=== PATIENT | female | born 1935 | race Caucasian/White ===

== ENCOUNTER 2017-06-20 13:00 | Outpatient (RCR) | payer MEDICARE, SELFPAY ==
--- NOTE | 2017-05-27 14:16 | HP.PTEVAL ---
Patient's Visit Information CALVIN MANCILAL is a 81 year old F referred to Physical Therapy by David MOLINA with a diagnosis of NECK AND BACK PAIN. Date of Evaluation: 05/27/17 Physical Therapist: Amena Mcdermott - Visit Plan Frequency: 2-3x /Week Duration: 4-6 Weeks Plan: AQUATIC THERAPY. POSTURE CORRECTION/STRENGTHENING, INSTRUCTION IN APPROPRIATE BODY MECHANICS AND ACTIVITY MODIFICATIONS. DLS STARTING WITH A NEUTRAL SPINE PROGRESSING ROM TOLERATED. TIFFANIE LE ROM, STRETCHING AND STRENGTHENING. HEP INSTRUCTION. 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 Disability: NO. Present symptoms: LOW BACK PAIN AND NECK PAIN. RIGHT LEG ACHING. Present since: CHRONIC. Pain Scale: NECK/UPPER BACK: WORST 7/10, LEAST 3/10, LOW BACK: WORST 8/10, LEAST 4/10. Currently: NECK/UPPER BACK: 3/10, LOW BACK: 4/10. Commenced as a result of: NO APPARENT REASON. Symptoms at onset: LOW BACK. Worse: DOING DISHES, LOADING THE AWAKE OVERNIGHT COUNSELOR, *VACUUMING, MAKING BEDS, REACHING UP, IRONING, SITTING AT SEWING MACHINE, SITTING AT COMPUTER, SITTING TO WATCH TV, UP AND DOWN STEPS, SHOPPING. Better: FREQUENT CHANGE OF POSTION, RECLINING WITH HEAT, ICY HOT, HOT WATER, TYLONOL EVERY 4 HOURS, MEDICATIONS PRESCRIBED BY THE DOCTOR. Disturbed sleep: YES. Previous history/Previous treatment: CHIROPRACTOR FOR MONTHS, TRACTION, 2016 BONE CHIP REMOVED FROM RIGHT SPINE. APRIL 2017 PIERCE WITH TEMPORARY RELIEF THAT HAS WORN OFF. NO NECK SURGERY. CERVICAL PIERCE'S A COUPLE WEEKS AGO THAT HELPED AND SHE IS STILL BENEFITING FROM. Coughing/sneezing/straining: POSITIVE. DIFFICTULTY SWOLLOWING: ONCE IN A WHILE. NAUSEA: NO. TINNITIS: YES. DIZZINESS: H/O VERTIGO. Gait: CANE AND WALKER NEEDED. ONLY ABLE TO WALK LESS THAN A QUARTER OF MILE NOW. GAIT IS LIMITED BY TIFFANIE KNEE PAIN (TIFFANIE KNEE REPLACEMENTS). Difficulty initiating urinatin: NO. Accidents: NO. Unexplained weight loss: NO. Imaging: LOW BACK X-RAYS RECENTLY ALONG WITH PELVIS AND HIPS: TIFFANIE HIP DEGENERATIVE CHANGES. LUMBAR SPINE DEGENERATIVE CHANGES WITHOUT FX. MILD DEGENERATIVE CHANGES OF THE SI JTS. PMH: HTN. Recent major surgery: TIFFANIE TKR'S. OTHER: 14 STEPS TO FAMILY ROOM IN THE WALK OUT BASEMENT FROM ENTRY. - Objective Sitting Posture: POOR. Standing Posture: POOR WITH INCREASED TRUNK FLEXION. Lordosis: REDUCED. Active Correction of posture: WORSE. Other Observations: INDEP SIT TO STAND WITHOUT UE ASSIST BUT VERY DIFFICULT. Motor deficit: TIFFANIE LE'S GROSSLY 4-/5. Sensory deficit: DECREASED RIGHT LE LIGHT TOUCH SENSATION COMPARED TO LEFT. ROM deficit: WFL BUT KNEE FLEX NOT MEASURED. Dural Signs: POSITIVE RIGHT LE. Lumbar mvmt loss: flex - MOD. ext - QUAN. R SG - QUAN. L SG - QUAN. Core strength: POOR. Palpation: TENDER WITH LIGHT PALPATION OF ENTIRE SPINE FROM OCCIPUT TO TAILBONE AND INTO TIFFANIE SI AND BUTTOCK REGIONS. - Goals Goal 1:: DECREASE C/O BACK AND LE SX'S Goal Time Frame: 4-6 Weeks Goal 2:: DECREASE C/O NECK PAIN Goal Time Frame: 4-6 Weeks Goal 3:: IMPROVE PERSONAL CARE, LIFTING, WALKING, SITTING, STANDING, SLEEPING, SOCIAL LIFE, TRAVEL AND HOMEMAKING FUNCTION Goal Time Frame: 4-6 Weeks Goal 4:: INSTRUCT IN PROPHYLAXIS Goal Time Frame: 4-6 Weeks - Rehabilitation Potential Rehabilitation Potential: Fair - Anticipated Interventions Patient/Client Instruction: Educate patient on: Condition, Plan of Care, Risk Factors, Benefits of Fitness Program For the Purpose of:: To improve self management Therapeutic Exercise to Include: Strength training, Endurance training, Balance training, Body mechanics, Postural training, Flexibilty training, Gait and locomotor training, In an aquatic setting, Active ROM, Dynamic Lumbar Stabilization, Scapular Strength/Stabilization For the Purpose of:: To improve ability of physical actions for home/community/work/leisure, To improve gait and locomotor functions Thank you for the opportunity to evaluate your patient. For Medicare and Medicare HMO plans, please review the plan of care and approve it. It will need to be FAXED BACK to us at [phone] for Medicare purposes. Please let me know if there are questions or concerns regarding this plan of care. Physician Signature: Date:
--- NOTE | 2017-06-20 15:53 | HP.PTREVAL ---
DR.ABASAL Olivia It has been my pleasure to treat CALVIN MANCILLA over the last 10 visits for NECK AND BACK PAIN. Please see the progress note below for an update on the physical therapy plan of care! Subjective: PATIENT REPORTS SHE MOVED HER TV. STATES HER NECK IS MUCH BETTER - IT ISN'T ACHING LIKE IT WAS. STATES THE EX'S HAVE HELPED HER NECK. PATIENT REPORTS THE PAIN IN HER BACK AND NECK IS NOT SEVERE. PATIENT REPORTS THE MAIN IMPROVEMENT SHE HAS SEEN IS IN THE DISCOMFORT IN HER NECK AND BACK. PATIENT HAS ORIENTATION FOR [employer] NEXT WEEK. SHE WANTS TO TO TRY TO CONTINUE POOL EX'S WITH HER MEMBERSHIP AND CONTINUE PT ONCE A WEEK FOR PROGRESSION AND CORRECTION NEEDED. SHE IS ALSO OPEN TO TRYING THE NUSTEP AGAIN WHICH SEE USED TO DO AND LIKED AFTER HER KNEE REPLACEMENTS. Objective/Function: PATIENT IS MAKING SLOW PROGRESS TOWARD ALL PT GOALS. UPON EXAM, Active Correction of posture: INCREASES PATIENTS LOW BACK PAIN. Other Observations: INDEP SIT TO STAND WITHOUT UE ASSIST MUCH MORE EASILY NOW THAN BEFORE PT. Motor deficit: RIGHT LE: HIP 4-/5, KNEE 4-/5 AND ANKLE 4/5. LLE: HIP 4/5, KNEE 4/5, ANKLE 5/5. Sensory deficit: DECREASED RIGHT LATERAL LEG LIGHT TOUCH SENSATION COMPARED TO LEFT. ROM deficit: RIGHT KNEE ROM IN SUPINE WITH A HEEL SLIDE IS FULL EXT TO 109, LEFT KNEE FULL EXT TO 118 DEG FLEX. Dural Signs: POSITIVE RIGHT LE. Lumbar mvmt loss: flex - MOD. ext - QUAN. R SG - QUAN. L SG - QUAN. NO C/O OF INCREASED PAIN WITH LUMBAR ROM TESTING TODAY. TIFFANIE UE ROM IS WFL. TIFFANIE UE STRENGTH IS GROSSLY 4/5 WITH MMT. CERVICAL MVMT LOSS: FLEX - NIL, EXT - MOD, RET - QUAN, TIFFANIE ROT - MOD, TIFFAINE SB - QUAN. CERVICAL ROM TESTING ALL PLANES INCREASE C/O NECK PAIN. CERVICAL ROTATION ESPECIALLY INCREASES PAIN. Plan Plan: DECREASE AQUATIC PHYSICAL THERAPY TO ONE TIME A WEEK FOR PROGRESSION TOLERATED AND TO HELP WITH SUCCESSFUL TRANSITION TO FULLY IINDEP PROGRAM. PATIENT AGREEABLE. Goals Goal 1:: DECREASE C/O BACK AND LE SX'S Goal Time Frame: 4-6 Weeks Goal Progress: Progressing Goal 2:: DECREASE C/O NECK PAIN Goal Time Frame: 4-6 Weeks Goal Progress: Progressing Goal 3:: IMPROVE PERSONAL CARE, LIFTING, WALKING, SITTING, STANDING, SLEEPING, SOCIAL LIFE, TRAVEL AND HOMEMAKING FUNCTION Goal Time Frame: 4-6 Weeks Goal Progress: Progressing Goal 4:: INSTRUCT IN PROPHYLAXIS Goal Time Frame: 4-6 Weeks Goal Progress: Progressing Anticipated Interventions Patient/Client Instruction: Educate patient on: Condition, Plan of Care, Risk Factors, Benefits of Fitness Program For the Purpose of:: To improve self management Therapeutic Exercise to Include: Strength training, Endurance training, Balance training, Body mechanics, Postural training, Flexibilty training, Gait and locomotor training, In an aquatic setting, Active ROM, Dynamic Lumbar Stabilization, Scapular Strength/Stabilization For the Purpose of:: To improve ability of physical actions for home/community/work/leisure, To improve gait and locomotor functions Please do not hesitate to contact me at [phone] by phone or if you have questions or concerns regarding this new plan of care! Sincerely, Amena Mcedrmott
--- NOTE | 2017-10-14 14:18 | HP.PTDCNRP_ITS ---
HP - Discharge Summary (1) - Patient Information CALVIN MANCILLA was seen in my office for initial evaluation on 05/27/17. The following Plan of Care was established for this patient: Initial Frequency: 2-3x /Week Initial Duration: 4-6 Weeks - Anticipated Interventions Patient/Client Instruction: Educate patient on: Condition, Plan of Care, Risk Factors, Benefits of Fitness Program For the Purpose of:: To improve self management Therapeutic Exercise to Include: Strength training, Endurance training, Balance training, Body mechanics, Postural training, Flexibilty training, Gait and locomotor training, In an aquatic setting, Active ROM, Dynamic Lumbar Stabilization, Scapular Strength/Stabilization For the Purpose of:: To improve ability of physical actions for home/community/ work/leisure, To improve gait and locomotor functions This patient was last seen in our office 06/20/17. Pertinent comments regarding their Physical therapy will appear below: This patient has not returned to Physical Therapy and is appropriate to return to MD for further follow-up as needed. At this point I will be discontinuing this patient from physical therapy. I would be happy to see this patient again in the future if found appropriate by the physician. Thank you! Amena Mcdermott
== END 2017-06-20 19:00 | disposition home or self-care (01) ==
LOC: PT 13:00
PROVIDERS: Family Provider Family Medicine; PCP Family Medicine; Visit Provider Anesthesiology Pain Medicine
DX: M54.9 Dorsalgia, unspecified (principal); M54.2 Cervicalgia
CPT/HCPCS: 97113; 97162; 97164; 97530

== ENCOUNTER → 2017-06-24 08:09 | Outpatient (CLI) | payer MEDICARE, SELFPAY ==
[2017-06-24 10:19] LABS: Color, Urine Yellow (Yellow); Glucose, Dipstick Normal (Normal); Ketone-Dipstick Negative (Negative); Leukocyte Esterase-Dipstick 25 /ul (Negative); Nitrite-Dipstick Negative (Negative); Occult Blood-Urine Negative /ul (Negative); Protein-Dipstick Negative (Negative); Urine Bilirubin Dipstick Negative (Negative); Urine Clarity Clear (Clear); Urine Urobilinogen Normal (Normal)
[2017-06-24 11:14] LABS: AST(SGOT) 19 U/L (15-37); Alanine Aminotransfer ALT/SGPT 20 U/L (13-56); Albumin, Serum 3.5 g/dL (3.2-5.0); Alkaline Phosphatase 77 U/L (45-117); Anion Gap 10 (5-15); BUN 16 mg/dL (7-18); BUN/Creat Ratio 19.2 RATIO (10-20); Calcium,Total 8.6 mg/dL (8.5-10.1); Chloride 110 mmol/L (98-107); Cholesterol 201 mg/dL (200); Creatinine, Serum 0.83 mg/dL (0.55-1.02); EST Glomerular Filtration Rate 70 mL/min (>60); Est Glom Filt Rate - Afr Amer 85 mL/min (>60); Globulin 3.5 g/dL (2.2-4.2); Glucose 94 mg/dL (74-106); High Density Lipoprotein 57 mg/dL; Potassium 3.9 mmol/L (3.5-5.1); Sodium Level 142 mmol/L (136-145); Triglycerides 144 mg/dL; Very Low Density Lipoprotein 29 mg/dL (5-40)
[2017-06-25 09:43] LABS: Vitamin D,25 Hydroxy 38.2 ng/mL (29.95-100.01)
== END ==
PROVIDERS: Family Provider Family Medicine; PCP Family Medicine; Visit Provider Family Medicine
DX: I10 Essential (primary) hypertension (principal); E78.5 Hyperlipidemia, unspecified; E55.9 Vitamin D deficiency, unspecified
CPT/HCPCS: 36415; 80053; 80061; 81002; 82306

== ENCOUNTER → 2017-07-16 11:05 | Outpatient (CLI) | payer MEDICARE, SELFPAY ==
--- NOTE | 2017-07-16 11:10 | RAD_ITS ---
STUDY: X-RAY - THORACIC SPINE REASON FOR EXAM: Female, 81 years old. Upper and mid back pain TECHNIQUE: 2 view(s) of the thoracic spine were obtained. COMPARISON: None. FINDINGS: Normal kyphosis of the thoracic spine. There is no substantial scoliosis. There is multilevel endplate spondylosis of the thoracic vertebrae. There is multilevel disc space narrowing of the thoracic spine. The soft tissue structures are unremarkable. RAD/Thoracic Spine 2 Views IMPRESSION: There is multilevel endplate spondylosis of the thoracic vertebrae. There is multilevel disc space narrowing of the thoracic spine. Electronically Signed: Irvin Cortes MD at 11:42 EDT Tel , Service support ,
== END ==
PROVIDERS: Family Provider Family Medicine; PCP Family Medicine; Visit Provider Anesthesiology Pain Medicine
DX: M54.9 Dorsalgia, unspecified (principal)
CPT/HCPCS: 72070

== ENCOUNTER → 2017-08-26 13:11 | Outpatient (CLI) | payer MEDICARE, SELFPAY ==
--- NOTE | 2017-08-26 13:45 | MRI_ITS ---
STUDY: MRI LUMBAR SPINE WITHOUT CONTRAST REASON FOR EXAM: Female, 81 years old. Back pain radiating to the legs TECHNIQUE: Standardized fat and water weighted pulse sequences were obtained in the sagittal and axial planes. COMPARISON: None FINDINGS: No evidence for acute fracture or subluxation. 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 T12-L1: Normal endplates. Normal disc height, desiccation and minimal annular bulge. Normal bilateral facet joints. Normal central canal and bilateral lateral recesses. Normal bilateral intervertebral neural foramina. Normal lumbar lordosis. There is no substantial scoliosis. Normal conus medullaris that terminates at the L1-2: Normal endplates. Narrowed disc space with desiccation of the disc and mild annular bulge. Normal bilateral facet joints. Normal central canal. Mild bilateral recess stenosis. Normal bilateral intervertebral neural foramina. L2-3: Normal endplates. Normal disc height desiccation and mild bulging of the annulus in association with right posterolateral/foraminal disc protrusion. Normal bilateral facet joints. Normal central canal. Mild left lateral recess and neuroforaminal encroachment with moderate narrowing on the right. L3-4: Grade 1 spondylolisthesis. Narrowed disc space with desiccation of the disc and moderate bulging disc osteophyte complex with left posterolateral disc extrusion and superior migration of disc fragment.. Bilateral facet arthropathy. Mild narrowing of the central canal. Moderate bilateral recess stenosis slightly greater on the left with left superior articular stenosis. Moderate right neuroforaminal stenosis and more severe narrowing on the left exaggerated by shortened pedicles. L4-5: Mild endplate spurring. Narrowed disc space with desiccation of the disc and minimal annular bulge.. Bilateral facet arthropathy and mild thickening of ligamenta flava.. Normal central canal. Mild bilateral recess and neuroforaminal encroachment.. L5-S1: Normal endplates. Normal disc height, desiccation and minimal annular bulge.. Bilateral facet arthropathy.. Normal central canal and bilateral lateral recesses. Normal bilateral intervertebral neural foramina. Normal visualized sacral ala. Normal visualized paraspinous soft tissue structures. MRI/Spine Lumbar (Routine) IMPRESSION: Moderate spondylosis. Multilevel spinal stenosis secondary to disc disease and bony hypertrophy most severe at L3-4 association with short pedicles due to grade 1 spondylolisthesis. Findings as above Electronically Signed: Hamlet Cannon MD at 22:55 EDT , Service support ,
== END ==
PROVIDERS: Family Provider Family Medicine; PCP Family Medicine; Visit Provider Anesthesiology Pain Medicine
DX: M54.9 Dorsalgia, unspecified (principal); M79.606 Pain in leg, unspecified
CPT/HCPCS: 72148

== ENCOUNTER → 2017-08-29 16:55 | Outpatient (CLI) | payer MEDICARE, SELFPAY ==
--- NOTE | 2017-08-29 16:58 | RAD_ITS ---
STUDY: X-RAY - RIGHT KNEE REASON FOR EXAM: Female, 81 years old. Pain TECHNIQUE: 4 view(s) of the knee. COMPARISON: None. FINDINGS: Total right knee replacement. The hardware components are well aligned with no imaging evidence of loosening. No acute bony injury. Mild infrapatellar subcutaneous edema.. There is a moderate suprapatellar effusion. RAD/Knee 4 or More Views IMPRESSION: Total replacement of the knee. Effusion is noted. Electronically Signed: Redd Titus DO at 23:59 EDT Tel [phone], Service support ,
[2017-08-29 17:49] LABS: Absolute Lymphocyte Count 3.08 X10^3/ul (0.83-4.51); Absolute Neutrophil Count 3.6 X10^3/uL (2.0-7.7); Basophil# 0.03 X10^3/uL; Basophil% 0.4 % (0-1); Eosinophil# 0.15 X10^3/uL; Hematocrit 42.7 % (37-47); Hemoglobin 14.4 g/dl (12.0-15.0); Lymphocyte # 3.08 X10^3/ul (4.0); Lymphocyte % 40.6 % (19-41); Mean Corp Hgb Conc 33.7 g/gl (32-36); Mean Corpuscular Hgb 30.6 pg (27.0-32.0); Mean Corpuscular Volume 90.9 fL (81-99); Monocyte# 0.72 X10^3/uL; Monocyte% 9.5 % (0-10); Neutrophil # 3.58 X10^3/uL (2.7-7.7); Neutrophil % 47.2 % (47-70); Platelet Count 187 K/mm3 (150-450); RBC Distribution Width CV 13.1 % (11.6-14.6); RBC Distribution Width SD 43.1 fl (35.1-43.9); White Blood Count 7.6 K/mm3 (4.4-11.0)
[2017-08-29 17:50] LABS: POSITIVE COUNT NO; POSITIVE DIFFERENTIAL NO; POSITIVE MORPHOLOGY NO
== END ==
PROVIDERS: Family Provider Family Medicine; PCP Family Medicine; Visit Provider Family Medicine
DX: M25.561 Pain in right knee (principal)
CPT/HCPCS: 36415; 73564; 85025

== ENCOUNTER → 2017-09-01 14:57 | Outpatient (CLI) | payer MEDICARE, SELFPAY ==
--- NOTE | 2017-09-01 15:03 | VDLE_ITS ---
Reason For Study: RLE Swelling RIGHT LEFT GSV is normal. CFV is compressible, spontaneous, phasic, CFV is compressible, spontaneous, phasic, competent, and demonstrates normal competent and demonstrates normal augmentation. augmentation. FV is compressible, spontaneous, phasic, competent and demonstrates normal augmentation. POP V is compressible, spontaneous, phasic, competent and demonstrates normal augmentation. T/P Trunk is compressible. PTV is compressible. RT PerV is compressible. Procedure Exam performed in department. A preliminary report was called and/or faxed to Dr. Weems. Interpretation Summary Deep veins of the right lower extremity are patent and compressible segmentally. There is no evidence of right lower extremity deep vein thrombosis. Valvular competence appears intact within the proximal deep venous system on the right . The right greater saphenous vein appears patent and compressible segmentally. Ordering Physician: Mitesh Weems Referring Physician: Mitesh Weems Performed By: Kasia Norman RDCS, RVT
== END ==
PROVIDERS: Family Provider Family Medicine; PCP Family Medicine; Visit Provider Family Medicine
DX: M79.89 Other specified soft tissue disorders (principal)
CPT/HCPCS: 93971

== ENCOUNTER → 2017-09-03 13:18 | Outpatient (CLI) | payer MEDICARE, SELFPAY ==
--- NOTE | 2017-09-03 13:21 | US_ITS ---
STUDY: SUPERFICIAL ULTRASOUND - RIGHT KNEE ATTENTION TO THE POPLITEAL FOSSA REASON FOR EXAM: Female, 81 years old. Right knee swelling TECHNIQUE: A superficial ultrasound was performed with real-time and static villafana-scale imaging. COMPARISON: None. FINDINGS: There is an avascular fluid collection of the popliteal fossa measuring 2.0 x 1.9 x 1.0 cm consistent with a Woods's cyst. There is also demonstrated a deep soft tissue fluid collection of the right lateral knee region in area of palpable lump measuring 4.8 x 2.6 x 1.8 cm. US/Ext Non Vasc Limited/Soft Tiss IMPRESSION: Small Woods's cyst measuring 2.0 x 1.9 x 1.0 cm. Deep soft tissue fluid collection of the right lateral knee region in area of palpable lump measuring 4.8 x 2.6 x 1.8 cm. Electronically Signed: Howard Trinidad MD at 17:10 EDT , Service support ,
== END ==
PROVIDERS: Family Provider Family Medicine; PCP Family Medicine; Visit Provider Family Medicine
DX: M79.89 Other specified soft tissue disorders (principal)
CPT/HCPCS: 76882

== ENCOUNTER → 2017-09-23 09:20 | Outpatient (CLI) | payer MEDICARE, SELFPAY ==
[2017-09-23 12:13] LABS: Absolute Lymphocyte Count 1.82 X10^3/ul (0.83-4.51); Absolute Neutrophil Count 5.3 X10^3/uL (2.0-7.7); Basophil# 0.04 X10^3/uL; Basophil% 0.5 % (0-1); Eosinophil# 0.11 X10^3/uL; Eosinophils% 1.4 % (0-5); Hematocrit 43.4 % (37-47); Hemoglobin 14.3 g/dl (12.0-15.0); Lymphocyte # 1.82 X10^3/ul (4.0); Lymphocyte % 22.9 % (19-41); Mean Corp Hgb Conc 32.9 g/gl (32-36); Mean Platelet Vol. 12.3 fl (6.2-12.0); Monocyte# 0.71 X10^3/uL; Monocyte% 8.9 % (0-10); Neutrophil # 5.26 X10^3/uL (2.7-7.7); Platelet Count 211 K/mm3 (150-450); RBC Distribution Width CV 12.5 % (11.6-14.6); RBC Distribution Width SD 41.4 fl (35.1-43.9); Red Blood Count 4.77 M/mm3 (4.2-5.4)
[2017-09-23 12:14] LABS: Erythrocyte Sedimentation Rate 26 mm/hr (0-30)
[2017-09-23 12:17] LABS: POSITIVE COUNT NO; POSITIVE DIFFERENTIAL NO; POSITIVE MORPHOLOGY NO
[2017-09-23 12:35] LABS: CRP 8.05 mg/L (0.0-3.0)
== END ==
PROVIDERS: Family Provider Family Medicine; PCP Family Medicine; Visit Provider Orthopaedic Surgery
DX: M25.561 Pain in right knee (principal); Z96.651 Presence of right artificial knee joint
CPT/HCPCS: 36415; 85025; 85652; 86140

== ENCOUNTER → 2017-09-26 09:55 | Outpatient (CLI) | payer MEDICARE, SELFPAY ==
--- NOTE | 2017-09-26 09:57 | NM_ITS ---
CLINICAL: 81-year-old female with reported history of painful bilateral knee arthroplasties operated > 2 years previous. THREE PHASE KNEE ARTICULATIONS- WHOLE BODY RADIONUCLIDE 99m Tc MDP BONE SCINTIGRAPHY COMPARISON: Plain film radiograph report right knee 08/29/2017 FINDINGS: Following the intravenous administration of 26.0 mCi of 99m Tc MDP, bone images reveal: 1. The flow and immediate static blood pool acquisitions of the knee articulations demonstrate arterial and venous phase hyperemia manifest in the region of the femoral and tibial components of the symptomatic right knee prosthesis. 2. Relatively intense increased tracer concentration is noted in the medial and lateral femoral and tibial components of the symptomatic right knee prosthesis correlating with the flow and blood pool changes. 3. Mild increased uptake is noted in the medial and lateral tibial components of the left knee prosthesis. 4. Facilitated tracer concentration is demonstrated in the patellofemoral compartment of the right-left knees, the sternoclavicular and acromioclavicular compartments of both shoulders, upper cervical spine posteriorly on the left, mid-lower cervical spine posteriorly on the left and right, the ninth-11th thoracic vertebra posteriorly on the right, fourth lumbar vertebra and sacrum posteriorly on the left and right, lateral compartment of the left ankle, the visualized right-left hands. 5. An increase in uptake is visualized in the left femoral neck. 6. The remaining skeletal structures are scintigraphically unremarkable with normal-appearing renal images and urinary bladder activity identified. NM/Bone Scan Three Phase IMPRESSION: 1. The increase in radiopharmaceutical concentration identified in the femoral and tibial components of the painful right and tibial components of the left knee arthroplasties is consistent with a high likelihood of loosening in the setting of operative intervention > 2 years prior. If an infectious etiology is a diagnostic consideration, correlation with labeled leukocyte imaging is recommended. 2. Enhanced tracer uptake noted in the left femoral neck may be further investigated with plain film radiography to exclude trauma-fracture. 3. 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 Electronically Signed: El Nieves DO at 18:02 EDT Tel , Service support ,
== END ==
PROVIDERS: Family Provider Family Medicine; PCP Family Medicine; Visit Provider Orthopaedic Surgery
DX: M25.561 Pain in right knee (principal); Z96.651 Presence of right artificial knee joint
CPT/HCPCS: 78315

== ENCOUNTER 2017-10-13 09:30 | Inpatient (IN) | payer MEDICARE, SELFPAY ==
[2017-10-06 13:02] VITALS: BP 129/83; PULSE 101; RESP 16; TEMP 37.3; O2SAT 97; BMI 34.0
--- NOTE | 2017-10-06 13:33 | SDCEKG_ITS ---
Test Reason : Blood Pressure : / mmHG Vent. Rate : 094 BPM Atrial Rate : 094 BPM P-R Int : 166 ms QRS Dur : 084 ms QT Int : 358 ms P-R-T Axes : 043 -19 045 degrees QTc Int : 447 ms Normal sinus rhythm Possible Left atrial enlargement Left ventricular hypertrophy Abnormal ECG Confirmed by CHANCE HATCH, KAREN ([id number]), film editor CHIQUIS BURLESON ([id number]) on 10/10/2017 9:31:34 AM Referred By: Jerod Mcneil Confirmed By:KAREN FLETCHER MD
[2017-10-06 14:38] LABS: Anion Gap 9 (5-15); BUN 18 mg/dL (7-18); BUN/Creat Ratio 21.2 RATIO (10-20); Calcium,Total 9.3 mg/dL (8.5-10.1); Chloride 105 mmol/L (98-107); Creatinine, Serum 0.85 mg/dL (0.55-1.02); EST Glomerular Filtration Rate 68 mL/min (>60); Est Glom Filt Rate - Afr Amer 83 mL/min (>60); Estimated Creatinine Clearance 42.94 ml/min; Glucose 89 mg/dL (74-106); Sodium Level 140 mmol/L (136-145)
[2017-10-13] VITALS (8 sets, daily range): BP systolic 98–148; BP diastolic 65–86; PULSE 62–69; RESP 14–18; TEMP 35.7–37; O2SAT 92–97; BMI 34.0
[2017-10-13] MEDS: Celecoxib 200 MG Capsule 400 MG PO (10:15)
[2017-10-13] MEDS: Acetaminophen 500 MG Tablet 1000 MG PO ×3 (10:16→23:24)
[2017-10-13] MEDS: oxyCODONE HCl Cr 10 MG Tablet PO (10:56)
--- NOTE | 2017-10-13 11:30 | PCM.OPRPT ---
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 Post-Operative Diagnosis: Same Surgery/Procedure Performed:: Revision of right total knee arthroplasty femoral and tibial components Description of Surgical Findings:: Total knee arthroplasty in place with mild to moderate loosening of both femoral and tibial components machine tool technician instructor: Carlos Alberto Angeles Type of Anesthesia:: Spinal Anesthesiologist: Dontrell Carter Special Medications: txa Specimen's removed: Total knee arthroplasty components, bone and soft tissue Estimated Blood Loss (mL): 150 Fluids Replaced: See anesthesia report Description of Procedure: Implants: [place] triathlon size 3 total stabilized femur with a 10 mm posterior lateral augment 4 mm offset 14 x 100 mm stem, size 4 tibia with 5 mm wedge 4 mm offset 13 x 100 mm stem all cemented with Simplex, 13 mm TS polyethylene Indications: Patient is an 82-year-old female that had a total knee arthroplasty completed 8 years ago. She did very well for several years and for the past 3 years has developed pain in her knee. She is doing very well with her other knee replacement. I did obtain a bone scan which revealed the femoral and tibial components appear to be loose. After some deliberation the patient has elected to proceed with total knee revision Procedure description: The patient was greeted in the preoperative area. The right knee was then marked with a surgical marker. Patient was then taken to or [address]. They were administered a dose of antibiotics as well as tranexamic acid. Once adequate anesthesia was obtained and airway was secured to placed in supine position on the operating room table. A well-padded tourniquet was placed on the affected extremity. Leg was then prepped and draped in the usual sterile fashion from the knee down. Ioban was used on the skin. Surgical timeout was then performed and confirmed with all present. Six-inch Esmarch was used to examine the limb and tourniquet was then inflated to 250 mmHg. A longitudinal incision was then planned and carried out in the anterior aspect of the knee. The dissection was then carried the length of the incision exposing the underlying retained total knee arthroplasty. I did excise redundant capsule and developed both medial lateral gutters. Any remaining anterior fat pad was removed. The patella was reflected laterally and retractors were placed. Remove the polyethylene. At this point combination of Gigli saw as well as flexible osteotomes were utilized in order to interrupt the bone cement interface on the femur. This was not grossly loose however the femur did come off with very little bone loss. The only deficit identified appear to be posterior lateral condyle. This was taken into note for later implant selection. Once this was complete any remaining cement was removed. Attention was then turned to the tibial component. An oscillating saw as well as flexible osteotomes were used to enter up the bone cement interface in the tibia was removed without difficulty. Any remaining cement was removed. I did use osteotomes to remove the cement plug within the tibial canal. Once this was complete both tibia and femoral canals were sequentially reamed to the appropriate size for planned stems. Size 13 mm stem was chosen for the tibia this was maintained in place and the revision tibial cutting jig was then applied to the stem and pinned in position. I then did make a very small cut of the remaining tibia in order to ensure that this is than 0? of slope. The stem was removed and assessment of my office that was then obtained with a 4 mm offset at 3 o'clock position. Attention was then turned to the femur. Stem was obtained size 14 and appropriate offset was placed in the 12 o'clock position in the femoral revision cutting guide was then placed on the femur. I was able to maintain the same joint line as the remaining portion of distal bone was very adequate. Assessed my rotation based off the epicondylar axis to be in approximately 3? of external rotation. At this point it was determined the patient would require a 10 mm posterior lateral wedge. I did make the cut for this wedge through the revision cutting guide. A trial was then constructed on the back table with a 14 x 100 mm wedge 4 mm offset and size 3 total stabilized femur and this was then placed. The tibial trial was obtained as a size 4 a 4 mm offset and a 13 x 100 mm stem. I trialed this with a 18 mm polyethylene. Patient did have excellent varus valgus stability and full extension however there was some instability and incompetence of the medial collateral ligament with flexion. Given the patient's age and activity level I did elect to proceed with a total stabilized polyethylene. Very happy with the range of motion as the patient had full extension and full flexion. Because of the size of the polyethylene I did elect to place a 5 mm wedge in order to decrease the thickness of the polyethylene. Patient's patella appeared stable and did not appear to require any type of revision surgery. At this point cement was mixed on the back table. The trial components were removed and the knee was copiously irrigated. Did use a cocktail of injection for postoperative pain control. The final components were then constructed on the back table as above. The final components were then cemented in the standard fashion and excess cement was removed with cement removal tools and patellar clamp is placed in the patella. As the cement had cured in full extension tourniquet was deflated and hemostasis was perfect with Bovie cautery as well as the aqua Manus. Needle is once again trialed with different size polyethylenes to ensure the full range of motion was achieved as well as excellent balancing ligamentously was achieved however I still felt that a total stabilized polyethylene was achieved the best results for this patient as there was some MCL incompetence in flexion. At this point the knee was copiously irrigated. Final implant was then inserted locking mechanism was engaged and confirmed to be locked. The arthrotomy was then closed with #1 Vicryl aggravate type fashion interrupted. Subcutaneous tissue was closed with 0 Vicryl and surgical oumou were placed in the skin. A occlusive silver impregnated dressing was then applied followed by well-padded sterile dressing secured with an Terry wrap. The patient was taken to the PACU in stable condition. No complications known at this time. Postoperatively we will maintain standard total knee postoperative protocol. The use of the physician nurse practitioner physicians assistant was integral during this procedure. They assisted with positioning placement of the tourniquet retracting closure and placement of the dressing. The procedure would have been much more difficult without their expertise and assistance - Complications None known - Admit VTE Documentation VTE Present on Admission: Yes VTE Mechan Device Prophylaxis: SCD's, Thigh High DEBORAH Hose VTE Pharm Prophylaxis ordered?: Yes
[2017-10-13] MEDS: Cefazolin 2 GM in 0.9% Normal Saline 100 ML IV (11:45)
--- NOTE | 2017-10-13 14:25 | RAD_ITS ---
STUDY: X-RAY - RIGHT KNEE REASON FOR EXAM: Female, 82 years old. Right knee postop TECHNIQUE: 4 view(s) of the knee. COMPARISON: 08/29/2017 FINDINGS: Patient is status post right knee arthroplasty revision without evidence of acute fracture or dislocation. No evidence of hardware failure or loosening. Expected postoperative soft tissue changes. Skin oumou noted. RAD/Knee 1 or 2 Views IMPRESSION: As above Electronically Signed: Sourav Whelan DO at 16:29 EDT Tel , Service support ,
[2017-10-13] MEDS: Lactated Ringers 1,000 ML 125 ML IV (16:13)
[2017-10-13] MEDS: Gabapentin 300 MG Capsule PO ×2 (16:14→23:26)
[2017-10-13] MEDS: oxyCODONE 5 MG Tablet PO (18:39)
[2017-10-13] MEDS: Cefazolin 1 GM/50 ML BAG IV (21:01)
[2017-10-13] MEDS: Ondansetron 4 MG/2 ML Vial IV (21:04)
[2017-10-13] MEDS: 0.9% NaCl Peripheral Flush Adult/Peds IV ×2 (21:05→23:32)
[2017-10-13] MEDS: proMETHazine 25 MG/ML Syringe 12.5 MG IM (23:21)
[2017-10-13] MEDS: Senna/Docusate Sodium 1 Tablet 2 TABLET PO (23:26)
[2017-10-13] MEDS: Aspirin 325 MG Tablet PO (23:26)
[2017-10-13] MEDS: Ketorolac 15 MG/ML Vial IV (23:32)
[2017-10-14] VITALS (8 sets, daily range): BP systolic 97–138; BP diastolic 58–75; PULSE 61–79; RESP 16–18; TEMP 36.4–36.8; O2SAT 94–96
[2017-10-14] MEDS: Lactated Ringers 1,000 ML 125 ML IV (02:20)
[2017-10-14] MEDS: Cefazolin 1 GM/50 ML BAG IV (04:20)
[2017-10-14 06:08] LABS: Hematocrit 36.4 % (37-47); Hemoglobin 12.3 g/dl (12.0-15.0); Mean Corp Hgb Conc 33.8 g/gl (32-36); Mean Corpuscular Hgb 30.3 pg (27.0-32.0); Mean Corpuscular Volume 89.7 fL (81-99); Mean Platelet Vol. 11.9 fl (6.2-12.0); Platelet Count 177 K/mm3 (150-450); RBC Distribution Width CV 12.3 % (11.6-14.6); Red Blood Count 4.06 M/mm3 (4.2-5.4); White Blood Count 14.9 K/mm3 (4.4-11.0)
[2017-10-14 06:17] LABS: Scan Indicated on CBC? Y/N NO
[2017-10-14] MEDS: Acetaminophen 500 MG Tablet 1000 MG PO ×3 (06:23→22:35)
[2017-10-14] MEDS: Gabapentin 300 MG Capsule PO ×3 (06:23→22:35)
[2017-10-14] MEDS: 0.9% NaCl Peripheral Flush Adult/Peds IV (06:27)
[2017-10-14 06:31] LABS: Anion Gap 10 (5-15); BUN 22 mg/dL (7-18); BUN/Creat Ratio 20.4 RATIO (10-20); Calcium,Total 8.6 mg/dL (8.5-10.1); Chloride 104 mmol/L (98-107); Creatinine, Serum 1.08 mg/dL (0.55-1.02); EST Glomerular Filtration Rate 52 mL/min (>60); Est Glom Filt Rate - Afr Amer 63 mL/min (>60); Estimated Creatinine Clearance 33.79 ml/min; Glucose 139 mg/dL (74-106); Potassium 4.2 mmol/L (3.5-5.1); Sodium Level 139 mmol/L (136-145)
--- NOTE | 2017-10-14 07:21 | PCM.PN.ORT ---
Subjective: Patient sitting at bedside. States pain is well-managed. Denies chest pain, shortness breath, calf pain, nausea vomiting. No other complaints Objective: Dressing is clean dry intact. Negative signs and symptoms of DVT. Afebrile neurovascular is intact. Patient states she feels fine today no complaints. Denies chest pain, shortness breath, calf pain, or nausea vomiting. - Physical Exam General: Alert, Oriented x3, Cooperative HEENT: PERRLA Oral: Moist Mucosa Cardiovascular: Regular rate Neurological: Cranial nerves II-XII grossly intact Psych/Mental Status: Normal Affect, Alert and oriented to time, place, person, mood and affect Vital Signs Temp Pulse Resp BP Pulse Ox 98.0 F 76 18 118/67 94 10/14/17 06:00 10/14/17 06:00 10/14/17 06:00 10/14/17 06:00 10/14/17 06:00 Oxygen Flow Rate (L/min) 1 Oxygen Delivery Method Room Air Weight: 87 kg Body Mass Index (BMI) 34.0 Intake and Output for Last 24 Hours 10/12/17 10/13/17 10/14/17 23:59 23:59 23:59 Intake Total 3726 / 3726 645 / 645 Output Total 325 / 325 200 / 200 Balance 3401 / 3401 445 / 445 Laboratory Tests Past 24 Hrs 10/14/17 10/14/17 05:35 05:35 WBC 14.9 H RBC 4.06 L Hgb 12.3 Hct 36.4 L MCV 89.7 MCH 30.3 MCHC 33.8 RDW 12.3 RDW Differential 40.0 Plt Count 177 MPV 11.9 Sodium 139 Potassium 4.2 Chloride 104 Carbon Dioxide 25.0 Anion Gap 10 BUN 22 H Creatinine 1.08 H Estim Creat Clear Calc 33.79 Est GFR (MDRD) Af Amer 63 Est GFR (MDRD) Non-Af 52 L BUN/Creatinine Ratio 20.4 H Glucose 139 H Calcium 8.6 Medical Necessity - Tobacco Use Smoking Status: Never smoker Assessment/Plan Status post revision right total knee arthroplasty Plan 1. Continue all pain medications as prescribed 2. Begin physical therapy today, weight-bear as tolerated with walker. 3. Aspirin 325 mg 1 p.o. every 12 hours ?30 days for postop DVT prophylaxis 4. Encourage incentive spirometry 5. Possible discharge home tomorrow
[2017-10-14] MEDS: HYDROCHLOROTHIAZIDE 12.5 MG CAPSULE PO (07:51)
[2017-10-14] MEDS: Aspirin 325 MG Tablet PO ×2 (07:51→22:34)
[2017-10-14] MEDS: Senna/Docusate Sodium 1 Tablet 2 TABLET PO ×2 (07:51→22:35)
[2017-10-14] MEDS: morphine SR 15 MG Tablet PO ×2 (07:52→22:34)
[2017-10-14] MEDS: Atenolol 50 MG Tablet PO (11:37)
[2017-10-14] MEDS: oxyCODONE 5 MG Tablet PO (12:45)
--- NOTE | 2017-10-14 13:19 | PCA ---
pt in therapy
--- NOTE | 2017-10-14 15:35 | CASEMGMT ---
RN ADRIÁN Face to Face with patient for initial transition planning/care coordination assessment. RN ADRIÁN introduced self and role at [facility]. Patient lying in bed, alert and oriented, at bedside. Patient willing to participate in assessment and is able to answer all questions appropriately. Care providers, pharmacy, and demographics verified. Patient lives in a one story home with , 3 steps to enter home. Patient states she has walker, rollator, and tub bench at home. Patient wishes to discharge home and is setup with [facility] for outpatient therapy with providing transportation. Patient states she has no further needs or concerns at this time. CM to follow for discharge planning needs that may arise. Disposition Plan: Patient to discharge home with outpatient therapy, family support, and follow-up plans in place.
[2017-10-15 02:30] VITALS: BP 129/67; PULSE 64; RESP 16; TEMP 36.9; O2SAT 93
[2017-10-15] MEDS: Gabapentin 300 MG Capsule PO (05:43)
[2017-10-15] MEDS: Acetaminophen 500 MG Tablet 1000 MG PO (05:44)
[2017-10-15 05:56] LABS: Hematocrit 33.3 % (37-47); Hemoglobin 10.9 g/dl (12.0-15.0); Mean Corp Hgb Conc 32.7 g/gl (32-36); Mean Corpuscular Hgb 30.1 pg (27.0-32.0); Mean Platelet Vol. 12.6 fl (6.2-12.0); Platelet Count 142 K/mm3 (150-450); RBC Distribution Width CV 12.7 % (11.6-14.6); RBC Distribution Width SD 41.2 fl (35.1-43.9); Red Blood Count 3.62 M/mm3 (4.2-5.4); White Blood Count 7.7 K/mm3 (4.4-11.0)
[2017-10-15 06:15] LABS: Scan Indicated on CBC? Y/N NO
[2017-10-15 07:22] VITALS: BP 130/71; PULSE 69; RESP 16; TEMP 36.5; O2SAT 94
--- NOTE | 2017-10-15 09:02 | PCM.PN.ORT ---
Subjective: Patient sitting at bedside, pain well-managed. No other complaints. Ready for discharge home. Objective: Dressings clean dry intact, negative signs and symptoms of DVT. Vital signs labs all within normal limits. Patient is afebrile neurovascular is intact. - Physical Exam General: Alert, Oriented x3, Cooperative HEENT: PERRLA Neurological: Cranial nerves II-XII grossly intact Psych/Mental Status: Normal Affect, Alert and oriented to time, place, person, mood and affect Vital Signs Temp Pulse Resp BP Pulse Ox 97.7 F L 69 16 130/71 H 94 10/15/17 07:22 10/15/17 07:22 10/15/17 07:22 10/15/17 07:22 10/15/17 07:22 Oxygen Flow Rate (L/min) 1 Oxygen Delivery Method Room Air Weight: 87 kg Body Mass Index (BMI) 34.0 Intake and Output for Last 24 Hours 10/13/17 10/14/17 10/15/17 23:59 23:59 23:59 Intake Total 3726 / 3726 2495 / 2495 500 / 500 Output Total 325 / 325 1800 / 1800 550 / 550 Balance 3401 / 3401 695 / 695 -50 / -50 Laboratory Tests Past 24 Hrs 10/15/17 05:04 WBC 7.7 RBC 3.62 L Hgb 10.9 L Hct 33.3 L MCV 92.0 MCH 30.1 MCHC 32.7 RDW 12.7 RDW Differential 41.2 Plt Count 142 L MPV 12.6 H Medical Necessity - Tobacco Use Smoking Status: Never smoker Assessment/Plan Status post revision right total knee arthroplasty Plan 1. Continue all pain medications as prescribed 2. Continue physical therapy at [facility] [place], weight-bear as tolerated with walker. 3. Aspirin 325 mg 1 p.o. every 12 hours ?30 days for postop DVT prophylaxis 4. Follow-up as scheduled 5. Discharge home today
--- NOTE | 2017-10-15 09:08 | PCM.DC.TKR ---
Discharge Diet: No Restrictions Discharge Activity: May Not Drive, May Shower, Use Walker May shower in (days): 2 Ice area for (Minutes): 20 - each hour while awake. Weight Bearing Status: Weight bearing as tolerated Elevate: Operative Extremity Additional Activity Instructions:: Wear elastic stockings for 2 weeks after your surgery. Call your doctor if your incision/area has: Continuous Slow Oozing, Sudden Increased Bleeding, Increased Pain/ Swelling, Increased Redness, Foul Smelling Discharge Call your doctor if you observe: Fever of 101 or Higher, Coldness, Increased Pain - in extremity, Numbness or Tingling, Change in Color, Calf discomfort, Uncontrolled pain Change Dressing in (Days):: 0 - and daily as needed. Remove Dressing in (days):: 8 Cleanse incision/area with: Soap & Water Allergies/Adverse Reactions: Allergies naproxen [From Aleve] Allergy (Verified 10/06/17 12:52) Hives codeine Adverse Reaction (Verified 10/06/17 12:52) Other NIGHTMARES,HALLUCINATIONS Ltjjlmb-Zyx-Zsc Reductase Inhibitor Adverse Reaction (Verified 10/06/17 12:52) Pain in joints Medications to take at Discharge Atenolol [Tenormin (beta maranda)] 50 mg PO DAILY 10/06/17 Gabapentin [Neurontin] 300 mg PO TID 10/06/17 Hydrochlorothiazide 12.5 mg PO DAILY 10/06/17 Multivit-Min/FA/Lycopen/Lutein [Centrum Silver Tablet] 1 each PO DAILY 10/06/17 [place]-3 Fatty Acids [Fish Oil] 500 mg PO DAILY 10/06/17 Ubidecarenone/Vit E Acetate [Co Q-10 100 mg Softgel] 1 each PO DAILY 10/06/17 Dimenhydrinate [Dramamine] 50 mg PO DAILY PRN 10/13/17 Acetaminophen [Tylenol] 1,000 mg PO Q8 #90 tab 10/15/17 Aspirin 325 mg PO BID #60 tab 10/15/17 Oxycodone [Oxyir] 5 - 10 mg PO Q4H PRN PRN 7 Days #80 tab 10/15/17 morphine SR tablet [Ms Contin] 15 mg PO BID 7 Days #14 tab 10/15/17 The following prescriptions were given: Oxycodone [Oxyir] 5 - 10 mg PO Q4H PRN PRN 7 Days #80 tab PRN Reason: Mod-Severe Pain (4-01/21) Acetaminophen [Tylenol] 1,000 mg PO Q8 #90 tab Aspirin 325 mg PO BID #60 tab morphine SR tablet [Ms Contin] 15 mg PO BID 7 Days #14 tab Primary Care Physician: Mitesh Weems MD [Primary Care Provider] - Test Results: Please Follow Up With: Carlos Alberto Angeles PA-C
[2017-10-15] MEDS: Aspirin 325 MG Tablet PO (09:34)
[2017-10-15] MEDS: HYDROCHLOROTHIAZIDE 12.5 MG CAPSULE PO (09:34)
[2017-10-15] MEDS: Atenolol 50 MG Tablet PO (09:35)
[2017-10-15] MEDS: Senna/Docusate Sodium 1 Tablet 2 TABLET PO (09:35)
[2017-10-15] MEDS: morphine SR 15 MG Tablet PO (09:38)
[2017-10-15 13:47] VITALS: BP 109/71; PULSE 69; RESP 16; TEMP 36.4; O2SAT 96
== END 2017-10-15 14:06 | disposition home or self-care (01) | DRG 468 ==
PROVIDERS: Admitting Provider Orthopaedic Surgery; Family Provider Family Medicine; PCP Family Medicine; Visit Provider Orthopaedic Surgery
PROC: 0SPC0JZ Removal of Synthetic Substitute from Right Knee Joint, Open Approach (ICD-10-PCS; principal; 2017-10-13 11:20)
DX: T84.032A Mechanical loosening of internal right knee prosthetic joint, initial encounter (principal); I10 Essential (primary) hypertension
CPT/HCPCS: 36415; 73560; 80048; 85027; 87081; 93005; 97110; 97116; 97162; 97166; 97530; 97535; C1776; J7120; A4216; J2405

== ENCOUNTER 2018-01-02 13:00 | Day surgery (SDC) | payer MEDICARE, SELFPAY ==
[2018-01-02] VITALS (7 sets, daily range): BP systolic 118–157; BP diastolic 65–88; PULSE 60–81; RESP 16–18; TEMP 36.2–36.7; O2SAT 92–98; BMI 32.5
--- NOTE | 2018-01-02 14:15 | RAD_ITS ---
STUDY: X-RAY - LUMBAR SPINE REASON FOR EXAM: Female, 82 years old. Spinal cord stimulator implant. TECHNIQUE: 3 view(s) of the lumbar spine were obtained. COMPARISON: None FINDINGS: images were submitted, as radiology support for c-arm imaging in the operating room. This is not a diagnostic examination. Images for for documentation purposes only. Fluoroscopy time if reported: None provided. RAD/Lumbar Spine 2 or 3 Views IMPRESSION: Intraoperative fluoroscopic image guidance. Electronically Signed: Camila Cotton MD at 0:57 EDT , Service support ,
[2018-01-02] MEDS: Cefazolin 2 GM in 0.9% Normal Saline 100 ML IV (15:32)
[2018-01-02] MEDS: Bupiv/Epi 0.5% Mpf 30 ML Vial (16:40)
== END 2018-01-02 18:54 | disposition home or self-care (01) ==
PROVIDERS: Family Provider Family Medicine; PCP Family Medicine; Visit Provider Anesthesiology Pain Medicine
PROC: (CPT 63685; principal; 2018-01-02 14:00)
DX: M96.1 Postlaminectomy syndrome, not elsewhere classified (principal); I10 Essential (primary) hypertension; G50.0 Trigeminal neuralgia; G25.81 Restless legs syndrome; E78.00 Pure hypercholesterolemia, unspecified; K21.9 Gastro-esophageal reflux disease without esophagitis; M19.90 Unspecified osteoarthritis, unspecified site; Z87.19 Personal history of other diseases of the digestive system; Z78.0 Asymptomatic menopausal state; Z90.49 Acquired absence of other specified parts of digestive tract; Z79.82 Long term (current) use of aspirin; Z79.899 Other long term (current) drug therapy
CPT/HCPCS: 63650 ×2; 63685; 95972; 72100; 76000; J7120; J2405

== ENCOUNTER → 2018-02-25 08:31 | Outpatient (CLI) | payer MEDICARE, SELFPAY ==
[2018-02-25 10:23] LABS: AST(SGOT) 19 U/L (15-37); Alanine Aminotransfer ALT/SGPT 21 U/L (13-56); Albumin, Serum 3.6 g/dL (3.2-5.0); Alkaline Phosphatase 81 U/L (45-117); Anion Gap 8 (5-15); BUN 18 mg/dL (7-18); BUN/Creat Ratio 20.9 RATIO (10-20); Calcium,Total 8.5 mg/dL (8.5-10.1); Chloride 111 mmol/L (98-107); Cholesterol 174 mg/dL (200); Creatinine, Serum 0.86 mg/dL (0.55-1.02); EST Glomerular Filtration Rate 67 mL/min (>60); Est Glom Filt Rate - Afr Amer 81 mL/min (>60); Globulin 3.5 g/dL (2.2-4.2); Glucose 97 mg/dL (74-106); High Density Lipoprotein 51 mg/dL; Potassium 4.1 mmol/L (3.5-5.1); Protein, Total 7.1 g/dL (6.4-8.2); Sodium Level 142 mmol/L (136-145); Triglycerides 175 mg/dL; Very Low Density Lipoprotein 35 mg/dL (5-40)
[2018-02-25 10:25] LABS: Vitamin D,25 Hydroxy 24.8 ng/mL (29.95-100.01)
== END ==
PROVIDERS: Family Provider Family Medicine; PCP Family Medicine; Visit Provider Family Medicine
DX: I10 Essential (primary) hypertension (principal); E78.5 Hyperlipidemia, unspecified; E55.9 Vitamin D deficiency, unspecified
CPT/HCPCS: 36415; 80053; 80061; 82306

== ENCOUNTER → 2018-03-10 08:25 | Outpatient (CLI) | payer MEDICARE, SELFPAY ==
--- NOTE | 2018-03-10 08:27 | RAD_ITS ---
STUDY: X-RAY - CERVICAL SPINE REASON FOR EXAM: Female, 82 years old. Pain TECHNIQUE: 4 view(s) of the cervical spine were obtained. COMPARISON: None FINDINGS: No evidence of instability between flexion and extension. Normal neutral alignment. Degenerative disc disease at the C5-6 level. Diffuse facet disease. Prevertebral soft tissues are normal. Thoracic spine stimulator. RAD/Cerv Spine Obl/Flex/Ext Comp IMPRESSION: No evidence of instability between flexion and extension. Normal neutral alignment. Degenerative disc disease at the C5-6 level. Diffuse facet disease. Electronically Signed: Evangelista Krishnamurthy MD at 4:51 EST Tel , Service support ,
--- NOTE | 2018-03-10 08:27 | RAD_ITS ---
STUDY: X-RAY - LUMBAR SPINE REASON FOR EXAM: Female, 82 years old. Back pain TECHNIQUE: 4 view(s) of the lumbar spine were obtained. COMPARISON: 03/21/2017 FINDINGS: Thoracic spine stimulator. Mild dextroconvex scoliosis. Stable grade 1 L3-4 anterolisthesis. L3-4 and L4-5 degenerative disc disease. Diffuse facet disease. No compression deformities are seen. No instability between flexion and extension. Cholecystectomy clips. Vascular calcifications. RAD/L/S Spine Min 4 Views IMPRESSION: No instability between flexion and extension. Stable grade 1 L3-4 anterolisthesis. Degenerative changes as described. Electronically Signed: Evangelista Krishnamurthy MD at 4:56 EST Tel , Service support ,
--- OUTSIDE RECORDS SUMMARY | 2018-04-21 20:56 | XMS RPT_ITS ---
:1935 Author Organization [place] Support Name Relationship Address Phone DEANDRE XIE Unavailable [address] + [place] [address] LEE ROBIN Unavailable [address] + [place] [address] R Unavailable Unavailable Unavailable DEANDRE XIE Unavailable [address] + [place] [address] ELE ROBIN Unavailable [address] + [place] [address] R Unavailable Unavailable Unavailable DEANDRE XIE Unavailable [address] + [place] [address] LEE ROBIN Unavailable [address] + [place] [address] R Unavailable Unavailable Unavailable DEANDRE XIE Unavailable [address] + [place] [address] LEE ROBIN Unavailable [address] + [place] [address] R Unavailable Unavailable Unavailable DEANDRE XIE Unavailable [address] + [place] [address] LEE ROBIN Unavailable [address] + [place] [address] R Unavailable Unavailable Unavailable DEANDRE XIE Unavailable [address] + [place] [address] LEE ROBIN Unavailable [address] + [place] [address] R Unavailable Unavailable Unavailable DEANDRE XIE Unavailable [address] + [place] [address] LEE ROBIN Unavailable [address] + [place] [address] R Unavailable Unavailable Unavailable GRIMWOOD, DEANDRE Unavailable [address] + [place] [address] LEE ROBIN Unavailable [address] + [place] [address] R Unavailable Unavailable Unavailable GRIMWOOD, DEANDRE Unavailable [address] + [place] [address] LEE ROBIN Unavailable [address] + [place] [address] R Unavailable Unavailable Unavailable GRIMWOOD, DEANDRE Unavailable [address] + [place] [address] LEE ROBIN Unavailable [address] + [place] [address] R Unavailable Unavailable Unavailable GRIMWOOD, DEANDRE Unavailable [address] + [place] [address] LEE ROBIN Unavailable [address] + [place] [address] R Unavailable Unavailable Unavailable GRIMWOOD, DEANDRE Unavailable [address] + [place] [address] LEE ROBIN Unavailable [address] + [place] [address] R Unavailable Unavailable Unavailable GRIMWOOD, DEANDRE Unavailable [address] + [place] [address] LEE ROBIN Unavailable [address] + [place] [address] R Unavailable Unavailable Unavailable GRIMWOOD, DEANDRE Unavailable [address] + [place] [address] LEE ROBIN Unavailable [address] + [place] [address] R Unavailable Unavailable Unavailable GRIMWOOD, DEANDRE Unavailable [address] + [place] [address] LEE ROBIN Unavailable [address] + [place] [address] R Unavailable Unavailable Unavailable GRIMWOOD, DEANDRE Unavailable [address] + [place] [address] LEE ROBIN Unavailable [address] [facility] + [place] [address] R Unavailable Unavailable Unavailable Care Team Providers Name Role Tania MARIA LUZ HO Attending Unavailable DAVID ONEAL Referring Unavailable David Oneal Attending Unavailable David Oneal Referring Unavailable Schinner, Mitesh E Primary Care Unavailable SchMitesh bazan Attending Unavailable Schinarlene, Mitesh Meza Referring Unavailable Schinarlene, Mitesh E Primary Care Unavailable David Oneal Attending Unavailable Schinner, Mitesh E Primary Care Unavailable David Oneal Attending Unavailable Tomy, David Referring Unavailable Schinner, Mitesh E Primary Care Unavailable Schinarlene, Mitesh Meza Attending Unavailable Schinner, Mitesh E Referring Unavailable Schinner, Mitesh E Primary Care Unavailable SchMitesh bazan Attending Unavailable Schinarlene, Mitesh E Referring Unavailable Schinner, Mitesh E Primary Care Unavailable SchMitesh bazan Attending Unavailable Schhortensia, Mitesh E Primary Care Unavailable Jerod [place] Attending Unavailable Jerod [place] Referring Unavailable Schinarlene, Mitesh Meza Primary Care Unavailable Jerod [place] Attending Unavailable Jerod [place] Referring Unavailable Schinarlene, Mitesh E Primary Care Unavailable Jerod [place] Admitting Unavailable Jerod [place] Attending Unavailable Jerod [place] Referring Unavailable Schinarlene, Mitesh E Primary Care Unavailable Isac Mariscal Attending Unavailable Jerod [place] Referring Unavailable David Oneal Attending Unavailable David Oneal Referring Unavailable Schinarlene, Mitesh E Primary Care Unavailable SchMitesh bazan Attending Unavailable Schhortensia, Mitesh E Primary Care Unavailable Karena Benz Attending Unavailable Schhortensia, Mitesh Meza Referring Unavailable Karena Benz Attending Unavailable Faustina, Mitesh Meza Primary Care Unavailable Karena Benz Attending Unavailable Karena Benz Referring Unavailable SchMitesh bazan Primary Care Unavailable PROBLEMS PROBLEMS DATE TYPE CONDITION / CODE ATTENDING STATUS SOURCE 03/10/2018 Unknown M54.9 - Dorsalgia, Karena Benz Active [place] unspecified / Community M54.9(ICD-10) Hospital Repository 03/10/2018 Unknown M54.2 - Cervicalgia / Karena Benz Active [place] M54.2(ICD-10) Community Hospital Repository 10/17/2017 Unknown G89.18 - Other acute Jerod [place] Active [place] postprocedural pain / Community G89.18(ICD-10) Hospital Repository 10/24/2017 Unknown R94.31 - Abnormal [place], [place] Active [place] electrocardiogram Community [ECG] [EKG] / Hospital R94.31(ICD-10) Repository 10/24/2017 Unknown I10 - Essential [place], [place] Active [place] (primary) hypertension Community / I10(ICD-10) Hospital Repository 09/23/2017 Unknown Z96.651 - Presence of Jerod [place] Active [place] right artificial knee Community joint / Hospital Z96.651(ICD-10) Repository 09/04/2017 Active Chronic pain syndrome MARIA LUZ HO Active [place] / G89.4(ICD-10) Clinic Main [place] Repository 09/03/2017 Unknown M79.89 - Other Mitesh Weems Active [place] specified soft tissue E Community disorders / Hospital M79.89(ICD-10) Repository 08/29/2017 Unknown M25.561 - Pain in Mitesh Weems Active [place] right knee / E Community M25.561(ICD-10) Hospital Repository 09/03/2017 Unknown M79.606 - Pain in leg, Basali, [place] Active [place] unspecified / Community M79.606(ICD-10) Hospital Repository PROCEDURES PROCEDURES No Procedure Records FoundRESULTS RESULTS ORTHOPEDIC VISIT Observed: 03/20/2018 Status: F Source: [place] REPORT 11:07 PM [facility] REPOSITORY [facility] Sports Medicine [address] [place], [place] [id number] OFFICE VISIT Date of Service: 03/10/18 MR#: [id number] Acct: [id number] Name: CALVIN ROBIN Rep #: [id number] : 1935 Provider: Karena Benz MD Age/Sex: 82/F [place] [facility] [place] Signed Intake Intake Visit Reasons: LOW BACK PAIN Allergies naproxen [From Aleve] Allergy (Verified 12/29/17 08:52) Hives codeine Adverse Reaction (Verified 12/29/17 08:52) Other Fosquzr-Eop-Sbg Reductase Inhibitor Adverse Reaction (Verified 12/29/17 08:52) Pain in joints Medications Atenolol [Tenormin (beta maranda)] 50 mg PO DAILY 10/06/17 [History Confirmed 01/02/18] Gabapentin [Neurontin] 300 mg PO TID 10/06/17 [History Confirmed 01/02/18] Multivit-Min/FA/Lycopen/Lutein [Centrum Silver Tablet] 1 ea PO DAILY 10/06/17 [History Confirmed 01/02/18] [place]-3 Fatty Acids [Fish Oil] 500 mg PO DAILY 10/06/17 [History Confirmed 01/02/18] Ubidecarenone/Vit E Acetate [Co Q-10 100 mg Softgel] 1 ea PO DAILY 10/06/17 [History Confirmed 01/02/18] hydroCHLOROthiazide [Hydrochlorothiazide] 12.5 mg PO DAILY 10/06/17 [History Confirmed 01/02/18] Dimenhydrinate [Dramamine] 50 mg PO DAILY PRN 10/13/17 [History Confirmed 01/02/18] Acetaminophen [Tylenol] 1,000 mg PO Q8 #90 tab 10/15/17 [Rx Confirmed 01/02/18] Cholecalciferol (Vitamin D3) [Vitamin D3] 5,000 unit PO MOWEFR 12/29/17 [History Confirmed 01/02/18] PFSH Social History Smoking Status: Never smoker HPI LOW BACK PAIN: Details: CALVIN ROBIN is a 82 year old RHD F here today for neck pain 99% and 1% left upper arm tinging that occurs at night. She was originally referred for back and left buttock and posterior thigh pain, but underwent a spinal cord stimulator placement on 01/02/2018, with improvement of her pain. She states she is now able to sleep. She also has vertigo and does PT for this. Her symptoms in her arm are worse with forward flexion and sitting. She has had no spine physical therapy. She denies difficulty with hand dexterity. She has urinary urgency. She uses a cane intermittently when the weather is bad. She did have PIERCE in C6/7 in may but states it was not helpful. She complains of neck pain all day. She has had pain in her neck for years. She states that at the end of the day she has weakness and finds she has poor posture with neck flexion even at rest. She uses a neck cushion when able at home and in the car. Denies constant numbness. She denies constitutional symptoms. She takes tylenol. She has had acupuncture, which helps. She has hypertension and bilateral total knee replacements. She is retired. She does not smoke. Ortho Exam Spine Neuro: Yes Clonus (none bilaterally), Spurling's (negative bilaterally), Velasquez's (negative bilaterally) and Babinski (downgoing bilaterally) General: alert, oriented x3 Skin: Yes healed (from spinal cord stimulator - 2 posterior incisions. battery in buttock region) Capillary Refill <2sec: Yes Palpable Pulses: 2+ dp/pt pulses Gait: antalgic, other (able to heel and toe walk) Motor: strength 5/5 throughout Sensory Exam: no sensory deficits noted DTR's: Rt Triceps: 1+, Lt Triceps: 1+, Rt Biceps: 1+, Lt Biceps: 1+, Rt Brachioradialis: 1+, Lt Brachioradialis: 1+, Rt Patellar: 1+, Lt Patellar: 1+, Rt Ankle: 1+, Lt Ankle: 1+ Plantar Reflexes: Downgoing: bilateral Coordination: Romberg test normal Details: negative tinel's at the left cubital tunnel region SPINE TESTING CERVICAL THORACIC LUMBAR Musculoskeletal General: Yes normal posture Cervical Spine: cervical muscular tenderness, pain with cervical ROM, cervical spinal tenderness Thoracic/Lumbar Spine: straight leg raise negative bilaterally, thoraco-lumbar ROM limited Strength 0=absent - 5=normal Deltoid R (C5): 5, Deltoid L (C5): 5, R Bicep (C5-6): 5, L Bicep (C5-6): 5, R Wrist Extensor (C6): 5, L Wrist Extensor (C6): 5, R Tricep (C7): 5, L Tricep (C7): 5, R Finger Flexors (C8): 5, L Finger Flexors (C8): 5, R First Dorsal Interossei (C8): 5, L First Dorsal Interossei (C8): 5, R Hip Flexor (L1-3): 5, L Hip Flexor (L1-3): 5, R Quadriceps (L2-4): 5, L Quadriceps (L2-4): 5, R Anterior Tibialis (L4-5): 5, L Anterior Tibialis (L4- 5): 5, R Hamstrings (L5-S1): 5, L Hamstrings (L5-S1): 5, GS (S1): 5, L GS (S1): 5, R Peroneals (S1): 5, L Peroneals (S1): 5 Assessment AND Plan Problems 1. Neck pain M54.2 Plan Imaging: XR cervical spine 03/04/2018 reveals diffuse spondylosis XR lumbar spine 03/10/2018 reveals diffuse spondylosis with L3-4, L4-5 spondylolisthesis MRI lumbar spine reveals diffuse spondylosis with L3-4 moderate stenosis and L3-4, L4-5 anterolisthesis I/R/P: 1. neck pain 2. left upper arm paresthesias, nondermatomal 3. back pain and left leg pain, resolved 4. SCS 12/2017 Ms. Robin presents with a majority neck pain. The natural history and course of the symptomatology of cervical spondylosis was discussed in detail with the patient. I answered all questions regarding the mode of onset, pathophysiology, symptoms, imaging findings, treatment options regarding her diagnosis. Recommend initiation of physical therapy as well as acupuncture/dry needling as this has helped in the past.. Follow up in 2 months for reevaluation and consideration of MRI if no improvement. Plan of care discussed. All questions answered. The patient verbalized understanding of the disease process and agreed to the treatment plan formulated for this visit. Orders Orders: Coding Level of Care Code Off vis,new,level 4 Diagnoses Neck pain M54.2 03/20/18 1293 <Electronically signed by Karena Benz MD> Date Karena Benz MD Cosigner Signature: Date (if applicable) CC: David Oneal MD INITAL EVALUATION (1) Observed: 03/13/2018 Status: F Source: [place] - PT 5:04 PM [facility] REPOSITORY [facility] Physical Therapy [facility] [place] [address] Fax REHABILITATION SERVICES INITIAL EVALUATION MR#: [id number] Acct: [id number] Name: CALVIN ROBIN Rep #: [id number] : 1935 82 From: Amena Mcdermott PT, Cert. MDT Referring Dr.: Karena Benz MD Status: REG R Insurance: [employer] SELF PAY INSURANCE Patient's Visit Information CALVIN ROBIN is a 82 year old F referred to Physical Therapy by Karena Benz with a diagnosis of CERVICAL SPINE PAIN. Date of Evaluation: 03/11/18 Physical Therapist: Amena Mcdermott - Visit Plan Frequency: 2x /Week Duration: 4-6 Weeks Plan: *THORACIC STIMULATOR*. US, DRY NEEDLING, STM, POSTURE CORRECTION/STRENGTHENING, INSTRUCTION IN APPROPRIATE BODY MECHANICS AND ACTIVITY MODIFICATIONS. TIFFANIE UE ROM, STRETCHING AND STRENGTHENING. HEP INSTRUCTION. - Subjective Findings: Diagnosis: CERVICAL SPINE PAIN. Work/Leisure: RETIRED. Disability: NO. Present symptoms: TIFFANIE NECK AND SHOULDER PAIN LEFT > RIGHT. RIGHT SIDE PAIN. LEFT > RIGHT HAND AND FOREARM TINGLING. Present since: YEARS. REFERRED TO DR. BENZ FOR HER NECK FROM DR. ONEAL. Pain Scale: Worst - 8/10 Least - 3/10. Currently: 5/10. Commenced as a result of: NO APPARENT REASON. Symptoms at onset: NECK. Worse: SEWING, HOUSE CLEANING, READING, COOKING. Better: HEATING PAD, COLD PACK, LYING. Disturbed sleep: YES. Previous history/Previous treatment: PHYSICAL THERAPY IN [place] FOR NECK AND DIZZINESS. ONE CERVCIAL PIERCE LAST SPRING THAT DIDN'T HELP. ONE ACCUPUNCTURE SESSION WITH TEMPORARY BENEFIT ONLY. PATIENT HAS SEEN DR. ONEAL AND DR. BENZ FOR HER NECK. NO SURGERY RECOMMENDED AT THIS TIME. Dizziness: NO. Tinnitis: YES. Nausea: NO. Shortness of Breath: A LITTLE SOB - SAW DR. MUNROE FOR THIS ABOUT A WEEK AGO. Difficulty Swollowing: YES - STARTED A COUPLE YEARS AGO AND IT IS MILD AND HAPPENS OCCASSIONALLY. Gait: CANE NEEDED. NO RECENT FALLS. Accidents: NO. Unexplained weight loss: NO. Imaging: TOTAL MRI BEFORE RIGHT TKR IN OCTOBER 2017. RECENT NECK X-RAYS YESTERDAY: No evidence of instability between flexion and extension. Normal neutral. alignment. Degenerative disc disease at the C5-6 level. Diffuse facet. disease. Prevertebral soft tissues are normal. Thoracic spine stimulator. THORACIC X-RAY JULY 2017. PMH: HTN. Recent major surgery: TIFFANIE TKR'S. OTHER: 14 STEPS TO FAMILY ROOM IN THE WALK OUT BASEMENT FROM ENTRY - HAS STAIRMASTER AVAILABLE. OCTOBER 13 2017 RIGHT TKR REVISION. SARITA JUNE AND AUGUST 2017 - MILD. CHRONIC BACK PAIN. PLOF (Prior Level of Function): PATIENT REPORTS SHE WAS ABLE TO DO HER HOUSEWORK, SEWING, READING AND COOKING BETTER UNTIL ABOUT SEPTEMBER OF THIS YEAR. OTHER: PATIENT REPORTS SHE IS NOT HAPPY WITH HOW SHE CAN WALK SINCE HER RIGHT TKR REVISION. SHE STATES THE RIGHT KNEE PAIN IS GETTING BETTER. SHE ALSO REPORTS SHE IS HAVING A LOT OB BACK PAIN. - Objective Sitting Posture/Standing Posture: POOR. FORWARD HEAD, ROUNDED SHOULDERS. Active Correction of posture: NE. PATIENT IS ONLY ABLE TO PARTIALL CORRECT. Other Observations: INDEP GAIT INTO PT LIMPING ON RIGHT LE WITH DECREASED CADANCE AND USE OF STRAIGHT CANE. NO LOB. 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 RIGHT UE IS STRONGER THAN LEFT THROUGHOUT WITH RIGHT UE 5/5 AND LEFT: SHOULDER FLEX 4-, ABD 4-, IR 4/5, ER 3+/5, ELBOW 4/5. Sensory deficit: NO. ROM deficit: TIFFANIE UE'S WFL. Reflexes: 1/2 TIFFANIE UE'S. Dural Signs: NEGATIVE. Cervical Mvmt Loss: Flex: NIL. Pro: NIL. Ext: QUAN. Ret: QUAN. RSB: QUAN. LSB: QUAN. R Rot: MOD. L Rot: MOD. PATIENT WITH C/O INCREASED PAIN WITH CERVICAL ROM TESTING ALL PLANES BUT ESPECIALLY WITH EXTENSION. Postural strength: POOR. Palpation: TENDERNESS WITH PALPATION OF TIFFANIE CERVICAL MUSCULATURE MUCH GREATER ON THE LEFT THAN THE RIGHT. SHE IS TENDER IN THE TRAPS AND UP TO OCCIPUT. OTHER: BRIEF REVIEW OF PROPER POSTURE CONTROL AND APPRORIATE ACTIVITY MODIFICATIONS - PATIENT HAD TRAINING FROM THIS PT EARLIER THIS YEAR WHEN HERE FOR HER LOW BACK. - Goals Goal 1:: DECREASE C/O NECK AND TIFFANIE UE SX'S. Goal Time Frame: 4-6 Weeks Goal 2:: IMPROVE PERSONAL CARE, READING, SLEEP, HOUSEWORK, SEWING, DRVING AND RECREATIONAL FUNCTION. Goal Time Frame: 4-6 Weeks Goal 3:: INSTRUCT IN PROPHYLAXIS Goal Time Frame: 4-6 Weeks - Rehabilitation Potential Rehabilitation Potential: Fair - Anticipated Interventions Patient/Client Instruction: Educate patient on: Condition, Plan of Care, Risk Factors, Benefits of Fitness Program For the Purpose of:: To improve self management Therapeutic Exercise to Include: Strength training, Body mechanics, Postural training, Flexibilty training, Active ROM, Scapular Strength/Stabilization For the Purpose of:: To decrease pain, To increase ROM, To improve muscle performance and motor function, To increase tolerance to activity/condition/position, To improve performance and independence with ADL's, To improve ability of physical actions for home/community/work/leisure Manual Therapy Techniques to Include: Functional dry needling, Soft tissue mobilization For the Purpose of:: To decrease pain, To decrease swelling/inflammation, To increase ROM, To improve nutrient delivery to tissue Ultrasound (thermal/non thermal): Yes Thank you for the opportunity to evaluate your patient. For Medicare and Medicare HMO plans, please review the plan of care and approve it. It will need to be FAXED BACK to us at [phone] for Medicare purposes. For Medicare only, by signing this I certify the plan of care. Please let me know if there are questions or concerns regarding this plan of care. Physician Signature: Date: <Electronically signed by Amena Mcdermott PT, Cert. MDT> 03/13/18 1704 CC: Karena Benz MD; Mitesh Weems MD LUIS Signed CERV SPINE OBL/FLEX/EXT Observed: 03/10/2018 Status: F Source: [place] COMP 8:28 AM [facility] REPOSITORY [facility] Imaging Services [address] [address] Cerv Spine Obl/Flex/Ext Comp MR#: [id number] Acct: [id number] Name: CALVIN ROBIN Rep #: [id number] : 1935 F 82 From: Evangelista Krishnamurthy MD PCP: Mitesh Weems MD Status: REG CLI Study: Cerv Spine Obl/Flex/Ext Comp Date of Exam: 03/10/18 Exam# [id number] Ordering Dr: Karena Benz MD STUDY: X-RAY - CERVICAL SPINE REASON FOR EXAM: Female, 82 years old. Pain TECHNIQUE: 4 view(s) of the cervical spine were obtained. COMPARISON: None FINDINGS: No evidence of instability between flexion and extension. Normal neutral alignment. Degenerative disc disease at the C5-6 level. Diffuse facet disease. Prevertebral soft tissues are normal. Thoracic spine stimulator. RAD/Cerv Spine Obl/Flex/Ext Comp IMPRESSION: No evidence of instability between flexion and extension. Normal neutral alignment. Degenerative disc disease at the C5-6 level. Diffuse facet disease. Electronically Signed: Evangelista Krishnamurthy MD at 4:51 EST Tel , Service support , CC: Karena Benz MD; Mitesh Weems MD Entry Level Administrative Assistant: Signed L/S SPINE MIN 4 Observed: 03/10/2018 Status: F Source: [place] VIEWS 8:28 AM [facility] REPOSITORY [facility] Imaging Services [address] [place] [address] L/S Spine Min 4 Views MR#: [id number] Acct: [id number] Name: CALVIN ROBIN Rep #: [id number] : 1935 F 82 From: Evangelista Krishnamurthy MD PCP: Mitesh Weems MD Status: REG CLI Study: L/S Spine Min 4 Views Date of Exam: 03/10/18 Exam# [id number] Ordering Dr: Karena Benz MD STUDY: X-RAY - LUMBAR SPINE REASON FOR EXAM: Female, 82 years old. Back pain TECHNIQUE: 4 view(s) of the lumbar spine were obtained. COMPARISON: 03/21/2017 FINDINGS: Thoracic spine stimulator. Mild dextroconvex scoliosis. Stable grade 1 L3-4 anterolisthesis. L3-4 and L4-5 degenerative disc disease. Diffuse facet disease. No compression deformities are seen. No instability between flexion and extension. Cholecystectomy clips. Vascular calcifications. RAD/L/S Spine Min 4 Views IMPRESSION: No instability between flexion and extension. Stable grade 1 L3-4 anterolisthesis. Degenerative changes as described. Electronically Signed: Evangelista Krishnamurthy MD at 4:56 EST Tel , Service support , CC: Karena Benz MD; Mitesh Weems MD Entry Level Administrative Assistant: Signed COMPREHENSIVE METABOLIC Collected: 02/25/2018 Status: F Source: [place] 8:32 AM [facility] REPOSITORY Order Comment: Order Date: 10/07/17 Order Info: [id number] - CMP Order Info: [id number] - LIPID TYPE CODE TESTS RESULT OUT OF RANGE REFERENCE UNITS LAB L501.0100 74-106 mg/dL Normal GLU 97 Result Comment: Please note revised GLUCOSE reference range effective 2017. LAB L501.1000 7-18 mg/dL Normal BUN 18 LAB L501.1100 0.55-1.02 mg/dL Normal CREAT,SERUM 0.86 Result Comment: The validity of the calculated GFR AND GFRAA in patients over 70 years has not been determined. Clinical correlation is essential. LAB L501.1110 >60 mL/min Normal EST GFR 67 Result Comment: Non- GFR Calc LAB L501.1115 >60 mL/min Normal EST GFR - AA 81 Result Comment: GFR Calc LAB L501.1300 10-20 RATIO High BUN/CRE 20.9 LAB L501.1500 6.4-8.2 g/dL T Normal PROT 7.1 LAB L501.1800 3.2-5.0 g/dL Normal ALB 3.6 LAB L501.1950 2.2-4.2 g/dL Normal GLOB 3.5 LAB L501.2000 0.9-2.4 RATIO Normal A/G 1.0 LAB L501.2200 8.5-10.1 mg/dL CA Normal 8.5 LAB L501.4100 15-37 U/L Normal AST 19 LAB L501.4305 45-117 U/L Normal ALK P 81 LAB L501.4405 13-56 U/L Normal ALT 21 LAB L501.4600 0.20-1.00 mg/dL T Normal BILI 0.40 LAB L501.5300 136-145 mmol/L NA Normal 142 LAB L501.5600 3.5-5.1 mmol/L K Normal 4.1 LAB L501.5900 98-107 mmol/L High CL 111 LAB L501.6100 21.0-32.0 mmol/L Normal CO2 23.0 LAB L501.6200 5-15 Normal GAP 8 Performed By: #### L500.4050, L500.4100, L506.1000 #### [facility] [address] [place], [address] LIPID PROFILE Collected: 02/25/2018 Status: F Source: [place] 8:32 AM [facility] REPOSITORY Order Comment: Order Date: 10/07/17 Order Info: [id number] - CMP Order Info: [id number] - LIPID TYPE CODE TESTS RESULT OUT OF RANGE REFERENCE UNITS LAB L501.4900 200 mg/dL Normal CHOL 174 Result Comment: <200 mg/dL Desirable 200-240 mg/dL Borderline >240 mg/dL High Risk LAB L501.5000 mg/dL Normal TRIG 175 Result Comment: The drugs N-Acetylcysteine and Metamizole may falsely depress this assay. Serum Triglycerides Reference Interval Normal <150 mg/dL Borderline high 150 - 199 mg/dL High 200 - 499 mg/dL Very High > or = 500 mg/dL LAB L501.6400 mg/dL Normal HDL 51 Result Comment: The drugs N-Acetylcysteine and Metamizole may falsely depress this assay. Reference Range HDL <40 mg/dL Low HDL Cholesterol HDL >or= 60 mg/dL High HDL Cholesterol LAB L501.6500 0-130 mg/dL Normal LDL 88 LAB L501.6600 5-40 mg/dL Normal VLDL 35 Performed By: #### L500.4050, L500.4100, L506.1000 #### [facility] [address] [place], [address] VITAMIN D,25 HYDROXY Collected: 02/25/2018 Status: F Source: [place] 8:32 AM [facility] REPOSITORY Order Comment: Order Date: 10/07/17 Order Info: [id number] - VITD25 TYPE CODE TESTS RESULT OUT OF REFERENCE UNITS RANGE LAB L506.1000 29.95-100.01 ng/mL Low Vitamin D 24.8 25-OH Result Comment: Vitamin D 25(OH) Status Range Deficiency <20 ng/mL (50nmol/L) Insuffciency 20 - 30 ng/mL (50 - 75 nmol/L) Sufficiency 30 - 100 ng/mL (75 - 250 nmol/L) Toxicity >100 ng/mL (>250 nmol/L) Performed By: #### L500.4050, L500.4100, L506.1000 #### [facility] [address] [place], [address] LUMBAR SPINE 2 OR 3 Observed: 01/02/2018 Status: F Source: [facility] 12:52 AM [facility] REPOSITORY [facility] Imaging Services [address] [place] [address] Lumbar Spine 2 or 3 Views MR#: [id number] Acct: [id number] Name: CALVIN ROBIN Rep #: [id number] : 1935 F 82 From: Camila Cotton MD PCP: Mitesh Weems MD Status: [facility] Study: Lumbar Spine 2 or 3 Views Date of Exam: 01/02/18 Exam# [id number] Ordering Dr: David Oneal MD STUDY: X-RAY - LUMBAR SPINE REASON FOR EXAM: Female, 82 years old. Spinal cord stimulator implant. TECHNIQUE: 3 view(s) of the lumbar spine were obtained. COMPARISON: None FINDINGS: images were submitted, as radiology support for c-arm imaging in the operating room. This is not a diagnostic examination. Images for for documentation purposes only. Fluoroscopy time if reported: None provided. RAD/Lumbar Spine 2 or 3 Views IMPRESSION: Intraoperative fluoroscopic image guidance. Electronically Signed: Camila Cotton MD at 0:57 EDT , Service support , CC: David Oneal MD; Mitesh Weems MD Entry Level Administrative Assistant: Signed OPERATIVE REPORT Observed: 10/22/2017 Status: F Source: [place] 10:10 AM [facility] REPOSITORY [facility] Medical Records Department [address] [place] [address] Operative Report 10/13/17 1130 MR#: [id number] Acct: [id number] Name: CALVIN ROBIN Rep #: [id number] : 1935 82 From: Jerod Mcneil DO PCP: Mitesh Weems MD Status: DIS IN Y 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 Post-Operative Diagnosis: Same Surgery/Procedure Performed:: Revision of right total knee arthroplasty femoral and tibial components Description of Surgical Findings:: Total knee arthroplasty in place with mild to moderate loosening of both femoral and tibial components intensive care specialist: Carlos Alberto Angeles Type of Anesthesia:: Spinal Anesthesiologist: Dontrell Carter Special Medications: txa Specimen's removed: Total knee arthroplasty components, bone and soft tissue Estimated Blood Loss (mL): 150 Fluids Replaced: See anesthesia report Description of Procedure: Implants: Torrance triathlon size 3 total stabilized femur with a 10 mm posterior lateral augment 4 mm offset 14 x 100 mm stem, size 4 tibia with 5 mm wedge 4 mm offset 13 x 100 mm stem all cemented with Simplex, 13 mm TS polyethylene Indications: Patient is an 82-year-old female that had a total knee arthroplasty completed 8 years ago. She did very well for several years and for the past 3 years has developed pain in her knee. She is doing very well with her other knee replacement. I did obtain a bone scan which revealed the femoral and tibial components appear to be loose. After some deliberation the patient has elected to proceed with total knee revision Procedure description: The patient was greeted in the preoperative area. The right knee was then marked with a surgical marker. Patient was then taken to or [address]. They were administered a dose of antibiotics as well as tranexamic acid. Once adequate anesthesia was obtained and airway was secured to placed in supine position on the operating room table. A well-padded tourniquet was placed on the affected extremity. Leg was then prepped and draped in the usual sterile fashion from the knee down. Ioban was used on the skin. Surgical timeout was then performed and confirmed with all present. Six-inch Esmarch was used to examine the limb and tourniquet was then inflated to 250 mmHg. A longitudinal incision was then planned and carried out in the anterior aspect of the knee. The dissection was then carried the length of the incision exposing the underlying retained total knee arthroplasty. I did excise redundant capsule and developed both medial lateral gutters. Any remaining anterior fat pad was removed. The patella was reflected laterally and retractors were placed. Remove the polyethylene. At this point combination of Gigli saw as well as flexible osteotomes were utilized in order to interrupt the bone cement interface on the femur. This was not grossly loose however the femur did come off with very little bone loss. The only deficit identified appear to be posterior lateral condyle. This was taken into note for later implant selection. Once this was complete any remaining cement was removed. Attention was then turned to the tibial component. An oscillating saw as well as flexible osteotomes were used to enter up the bone cement interface in the tibia was removed without difficulty. Any remaining cement was removed. I did use osteotomes to remove the cement plug within the tibial canal. Once this was complete both tibia and femoral canals were sequentially reamed to the appropriate size for planned stems. Size 13 mm stem was chosen for the tibia this was maintained in place and the revision tibial cutting jig was then applied to the stem and pinned in position. I then did make a very small cut of the remaining tibia in order to ensure that this is than 0 of slope. The stem was removed and assessment of my office that was then obtained with a 4 mm offset at 3 o'clock position. Attention was then turned to the femur. Stem was obtained size 14 and appropriate offset was placed in the 12 o'clock position in the femoral revision cutting guide was then placed on the femur. I was able to maintain the same joint line as the remaining portion of distal bone was very adequate. Assessed my rotation based off the epicondylar axis to be in approximately 3 of external rotation. At this point it was determined the patient would require a 10 mm posterior lateral wedge. I did make the cut for this wedge through the revision cutting guide. A trial was then constructed on the back table with a 14 x 100 mm wedge 4 mm offset and size 3 total stabilized femur and this was then placed. The tibial trial was obtained as a size 4 a 4 mm offset and a 13 x 100 mm stem. I trialed this with a 18 mm polyethylene. Patient did have excellent varus valgus stability and full extension however there was some instability and incompetence of the medial collateral ligament with flexion. Given the patient's age and activity level I did elect to proceed with a total stabilized polyethylene. Very happy with the range of motion as the patient had full extension and full flexion. Because of the size of the polyethylene I did elect to place a 5 mm wedge in order to decrease the thickness of the polyethylene. Patient's patella appeared stable and did not appear to require any type of revision surgery. At this point cement was mixed on the back table. The trial components were removed and the knee was copiously irrigated. Did use a cocktail of injection for postoperative pain control. The final components were then constructed on the back table as above. The final components were then cemented in the standard fashion and excess cement was removed with cement removal tools and patellar clamp is placed in the patella. As the cement had cured in full extension tourniquet was deflated and hemostasis was perfect with Bovie cautery as well as the aqua Manus. Needle is once again trialed with different size polyethylenes to ensure the full range of motion was achieved as well as excellent balancing ligamentously was achieved however I still felt that a total stabilized polyethylene was achieved the best results for this patient as there was some MCL incompetence in flexion. At this point the knee was copiously irrigated. Final implant was then inserted locking mechanism was engaged and confirmed to be locked. The arthrotomy was then closed with #1 Vicryl aggravate type fashion interrupted. Subcutaneous tissue was closed with 0 Vicryl and surgical oumou were placed in the skin. A occlusive silver impregnated dressing was then applied followed by well- padded sterile dressing secured with an Terry wrap. The patient was taken to the PACU in stable condition. No complications known at this time. Postoperatively we will maintain standard total knee postoperative protocol. The use of the physician assistant commissioner was integral during this procedure. They assisted with positioning placement of the tourniquet retracting closure and placement of the dressing. The procedure would have been much more difficult without their expertise and assistance - Complications None known - Admit VTE Documentation VTE Present on Admission: Yes VTE Mechan Device Prophylaxis: SCD's, Thigh High DEBORAH Hose VTE Pharm Prophylaxis ordered?: Yes 10/22/17 1010 <Electronically signed by Jerod Mcneil DO> Date Jerod Mcneil DO CC: Jerod Mcneil DO; Mitesh Weems MD Signed DISCHARGE INSTRUCTION Observed: 10/15/2017 Status: F Source: [place] 9:10 AM [facility] REPOSITORY [facility] Medical Records Department [address] [place] [address] Instructions for Home/Discharge Instructions 10/15/17 0908 MR#: [id number] Acct: [id number] Name: CALVIN ROBIN Rep #: [id number] : 1935 82 From: Carlos Alberto Angeles PA-C PCP: Mitesh Weems MD Status: ADM IN Discharge Diet: No Restrictions Discharge Activity: May Not Drive, May Shower, Use Walker May shower in (days): 2 Ice area for (Minutes): 20 - each hour while awake. Weight Bearing Status: Weight bearing as tolerated Elevate: Operative Extremity Additional Activity Instructions:: Wear elastic stockings for 2 weeks after your surgery. Call your doctor if your incision/area has: Continuous Slow Oozing, Sudden Increased Bleeding, Increased Pain/ Swelling, Increased Redness, Foul Smelling Discharge Call your doctor if you observe: Fever of 101 or Higher, Coldness, Increased Pain - in extremity, Numbness or Tingling, Change in Color, Calf discomfort, Uncontrolled pain Change Dressing in (Days):: 0 - and daily as needed. Remove Dressing in (days):: 8 Cleanse incision/area with: Soap AND Water Allergies/Adverse Reactions: Allergies naproxen [From Aleve] Allergy (Verified 10/06/17 12:52) Hives codeine Adverse Reaction (Verified 10/06/17 12:52) Other NIGHTMARES,HALLUCINATIONS Eqycunn-Occ-Daa Reductase Inhibitor Adverse Reaction (Verified 10/06/17 12:52) Pain in joints Medications to take at Discharge Atenolol [Tenormin (beta maranda)] 50 mg PO DAILY 10/06/17 Gabapentin [Neurontin] 300 mg PO TID 10/06/17 Hydrochlorothiazide 12.5 mg PO DAILY 10/06/17 Multivit-Min/FA/Lycopen/Lutein [Centrum Silver Tablet] 1 each PO DAILY 10/06/17 Cambridge-3 Fatty Acids [Fish Oil] 500 mg PO DAILY 10/06/17 Ubidecarenone/Vit E Acetate [Co Q-10 100 mg Softgel] 1 each PO DAILY 10/06/17 Dimenhydrinate [Dramamine] 50 mg PO DAILY PRN 10/13/17 Acetaminophen [Tylenol] 1,000 mg PO Q8 #90 tab 10/15/17 Aspirin 325 mg PO BID #60 tab 10/15/17 Oxycodone [Oxyir] 5 - 10 mg PO Q4H PRN PRN 7 Days #80 tab 10/15/17 morphine SR tablet [Ms Contin] 15 mg PO BID 7 Days #14 tab 10/15/17 The following prescriptions were given: Oxycodone [Oxyir] 5 - 10 mg PO Q4H PRN PRN 7 Days #80 tab PRN Reason: Mod-Severe Pain (4-01/21) Acetaminophen [Tylenol] 1,000 mg PO Q8 #90 tab Aspirin 325 mg PO BID #60 tab morphine SR tablet [Ms Contin] 15 mg PO BID 7 Days #14 tab Primary Care Physician: Mitesh Weems MD [Primary Care Provider] - Test Results: Please Follow Up With: Carlos Alberto Angeles PA-C 10/15/17 0910 <Electronically signed by Carlos Alberto Angeles PA-C> Date Carlos Alberto Angeles PA-C CC: Mitesh Weems MD CBC-COMPLETE BLOOD CNT Collected: 10/15/2017 Status: F Source: [place] NO DIFF 5:04 AM [facility] REPOSITORY TYPE CODE TESTS RESULT OUT OF RANGE REFERENCE UNITS LAB L100.1000 4.4-11.0 K/mm3 Normal WBC 7.7 LAB L100.1200 4.2-5.4 M/mm3 Low RBC 3.62 LAB L100.1300 12.0-15.0 g/dl Low HGB 10.9 LAB L100.1400 37-47 % Low HCT 33.3 LAB L100.1500 81-99 fL Normal MCV 92.0 LAB L100.1600 27.0-32.0 pg Normal MCH 30.1 LAB L100.1700 32-36 g/gl Normal MCHC 32.7 LAB L100.1810 11.6-14.6 % Normal RDW CV 12.7 LAB L100.1820 35.1-43.9 fl Normal RDW SD 41.2 LAB L100.1900 150-450 K/mm3 Low PLT 142 LAB L100.2000 6.2-12.0 fl High MPV 12.6 Performed By: #### L100.0500 #### [facility] [place], [address] CBC-COMPLETE BLOOD CNT Collected: 10/14/2017 Status: F Source: [place] 5:35 AM [facility] REPOSITORY TYPE CODE TESTS RESULT OUT OF RANGE REFERENCE UNITS LAB L100.1000 4.4-11.0 K/mm3 High WBC 14.9 LAB L100.1200 4.2-5.4 M/mm3 Low RBC 4.06 LAB L100.1300 12.0-15.0 g/dl Normal HGB 12.3 LAB L100.1400 37-47 % Low HCT 36.4 LAB L100.1500 81-99 fL Normal MCV 89.7 LAB L100.1600 27.0-32.0 pg Normal MCH 30.3 LAB L100.1700 32-36 g/gl Normal MCHC 33.8 LAB L100.1810 11.6-14.6 % Normal RDW CV 12.3 LAB L100.1820 35.1-43.9 fl Normal RDW SD 40.0 LAB L100.1900 150-450 K/mm3 Normal PLT 177 LAB L100.2000 6.2-12.0 fl Normal MPV 11.9 Performed By: #### L100.0500 #### [facility] [address] [facility] [address] [place], [place], [address] BASIC METABOLIC Collected: 10/14/2017 Status: F Source: [place] PROFILE (BMP) 5:35 AM [facility] REPOSITORY TYPE CODE TESTS RESULT OUT OF RANGE REFERENCE UNITS LAB L501.0100 74-106 mg/dL High GLU 139 Result Comment: Fasting Glucose result greater than or equal to 126 mg/dL suggests DIABETES MELLITUS per A.D.A. criteria. Please note revised GLUCOSE reference range effective 2017. LAB L501.1000 7-18 mg/dL High BUN 22 LAB L501.1100 0.55-1.02 mg/dL High CREAT,SERUM 1.08 Result Comment: The validity of the calculated GFR AND GFRAA in patients over 70 years has not been determined. Clinical correlation is essential. LAB L501.1110 >60 mL/min Low EST GFR 52 Result Comment: Non- GFR Calc LAB L501.1115 >60 mL/min Normal EST GFR - AA 63 Result Comment: GFR Calc LAB L501.1255 ml/min Normal Estimated CRCL 33.79 LAB L501.1300 10-20 RATIO High BUN/CRE 20.4 LAB L501.2200 8.5-10 mg/dL Normal .1 CA 8.6 LAB L501.5300 136-14 mmol/L Normal 5 NA 139 LAB L501.5600 3.5-5. mmol/L Normal 1 K 4.2 LAB L501.5900 98-107 mmol/L Normal CL 104 LAB L501.6100 21.0-3 mmol/L Normal 2.0 CO2 25.0 LAB L501.6200 5-15 Normal GAP 10 Performed By: #### L500.2500 #### [facility] [address] [facility] [place], [place], [address] KNEE 1 OR 2 VIEWS Observed: 10/13/2017 Status: F Source: [place] 11:29 AM [facility] REPOSITORY [facility] Imaging Services [address] [place] [address] Knee 1 or 2 Views MR#: [id number] Acct: [id number] Name: CALVIN ROBIN Rep #: [id number] : 1935 F 82 From: Sourav Whelan DO PCP: Mitesh Weems MD Status: ADM IN Study: Knee 1 or 2 Views Date of Exam: 10/13/17 Exam# [id number] Ordering Dr: Jerod Mcneil DO STUDY: X-RAY - RIGHT KNEE REASON FOR EXAM: Female, 82 years old. Right knee postop TECHNIQUE: 4 view(s) of the knee. COMPARISON: 08/29/2017 FINDINGS: Patient is status post right knee arthroplasty revision without evidence of acute fracture or dislocation. No evidence of hardware failure or loosening. Expected postoperative soft tissue changes. Skin oumou noted. RAD/Knee 1 or 2 Views IMPRESSION: As above Electronically Signed: Sourav Whelan DO at 16:29 EDT Tel , Service support , CC: Jerod Mcneil DO; Mitesh Weems MD Entry Level Administrative Assistant: Signed 12 LEAD ELECTROCARDIOGRAM Observed: 10/10/2017 Status: F Source: [place] 9:32 AM [facility] REPOSITORY [facility] Cardiovascular Services [address] [place] [address] EKG - [facility] [facility] 10/06/17 1248 MR#: [id number] Acct: [id number] Name: CALVIN ROBIN Rep #: [id number] : 1935 82 From: Isac Mariscal MD Attending Dr: Jerod Mcneil DO Status: PRE IN Ordering Dr: Jerod Mcneil DO Date: 10/06/17 Location: [facility] Sex: F C Admitted: Test Reason : Blood Pressure : / mmHG Vent. Rate : 094 BPM Atrial Rate : 094 BPM P-R Int : 166 ms QRS Dur : 084 ms QT Int : 358 ms P-R-T Axes : 043 -19 045 degrees QTc Int : 447 ms Normal sinus rhythm Possible Left atrial enlargement Left ventricular hypertrophy Abnormal ECG Confirmed by LOIDA HATCH, ISAC ([id number]), story editor CHIQUIS BURLESON ([id number]) on 10/10/2017 9:31:34 AM Referred By: Jerod Mcneil Confirmed By:ISAC MARISCAL MD 10/10/17 0931 Date Isac Mariscal MD CC: Jerod Mcneil DO; Mitesh Weems MD Date Dictated: 10/06/17 124 Date Transcribed: 10/06/171247 Entry Level Administrative Assistant: Signed BASIC METABOLIC Collected: 10/06/2017 Status: F Source: [place] PROFILE (BMP) 1:51 PM [facility] REPOSITORY TYPE CODE TESTS RESULT OUT OF RANGE REFERENCE UNITS LAB L501.0100 74-106 mg/dL Normal GLU 89 Result Comment: Please note revised GLUCOSE reference range effective 2017. LAB L501.1000 7-18 mg/dL Normal BUN 18 LAB L501.1100 0.55-1.02 mg/dL Normal CREAT,SERUM 0.85 Result Comment: The validity of the calculated GFR AND GFRAA in patients over 70 years has not been determined. Clinical correlation is essential. LAB L501.1110 >60 mL/min Normal EST GFR 68 Result Comment: Non- GFR Calc LAB L501.1115 >60 mL/min Normal EST GFR - AA 83 Result Comment: GFR Calc LAB L501.1255 ml/min Normal Estimated CRCL 42.94 LAB L501.1300 10-20 RATIO High BUN/CRE 21.2 LAB L501.2200 8.5-10 mg/dL Normal .1 CA 9.3 LAB L501.5300 136-14 mmol/L Normal 5 NA 140 LAB L501.5600 3.5-5. mmol/L Normal 1 K 4.0 LAB L501.5900 98-107 mmol/L Normal CL 105 LAB L501.6100 21.0-3 mmol/L Normal 2.0 CO2 26.0 LAB L501.6200 5-15 Normal GAP 9 Performed By: #### L500.2500 #### [facility] [address] [facility] [place], [address] Observed: 10/06/2017 Status: F Source: [place] MRSA/SAID SCREEN 1:45 PM [facility] REPOSITORY MRSA/SAID SCRN S. AUREUS S. aureus Negative MRSA MRSA Negative Performed By: #### M100.651 #### [facility] [address] [place], [address] BONE SCAN THREE Observed: 09/26/2017 Status: F Source: [place] PHASE 9:58 AM [facility] REPOSITORY [facility] Imaging Services [address] [place] [address] Bone Scan Three Phase MR#: [id number] Acct: [id number] Name: CAVLIN ROBIN Rep #: [id number] : 1935 F 81 From: El Nieves DO PCP: Mitesh Weems MD Status: REG CLI Study: Bone Scan Three Phase Date of Exam: 09/26/17 Exam# [id number] Ordering Dr: Jerod Mcneil DO CLINICAL: 81-year-old female with reported history of painful bilateral knee arthroplasties operated > 2 years previous. THREE PHASE KNEE ARTICULATIONS- WHOLE BODY RADIONUCLIDE 99m Tc MDP BONE SCINTIGRAPHY COMPARISON: Plain film radiograph report right knee 08/29/2017 FINDINGS: Following the intravenous administration of 26.0 mCi of 99m Tc MDP, bone images reveal: 1. The flow and immediate static blood pool acquisitions of the knee articulations demonstrate arterial and venous phase hyperemia manifest in the region of the femoral and tibial components of the symptomatic right knee prosthesis. 2. Relatively intense increased tracer concentration is noted in the medial and lateral femoral and tibial components of the symptomatic right knee prosthesis correlating with the flow and blood pool changes. 3. Mild increased uptake is noted in the medial and lateral tibial components of the left knee prosthesis. 4. Facilitated tracer concentration is demonstrated in the patellofemoral compartment of the right-left knees, the sternoclavicular and acromioclavicular compartments of both shoulders, upper cervical spine posteriorly on the left, mid-lower cervical spine posteriorly on the left and right, the ninth-11th thoracic vertebra posteriorly on the right, fourth lumbar vertebra and sacrum posteriorly on the left and right, lateral compartment of the left ankle, the visualized right- left hands. 5. An increase in uptake is visualized in the left femoral neck. 6. The remaining skeletal structures are scintigraphically unremarkable with normal-appearing renal images and urinary bladder activity identified. NM/Bone Scan Three Phase IMPRESSION: 1. The increase in radiopharmaceutical concentration identified in the femoral and tibial components of the painful right and tibial components of the left knee arthroplasties is consistent with a high likelihood of loosening in the setting of operative intervention > 2 years prior. If an infectious etiology is a diagnostic consideration, correlation with labeled leukocyte imaging is recommended. 2. Enhanced tracer uptake noted in the left femoral neck may be further investigated with plain film radiography to exclude trauma-fracture. 3. 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 Electronically Signed: El Nieves DO at 18:02 EDT Tel , Service support , CC: Jerod Mcneil DO; Mitesh Weems MD Entry Level Administrative Assistant: Signed ERYTHROCYTE SED RATE Collected: 09/23/2017 Status: F Source: [place] 9:28 AM [facility] REPOSITORY TYPE CODE TESTS RESULT OUT OF RANGE REFERENCE UNITS LAB L102.0000 0-30 mm/hr Normal SED RATE 26 Performed By: #### L101.9900, L100.0100 #### [facility] [place], [address] CBC W/DIFF, AUTOMATED Collected: 09/23/2017 Status: F Source: [place] 9:28 AM [facility] REPOSITORY TYPE CODE TESTS RESULT OUT OF RANGE REFERENCE UNITS LAB L100.1000 4.4-11.0 K/mm3 Normal WBC 8.0 LAB L100.1200 4.2-5.4 M/mm3 Normal RBC 4.77 LAB L100.1300 12.0-15.0 g/dl Normal HGB 14.3 LAB L100.1400 37-47 % Normal HCT 43.4 LAB L100.1500 81-99 fL Normal MCV 91.0 LAB L100.1600 27.0-32.0 pg Normal MCH 30.0 LAB L100.1700 32-36 g/gl Normal MCHC 32.9 LAB L100.1810 11.6-14.6 % Normal RDW CV 12.5 LAB L100.1820 35.1-43.9 fl Normal RDW SD 41.4 LAB L100.1900 150-450 K/mm3 Normal PLT 211 LAB L100.2000 6.2-12.0 fl High MPV 12.3 LAB L100.2100 47-70 % Normal NEUT% 66.0 LAB L100.2200 19-41 % Normal LY% 22.9 LAB L100.2300 0-10 % Normal MONO% 8.9 LAB L100.2400 0-5 % Normal EO% 1.4 LAB L100.2500 0-1 % Normal BASO% 0.5 LAB L100.2550 0.0-0.9 % Normal IM GRAN % 0.300 Result Comment: IG% - Immature Granulocytes (promyelocytes, myelocytes and metamyelocytes) > 1% indicates that a LEFT SHIFT is Present. LAB L100.2620 2.0-7.7 X10 3/uL Normal Absolute Neut 5.3 LAB L100.2720 0.83-4.51 X10 3/ul Normal Absolute Lymph 1.82 Performed By: #### L101.9900, L100.0100 #### [facility] [address] [place], [place], [address] CRP Collected: 09/23/2017 Status: F Source: [place] 9:28 AM [facility] REPOSITORY TYPE CODE TESTS RESULT OUT OF RANGE REFERENCE UNITS LAB L501.6710 0.0-3.0 mg/L High 8.05 C-REACTIVE PROT Result Comment: C-Reactive Protein (CRP) provides useful information for the diagnosis, therapy and monitoring of inflammatory processes and associated diseases. For the evaluation of Relative Risk for Cardiovascular Disease, a High Sensitivity CRP (HSCRP) should be ordered. Performed By: #### L501.6710 #### [facility] [address] [place], [address] PROGRESS Observed: 09/04/2017 Status: COMPLETED Source: [place] 4:00 PM [facility] [place] REPOSITORY HNO ID: [id number] Author: Maria Luz Ho Service: (none) Author Type: Psychologist Type: Progress Notes Filed: 09/04/2017 5:11 PM Note Text: [facility] Progress Note Calvin Robin 09/04/2017 [id number] Provider: Maria Luz Ho, PHD CPT Code: 35993 Psychiatric diagnostic evaluation Time: Approximately 50 minutes was spent in therapy. Parties Present: Patient Patient Presentation/Concerns: INITIAL VISIT RE Spinal Cord Stimualtor I have seen Ms. Robin today regarding a Spinal Cord Stimulator. She has had back pain for many years. Calvin has had Surgery, Physical Therapy, shots, Chiropractic, and currently she has progressed incrementally to a point where she now has periodic overwhelming pain. She has a good support system and is well aware of the likely consequences of this procedure. In my professional opinion, she is a good candidate for this procedure. It would be worth it to her if she can take the edge off of her pain and move about more productively. Pt grew up in [place] ... mom didnt treat her well... 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 w 5 children both knees replaced and currently a cyst behind rt knee pt and husb try to stay active... they lived in [place] many yrs then returned to the area to help take care of family member and they have since passed Mental Status: Mood: variable, irritable, pain Affect: mood-congruent Thoughts/Associations:goal directed Suicidal/Homicidal Ideation: None expressed or evidenced Other Observations: None Therapy Focus Self-care and Coping with chronic illness MEDICATIONS: Per medical record: No current outpatient prescriptions on file. No current facility-administered medications for this visit. Psychiatric Medication Issues: see med record DIAGNOSIS: Manlius I: Chronic pain Manlius II: deferred Manlius III: see med record Manlius IV: chronic pain Manlius V: 53 Treatment Modality/Interventions: Cognitive Behavioral Reassurance/Supportive TREATMENT ASSESSMENT/PROGRESS: . Fluctuating progress. TREATMENT PLAN/GOALS: Continue in therapy focusing on self- care and coping with chronic pain. Next appointment: None scheduled. Pt wiill call if issues arise. Maria Luz Ho, PHD EXT NON VASC Observed: 09/03/2017 Status: F Source: [place] LIMITED/SOFT TISS 1:21 PM [facility] REPOSITORY [facility] Imaging Services [address] [place] [address] Ext Non Vasc Limited/Soft Tiss MR#: [id number] Acct: [id number] Name: CALVIN ROBIN Rep #: [id number] : 1935 F 81 From: Howard Trinidad MD PCP: Mitesh Weems MD Status: REG CLI Study: Ext Non Vasc Limited/Soft Tiss Date of Exam: 09/03/17 Exam# [id number] Ordering Dr: Mitesh Weems MD STUDY: SUPERFICIAL ULTRASOUND - RIGHT KNEE ATTENTION TO THE POPLITEAL FOSSA REASON FOR EXAM: Female, 81 years old. Right knee swelling TECHNIQUE: A superficial ultrasound was performed with real- time and static villafana-scale imaging. COMPARISON: None. FINDINGS: There is an avascular fluid collection of the popliteal fossa measuring 2.0 x 1.9 x 1.0 cm consistent with a Woods's cyst. There is also demonstrated a deep soft tissue fluid collection of the right lateral knee region in area of palpable lump measuring 4.8 x 2.6 x 1.8 cm. US/Ext Non Vasc Limited/Soft Tiss IMPRESSION: Small Woods's cyst measuring 2.0 x 1.9 x 1.0 cm. Deep soft tissue fluid collection of the right lateral knee region in area of palpable lump measuring 4.8 x 2.6 x 1.8 cm. Electronically Signed: Howard Trinidad MD at 17:10 EDT , Service support , CC: Mitesh Weems MD Entry Level Administrative Assistant: Signed VENOUS DUPLEX LOWER Observed: 09/01/2017 Status: F Source: MIG[place]EL EXTREMITY 7:11 PM [facility] REPOSITORY [facility] Cardiovascular Services [address] [place] [address] Venous Duplex US, Unilateral 09/01/17 1505 MR#: [id number] Acct: [id number] Name: CALVIN ROBIN Rep #: [id number] : 1935 81 From: Santi Carreon MD Attending Dr: Mitesh Weems MD Status: REG CLI Ordering Dr: Mitesh Weems MD Date: 09/01/17 Location: CVS Sex: F C Admitted: Reason For Study: RLE Swelling RIGHT LEFT GSV is normal. CFV is compressible, spontaneous, phasic, CFV is compressible, spontaneous, phasic, competent, and demonstrates normal competent and demonstrates normal augmentation. augmentation. FV is compressible, spontaneous, phasic, competent and demonstrates normal augmentation. POP V is compressible, spontaneous, phasic, competent and demonstrates normal augmentation. T/P Trunk is compressible. PTV is compressible. RT PerV is compressible. Procedure Exam performed in department. A preliminary report was called and/or faxed to Dr. Weems. Interpretation Summary Deep veins of the right lower extremity are patent and compressible segmentally. There is no evidence of right lower extremity deep vein thrombosis. Valvular competence appears intact within the proximal deep venous system on the right . The right greater saphenous vein appears patent and compressible segmentally. Ordering Physician: Mitesh Weems Referring Physician: Mitesh Weems Performed By: Kasia Norman, RDCS, RVT 09/01/171910 Date Santi Carreon MD CC: Mietsh Weems MD Date Dictated: 09/01/17 1505 Date Transcribed: 09/01/171910 Entry Level Administrative Assistant: Signed KNEE 4 OR MORE Observed: 08/29/2017 Status: F Source: [place] VIEWS 4:58 PM [facility] REPOSITORY [facility] Imaging Services [address] [place] [address] Knee 4 or More Views MR#: [id number] Acct: [id number] Name: CALVIN ROBIN Rep #: [id number] : 1935 F 81 From: Redd Titus DO PCP: Mitesh Weems MD Status: REG CLI Study: Knee 4 or More Views Date of Exam: 08/29/17 Exam# [id number] Ordering Dr: Mitesh Weems MD STUDY: X-RAY - RIGHT KNEE REASON FOR EXAM: Female, 81 years old. Pain TECHNIQUE: 4 view(s) of the knee. COMPARISON: None. FINDINGS: Total right knee replacement. The hardware components are well aligned with no imaging evidence of loosening. No acute bony injury. Mild infrapatellar subcutaneous edema.. There is a moderate suprapatellar effusion. RAD/Knee 4 or More Views IMPRESSION: Total replacement of the knee. Effusion is noted. Electronically Signed: Redd Titus DO at 23:59 EDT Tel [phone], Service support , CC: Mitesh Weems MD Entry Level Administrative Assistant: Signed CBC W/DIFF, AUTOMATED Collected: 08/29/2017 Status: F Source: MIGUEL 4:57 PM [facility] REPOSITORY Order Comment: Order Date: 08/29/17 Order Info: 0184-1 - CBCD TYPE CODE TESTS RESULT OUT OF RANGE REFERENCE UNITS LAB L100.1000 4.4-11.0 K/mm3 Normal WBC 7.6 LAB L100.1200 4.2-5.4 M/mm3 Normal RBC 4.70 LAB L100.1300 12.0-15.0 g/dl Normal HGB 14.4 LAB L100.1400 37-47 % Normal HCT 42.7 LAB L100.1500 81-99 fL Normal MCV 90.9 LAB L100.1600 27.0-32.0 pg Normal MCH 30.6 LAB L100.1700 32-36 g/gl Normal MCHC 33.7 LAB L100.1810 11.6-14.6 % Normal RDW CV 13.1 LAB L100.1820 35.1-43.9 fl Normal RDW SD 43.1 LAB L100.1900 150-450 K/mm3 Normal PLT 187 LAB L100.2000 6.2-12.0 fl Normal MPV 12.0 LAB L100.2100 47-70 % Normal NEUT% 47.2 LAB L100.2200 19-41 % Normal LY% 40.6 LAB L100.2300 0-10 % Normal MONO% 9.5 LAB L100.2400 0-5 % Normal EO% 2.0 LAB L100.2500 0-1 % Normal BASO% 0.4 LAB L100.2550 0.0-0.9 % Normal IM GRAN % 0.300 Result Comment: IG% - Immature Granulocytes (promyelocytes, myelocytes and metamyelocytes) > 1% indicates that a LEFT SHIFT is Present. LAB L100.2620 2.0-7.7 X10 3/uL Normal Absolute Neut 3.6 LAB L100.2720 0.83-4.51 X10 3/ul Normal Absolute Lymph 3.08 Performed By: #### L100.0100 #### [facility] [address] [place], [address] SPINE LUMBAR Observed: 08/26/2017 Status: F Source: [place] (ROUTINE) 1:19 PM [facility] Imaging Services [address] [place] [address] Spine Lumbar (Routine) MR#: [id number] Acct: [id number] Name: CALVIN ROBIN Rep #: [id number] : 1935 F 81 From: Hamlet Cannon MD PCP: Mitesh Weems MD Status: REG CLI Study: Spine Lumbar (Routine) Date of Exam: 08/26/17 Exam# [id number] Ordering Dr: David Oneal MD STUDY: MRI LUMBAR SPINE WITHOUT CONTRAST REASON FOR EXAM: Female, 81 years old. Back pain radiating to the legs TECHNIQUE: Standardized fat and water weighted pulse sequences were obtained in the sagittal and axial planes. COMPARISON: None FINDINGS: No evidence for acute fracture or subluxation. 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 T12-L1: Normal endplates. Normal disc height, desiccation and minimal annular bulge. Normal bilateral facet joints. Normal central canal and bilateral lateral recesses. Normal bilateral intervertebral neural foramina. Normal lumbar lordosis. There is no substantial scoliosis. Normal conus medullaris that terminates at the L1-2: Normal endplates. Narrowed disc space with desiccation of the disc and mild annular bulge. Normal bilateral facet joints. Normal central canal. Mild bilateral recess stenosis. Normal bilateral intervertebral neural foramina. L2-3: Normal endplates. Normal disc height desiccation and mild bulging of the annulus in association with right posterolateral/foraminal disc protrusion. Normal bilateral facet joints. Normal central canal. Mild left lateral recess and neuroforaminal encroachment with moderate narrowing on the right. L3-4: Grade 1 spondylolisthesis. Narrowed disc space with desiccation of the disc and moderate bulging disc osteophyte complex with left posterolateral disc extrusion and superior migration of disc fragment.. Bilateral facet arthropathy. Mild narrowing of the central canal. Moderate bilateral recess stenosis slightly greater on the left with left superior articular stenosis. Moderate right neuroforaminal stenosis and more severe narrowing on the left exaggerated by shortened pedicles. L4-5: Mild endplate spurring. Narrowed disc space with desiccation of the disc and minimal annular bulge.. Bilateral facet arthropathy and mild thickening of ligamenta flava.. Normal central canal. Mild bilateral recess and neuroforaminal encroachment.. L5-S1: Normal endplates. Normal disc height, desiccation and minimal annular bulge.. Bilateral facet arthropathy.. Normal central canal and bilateral lateral recesses. Normal bilateral intervertebral neural foramina. Normal visualized sacral ala. Normal visualized paraspinous soft tissue structures. MRI/Spine Lumbar (Routine) IMPRESSION: Moderate spondylosis. Multilevel spinal stenosis secondary to disc disease and bony hypertrophy most severe at L3-4 association with short pedicles due to grade 1 spondylolisthesis. Findings as above Electronically Signed: Hamlet Cannon MD at 22:55 EDT , Service support , CC: David Oneal MD; Mitesh Weems MD Entry Level Administrative Assistant: Signed THORACIC SPINE 2 Observed: 07/16/2017 Status: F Source: [place] [employer] 11:08 AM [facility] REPOSITORY [facility] Imaging Services [address] [place] [address] Thoracic Spine 2 Views MR#: [id number] Acct: [id number] Name: CALVIN ROBIN Rep #: [id number] : 1935 F 81 From: Irvin Cortes MD PCP: Mitesh Weems MD Status: REG CLI Study: Thoracic Spine 2 Views Date of Exam: 07/16/17 Exam# [id number] Ordering Dr: David Oneal MD STUDY: X-RAY - THORACIC SPINE REASON FOR EXAM: Female, 81 years old. Upper and mid back pain TECHNIQUE: 2 view(s) of the thoracic spine were obtained. COMPARISON: None. FINDINGS: Normal kyphosis of the thoracic spine. There is no substantial scoliosis. There is multilevel endplate spondylosis of the thoracic vertebrae. There is multilevel disc space narrowing of the thoracic spine. The soft tissue structures are unremarkable. RAD/Thoracic Spine 2 Views IMPRESSION: There is multilevel endplate spondylosis of the thoracic vertebrae. There is multilevel disc space narrowing of the thoracic spine. Electronically Signed: Irvin Cortes MD at 11:42 EDT Tel , Service support , CC: David Oneal MD; Mitesh Weems MD Entry Level Administrative Assistant: Signed URINALYSIS, ROUTINE Collected: 06/24/2017 Status: F Source: MIGUEL (DIPSTICK) 8:12 AM [facility] REPOSITORY Order Comment: Order Date: 06/23/17 Order Info: 0610-1 - UA How was Urine Obtained? BUSINESS PROCESS EXPERT TO SPECIFY TYPE CODE TESTS RESULT OUT OF RANGE REFERENCE UNITS LAB L400.3000 Yellow COLOR Normal Yellow LAB L400.3050 Clear Normal CLARITY Clear LAB L400.3200 Normal mg/dl Normal GLUCOSE, UR Normal LAB L400.3300 Negative mg/dL Normal BILIRUBIN URINE Negative LAB L400.3400 Negative mg/dl Normal KETONE UR Negative LAB L400.3465 1.002-1.030 Normal SP.GR. DIPSTX 1.010 LAB L400.3550 5.0 - 8.0 pH UR Normal 5.0 LAB L400.3600 Negative mg/dl PROT Normal DIPSTX Negative LAB L400.3700 Normal mg/dl Normal UROBILI Normal LAB L400.3750 Negative Normal NITRITE UR Negative LAB L400.3780 Negative /ul Normal OCCULT BLOOD-UR Negative LAB L400.3800 Negative /ul High LEUK 25 ESTERASE Performed By: #### L400.2011, L500.4050, L500.4100, L506.1000 #### [facility] [address] [place], [address] COMPREHENSIVE METABOLIC Collected: 06/24/2017 Status: F Source: [place] PROFIL 8:12 [facility] REPOSITORY Order Comment: Order Date: 06/23/17 Order Info: 0786-1 - CMP Order Info: 19701-0 - LIPID TYPE CODE TESTS RESULT OUT OF RANGE REFERENCE UNITS LAB L501.0100 74-106 mg/dL Normal GLU 94 Result Comment: Please note revised GLUCOSE reference range effective 2017. LAB L501.1000 7-18 mg/dL Normal BUN 16 LAB L501.1100 0.55-1.02 mg/dL Normal CREAT,SERUM 0.83 Result Comment: The validity of the calculated GFR AND GFRAA in patients over 70 years has not been determined. Clinical correlation is essential. LAB L501.1110 >60 mL/min Normal EST GFR 70 Result Comment: Non- GFR Calc LAB L501.1115 >60 mL/min Normal EST GFR - AA 85 Result Comment: GFR Calc LAB L501.1300 10-20 RATIO Normal BUN/CRE 19.2 LAB L501.1500 6.4-8.2 g/dL T Normal PROT 7.0 LAB L501.1800 3.2-5.0 g/dL Normal ALB 3.5 LAB L501.1950 2.2-4.2 g/dL Normal GLOB 3.5 LAB L501.2000 0.9-2.4 RATIO Normal A/G 1.0 LAB L501.2200 8.5-10.1 mg/dL CA Normal 8.6 LAB L501.4100 15-37 U/L Normal AST 19 LAB L501.4305 45-117 U/L Normal ALK P 77 LAB L501.4405 13-56 U/L Normal ALT 20 Result Comment: Please note revised ALT reference range effective 2017. LAB L501.4600 0.20-1.00 mg/dL Normal T BILI 0.50 LAB L501.5300 136-145 mmol/L Normal NA 142 LAB L501.5600 3.5-5.1 mmol/L Normal K 3.9 LAB L501.5900 98-107 mmol/L High CL 110 LAB L501.6100 21.0-32.0 mmol/L Normal CO2 22.0 LAB L501.6200 5-15 Normal GAP 10 Performed By: #### L400.2011, L500.4050, L500.4100, L506.1000 #### [facility] [address] [place], [address] LIPID PROFILE Collected: 06/24/2017 Status: F Source: [place]EL 8:12 AM [facility] REPOSITORY Order Comment: Order Date: 06/23/17 Order Info: 0786-1 - CMP Order Info: 68548-9 - LIPID TYPE CODE TESTS RESULT OUT OF RANGE REFERENCE UNITS LAB L501.4900 200 mg/dL High CHOL 201 Result Comment: <200 mg/dL Desirable 200-240 mg/dL Borderline >240 mg/dL High Risk LAB L501.5000 mg/dL Normal TRIG 144 Result Comment: The drugs N-Acetylcysteine and Metamizole may falsely depress this assay. Serum Triglycerides Reference Interval Normal <150 mg/dL Borderline high 150 - 199 mg/dL High 200 - 499 mg/dL Very High > or = 500 mg/dL LAB L501.6400 mg/dL Normal HDL 57 Result Comment: The drugs N-Acetylcysteine and Metamizole may falsely depress this assay. Reference Range HDL <40 mg/dL Low HDL Cholesterol HDL >or= 60 mg/dL High HDL Cholesterol LAB L501.6500 0-130 mg/dL Normal LDL 115 LAB L501.6600 5-40 mg/dL Normal VLDL 29 Performed By: #### L400.2010, L500.4050, L500.4100, L506.1000 #### [facility] [address] [place], [address] VITAMIN D,25 HYDROXY Collected: 06/24/2017 Status: F Source: MIGUEL 8:12 AM [facility] REPOSITORY Order Comment: Order Date: 06/23/17 Order Info: 78735-3 - VITD25 TYPE CODE TESTS RESULT OUT OF RANGE REFERENCE UNITS LAB L506.1000 29.95-100.01 ng/mL Normal Vitamin D 38.2 25-OH Result Comment: Vitamin D 25(OH) Status Range Deficiency <20 ng/mL (50nmol/L) Insuffciency 20 - 30 ng/mL (50 - 75 nmol/L) Sufficiency 30 - 100 ng/mL (75 - 250 nmol/L) Toxicity >100 ng/mL (>250 nmol/L) Performed By: #### L400.2011, L500.4050, L500.4100, L506.1000 #### [facility] [place], [address] RE-EVALUATION - PT (1) Observed: 06/20/2017 Status: F Source: MIGUEL 3:54 PM [facility] REPOSITORY [facility] [address] [place], [place] [address] Fax REEVALUATION / MEDICARE RECERTIFICATION PHYSICAL THERAPY MR#: [id number] Acct: [id number] Name: CALVIN ROBIN Rep #: [id number] : 1935 81 From: Amena Mcdermott PT, Cert. MDT Referring Dr.: David Oneal MD Status: REG RCR Insurance: [facility] MEDICARE SELF PAY INSURANCE DR.ABASAL Olivia It has been my pleasure to treat CALVIN ROBIN over the last 10 visits for NECK AND BACK PAIN. Please see the progress note below for an update on the physical therapy plan of care! Subjective: PATIENT REPORTS SHE MOVED HER TV. STATES HER NECK IS MUCH BETTER - IT ISN'T ACHING LIKE IT WAS. STATES THE EX'S HAVE HELPED HER NECK. PATIENT REPORTS THE PAIN IN HER BACK AND NECK IS NOT SEVERE. PATIENT REPORTS THE MAIN IMPROVEMENT SHE HAS SEEN IS IN THE DISCOMFORT IN HER NECK AND BACK. PATIENT HAS ORIENTATION FOR EDAN NEXT WEEK. SHE WANTS TO TO TRY TO CONTINUE POOL EX'S WITH HER MEMBERSHIP AND CONTINUE PT ONCE A WEEK FOR PROGRESSION AND CORRECTION NEEDED. SHE IS ALSO OPEN TO TRYING THE NUSTEP AGAIN WHICH SEE USED TO DO AND LIKED AFTER HER KNEE REPLACEMENTS. Objective/Function: PATIENT IS MAKING SLOW PROGRESS TOWARD ALL PT GOALS. UPON EXAM, Active Correction of posture: INCREASES PATIENTS LOW BACK PAIN. Other Observations: INDEP SIT TO STAND WITHOUT UE ASSIST MUCH MORE EASILY NOW THAN BEFORE PT. Motor deficit: RIGHT LE: HIP 4-/5, KNEE 4-/5 AND ANKLE 4/5. LLE: HIP 4/5, KNEE 4/5, ANKLE 5/5. Sensory deficit: DECREASED RIGHT LATERAL LEG LIGHT TOUCH SENSATION COMPARED TO LEFT. ROM deficit: RIGHT KNEE ROM IN SUPINE WITH A HEEL SLIDE IS FULL EXT TO 109, LEFT KNEE FULL EXT TO 118 DEG FLEX. Dural Signs: POSITIVE RIGHT LE. Lumbar mvmt loss: flex - MOD. ext - QUAN. R SG - QUAN. L SG - QUAN. NO C/O OF INCREASED PAIN WITH LUMBAR ROM TESTING TODAY. TIFFANIE UE ROM IS WFL. TIFFANIE UE STRENGTH IS GROSSLY 4/5 WITH MMT. CERVICAL MVMT LOSS: FLEX - NIL, EXT - MOD, RET - QUAN, TIFFANIE ROT - MOD, TIFFANIE SB - QUAN. CERVICAL ROM TESTING ALL PLANES INCREASE C/O NECK PAIN. CERVICAL ROTATION ESPECIALLY INCREASES PAIN. Plan Plan: DECREASE AQUATIC PHYSICAL THERAPY TO ONE TIME A WEEK FOR PROGRESSION TOLERATED AND TO HELP WITH SUCCESSFUL TRANSITION TO FULLY IIND PROGRAM. PATIENT AGREEABLE. Goals Goal 1:: DECREASE C/O BACK AND LE SX'S Goal Time Frame: 4-6 Weeks Goal Progress: Progressing Goal 2:: DECREASE C/O NECK PAIN Goal Time Frame: 4-6 Weeks Goal Progress: Progressing Goal 3:: IMPROVE PERSONAL CARE, LIFTING, WALKING, SITTING, STANDING, SLEEPING, SOCIAL LIFE, TRAVEL AND HOMEMAKING FUNCTION Goal Time Frame: 4-6 Weeks Goal Progress: Progressing Goal 4:: INSTRUCT IN PROPHYLAXIS Goal Time Frame: 4-6 Weeks Goal Progress: Progressing Anticipated Interventions Patient/Client Instruction: Educate patient on: Condition, Plan of Care, Risk Factors, Benefits of Fitness Program For the Purpose of:: To improve self management Therapeutic Exercise to Include: Strength training, Endurance training, Balance training, Body mechanics, Postural training, Flexibilty training, Gait and locomotor training, In an aquatic setting, Active ROM, Dynamic Lumbar Stabilization, Scapular Strength/Stabilization For the Purpose of:: To improve ability of physical actions for home/community/work/leisure, To improve gait and locomotor functions Please do not hesitate to contact me at [phone] by phone or if you have questions or concerns regarding this new plan of care! Sincerely, Amena Mcdermott <Electronically signed by Amena Mcdermott PT, Cert. MDT> 06/20/17 1554 CC: David Oneal MD; Mitesh Weems MD LUIS Signed For Medicare only, by signing this I certify the plan of care. Physicians Signature Date INITAL EVALUATION (1) Observed: 05/27/2017 Status: F Source: MIGUEL - PT 2:16 PM [facility] REPOSITORY [facility] [address] [place], [place] [id number] Fax REHABILITATION SERVICES INITIAL EVALUATION MR#: [id number] Acct: [id number] Name: CALVIN ROBIN Rep #: [id number] : 1935 81 From: Amena Mcdermott PT, Cert. MDT Referring Dr.: David Oneal MD Status: REG RCR Insurance: [facility] MEDICARE SELF PAY INSURANCE Patient's Visit Information CALVIN ROBIN is a 81 year old F referred to Physical Therapy by David MOLINA with a diagnosis of NECK AND BACK PAIN. Date of Evaluation: 05/27/17 Physical Therapist: Amena Mcdermott - Visit Plan Frequency: 2-3x /Week Duration: 4-6 Weeks Plan: AQUATIC THERAPY. POSTURE CORRECTION/STRENGTHENING, INSTRUCTION IN APPROPRIATE BODY MECHANICS AND ACTIVITY MODIFICATIONS. DLS STARTING WITH A NEUTRAL SPINE PROGRESSING ROM TOLERATED. TIFFANIE LE ROM, STRETCHING AND STRENGTHENING. HEP INSTRUCTION. 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 Disability: NO. Present symptoms: LOW BACK PAIN AND NECK PAIN. RIGHT LEG ACHING. Present since: CHRONIC. Pain Scale: NECK/UPPER BACK: WORST 7/10, LEAST 3/10, LOW BACK: WORST 8/10, LEAST 4/10. Currently: NECK/UPPER BACK: 3/10, LOW BACK: 4/10. Commenced as a result of: NO APPARENT REASON. Symptoms at onset: LOW BACK. 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 Better: FREQUENT CHANGE OF POSTION, RECLINING WITH HEAT, ICY HOT, HOT WATER, TYLONOL EVERY 4 HOURS, MEDICATIONS PRESCRIBED BY THE DOCTOR. Disturbed sleep: YES. Previous history/Previous treatment: CHIROPRACTOR FOR MONTHS, TRACTION, 2016 BONE CHIP REMOVED FROM RIGHT SPINE. APRIL 2017 PIERCE WITH TEMPORARY RELIEF THAT HAS WORN OFF. NO NECK SURGERY. CERVICAL PIERCE'S A COUPLE WEEKS AGO THAT HELPED AND SHE IS STILL BENEFITING FROM. Coughing/sneezing/straining: POSITIVE. DIFFICTULTY SWOLLOWING: ONCE IN A WHILE. NAUSEA: NO. TINNITIS: YES. DIZZINESS: H/O VERTIGO. Gait: CANE AND WALKER NEEDED. ONLY ABLE TO WALK LESS THAN A QUARTER OF MILE NOW. GAIT IS LIMITED BY TIFFANIE KNEE PAIN (TIFFANIE KNEE REPLACEMENTS). Difficulty initiating urinatin: NO. Accidents: NO. Unexplained weight loss: NO. Imaging: LOW BACK X-RAYS RECENTLY ALONG WITH PELVIS AND HIPS: TIFFANIE HIP DEGENERATIVE CHANGES. LUMBAR SPINE DEGENERATIVE CHANGES WITHOUT FX. MILD DEGENERATIVE CHANGES OF THE SI JTS. PMH: HTN. Recent major surgery: TIFFANIE TKR'S. OTHER: 14 STEPS TO FAMILY ROOM IN THE WALK OUT BASEMENT FROM ENTRY. - Objective Sitting Posture: POOR. Standing Posture: POOR WITH INCREASED TRUNK FLEXION. Lordosis: REDUCED. Active Correction of posture: WORSE. Other Observations: INDEP SIT TO STAND WITHOUT UE ASSIST BUT VERY DIFFICULT. Motor deficit: TIFFANIE LE'S GROSSLY 4-/5. Sensory deficit: DECREASED RIGHT LE LIGHT TOUCH SENSATION COMPARED TO LEFT. ROM deficit: WFL BUT KNEE FLEX NOT MEASURED. Dural Signs: POSITIVE RIGHT LE. Lumbar mvmt loss: flex - MOD. ext - QUAN. R SG - QUAN. L SG - QUAN. Core strength: POOR. Palpation: TENDER WITH LIGHT PALPATION OF ENTIRE SPINE FROM OCCIPUT TO TAILBONE AND INTO TIFFANIE SI AND BUTTOCK REGIONS. - Goals Goal 1:: DECREASE C/O BACK AND LE SX'S Goal Time Frame: 4-6 Weeks Goal 2:: DECREASE C/O NECK PAIN Goal Time Frame: 4-6 Weeks Goal 3:: IMPROVE PERSONAL CARE, LIFTING, WALKING, SITTING, STANDING, SLEEPING, SOCIAL LIFE, TRAVEL AND HOMEMAKING FUNCTION Goal Time Frame: 4-6 Weeks Goal 4:: INSTRUCT IN PROPHYLAXIS Goal Time Frame: 4-6 Weeks - Rehabilitation Potential Rehabilitation Potential: Fair - Anticipated Interventions Patient/Client Instruction: Educate patient on: Condition, Plan of Care, Risk Factors, Benefits of Fitness Program For the Purpose of:: To improve self management Therapeutic Exercise to Include: Strength training, Endurance training, Balance training, Body mechanics, Postural training, Flexibilty training, Gait and locomotor training, In an aquatic setting, Active ROM, Dynamic Lumbar Stabilization, Scapular Strength/Stabilization For the Purpose of:: To improve ability of physical actions for home/community/work/leisure, To improve gait and locomotor functions Thank you for the opportunity to evaluate your patient. For Medicare and Medicare HMO plans, please review the plan of care and approve it. It will need to be FAXED BACK to us at [phone] for Medicare purposes. Please let me know if there are questions or concerns regarding this plan of care. Physician Signature: Date: <Electronically signed by Amena Mcderomtt PT, Cert. MDT> 05/27/17 5185 CC: David Oneal MD; Mitesh Weems MD LUIS Signed For Medicare only, by signing this I certify the plan of care. Physicians Signature Date ALLERGIES ALLERGIES DATE TYPE / CODE NAME / CODE REACTION SEVERITY SOURCE 12/29/2017 Drug Irlfgri-Rwf-Nhx Pain in joints Unknown [facility] 297224(SNOM Inhibitor/J21241 Repository ED CT) 0095(RXNORM) 12/29/2017 Drug codeine/[id number] Other Unknown [facility] Allergy/416 50(RXNORM) [facility] 942051(SNOM Repository ED CT) 12/29/2017 Drug naproxen/[id number] Hives Unknown [facility] All[facility]/416 380(RXNORM) [facility] [id number](SNOM Repository ED CT) ENCOUNTERS ENCOUNTERS ADMIT/DISCHARGE ACCOUNT ADMITTING ENCOUNTER LOCATION SOURCE NUMBER CLASS 03/30/[id number] [facility] ing:PT Repository 03/10/2018 [id number] Ambulatory [facility] Hospital ing:HPRAD Repository 03/10/2018/03/10/20 [id number] Ambulatory BMSBuilding:B [place] 18 [facility] Repository 02/25/2018 [id number] Ambulatory [facility] Hospital[facility] Hospital ing:MFPLAB Repository 01/02/2018/01/03/20 [id number] Ambulatory [place] [address] HospitalBuild Hospital ing:SDC Repository 10/13/2017/10/16/19 [id number] Tarun, Inpatient Miguel [place] [facility] ing:GJ3Pspc: Repository HL818Uwd: 1 10/06/2017/10/16/19 [id number] Ambulatory BMSBuilding:W Miguel 18 [facility] Repository 09/26/2017 [id number] Ambulatory [facility] Hospital[facility] Hospital ing:NM Repository 09/23/2017 [id number] Ambulatory [facility] Hospital ing:MTLAB Repository 09/04/2017/09/06/19 [id number] Ambulatory [address] Repository 09/03/2017 [id number] Ambulatory [facility] Hospital[facility] Hospital ing:OPUS Repository 09/01/2017 [id number] Ambulatory [facility] Hospital[facility] Hospital ing:CVS Repository 08/29/2017 [id number] Ambulatory [facility] Hospital ing:MTLAB Repository 08/26/2017 [id number] Ambulatory [facility] Hospital ing:MRI Repository 07/16/2017 [id number] Ambulatory [facility] Hospital ing:RAD Repository 06/24/2017 [id number] Ambulatory [facility] Hospital ing:MTLAB Repository 06/20/2017/06/21/19 [id number] Ambulatory [address] HospitalBuild Hospital ing:PT Repository PAYERS PAYERS ENCOUNTER GUARANTOR PAYER SUBSCRIBER SOURCE 03/30/2018 CALVIN Girard Primary CALVIN [id number] Insurance:HOMETOWBlu VICTORIAERB: [facility] [id number] [place] Repository 6[address]Tos: (330) Number: [phone] () [id number] Date: [facility] [address]DV: 03/30/2018 Secondary NOT GIVENUNK [place] Insurance:SELF PAY [facility] Number: Effective Repository Date:2018-03-10 03/10/2018 CALVIN J Primary CALVIN J [place] [id number] Insurance:[place] MOWRERDOB: Community [facility] [id number] [facility] [place] MED[place] Repository [address]Cqc: (330) Number: [phone] () [id number] Date: [facility] [place] [address]AU: 03/10/2018 Secondary NOT GIVENUNK [place] Insurance:SELF PAY [facility] Number: Effective Repository Date:2018-03-10 03/10/2018 CALVIN J Primary CALVIN J Miguel [id number] Insurance:[place] MOWRERDOB: [facility] CARE [id number] [facility] [place] Repository [address]Wjr: (330) Number: [phone] () [id number] Date: [facility] [place] [address]WY: 03/10/2018 Secondary NOT GIVENUNK [place] Insurance:SELF PAY [facility] Number: Effective Repository Date:2018-03-10 02/25/2018 CALVIN J Primary CALVIN J Miguel [id number] Insurance:[place] MOWRERDOB: Community [facility] [id number] [facility] [place] Repository [address]Ygb: (330) Number: [phone] () [id number] Date: [place], [place] [address]LT: 02/25/2018 Secondary NOT GIVENUNK Miguel Insurance:SELF PAY [facility] Number: Effective Repository Date:2018-02-25 01/02/2018 CALVIN Girard Primary CALVIN Girard Miguel [id number] Insurance:[place] MOWRERDOB: [facility] CARE [id number] [facility] [place] Repository [address]Sht: 330) Number: [phone] () [id number] Date: [place], [place] [address]KJ: 01/02/2018 Secondary NOT GIVENUNK [place] Insurance:SELF PAY [facility] Number: Effective Repository Date:2017-12-05 10/13/2017 CALVIN Girard Primary CALVIN J Lor[place] [id number] Insurance:[place] MOWRERDOB: [facility] [id number] [facility] [place] Repository [address]Bid: 330) Number: [phone] () [id number] Date: [place], [place] [address]EC: 10/13/2017 Secondary NOT GIVENUNK Miguel Insurance:SELF PAY [facility] Number: Effective Repository Date:2017-10-02 10/06/2017 CALVIN J Primary CALVIN J [place] [id number] Insurance:[place] MOWRERDOB: [facility] CARE [id number] [facility] [place] Repository [address]Bkc: 330) Number: [phone] () [id number] Date: [place], [place] [address]EW: 10/06/2017 Secondary NOT GIVENUNK Miguel Insurance:SELF PAY [facility] Number: Effective Repository Date:2017-10-06 09/26/2017 CALVIN J Primary CALVIN J Miguel [id number] Insurance:[place] MOWRERDOB: [facility] CARE [id number] Rep[place] [address]Mfd: (330) Number: [phone] () [id number] Date: [place] [place], [place] [address]AN: 09/26/2017 Secondary NOT GIVENUNK Miguel Insurance:SELF PAY [facility] Number: Effective Repository Date:2017-09-23 09/23/2017 CALVIN J Primary CALVIN J Miguel [id number] Insurance:[place] MOWRERDOB: [facility] CARE [id number] Rep[place] [address]Rgt: (330) Number: [phone] () [id number] Date: [facility] W [address]FD: 09/23/2017 Secondary NOT GIVENUNK Lor[place] Insurance:SELF PAY [facility] Number: Effective Repository Date:2017-09-23 09/03/2017 CALVIN J Primary CALVIN J [place] [id number] Insurance:[place] MOWRERDOB: [facility] CARE [id number] [place] Repository [address]Qmx: (330) Number: [phone] () [id number] Date: [facility] [place] [address]CX: 09/03/2017 Secondary NOT GIVENUNK [place] Insurance:SELF PAY [facility] Number: Effective Repository Date:2017-09-01 09/01/2017 CALVIN J Primary CALVIN J Miguel [id number] Insurance:[place] MOWRERDOB: [facility] CARE [id number] [facility] [place] Repository [address]Gnj: (330) Number: [phone] () [id number] Date: [place], [place] [address]DS: 09/01/2017 Secondary NOT GIVENUNK [place] Insurance:SELF PAY [facility] Number: Effective Repository Date:2017-09-01 08/29/2017 CALVIN J Primary CALVIN J [place] [id number] Insurance:[place] MOWRERDOB: [facility] CARE [id number] [place] MED[place] Repository [address]Cxn: (330) Number: [phone] () [id number] Date: [place], [place] [address]FO: 08/29/2017 Secondary NOT GIVENUNK Miguel Insurance:SELF PAY [facility] Number: Effective Repository Date:2017-08-29 08/26/2017 CALVIN J Primary CALVIN J Miguel [id number] Insurance:[place] MOWRERDOB: [facility] [id number] [facility] [place] Repository [address]Afx: (330) Number: [phone] () [id number] Date: [place], [place] [address]JC: 08/26/2017 Secondary CALVIN J Miguel Insurance:[facility] PACKAGE MOWRERDOB: [facility] Number: [id number] Hospital [id number] Repository Date:2017-08-18 08/26/2017 Tertiary NOT GIVENUNK Loraine Insurance:SELF PAY [facility] Number: Effective Repository Date:2017-08-18 07/16/2017 CALVIN J Primary CALVIN J [place] [id number] Insurance:[place] MOWRERDOB: [facility] [id number] [facility] [place] MED[place] Repository [address]Ryy: (330) Number: [phone] () [id number] Date: [place], [place] [address]NC: 07/16/2017 Secondary NOT GIVENUNK [place] Insurance:SELF PAY [facility] Number: Effective Repository Date:2017-07-16 06/24/2017 Calvin [id number] Primary Calvin MoallegraerDOB: Miguel [place] Insurance[id number] [address]Tel: (107) MEDICAREPolicy Repository [phone] () Number: [id number] Date: [facility], [place] [address]HW: 06/24/2017 Secondary NOT GIVENUNK Miguel Insurance:SELF PAY [facility] Number: Effective Repository Date:2017-06-24 06/20/2017 Calvin [id number] Primary Calvin MoallegraerDOB: Miguel [place] Insurance:[place] [id number] [address]Tel: (622) MEDICAREPolicy Repository [phone] () Number: [id number] Date: [facility], [place] [address]AM: 06/20/2017 Secondary NOT GIVENUNK Miguel Insurance:SELF PAY [facility] Number: Effective Repository Date:2017-05-21
== END ==
PROVIDERS: Family Provider Family Medicine; PCP Family Medicine; Visit Provider Orthopaedic Surgery
DX: M54.2 Cervicalgia (principal); M54.9 Dorsalgia, unspecified
CPT/HCPCS: 72052; 72110

== ENCOUNTER 2018-04-09 15:30 | Outpatient (RCR) | payer MEDICARE, SELFPAY ==
--- NOTE | 2018-03-11 11:51 | HP.PTEVAL_ITS ---
Patient's Visit Information CALVIN MANCILLA is a 82 year old F referred to Physical Therapy by Karena Benz with a diagnosis of CERVICAL SPINE PAIN. Date of Evaluation: 03/11/18 Physical Therapist: Amena Mcdermott - Visit Plan Frequency: 2x /Week Duration: 4-6 Weeks Plan: *THORACIC STIMULATOR*. US, DRY NEEDLING, STM, POSTURE CORRECTION/STRENGTHENING, INSTRUCTION IN APPROPRIATE BODY MECHANICS AND ACTIVITY MODIFICATIONS. TIFFANIE UE ROM, STRETCHING AND STRENGTHENING. HEP INSTRUCTION. - Subjective Findings: Diagnosis: CERVICAL SPINE PAIN. Work/Leisure: RETIRED. Disability: NO. Present symptoms: TIFFANIE NECK AND SHOULDER PAIN LEFT > RIGHT. RIGHT SIDE PAIN. LEFT > RIGHT HAND AND FOREARM TINGLING. Present since: YEARS. REFERRED TO DR. BENZ FOR HER NECK FROM DR. ONEAL. Pain Scale: Worst - 8/10 Least - 3/10. Currently: /10. Commenced as a result of: NO APPARENT REASON. Symptoms at onset: NECK. Worse: SEWING, HOUSE CLEANING, READING, COOKING. Better: HEATING PAD, COLD PACK, LYING. Disturbed sleep: YES. Previous history/Previous treatment: PHYSICAL THERAPY IN [place] FOR NECK AND DIZZINESS. ONE CERVCIAL PIERCE LAST SPRING THAT DIDN'T HELP. ONE ACCUPUNCTURE SESSION WITH TEMPORARY BENEFIT ONLY. PATIENT HAS SEEN DR. ONEAL AND DR. BENZ FOR HER NECK. NO SURGERY RECOMMENDED AT THIS TIME. Dizziness: NO. Tinnitis: YES. Nausea: NO. Shortness of Breath: A LITTLE SOB - SAW DR. MUNROE FOR TH IS ABOUT A WEEK AGO. Difficulty Swollowing: YES - STARTED A COUPLE YEARS AGO AND IT IS MILD AND HAPPENS OCCASSIONALLY. Gait: CANE NEEDED. NO RECENT FALLS. Accidents: NO. Unexplained weight loss: NO. Imaging: TOTAL MRI BEFORE RIGHT TKR IN OCTOBER 2017. RECENT NECK X-RAYS YESTERDAY: No evidence of instability between flexion and extension. Normal neutral. alignment. Degenerative disc disease at the C5-6 level. Diffuse facet. disease. Prevertebral soft tissues are normal. Thoracic spine stimulator. THORACIC X- RAY JULY 2017. PMH: HTN. Recent major surgery: TIFFANIE TKR'S. OTHER: 14 STEPS TO FAMILY ROOM IN THE WALK OUT BASEMENT FROM ENTRY - HAS STAIRMASTER AVAILABLE. OCTOBER 13 2017 RIGHT TKR REVISION. SARITA JUNE AND AUGUST 2017 - MILD. CHRONIC BACK PAIN. PLOF (Prior Level of Function): PATIENT REPORTS SHE WAS ABLE TO DO HER HOUSEWORK, SEWING, READING AND COOKING BETTER UNTIL ABOUT SEPTEMBER OF THIS YEAR. OTHER: PATIENT REPORTS SHE IS NOT HAPPY WITH HOW SHE CAN WALK SINCE HER RIGHT TKR REVISION. SHE STATES THE RIGHT KNEE PAIN IS GETTING BETTER. SHE ALSO REPORTS SHE IS HAVING A LOT OB BACK PAIN. - Objective Sitting Posture/Standing Posture: POOR. FORWARD HEAD, ROUNDED SHOULDERS. Active Correction of posture: NE. PATIENT IS ONLY ABLE TO PARTIALL CORRECT. Other Observations: INDEP GAIT INTO PT LIMPING ON RIGHT LE WITH DECREASED CA DANCE AND USE OF STRAIGHT CANE. NO LOB. Motor deficit: 12 LBS LEFT [employer] AND 32 LBS RIGHT [employer]. RIGHT UE IS STRONGER THAN LEFT THROUGHOUT WITH RIGHT UE 5/5 AND LEFT: SHOULDER FLEX 4-, ABD 4-, IR 4/5, ER 3+/5, ELBOW 4/5. Sensory deficit: NO. ROM deficit: TIFFANIE UE'S WFL. Reflexes: 1/2 TIFFANIE UE'S. Dural Signs: NEGATIVE. Cervical Mvmt Loss: Flex: NIL. Pro: NIL. Ext: QUAN. Ret: QUAN. RSB: QUAN. LSB: QUAN. R Rot: MOD. L Rot: MOD. PATIENT WITH C/O INCREASED PAIN WITH CERVICAL ROM TESTING ALL PLANES BUT ESPECIALLY WITH EXTENSION. Postural strength: POOR. Palpation: TENDERNESS WITH PALPATION OF TIFFANIE CERVICAL MUSCULATURE MUCH GREATER ON THE LEFT THAN THE RIGHT. SHE IS TENDER IN THE TRAPS AND UP TO OCCIPUT. OTHER: BRIEF REVIEW OF PROPER POSTURE CONTROL AND APPRORIATE ACTIVITY MODIFICATIONS - PATIENT HAD TRAINING FROM THIS PT EARLIER THIS YEAR WHEN HERE FOR HER LOW BACK. - Goals Goal 1:: DECREASE C/O NECK AND TIFFANIE UE SX'S. Goal Time Frame: 4-6 Weeks Goal 2:: IMPROVE PERSONAL CARE, READING, SLEEP, HOUSEWORK, SEWING, DRVING AND RECREATIONAL FUNCTION. Goal Time Frame: 4-6 Weeks Goal 3:: INSTRUCT IN PROPHYLAXIS Goal Time Frame: 4-6 Weeks - Rehabilitation Potential Rehabilitation Potential: Fair - Anticipated Interventions Patient/Client Instruction: Educate patient on: Condition, Plan of Care, Risk Factors, Benefits of Fitness Program For the Purpose of:: To improve self management Therapeutic Exercise to Include: Strength training, Body mechanics, Postural training, Flexibilty training, Active ROM, Scapular Strength/Stabilization For the Purpose of:: To decrease pain, To increase ROM, To improve muscle performance and motor function, To increase tolerance to activity/condition/position, To improve performance and independence with ADL's, To improve ability of physical actions for home/community/work/leisure Manual Therapy Techniques to Include: Functional dry needling, Soft tissue mobilization For the Purpose of:: To decrease pain, To decrease swelling/inflammation, To increase ROM, To improve nutrient delivery to tissue Ultrasound (thermal/non thermal): Yes Thank you for the opportunity to evaluate your patient. For Medicare and Medicare HMO plans, please review the plan of care and approve it. It will need to be FAXED BACK to us at [phone] for Medicare purposes. For Medicare only, by signing this I certify the plan of care. Please let me know if there are questions or concerns regarding this plan of care. Physician Signature: Date:
--- NOTE | 2018-06-24 09:09 | HP.PTDCSUM ---
HP - PT D/C Summary It has been my pleasure to treat CALVIN MANCILLA under orders from Karena Benz MD, for the diagnosis of CERVICAL SPINE PAIN for a total of 9 visit(s). Discharge Date: 04/09/18 Please see the following information for a summary of their discharge status. - Subjective Subjective: Pt. reports I am doing great today. Pt. reports being 95% better overall. Pt. reporst being HEP compliant. - Pain L side of cervical spine. Pain Intensity (Out of 10): 0 - Overall Improvement % Improvement: 95 - Objective Objective/Function: Pt. is still limited with cervical extension. Pt. has minimal pain and is competent with her HEP. Pt. has no arm issues and is pleased with progres. Pt. will be DC to HEP at this point in time. - Goals Goal 1:: DECREASE C/O NECK AND TIFFANIE UE SX'S. Goal Progress: Goal Met Goal 2:: IMPROVE PERSONAL CARE, READING, SLEEP, HOUSEWORK, SEWING, DRVING AND RECREATIONAL FUNCTION. Goal Progress: Goal Met Goal 3:: INSTRUCT IN PROPHYLAXIS Goal Progress: Goal Met - Plan Plan: Pt. to be DC from PT at this point in time. - D/C Information Discharge Comments: PT. was treated with traction, US and DN for her neck pain. Pt. reports having minimal pain at this point in time. Pt. will be DC to HEP at this point in time. If there are questions or concerns regarding this patient's physical therapy, please feel free to call me at [phone]. Thank you for the referral of this patient. Sincerely, Jerod Hassan DPT
== END 2018-04-09 19:00 | disposition home or self-care (01) ==
LOC: PT 15:30
PROVIDERS: Family Provider Family Medicine; PCP Family Medicine; Referring Provider Orthopaedic Surgery; Visit Provider Orthopaedic Surgery
DX: M54.2 Cervicalgia (principal)
CPT/HCPCS: 97012; 97035; 97140; 97162

== ENCOUNTER → 2018-04-10 08:08 | Outpatient (CLI) | payer MEDICARE, SELFPAY ==
[2018-04-10 10:07] LABS: Absolute Neutrophil Count 2.9 X10^3/uL (2.0-7.7); Basophil# 0.03 X10^3/uL; Basophil% 0.5 % (0-1); Eosinophil# 0.23 X10^3/uL; Eosinophils% 3.6 % (0-5); Hematocrit 43.4 % (37-47); Hemoglobin 14.4 g/dl (12.0-15.0); Lymphocyte % 40.9 % (19-41); Mean Corp Hgb Conc 33.2 g/gl (32-36); Mean Corpuscular Hgb 29.3 pg (27.0-32.0); Mean Corpuscular Volume 88.4 fL (81-99); Mean Platelet Vol. 13.2 fl (6.2-12.0); Monocyte# 0.57 X10^3/uL; Neutrophil # 2.93 X10^3/uL (2.7-7.7); Platelet Count 174 K/mm3 (150-450); RBC Distribution Width CV 13.1 % (11.6-14.6); RBC Distribution Width SD 42.1 fl (35.1-43.9); Red Blood Count 4.91 M/mm3 (4.2-5.4); White Blood Count 6.4 K/mm3 (4.4-11.0)
[2018-04-10 10:08] LABS: POSITIVE COUNT NO; POSITIVE DIFFERENTIAL NO; POSITIVE MORPHOLOGY NO
[2018-04-10 10:11] LABS: Color, Urine Yellow (Yellow); Glucose, Dipstick Normal (Normal); Ketone-Dipstick Negative (Negative); Leukocyte Esterase-Dipstick 500 /ul (Negative); Nitrite-Dipstick Negative (Negative); Occult Blood-Urine Negative /ul (Negative); Protein-Dipstick 15 mg/dl (Negative); Urine Bilirubin Dipstick Negative (Negative); Urine Clarity Sl. Cloudy (Clear); Urine Urobilinogen Normal (Normal)
[2018-04-10 10:42] LABS: Vitamin D,25 Hydroxy 28.1 ng/mL (29.95-100.01)
[2018-04-10 10:48] LABS: ALB/GLOB Ratio 1.1 RATIO (0.9-2.4); AST(SGOT) 21 U/L (15-37); Alanine Aminotransfer ALT/SGPT 22 U/L (13-56); Albumin, Serum 3.7 g/dL (3.2-5.0); Alkaline Phosphatase 83 U/L (45-117); Anion Gap 10 (5-15); BUN 20 mg/dL (7-18); BUN/Creat Ratio 21.6 RATIO (10-20); Calcium,Total 9.2 mg/dL (8.5-10.1); Chloride 107 mmol/L (98-107); Cholesterol 201 mg/dL (200); Creatinine, Serum 0.93 mg/dL (0.55-1.02); EST Glomerular Filtration Rate 62 mL/min (>60); Est Glom Filt Rate - Afr Amer 75 mL/min (>60); Globulin 3.4 g/dL (2.2-4.2); Glucose 99 mg/dL (74-106); High Density Lipoprotein 53 mg/dL; Potassium 3.8 mmol/L (3.5-5.1); Protein, Total 7.1 g/dL (6.4-8.2); Sodium Level 142 mmol/L (136-145); Triglycerides 245 mg/dL; Very Low Density Lipoprotein 49 mg/dL (5-40)
== END ==
PROVIDERS: Family Provider Family Medicine; PCP Family Medicine; Visit Provider Family Medicine
DX: E55.9 Vitamin D deficiency, unspecified (principal); I10 Essential (primary) hypertension; E78.5 Hyperlipidemia, unspecified
CPT/HCPCS: 36415; 80053; 80061; 81002; 82306; 85025

== ENCOUNTER → 2018-04-29 10:38 | Outpatient (CLI) | payer MEDICARE, SELFPAY ==
--- NOTE | 2018-04-29 10:45 | BD_ITS ---
STUDY: DUAL ENERGY X-RAY ABSORPTIOMETRY / DXA REASON FOR EXAM: Female, 82 years old. The patient is postmenopausal. Loss of height. TECHNIQUE: Bone Mineral Density (BMD) measurements of lumbar spine and bilateral hips were obtained. COMPARISON: None. FINDINGS: Lumbar Spine (L1-L4): g/cm2 (1.292) / T-score (0.8) / Z-score (2.6) Findings are suggestive of normal bone density with a low fracture risk. Left Femur Total: g/cm2 (0.856) / T-score (-1.2) / Z-score (0.9) Left Femoral Neck: g/cm2 (0.834) / T-score (-1.5) / Z-score (0.8) Right Femur Total: g/cm2 (0.876) / T-score (-1.0) / Z-score (1.0) Right Femoral Neck: g/cm2 (0.845) / T-score (-1.4) / Z-score (0.8) BD/Dexa Bone Density Study IMPRESSION: The patient is considered osteopenic as outlined below according to World Gm Organization (WHO) criteria with a moderate fracture risk. Reference Information: The T-score is the number of standard deviations above or below the standard which is normal for young adults at their peak bone mineral density. The World Health Organization (WHO) interprets the T-scores as follows: Above -1 Normal bone density Between -1 and -2.5 Osteopenia Equal to / or below -2.5 Osteoporosis As a practical clinical guideline, osteopenia may be graded as follows: Mild -1 through -1.5 Moderate -1.6 through -2.0 Severe -2.1 through -2.4 The Z-score is the number of standard deviations above or below age-matched controls. A Z-score of less than -1.5 would be considered abnormal. References: 1. NIH Osteoporosis and Related Bone Diseases http://www.osteo.org 2. International Society for Clinical Densitometry http://www.iscd.org 3. National Osteoporosis Foundation http://www.nof.org Electronically Signed: Jose Monroy MD at 15:56 EST Tel [phone], Service support ,
--- OUTSIDE RECORDS SUMMARY | 2018-07-04 05:50 | XMS RPT_ITS ---
:1935 Author Organization [place] Support Name Relationship Address Phone DEANDRE XIE Unavailable [address] + [place] [address] LEE ROBIN Unavailable [address] + [place] [address] R Unavailable Unavailable Unavailable MARTHA XIEAN Unavailable [address] + [place] [address] LEE ROBIN Unavailable [address] + [place] [address] R Unavailable Unavailable Unavailable GREGORYWOOD DEANDRE Unavailable [address] + [place] [address] LEE ROBIN Unavailable [address] + [place] [address] R Unavailable Unavailable Unavailable GREGORYWOOD DEANDRE Unavailable [address] + [place] [address] LEE ROBIN Unavailable [address] + [place] [address] R Unavailable Unavailable Unavailable GREGORYWOOD DEANDRE Unavailable [address] + [place] [address] LEE ROBIN Unavailable [address] + [place] [address] R Unavailable Unavailable Unavailable GREGORYWOOD DEANDRE Unavailable [address] + [place] [address] LEE ROBIN Unavailable [address] + [place] [address] R Unavailable Unavailable Unavailable GREGORYWOOD DEANDRE Unavailable [address] + [place] [address] LEE ROBIN Unavailable [address] + [place] [address] R Unavailable Unavailable Unavailable GRIMWOOD, DEANDRE Unavailable [address] + [place] [address] LEE ROBIN Unavailable [address] + [place] [address] R Unavailable Unavailable Unavailable GRIMWOOD, DEANDRE Unavailable [address] + [place] [address] LEE ROBIN Unavailable [address] + [place] [address] R Unavailable Unavailable Unavailable GRIMWOOD, DEANDRE Unavailable [address] + [place] [address] LEE ROBIN Unavailable [address] + [place] [address] R Unavailable Unavailable Unavailable GRIMWOOD, DEANDRE Unavailable [address] + [place] [address] LEE ROBIN Unavailable [address] + [place] [address] R Unavailable Unavailable Unavailable GRIMWOOD, DEANDER Unavailable [address] + [place] [address] LEE ROBIN Unavailable [address] + [place] [address] R Unavailable Unavailable Unavailable GRIMWOOD, DEANDRE Unavailable [address] + [place] [address] LEE ROBIN Unavailable [address] + [place] [address] R Unavailable Unavailable Unavailable GRIMWOOD, DEANDRE Unavailable [address] + [place] [address] MOLEE RAY Unavailable [address] + [place] [address] R Unavailable Unavailable Unavailable GRIMWOOD, DEANDRE Unavailable [address] + [place] [address] LEE ROBIN Unavailable [address] + [place] [address] R Unavailable Unavailable Unavailable GRIMWOOD, DEANDRE Unavailable [address] + [place] [address] LEE ROBIN Unavailable [address] + [place] [address] R Unavailable Unavailable Unavailable DEANDRE XIE Unavailable [address] + [place] [address] LEE ROBIN Unavailable [address] + [place] [address] R Unavailable Unavailable Unavailable DEANDRE XIE Unavailable [address] + [place] [address] LEE ROBIN Unavailable [address] + [place] [address] R Unavailable Unavailable Unavailable Care Team Providers Name Role MARIA LUZ Tucker Attending Unavailable DAVID ONEAL Referring Unavailable Mitesh Weems Attending Unavailable Mitesh Weems Primary Care Unavailable Mitesh Weems Attending Unavailable Mitesh Weems Primary Care Unavailable David Oneal Attending Unavailable David Oneal Referring Unavailable Mitesh Weems Primary Care Unavailable Mitesh Weems Attending Unavailable Mitesh Weems Referring Unavailable Mitesh Weems Primary Care Unavailable David Oneal Attending Unavailable Mitesh Weems Primary Care Unavailable David Oneal Attending Unavailable David Oneal Referring Unavailable Mitesh Weems Primary Care Unavailable Mitesh Weems Attending Unavailable Mitesh Weems Referring Unavailable Mitesh Weems Primary Care Unavailable Mitesh Weems Attending Unavailable Mitesh Weems Referring Unavailable SchMitesh bazan Primary Care Unavailable Mitesh Weems Attending Unavailable Mitesh Weems Primary Care Unavailable Jerod [place] Attending Unavailable Jerod [place] Referring Unavailable Mitesh Weems Primary Care Unavailable Jerod [place] Attending Unavailable Jerod [place] Referring Unavailable Mitesh Weems Primary Care Unavailable Jerod [place] Admitting Unavailable Jerod [place] Attending Unavailable Jerod [place] Referring Unavailable Mitesh Weems Primary Care Unavailable Isac Mariscal Attending Unavailable Jerod [place] Referring Unavailable David Oneal Attending Unavailable David Oneal Referring Unavailable Mitesh Weems Primary Care Unavailable Mitesh Weems Attending Unavailable Mitesh Weems Primary Care Unavailable Karena Benz Attending Unavailable Mitesh Weems Referring Unavailable Karena Benz Attending Unavailable Mitesh Weems Primary Care Unavailable Karena Benz Attending Unavailable Karena Benz Referring Unavailable Mitesh Weems Primary Care Unavailable PROBLEMS PROBLEMS DATE TYPE CONDITION / CODE ATTENDING STATUS SOURCE 04/29/2018 Unknown M81.0 - Age-related Mitesh Weems Active [place] osteoporosis without E Community current pathological Hospital fracture / Repository M81.0(ICD-10) 04/09/2018 Unknown M54.2 - Cervicalgia / Karena Benz Active [place] M54.2(ICD-10) [facility] Hospital Repository 03/10/2018 Unknown M54.9 - Dorsalgia, Karena Benz Active [place] unspecified / Community M54.9(ICD-10) Hospital Repository 10/17/2017 Unknown G89.18 - Other acute Tarun Jerod Active [place] postprocedural pain / Community G89.18(ICD-10) Hospital Repository 10/24/2017 Unknown R94.31 - Abnormal Loida, Isac Active [place] electrocardiogram Community [ECG] [EKG] / Hospital R94.31(ICD-10) Repository 10/24/2017 Unknown I10 - Essential Loida, [place] Active [place] (primary) hypertension Community / I10(ICD-10) Hospital Repository 09/23/2017 Unknown 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 [facility] joint / Hospital Z96.651(ICD-10) Repository 09/04/2017 Active Chronic pain syndrome MARIA LUZ [place] Active [place] / G89.4(ICD-10) Clinic [facility] [place] Repository 09/03/2017 Unknown M79.89 - Other Faustina Mitesh Active [place] specified soft tissue E Community disorders / Hospital M79.89(ICD-10) Repository 08/29/2017 Unknown M25.561 - Pain in Faustina Mitesh Active [place] right knee / E Community M25.561(ICD-10) Hospital Repository 09/03/2017 Unknown M79.606 - Pain in leg, Basali, Ayman Active [place] unspecified / Community M79.606(ICD-10) Hospital Repository PROCEDURES PROCEDURES No Procedure Records FoundRESULTS RESULTS DEXA BONE DENSITY Observed: 04/29/2018 Status: F Source: [place] STUDY 10:43 AM [facility] REPOSITORY [facility] Imaging Services [address] [place] [address] Dexa Bone Density Study MR#: [id number] Acct: [id number] Name: CALVIN ROBIN Rep #: [id number] : 1935 F 82 From: Jose Monroy MD PCP: Mitesh Weems MD Status: [facility] Study: Dexa Bone Density Study Date of Exam: 04/29/18 Exam# [id number] Ordering Dr: Mitesh Weems MD STUDY: DUAL ENERGY X-RAY ABSORPTIOMETRY / DXA REASON FOR EXAM: Female, 82 years old. The patient is postmenopausal. Loss of height. TECHNIQUE: Bone Mineral Density (BMD) measurements of lumbar spine and bilateral hips were obtained. COMPARISON: None. FINDINGS: Lumbar Spine (L1-L4): g/cm2 (1.292) / T-score (0.8) / Z-score (2.6) Findings are suggestive of normal bone density with a low fracture risk. Left Femur Total: g/cm2 (0.856) / T-score (-1.2) / Z- score (0.9) Left Femoral Neck: g/cm2 (0.834) / T-score (-1.5) / Z- score (0.8) Right Femur Total: g/cm2 (0.876) / T-score (-1.0) / Z- score (1.0) Right Femoral Neck: g/cm2 (0.845) / T-score (-1.4) / Z-score (0.8) BD/Dexa Bone Density Study IMPRESSION: The patient is considered osteopenic as outlined below according to World Gm Organization (WHO) criteria with a moderate fracture risk. Reference Information: The T-score is the number of standard deviations above or below the standard which is normal for young adults at their peak bone mineral density. The World Health Organization (WHO) interprets the T-scores as follows: Above -1 Normal bone density Between -1 and -2.5 Osteopenia Equal to / or below -2.5 Osteoporosis As a practical clinical guideline, osteopenia may be graded as follows: Mild -1 through -1.5 Moderate -1.6 through -2.0 Severe -2.1 through -2.4 The Z-score is the number of standard deviations above or below age-matched controls. A Z-score of less than -1.5 would be considered abnormal. References: 1. NIH Osteoporosis and Related Bone Diseases http://www.osteo.org 2. International Society for Clinical Densitometry http://www.iscd.org 3. National Osteoporosis Foundation http://www.nof.org Electronically Signed: Jose Monroy MD at 15:56 EST Tel [phone], Service support , CC: Mitesh Weems MD Truck Spotter: Signed CBC W/DIFF, AUTOMATED Collected: 04/10/2018 Status: F Source: [place] 8:11 AM [facility] REPOSITORY TYPE CODE TESTS RESULT OUT OF RANGE REFERENCE UNITS LAB L100.1000 4.4-11.0 K/mm3 Normal WBC 6.4 LAB L100.1200 4.2-5.4 M/mm3 Normal RBC 4.91 LAB L100.1300 12.0-15.0 g/dl Normal HGB 14.4 LAB L100.1400 37-47 % Normal HCT 43.4 LAB L100.1500 81-99 fL Normal MCV 88.4 LAB L100.1600 27.0-32.0 pg Normal MCH 29.3 LAB L100.1700 32-36 g/gl Normal MCHC 33.2 LAB L100.1810 11.6-14.6 % Normal RDW CV 13.1 LAB L100.1820 35.1-43.9 fl Normal RDW SD 42.1 LAB L100.1900 150-450 K/mm3 Normal PLT 174 LAB L100.2000 6.2-12.0 fl High MPV 13.2 LAB L100.2100 47-70 % Low NEUT% 46.0 LAB L100.2200 19-41 % Normal LY% 40.9 LAB L100.2300 0-10 % Normal MONO% 9.0 LAB L100.2400 0-5 % Normal EO% 3.6 LAB L100.2500 0-1 % Normal BASO% 0.5 LAB L100.2550 0.0-0.9 % Normal IM GRAN % 0.000 Result Comment: IG% - Immature Granulocytes (promyelocytes, myelocytes and metamyelocytes) > 1% indicates that a LEFT SHIFT is Present. LAB L100.2620 2.0-7.7 X10 3/uL Normal Absolute Neut 2.9 LAB L100.2720 0.83-4.51 X10 3/ul Normal Absolute Lymph 2.60 Performed By: #### L100.0100 #### [facility] [address] [place], [address] URINALYSIS, COMPLETE Collected: 04/10/2018 Status: P Source: [place] 8:11 AM [facility] REPOSITORY Order Comment: CHANGED TO [facility]. How was Urine Obtained? CLEAN CATCH TYPE CODE TESTS RESULT OUT OF RANGE REFERENCE UNITS LAB L400.3000 Yellow COLOR Normal Yellow LAB L400.3050 Clear Normal CLARITY Sl. Cloudy LAB L400.3200 Normal mg/dl Normal GLUCOSE, UR Normal LAB L400.3300 Negative mg/dL Normal BILIRUBIN URINE Negative LAB L400.3400 Negative mg/dl Normal KETONE UR Negative LAB L400.3465 1.002-1.030 Normal SP.GR. DIPSTX 1.020 LAB L400.3550 5.0 - 8.0 pH UR Normal 6.0 LAB L400.3600 Negative mg/dl High PROT 15 DIPSTX LAB L400.3700 Normal mg/dl Normal UROBILI Normal LAB L400.3750 Negative Normal NITRITE UR Negative LAB L400.3780 Negative /ul Normal OCCULT BLOOD-UR Negative LAB L400.3800 Negative /ul High LEUK ESTERASE 500 Performed By: #### L400.0001, L400.2010 #### [facility] [address] [place], [address] URINALYSIS, ROUTINE Collected: 04/10/2018 Status: F Source: [place] (DIPSTICK) 8:11 AM [facility] REPOSITORY Order Comment: UA CHANGED TO [facility]. How was Urine Obtained? CLEAN CATCH TYPE CODE TESTS RESULT OUT OF RANGE REFERENCE UNITS LAB L400.3000 Yellow COLOR Normal Yellow LAB L400.3050 Clear Normal CLARITY Sl. Cloudy LAB L400.3200 Normal mg/dl Normal GLUCOSE, UR Normal LAB L400.3300 Negative mg/dL Normal BILIRUBIN URINE Negative LAB L400.3400 Negative mg/dl Normal KETONE UR Negative LAB L400.3465 1.002-1.030 Normal SP.GR. DIPSTX 1.020 LAB L400.3550 5.0 - 8.0 pH UR Normal 6.0 LAB L400.3600 Negative mg/dl High PROT 15 DIPSTX LAB L400.3700 Normal mg/dl Normal UROBILI Normal LAB L400.3750 Negative Normal NITRITE UR Negative LAB L400.3780 Negative /ul Normal OCCULT BLOOD-UR Negative LAB L400.3800 Negative /ul High LEUK ESTERASE 500 Performed By: #### L400.0001, L400.2010 #### [facility] [address] [place], [place], [id number] VITAMIN D,25 HYDROXY Collected: 04/10/2018 Status: F Source: [place] 8:11 AM [facility] REPOSITORY TYPE CODE TESTS RESULT OUT OF REFERENCE UNITS RANGE LAB L506.1000 29.95-100.01 ng/mL Low Vitamin D 28.1 25-OH Result Comment: Vitamin D 25(OH) Status Range Deficiency <20 ng/mL (50nmol/L) Insuffciency 20 - 30 ng/mL (50 - 75 nmol/L) Sufficiency 30 - 100 ng/mL (75 - 250 nmol/L) Toxicity >100 ng/mL (>250 nmol/L) Performed By: #### L506.1000 #### [facility] [address] [place], [place], [address] COMPREHENSIVE METABOLIC Collected: 04/10/2018 Status: F Source: [place] PROFIL 8:11 AM [facility] REPOSITORY TYPE CODE TESTS RESULT OUT OF RANGE REFERENCE UNITS LAB L501.0100 74-106 mg/dL Normal GLU 99 Result Comment: Please note revised GLUCOSE reference range effective 2017. LAB L501.1000 7-18 mg/dL High BUN 20 LAB L501.1100 0.55-1.02 mg/dL Normal CREAT,SERUM 0.93 Result Comment: The validity of the calculated GFR AND GFRAA in patients over 70 years has not been determined. Clinical correlation is essential. LAB L501.1110 >60 mL/min Normal EST GFR 62 Result Comment: Non- GFR Calc LAB L501.1115 >60 mL/min Normal EST GFR - AA 75 Result Comment: GFR Calc LAB L501.1300 10-20 RATIO High BUN/CRE 21.6 LAB L501.1500 6.4-8.2 g/dL T Normal PROT 7.1 LAB L501.1800 3.2-5.0 g/dL Normal ALB 3.7 LAB L501.1950 2.2-4.2 g/dL Normal GLOB 3.4 LAB L501.2000 0.9-2.4 RATIO Normal A/G 1.1 LAB L501.2200 8.5-10.1 mg/dL CA Normal 9.2 LAB L501.4100 15-37 U/L Normal AST 21 LAB L501.4305 45-117 U/L Normal ALK P 83 LAB L501.4405 13-56 U/L Normal ALT 22 LAB L501.4600 0.20-1.00 mg/dL T Normal BILI 0.50 LAB L501.5300 136-145 mmol/L NA Normal 142 LAB L501.5600 3.5-5.1 mmol/L K Normal 3.8 LAB L501.5900 98-107 mmol/L CL Normal 107 LAB L501.6100 21.0-32.0 mmol/L Normal CO2 25.0 LAB L501.6200 5-15 Normal GAP 10 Performed By: #### L500.4050, L500.4100 #### [facility] [address] [place], [place], [address] LIPID PROFILE Collected: 04/10/2018 Status: F Source: [place] 8:11 AM [facility] REPOSITORY TYPE CODE TESTS RESULT OUT OF RANGE REFERENCE UNITS LAB L501.4900 200 mg/dL High CHOL 201 Result Comment: <200 mg/dL Desirable 200-240 mg/dL Borderline >240 mg/dL High Risk LAB L501.5000 mg/dL High TRIG 245 Result Comment: The drugs N-Acetylcysteine and Metamizole may falsely depress this assay. Serum Triglycerides Reference Interval Normal <150 mg/dL Borderline high 150 - 199 mg/dL High 200 - 499 mg/dL Very High > or = 500 mg/dL LAB L501.6400 mg/dL Normal HDL 53 Result Comment: The drugs N-Acetylcysteine and Metamizole may falsely depress this assay. Reference Range HDL <40 mg/dL Low HDL Cholesterol HDL >or= 60 mg/dL High HDL Cholesterol LAB L501.6500 0-130 mg/dL Normal LDL 99 LAB L501.6600 5-40 mg/dL High VLDL 49 Performed By: #### L500.4050, L500.4100 #### [facility] [address] [place], [address] ORTHOPEDIC VISIT Observed: 03/20/2018 Status: F Source: [place] REPORT 11:07 PM [facility] REPOSITORY [facility] [address] [place] [address] OFFICE VISIT Date of Service: 03/10/18 MR#: [id number] Acct: [id number] Name: CALVIN ROBIN Rep #: [id number] : 1935 Provider: Karena Benz MD Age/Sex: 82/F [place] [facility] [place] Signed Intake Intake Visit Reasons: LOW BACK PAIN Allergies naproxen [From Aleve] Allergy (Verified 12/29/17 08:52) Hives codeine Adverse Reaction (Verified 12/29/17 08:52) Other Wnikjtf-Tnv-Btb Reductase Inhibitor Adverse Reaction (Verified 12/29/17 08:52) Pain in joints Medications Atenolol [Tenormin (beta maranda)] 50 mg PO DAILY 10/06/17 [History Confirmed 01/02/18] Gabapentin [Neurontin] 300 mg PO TID 10/06/17 [History Confirmed 01/02/18] Multivit-Min/FA/Lycopen/Lutein [Centrum Silver Tablet] 1 ea PO DAILY 10/06/17 [History Confirmed 01/02/18] Semmes-3 Fatty Acids [Fish Oil] 500 mg PO [...] vis,new,level 4 Diagnoses Neck pain M54.2 03/20/18 9772 <Electronically signed by Karena Benz MD> Date Karena Benz MD Cosigner Signature: Date (if applicable) CC: David Oneal MD INITAL EVALUATION (1) Observed: 03/13/2018 Status: F Source: [place] - PT 5:04 PM [facility] REPOSITORY [facility] Physical [facility] [address] [place] [address] Fax REHABILITATION SERVICES INITIAL EVALUATION MR#: [id number] Acct: [id number] Name: CALVIN ROBIN Rep #: [id number] : 1935 82 From: Amena Mcdermott PT, Cert. MDT Referring Dr.: Karena Benz MD Status: REG RCR Insurance: [place] [employer] [...] PAIN. Work/Leisure: RETIRED. Disability: NO. Present symptoms: TIFFANEI NECK AND SHOULDER PAIN LEFT > RIGHT. RIGHT SIDE PAIN. LEFT > RIGHT HAND AND FOREARM TINGLING. Present since: YEARS. REFERRED TO DR. BENZ FOR HER NECK FROM DR. ONEAL. Pain Scale: Worst - 8/10 Least - 3/10. Currently: 08/21. Commenced as a result of: NO APPARENT REASON. Symptoms at onset: NECK. Worse: SEWING, HOUSE CLEANING, READING, COOKING. Better: HEATING PAD, COLD PACK, LYING. Disturbed sleep: YES. Previous history/Previous treatment: PHYSICAL THERAPY IN [place] FOR NECK AND DIZZINESS. ONE CERVCIAL PIERCE [...] ROOM IN THE WALK OUT BASEMENT FROM [facility] AVAILABLE. OCTOBER 13 2017 RIGHT TKR REVISION. [...] NO LOB. 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 RIGHT UE IS STRONGER THAN LEFT THROUGHOUT [...] to be FAXED BACK to us at [phone] for Medicare purposes. For Medicare only, by signing this I certify the plan of care. Please let me know if there are questions or concerns regarding this plan of care. Physician Signature: Date: <Electronically signed by [place] Mcdermott PT, Cert. MDT> 03/13/18 1704 CC: Karena Benz MD; Mitesh Weems MD LUIS Signed CERV SPINE OBL/FLEX/EXT Observed: 03/10/2018 Status: F Source: [place] COMP 8:28 AM [facility] REPOSITORY [facility] Imaging Services [address] [place] [address] Cerv Spine Obl/Flex/Ext Comp MR#: [id number] Acct: [id number] Name: CALVIN ROBIN Rep #: [id number] : 1935 F 82 From: Evangelista Krishnamurthy MD PCP: Mitesh Weems MD Status: REG CLI Study: Cerv Spine Obl/Flex/Ext Comp Date of Exam: 03/10/18 Exam# [id number] Ordering Dr: Karena Benz MD STUDY: X-RAY [...] CC: Karena Benz MD; Mitesh Weems MD Truck Spotter: Signed L/S SPINE MIN 4 Observed: 03/10/2018 Status: F Source: [facility] 8:28 AM [facility] REPOSITORY [facility] Imaging Services [address] [place] [address] L/S Spine Min 4 Views MR#: [id number] Acct: [id number] Name: CALVIN ROBIN Rep #: [id number] : 1935 F 82 From: Evangelista Krishnamurthy MD PCP: Mitesh Weems MD Status: REG CLI Study: L/S Spine Min 4 Views Date of Exam: 03/10/18 Exam# [id number] Ordering Dr: Karena Benz MD STUDY: X-RAY [...] CC: Karena Benz MD; Mitesh Weems MD Truck Spotter: Signed COMPREHENSIVE METABOLIC Collected: 02/25/2018 Status: F Source: [place] 8:32 AM [facility] REPOSITORY Order Comment: Order Date: 10/07/17 Order Info: 0786-1 - CMP Order Info: 21589-8 - LIPID TYPE CODE TESTS RESULT OUT [...] Performed By: #### L500.4050, L500.4100, L506.1000 #### [facility] [address] [place], [place], [address] LIPID PROFILE Collected: 02/25/2018 Status: F Source: [place] 8:32 AM [facility] REPOSITORY Order Comment: Order Date: 10/07/17 Order Info: 0786-1 - CMP Order Info: 99711-6 - LIPID TYPE CODE TESTS RESULT OUT [...] Performed By: #### L500.4050, L500.4100, L506.1000 #### [facility] [address] [place], [address] VITAMIN D,25 HYDROXY Collected: 02/25/2018 Status: F Source: [place] 8:32 AM [facility] REPOSITORY Order Comment: Order Date: 10/07/17 Order Info: 15124-5 - VITD25 TYPE CODE TESTS RESULT OUT OF REFERENCE UNITS RANGE LAB L506.1000 29.95-100.01 ng/mL Low Vitamin D 24.8 25-OH Result Comment: Vitamin D 25(OH) Status Range Deficiency <20 ng/mL (50nmol/L) Insuffciency 20 - 30 ng/mL (50 - 75 nmol/L) Sufficiency 30 - 100 ng/mL (75 - 250 nmol/L) Toxicity >100 ng/mL (>250 nmol/L) Performed By: #### L500.4050, L500.4100, L506.1000 #### [facility] [address] [place], [address] LUMBAR SPINE 2 OR 3 Observed: 01/02/2018 Status: F Source: [place] VIEWS 12:52 AM [facility] REPOSITORY [facility] Imaging Services [address] [address] Lumbar Spine 2 or 3 Views MR#: [id number] Acct: [id number] Name: CALVIN ROBIN Rep #: [id number] : 1935 F 82 From: Camila Cotton MD PCP: Mitesh Weems MD Status: [facility] Study: Lumbar Spine 2 or 3 Views Date of Exam: 01/02/18 Exam# [id number] Ordering Dr: David Oneal MD STUDY: X-RAY [...] CC: David Oneal MD; Mitesh Weems MD Truck Spotter: Signed OPERATIVE REPORT Observed: 10/22/2017 Status: F Source: [place] 10:10 AM [facility] REPOSITORY [facility] Medical Records Department [address] [place] [address] Operative Report 10/13/17 1130 MR#: [id number] Acct: [id number] Name: CALVIN ROBIN Rep #: [id number] : 1935 82 From: Jerod [place] DO PCP: Mitesh Weems MD Status: DIS IN Y Location: [address] 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 Post-Operative Diagnosis: Same Surgery/Procedure Performed:: Revision of right total knee arthroplasty femoral and tibial components Description of Surgical Findings:: Total knee arthroplasty in place with mild to moderate loosening of both femoral and tibial components supervisor packing: Carlos Alberto [place] Type of Anesthesia:: Spinal Anesthesiologist: Dontrell Carter Special Medications: txa Specimen's removed: Total knee arthroplasty components, bone and soft tissue Estimated Blood Loss (mL): 150 Fluids Replaced: See anesthesia report Description of Procedure: Implants: Nito triathlon size 3 total stabilized femur with [...] postoperative protocol. The use of the physician senior office support assistant sosa was integral during this procedure. They assisted [...] DISCHARGE INSTRUCTION Observed: 10/15/2017 Status: F Source: [place] 9:10 AM [facility] REPOSITORY [facility] Medical Records Department [address] [place] [address] Instructions for Home/Discharge Instructions 10/15/17 0908 MR#: [id number] Acct: [id number] Name: CALVIN ROBIN Rep #: [id number] : 1935 82 From: Carlos Alberto [place] [...] Adverse Reaction (Verified 10/06/17 12:52) Other NIGHTMARES,HALLUCINATIONS Tkidkgb-Afd-Rrk Reductase Inhibitor Adverse Reaction (Verified 10/06/17 12:52) Pain in joints Medications to take at Discharge Atenolol [Tenormin (beta maranda)] 50 mg PO DAILY 10/06/17 Gabapentin [Neurontin] 300 mg PO TID 10/06/17 Hydrochlorothiazide 12.5 mg PO DAILY 10/06/17 Multivit-Min/FA/Lycopen/Lutein [Centrum Silver Tablet] 1 each PO DAILY 10/06/17 Semmes-3 Fatty Acids [Fish Oil] 500 mg PO [...] Days #80 tab PRN Reason: Mod-Severe Pain (4-10) Acetaminophen [Tylenol] 1,000 mg PO Q8 #90 [...] F Source: [place] NO DIFF 5:04 AM [facility] REPOSITORY TYPE CODE TESTS RESULT OUT OF [...] MPV 12.6 Performed By: #### L100.0500 #### [facility] [address] [place], [address] CBC-COMPLETE BLOOD CNT Collected: 10/14/2017 Status: F Source: [place] NO DIFF 5:35 AM [facility] REPOSITORY TYPE CODE TESTS RESULT OUT OF [...] MPV 11.9 Performed By: #### L100.0500 #### [facility] [address] [place], [address] BASIC METABOLIC Collected: 10/14/2017 Status: F Source: [place] PROFILE (BMP) 5:35 AM [facility] REPOSITORY TYPE CODE TESTS RESULT OUT OF [...] GAP 10 Performed By: #### L500.2500 #### [facility] [address] [place], [address] KNEE 1 OR 2 VIEWS Observed: 10/13/2017 Status: F Source: MIGUEL 11:29 AM [facility] REPOSITORY [facility] Imaging Services [address] [place] [address] Knee 1 or 2 Views MR#: [id number] Acct: [id number] Name: CALVIN ROBIN Rep #: [id number] : 1935 F 82 From: Sourav Whelan DO PCP: Mitesh Weems MD Status: ADM IN Study: Knee 1 or 2 Views Date of Exam: 10/13/17 Exam# [id number] Ordering Dr: Jerod Mcneil DO STUDY: X-RAY [...] CC: Jerod Mcneil DO; Mitesh Weems MD Truck Spotter: Signed 12 LEAD ELECTROCARDIOGRAM Observed: 10/10/2017 Status: F Source: [place] 9:32 AM [facility] Cardiovascular Services [address] [place] [address] EKG - [facility] 10/06/17 1248 MR#: [id number] Acct: [id number] Name: CALVIN ROBIN Rep #: [id number] : 1935 82 From: Isac Mariscal MD Attending Dr: Jerod Mcneil DO Status: PRE IN Ordering Dr: Jerod Mcneil DO Date: 10/06/17 Location: [facility] Sex: F C Admitted: Test Reason : [...] ECG Confirmed by LOIDA HATCH, ISAC ([id number]), sound editor CHIQUIS BURLESON ([id number]) on 10/10/2017 9:31:34 AM Referred By: Jerod Mcneil Confirmed By:ISAC MARISCAL MD 10/10/17 0931 Date Isac Mariscal MD CC: Jerod Mcneil DO; Mitesh Weems MD Date Dictated: 10/06/17 124 Date Transcribed: 10/06/171247 Truck Spotter: Signed BASIC METABOLIC Collected: 10/06/2017 Status: F Source: MIGUEL PROFILE (BMP) 1:51 PM [facility] REPOSITORY TYPE CODE TESTS RESULT OUT OF [...] GAP 9 Performed By: #### L500.2500 #### [facility] [address] [place], [address] Observed: 10/06/2017 Status: F Source: [place] MRSA/SAID SCREEN 1:45 PM [facility] REPOSITORY MRSA/SAID SCRN S. AUREUS S. aureus Negative MRSA MRSA Negative Performed By: #### M100.651 #### [facility] [address] [place], [address] BONE SCAN THREE Observed: 09/26/2017 Status: F Source: [place] PHASE 9:58 AM [facility] REPOSITORY [facility] Imaging Services [address] [place] [address] Bone Scan Three Phase MR#: [id number] Acct: [id number] Name: CALVIN ROBIN Rep #: [id number] : 1935 F 81 From: El Nieves DO PCP: Mitesh Weems MD Status: REG CLI Study: Bone Scan Three Phase Date of Exam: 09/26/17 Exam# [id number] Ordering Dr: Jerod Mcneil DO CLINICAL: 81-year-old [...] CC: Jerod Mcneil DO; Mitesh Weems MD Truck Spotter: Signed ERYTHROCYTE SED RATE Collected: 09/23/2017 Status: F Source: [place] 9:28 AM [facility] REPOSITORY TYPE CODE TESTS RESULT OUT OF RANGE REFERENCE UNITS LAB L102.0000 0-30 mm/hr Normal SED RATE 26 Performed By: #### L101.9900, L100.0100 #### [facility] [place], [address] CBC W/DIFF, AUTOMATED Collected: 09/23/2017 Status: F Source: [place] 9:28 AM [facility] REPOSITORY TYPE CODE TESTS RESULT OUT OF [...] 1.82 Performed By: #### L101.9900, L100.0100 #### [facility] [address] [facility] [place], [place], [address] CRP Collected: 09/23/2017 Status: F Source: [place] 9:28 AM [facility] REPOSITORY TYPE CODE TESTS RESULT OUT OF RANGE REFERENCE UNITS LAB L501.6710 0.0-3.0 mg/L High 8.05 C-REACTIVE PROT Result Comment: C-Reactive Protein (CRP) provides useful information for the diagnosis, therapy and monitoring of inflammatory processes and associated diseases. For the evaluation of Relative Risk for Cardiovascular Disease, a High Sensitivity CRP (HSCRP) should be ordered. Performed By: #### L501.6710 #### [facility] [address] [place], [place], [address] PROGRESS Observed: 09/04/2017 Status: COMPLETED Source: [place] 4:00 PM [facility] REPOSITORY HNO ID: [id number] Author: Maria Luz Ho Service: (none) Author Type: Psychologist Type: Progress Notes Filed: 09/04/2017 5:11 PM Note Text: [facility] Progress Note Calvin Robin 09/04/2017 [id number] Provider: Maria Luz Ho, PHD CPT Code: 52878 Psychiatric diagnostic evaluation Time: Approximately 50 minutes [...] about more productively. Pt grew up in [place] ... mom didnt treat her well... 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 w 5 children both knees replaced and currently a cyst behind rt knee pt and husb try to stay active... they lived in [place] many yrs then returned to the area [...] Psychiatric Medication Issues: see med record DIAGNOSIS: [place] I: Chronic pain [place] II: deferred [place] III: see med record [place] IV: chronic pain [place] V: 53 Treatment Modality/Interventions: Cognitive Behavioral Reassurance/Supportive TREATMENT ASSESSMENT/PROGRESS: . Fluctuating progress. TREATMENT PLAN/GOALS: Continue in therapy focusing on self- care and coping with chronic pain. Next appointment: None scheduled. Pt wiill call if issues arise. Maria Luz Ho, PHD EXT NON VASC Observed: 09/03/2017 Status: F Source: MIGUEL LIMITED/SOFT TISS 1:21 PM [facility] REPOSITORY [facility] Imaging Services [address] [place] [address] Ext Non Vasc Limited/Soft Tiss MR#: [id number] Acct: [id number] Name: CALVIN ROBIN Rep #: [id number] : 1935 F 81 From: Howard Trinidad MD PCP: Mitesh Weems MD Status: REG CLI Study: Ext Non Vasc Limited/Soft Tiss Date of Exam: 09/03/17 Exam# [id number] Ordering Dr: Mitesh Weems MD STUDY: SUPERFICIAL [...] Service support , CC: Mitesh Weems MD Truck Spotter: Signed VENOUS DUPLEX LOWER Observed: 09/01/2017 Status: F Source: MIGUEL EXTREMITY 7:11 PM [facility] Cardiovascular Services [address] [place] [address] Venous Duplex US, Unilateral 09/01/17 1505 MR#: [id number] Acct: [id number] Name: CALVIN ROBIN Rep #: [id number] : 1935 81 From: Santi Carreon MD [...] Physician: Mitesh Weems Performed By: Kasia Norman, JONATHAN, RVT 09/01/17 191 Date Santi Carreon MD CC: Mitesh Weems MD Date Dictated: 09/01/17 1505 Date Transcribed: 09/01/17 191 Truck Spotter: Signed KNEE 4 OR MORE Observed: 08/29/2017 Status: F Source: MIGUEL VIEWS 4:58 PM [facility] REPOSITORY [facility] Imaging Services [address] [place] [address] Knee 4 or More Views MR#: [id number] Acct: [id number] Name: CALVIN ROBIN Rep #: [id number] : 1935 F 81 From: Redd Titus DO PCP: Mitesh Weems MD Status: REG CLI Study: Knee 4 or More Views Date of Exam: 08/29/17 Exam# [id number] Ordering Dr: Mitesh Weems MD STUDY: X-RAY [...] Redd Titus DO at 23:59 EDT Tel [phone], Service support , CC: Mitesh Weems MD Truck Spotter: Signed CBC W/DIFF, AUTOMATED Collected: 08/29/2017 Status: F Source: MIGUEL 4:57 PM [facility] REPOSITORY Order Comment: Order Date: 08/29/17 Order [...] Lymph 3.08 Performed By: #### L100.0100 #### [facility] [address] [facility] [place], [address] SPINE LUMBAR Observed: 08/26/2017 Status: F Source: [place] (ROUTINE) 1:19 PM [facility] REPOSITORY [facility] Imaging Services [address] [place] [address] Spine Lumbar (Routine) MR#: [id number] Acct: [id number] Name: CALVIN ROBIN Rep #: [id number] : 1935 F 81 From: Hamlet Cannon MD PCP: Mitesh Weems MD Status: REG CLI Study: Spine Lumbar (Routine) Date of Exam: 08/26/17 Exam# [id number] Ordering Dr: David Oneal MD STUDY: MRI [...] CC: David Oneal MD; Mitesh Weems MD Truck Spotter: Signed THORACIC SPINE 2 Observed: 07/16/2017 Status: F Source: [place] VIEWS 11:08 AM [facility] REPOSITORY [facility] Imaging Services [address] [place] [address] Thoracic Spine 2 Views MR#: [id number] Acct: [id number] Name: CALVIN ROBIN Rep #: [id number] : 1935 F 81 From: Irvin Cortes MD PCP: Mitesh Weems MD Status: REG CLI Study: Thoracic Spine 2 Views Date of Exam: 07/16/17 Exam# [id number] Ordering Dr: David Oneal MD STUDY: X-RAY [...] CC: David Oneal MD; Mitesh Weems MD Truck Spotter: Signed URINALYSIS, ROUTINE Collected: 06/24/2017 Status: F Source: MIGUEL (DIPSTICK) 8:12 AM [facility] REPOSITORY Order Comment: Order Date: 06/23/17 Order Info: 0610-1 - UA How was Urine Obtained? TACK PULLER MACHINE TO SPECIFY TYPE CODE TESTS RESULT OUT [...] By: #### L400.2011, L500.4050, L500.4100, L506.1000 #### [facility] [address] [place], [address] COMPREHENSIVE METABOLIC Collected: 06/24/2017 Status: F Source: MIGUEL PROFIL 8:12 AM [facility] REPOSITORY Order Comment: Order Date: 06/23/17 Order Info: 0786-1 - CMP Order Info: 21873-4 - LIPID TYPE CODE TESTS RESULT OUT [...] By: #### L400.2011, L500.4050, L500.4100, L506.1000 #### [facility] [address] [place], [address] LIPID PROFILE Collected: 06/24/2017 Status: F Source: MIGUEL 8:12 AM [facility] REPOSITORY Order Comment: Order Date: 06/23/17 Order Info: 0786-1 - [facility] Order Info: 32819-8 - LIPID TYPE CODE TESTS RESULT OUT [...] By: #### L400.2010, L500.4050, L500.4100, L506.1000 #### [facility] [address] [place], [place], [address] VITAMIN D,25 HYDROXY Collected: 06/24/2017 Status: F Source: MIGUEL 8:12 AM [facility] REPOSITORY Order Comment: Order Date: 06/23/17 Order Info: 04582-3 - VITD25 TYPE CODE TESTS RESULT OUT OF RANGE REFERENCE UNITS LAB L506.1000 29.95-100.01 ng/mL Normal Vitamin D 38.2 25-OH Result Comment: Vitamin D 25(OH) Status Range Deficiency <20 ng/mL (50nmol/L) Insuffciency 20 - 30 ng/mL (50 - 75 nmol/L) Sufficiency 30 - 100 ng/mL (75 - 250 nmol/L) Toxicity >100 ng/mL (>250 nmol/L) Performed By: #### L400.2010, L500.4050, L500.4100, L506.1000 #### [facility] [address] [place], [place], [address] RE-EVALUATION - PT (1) Observed: 06/20/2017 Status: F Source: [place] 3:54 PM [facility] REPOSITORY [facility] Physical Therapy [facility] [address] [place], [place] [address] Fax REEVALUATION / MEDICARE RECERTIFICATION PHYSICAL THERAPY MR#: [id number] Acct: [id number] Name: CALVIN ROBIN Rep #: [id number] : 1935 81 From: Amena Mcdermott PT, Cert. MDT Referring Dr.: David Oneal MD Status: REG RCR Insurance: [facility] CARE MEDICARE SELF PAY INSURANCE DR.ABASAL Olivia It [...] NECK AND BACK. PATIENT HAS ORIENTATION FOR [facility] NEXT WEEK. SHE WANTS TO TO TRY [...] TO HELP WITH SUCCESSFUL TRANSITION TO FULLY IINDEP PROGRAM. PATIENT AGREEABLE. Goals Goal 1:: DECREASE [...] do not hesitate to contact me at [phone] by phone or if you have questions or concerns regarding this new plan of care! Sincerely, Amena Mcdermott <Electronically signed by Amena Mcdermott PT, Cert. MDT> 06/20/17 1554 CC: David Oneal MD; Mitesh Weems MD LUIS Signed For Medicare only, by signing this I certify the plan of care. Physicians Signature Date INITAL EVALUATION (1) Observed: 05/27/2017 Status: F Source: MIGUEL Castellano PT 2:16 PM [facility] REPOSITORY [facility] Physical Therapy [facility] [address] [place], [place] [address] Fax REHABILITATION SERVICES INITIAL EVALUATION MR#: [id number] Acct: [id number] Name: CALVIN ROBIN Rep #: [id number] : 1935 81 From: Amena Mcdermott PT, [...] LOW BACK. Worse: DOING DISHES, LOADING THE RESPITE COORDINATOR, *VACUUMING, MAKING BEDS, REACHING UP, IRONING, SITTING [...] to be FAXED BACK to us at [phone] for Medicare purposes. Please let me know if there are questions or concerns regarding this plan of care. Physician Signature: Date: <Electronically signed by Amena Mcdermott PT, Cert. MDT> 05/27/17 1416 CC: David Oneal MD; Mitesh Weems MD LUIS Signed For Medicare only, by signing this I certify the plan of care. Physicians Signature Date ALLERGIES ALLERGIES DATE TYPE / CODE NAME / CODE REACTION SEVERITY SOURCE 12/29/2017 Drug Qrzbaxl-Gkf-Cke Pain in joints Unknown [facility] 969974(SNOM Inhibitor/M41926 Repository ED CT) 0095(RXNORM) 12/29/2017 Drug codeine/T5955344 Other Unknown [facility] Allergy/416 50(RXNORM) [facility] 739289(SNOM Repository ED CT) 12/29/2017 Drug naproxen/Z456667 Hives Unknown [place] [facility] Allergy/416 380(RXNORM) [facility] 041890(SNOM Repository ED CT) ENCOUNTERS ENCOUNTERS ADMIT/DISCHARGE ACCOUNT ADMITTING ENCOUNTER LOCATION SOURCE NUMBER CLASS 04/29/2018 [id number] [facility] ing:OPBD Repository 04/10/2018 [id number] [facility] ing:MFPLAB Repository 04/09/2018 [id number] [facility] ing:PT Repository 03/10/2018 [id number] [facility] ing:HPRAD Repository 03/10/2018/03/10/20 [id number] Ambulatory BMSBuilding:B [place] [facility] Repository 02/25/2018 [id number] Ambulatory [facility] Hospital ing:MFPLAB Repository 01/02/2018/01/03/20 [id number] Ambulatory [place] Hospital ing:SDC Repository 10/13/2017/10/16/19 [id number] Tar[place], Inpatient Miguel [place] [facility] Hospital ing:BM4Vxdx: Repository JA836Hgz: 1 10/06/2017/10/16/19 [id number] Ambulatory BMSBuilding:W Miguel [facility] Repository 09/26/2017 [id number] Ambulatory [facility] Hospital ing:NM Repository 09/23/2017 [id number] Ambulatory [facility] Hospital ing:MTLAB Repository 09/04/2017/09/06/19 [id number] Ambulatory [facility] [address] [place] [address] Repository 09/03/2017 [id number] Ambulatory [facility] Hospital ing:OPUS Repository 09/01/2017 [id number] Ambulatory [facility] Hospital ing:CVS Repository 08/29/2017 [id number] Ambulatory [facility] Hospital ing:MTLAB Repository 08/26/2017 [id number] Ambulatory [facility] Hospital ing:MRI Repository 07/16/2017 [id number] Ambulatory [facility] Hospital ing:RAD Repository 06/24/2017 [id number] Ambulatory [facility] Hospital ing:MTLAB Repository 06/20/2017/06/21/19 [id number] Ambulatory [address] Hospitalild Hospital ing:PT Repository PAYERS PAYERS ENCOUNTER GUARANTOR PAYER SUBSCRIBER SOURCE 04/29/2018 CALVIN Girard Primary CALVIN Rivera [id number] Insurance[place] MOWRERDOB: [facility] [id number] [place] Repository [address]Dlo: (330) Number: [phone] () [id number] Date[facility] [place] [address]KR: 04/29/2018 Secondary NOT GIVENUNK [place] Insurance:SELF PAY [facility] Number: Effective Repository Date:2018-04-20 04/10/2018 CALVIN J Primary CALVIN J Miguel [id number] Insurance[place] MOWRERDOB: Community [facility] [id number] [facility] [place] MEDICAREPolicy Repository [address]Bcn: (330) Number: [phone] () [id number] Date: [place], [place] [address]IN: 04/10/2018 Secondary NOT GIVENUNK Miguel Insurance:SELF PAY [facility] Number: Effective Repository Date:2018-04-10 04/09/2018 CALVIN J Primary CALVIN J Miguel [id number] Insurance:[place] MOWRERDOB: [facility] [id number] [facility] [place] MED[place]ARE[place] Repository [address]Tuz: (330) Number: [phone] () [id number] Date: [place], [place] [address]QX: 04/09/2018 Secondary NOT GIVENUNK Miguel Insurance:SELF PAY [facility] Number: Effective Repository Date:2018-03-10 03/10/2018 CALVIN J Primary CALVIN J [place] [id number] Insurance:[place] MOWRERDOB: [facility] CARE [id number] [facility] [place] MED[place]ARE[place] Repository [address]Sko: (330) Number: [phone] () [id number] Date: [place], [place] [address]LS: 03/10/2018 Secondary NOT GIVENUNK Miguel Insurance:SELF PAY [facility] Number: Effective Repository Date:2018-03-10 03/10/2018 CALVIN Girard Primary CALVIN Girard Miguel [id number] Insurance:[place] MOWRERDOB: [facility] CARE [id number] [facility] [place] MED[place]ARE[place] Repository [address]Sqw: (330) Number: [phone] () [id number] Date: [place], [place] [address]CS: 03/10/2018 Secondary NOT GIVENUNK Miguel Insurance:SELF PAY [facility] Number: Effective Repository Date:2018-03-10 02/25/2018 CALVIN Girard Primary CALVIN J Miguel [id number] Insurance:[place] MOWRERDOB: [facility] [id number] [facility] [place] MEDICARE[place] Repository [address]Anu: (330) Number: [phone] () [id number] Date: [place], [place] [address]AK: 02/25/2018 Secondary NOT GIVENUNK [place] Insurance:SELF PAY [facility] Number: Effective Repository Date:2018-02-25 01/02/2018 CALVIN Girard Primary CALVIN J Miguel [id number] Insurance:[place] MOWRERDOB: [facility] [id number] [facility] [place] MED[place]ARE[place] Repository [address]Ijf: (330) Number: [phone] () [id number] Date: [place], [place] [address]UX: 01/02/2018 Secondary NOT GIVENUNK Miguel Insurance:SELF PAY [facility] Number: Effective Repository Date:2017-12-05 10/13/2017 CALVIN Girard Primary CALVIN J Miguel [id number] Insurance:[place] MOWRERDOB: [facility] CARE [id number] [facility] [place] MED[place] Repository [address]Gyq: (330) Number: [phone] () [id number] Date: [facility]HEL[facility] [address]TA: 10/13/2017 Secondary NOT GIVENUNK Miguel Insurance:SELF PAY [facility] Number: Effective Repository Date:2017-10-02 10/06/2017 CALVIN J Primary CALVIN J Miguel [id number] Insurance:[place] MOWRERDOB: Community [facility] [id number] [facility] [place] MEDICARE[place] Repository [address]Ixj: (330) Number: [phone] () [id number] Date: [facility] [place] [address]HA: 10/06/2017 Secondary NOT GIVENUNK Miguel Insurance:SELF PAY [facility] Number: Effective Repository Date:2017-10-06 09/26/2017 CALVIN J Primary CALVIN J [place] [id number] Insurance:[place] MOWRERDOB: [facility] CARE [id number] [place] Repository [address]Cmw: (330) Number: [phone] () [id number] Date: [place], [place] [address]FA: 09/26/2017 Secondary NOT GIVENUNK [place] Insurance:SELF PAY [facility] Number: Effective Repository Date:2017-09-23 09/23/2017 CALVIN J Primary CALVIN J Miguel [id number] Insurance:[place] MOWRERDOB: Community [facility] [id number] [facility] [place] MED[place] Repository [address]Cah: (330) Number: [phone] () [id number] Date: [place], [place] [address]RV: 09/23/2017 Secondary NOT GIVENUNK Miguel Insurance:SELF PAY [facility]: Effective Repository Date:2017-09-23 09/03/2017 CALVIN Girard Primary CALVIN Girard Miguel [id number] Insurance:[place] MOWRERDOB: Community [facility] [id number] [facility] [place] Repository [address]Bzz: (330) Number: [phone] () [id number] Date: [place], [place] [address]MW: 09/03/2017 Secondary NOT GIVENUNK Miguel Insurance:SELF PAY [facility] Number: Effective Repository Date:2017-09-01 09/01/2017 CALVIN Girard Primary CALVIN J Miguel [id number] Insurance:[place] MOWRERDOB: [facility] [id number] [facility] [place] Repository [address]Igy: (330) Number: [phone] () [id number] Date: [place], [place] [address]LD: 09/01/2017 Secondary NOT GIVENUNK [place] Insurance:SELF PAY [facility] Number: Effective Repository Date:2017-09-01 08/29/2017 CALVIN Girard Primary CALVIN J [place] [id number] Insurance:[place] MOWRERDOB: [facility] CARE [id number] [place] Repository [address]Lqa: (330) Number: [phone] () [id number] Date: [place], [place] [address]EU: 08/29/2017 Secondary NOT GIVENUNK Miguel Insurance:SELF PAY [facility] Number: Effective Repository Date:2017-08-29 08/26/2017 CALVIN J Primary CALVIN J [place] [id number] Insurance:[place] MOWRERDOB: [facility] [id number] Repository [address]Qgo: (330) Number: [phone] () [id number] Date: [facility], [place] [address]IC: 08/26/2017 Secondary CALVIN J Miguel Insurance:[facility] MOWRERDOB: [facility] Number: [id number] Hospital [id number] Repository Date:2017-08-18 08/26/2017 Tertiary NOT GIVENUNK [place] Insurance:SELF PAY [facility] Number: Effective Repository Date:2017-08-18 07/16/2017 CALVIN J Primary CALVIN J Miguel [id number] Insurance:[place] MOWRERDOB: [facility] [id number] [facility] [place] Repository [address]Kdm: (330) Number: [phone] () [id number] Date: [facility], [place] [address]DC: 07/16/2017 Secondary NOT GIVENUNK [place] Insurance:SELF PAY [facility] Number: Effective Repository Date:2017-07-16 06/24/2017 Calvin [id number] Primary Calvin MowrerDOB: [place] [id number] [address]Tgb: (330) MEDICAREPolicy Repository [phone] () Number: [id number] Date: [facility], [place] [address]WK: 06/24/2017 Secondary NOT GIVENUNK [place] Insurance:SELF PAY [facility] Number: Effective Repository Date:2017-06-24 06/20/2017 Calvin [id number] Primary Calvin MowrerDOB: [place] Insurance[place] [id number] [address]Lli: (274) MEDICAREPolicy Repository [phone] () Number: [id number] Date: EVIE NIC[place]UZ[place]NEBEAU [place] [address]ZQ: 06/20/2017 Secondary NOT GIVENUNK Miguel Insurance:SELF PAY [facility] Number: Effective Repository Date:2017-05-21
== END ==
PROVIDERS: Family Provider Family Medicine; PCP Family Medicine; Visit Provider Family Medicine
DX: Z13.820 Encounter for screening for osteoporosis (principal); Z78.0 Asymptomatic menopausal state; M85.80 Other specified disorders of bone density and structure, unspecified site
CPT/HCPCS: 77080

== ENCOUNTER → 2018-06-10 09:09 | Outpatient (CLI) | payer MEDICARE, SELFPAY ==
--- NOTE | 2018-06-10 09:15 | RAD_ITS ---
STUDY: X-RAY - LUMBAR SPINE REASON FOR EXAM: Female, 82 years old. Back pain TECHNIQUE: 3 view(s) of the lumbar spine were obtained. COMPARISON: None FINDINGS: Normal lumbar lordosis. There is no substantial scoliosis. There is a normal alignment of the vertebrae. There is multilevel endplate spondylosis of the lumbar vertebrae. There is multi-level degenerative disc disease with multi-level disc space narrowing. There is no demonstrated fracture. Epidural stimulator seen in the lower thoracic spine. The soft tissue structures are unremarkable. RAD/Lumbar Spine 2 or 3 Views IMPRESSION: Degenerative changes of the spine, as detailed above. Electronically Signed: Denton Sutherland MD at 18:56 EST , Service support ,
== END ==
PROVIDERS: Family Provider Family Medicine; PCP Family Medicine; Referring Provider Anesthesiology Pain Medicine; Visit Provider Anesthesiology Pain Medicine
DX: M54.9 Dorsalgia, unspecified (principal)
CPT/HCPCS: 72100

== ENCOUNTER → 2018-09-08 11:43 | Outpatient (CLI) | payer MEDICARE, SELFPAY ==
[2018-09-08 14:09] LABS: Absolute Lymphocyte Count 2.61 X10^3/ul (0.83-4.51); Absolute Neutrophil Count 3.5 X10^3/uL (2.0-7.7); Basophil# 0.05 X10^3/uL; Basophil% 0.7 % (0-1); Eosinophil# 0.21 X10^3/uL; Hemoglobin 14.1 g/dl (12.0-15.0); Lymphocyte # 2.61 X10^3/ul (4.0); Lymphocyte % 37.8 % (19-41); Mean Corp Hgb Conc 33.6 g/gl (32-36); Mean Corpuscular Hgb 30.5 pg (27.0-32.0); Mean Corpuscular Volume 90.7 fL (81-99); Mean Platelet Vol. 12.6 fl (6.2-12.0); Monocyte# 0.52 X10^3/uL; Monocyte% 7.5 % (0-10); Neutrophil % 50.9 % (47-70); Platelet Count 185 K/mm3 (150-450); RBC Distribution Width CV 13.4 % (11.6-14.6); Red Blood Count 4.63 M/mm3 (4.2-5.4); White Blood Count 6.9 K/mm3 (4.4-11.0)
[2018-09-08 14:14] LABS: POSITIVE COUNT NO; POSITIVE DIFFERENTIAL NO; POSITIVE MORPHOLOGY NO
[2018-09-08 14:30] LABS: ALB/GLOB Ratio 1.2 RATIO (0.9-2.4); AST(SGOT) 27 U/L (15-37); Alanine Aminotransfer ALT/SGPT 28 U/L (13-56); Albumin, Serum 3.8 g/dL (3.2-5.0); Alkaline Phosphatase 75 U/L (45-117); Anion Gap 9 (5-15); BUN 20 mg/dL (7-18); BUN/Creat Ratio 22.3 RATIO (10-20); Calcium,Total 9.4 mg/dL (8.5-10.1); Chloride 107 mmol/L (98-107); Cholesterol 212 mg/dL (200); EST Glomerular Filtration Rate 64 mL/min (>60); Est Glom Filt Rate - Afr Amer 77 mL/min (>60); Globulin 3.2 g/dL (2.2-4.2); Glucose 84 mg/dL (74-106); High Density Lipoprotein 56 mg/dL; Phosphorus 3.2 mg/dL (2.5-4.9); Potassium 4.1 mmol/L (3.5-5.1); Sodium Level 142 mmol/L (136-145); Triglycerides 185 mg/dL; Very Low Density Lipoprotein 37 mg/dL (5-40)
[2018-09-08 14:33] LABS: Vitamin D,25 Hydroxy 37.8 ng/mL (29.95-100.01)
== END ==
PROVIDERS: Family Provider Family Medicine; PCP Family Medicine; Referring Provider Family Medicine; Visit Provider Family Medicine
DX: I10 Essential (primary) hypertension (principal); E78.5 Hyperlipidemia, unspecified; E55.9 Vitamin D deficiency, unspecified; M85.80 Other specified disorders of bone density and structure, unspecified site
CPT/HCPCS: 36415; 80053; 80061; 82306; 84100; 85025

== ENCOUNTER → 2018-09-10 09:40 | Outpatient (CLI) | payer MEDICARE, SELFPAY ==
--- NOTE | 2018-09-10 09:47 | US_ITS ---
STUDY: SUPERFICIAL ULTRASOUND - PALPABLE LUMP. REASON FOR EXAM: Female, 82 years old. Left elbow TECHNIQUE: A superficial ultrasound was performed with real-time and static villafaan-scale imaging. COMPARISON: None. FINDINGS: Within the region of concern superior to the elbow there is a 3.6 x 2.1 x 3.8 cm complex hypervascular partially cystic focus 4 mm deep to the skin surface. There is increased through transmission. There is no posterior shadowing. US/Ext Non Vasc Limited/Soft Tiss IMPRESSION: Indeterminate 3.6 x 2.1 x 3.8 cm complex cystic focus within the region of concern may reflect underlying neoplastic process however cannot exclude a posttraumatic or infectious process. Electronically Signed: Fern Sanches MD at 16:13 EDT Tel , Service support ,
== END ==
PROVIDERS: Family Provider Family Medicine; PCP Family Medicine; Referring Provider Family Medicine; Visit Provider Family Medicine
DX: R22.9 Localized swelling, mass and lump, unspecified (principal)
CPT/HCPCS: 76882

== ENCOUNTER → 2018-09-21 10:19 | Outpatient (CLI) | payer MEDICARE, SELFPAY ==
--- NOTE | 2018-09-21 10:20 | RAD_ITS ---
STUDY: X-RAY - LEFT ELBOW REASON FOR EXAM: Female, 82 years old. Pain denies injury TECHNIQUE: 3 view(s) of the elbow. COMPARISON: Ultrasound September 10, 2018 FINDINGS: Normal visualized humerus, radius and ulna. Normal radiocapitellar and ulnotrochlear articulations. On the AP views there is visualization of a focal soft tissue density which may represent skin thickening and/or potentially a soft tissue mass or hematoma that measures 3.2 x 2.4 cm. RAD/Elbow min 3 Views IMPRESSION: No visualized fracture. The soft tissue mass in the medial side of the distal humerus soft tissues that measures 3.2 x 2.4 cm. This is persistent and seen on prior study as a irregular hypervascular mass. Recommend consideration for follow-up study such as MRI of the left upper extremity. Electronically Signed: Bri Campos MD at 17:48 EDT Tel , Service support ,
== END ==
PROVIDERS: Family Provider Family Medicine; PCP Family Medicine; Referring Provider Orthopaedic Surgery; Visit Provider Orthopaedic Surgery
DX: M25.552 Pain in left hip (principal)
CPT/HCPCS: 73080

== ENCOUNTER → 2018-09-28 15:58 | Outpatient (CLI) | payer MEDICARE, SELFPAY ==
--- NOTE | 2018-09-28 16:00 | MRI_ITS ---
HISTORY: Palpable mass left elbow. The patient has a stimulator. Images of the stimulator shows that it has been switched off prior to MR imaging. Technique: Axial sagittal and coronal T1 T2 T2 fat sat series are obtained through the left elbow. 18 mL of gadolinium Becki was administered intravenously. comparison x-rays are from September 21, 2018. . 8 series. 197 images. Findings: Within the soft tissue, medial to the distal humeral diaphyseal metaphyseal junction, there is a soft tissue mass. This mass measures 3.1 x 2.4 x 3.4 cm. It is slightly heterogeneous. It enhances. It enhances more within its periphery than centrally. This mass is completely surrounded by fat. The mass abuts adjacent to a superficial vein within the subcutaneous fat on the medial aspect of the distal humerus. The mass surrounds perhaps 120 of the margin of the vein. The mass is directly deep to the markers. Tiny amount of edema is present within the origin of the common flexor and common extensor tendons.. Small elbow effusion. Marrow signal is normal. Although the mass does extend through the fat medial to the distal humerus, it does not abut the bone or even the muscles. Mild tendinosis to the insertion of the biceps tendon. Tendinosis at the insertion of the triceps tendon with some edema at the musculotendinous junction. MRI/Upper Ext Joint Only W/WO Cont IMPRESSION: 3.1 x 2.4 x 3.4 cm soft tissue mass within the subcutaneous fat on the medial aspect of the distal left arm, the level of the distal humeral diaphysis and metaphysis. Differential diagnosis includes an angioma, a peripheral nerve sheath tumor, malignant fibrocystic cytoma, liposarcoma, leiomyosarcoma, epithelioid sarcoma. at [id number] Reported and signed by: Kavon Guthrie MD Electronically Signed: Kavon Guthrie MD at 5:32 EDT Tel , Service support ,
== END ==
PROVIDERS: Family Provider Family Medicine; PCP Family Medicine; Referring Provider Orthopaedic Surgery; Visit Provider Orthopaedic Surgery
DX: R22.32 Localized swelling, mass and lump, left upper limb (principal)
CPT/HCPCS: 73223; A9575; A4216

== ENCOUNTER → 2018-12-01 09:14 | Outpatient (CLI) | payer MEDICARE, SELFPAY ==
[2018-12-01 09:17] LABS: Bacteria 0 SEEN /hpf (None Seen); Mucous, Urine 0 SEEN /hpf (<or=2+); Red Blood Cells-Urine 0 SEEN /hpf (0-5)
[2018-12-01 10:23] LABS: Absolute Lymphocyte Count 2.17 X10^3/uL (0.83-4.51); Basophil# 0.05 X10^3/uL; Basophil% 0.8 % (0-1); Eosinophil# 0.23 X10^3/uL; Eosinophils% 3.8 % (0-5); Hematocrit 42.9 % (37-47); Hemoglobin 14.3 g/dL (12.0-15.0); Lymphocyte # 2.17 X10^3/ul (4.0); Lymphocyte % 36.2 % (19-41); Mean Corp Hgb Conc 33.3 g/dL (32-36); Mean Corpuscular Volume 90.1 fL (81-99); Mean Platelet Vol. 12.7 fl (6.2-12.0); Monocyte# 0.48 X10^3/uL; NRBC Flagged by Analyzer 0 % (0-5); Neutrophil # 3.03 X10^3/uL (2.7-7.7); Neutrophil % 50.7 % (47-70); Platelet Count 162 K/mm3 (150-450); RBC Distribution Width CV 11.9 % (11.6-14.6); Red Blood Count 4.76 M/mm3 (4.2-5.4)
[2018-12-01 10:46] LABS: AST(SGOT) 24 U/L (15-37); Alanine Aminotransfer ALT/SGPT 21 U/L (13-56); Albumin, Serum 3.5 g/dL (3.2-5.0); Alkaline Phosphatase 77 U/L (45-117); Anion Gap 4 (5-15); BUN 20 mg/dL (7-18); BUN/Creat Ratio 20.3 RATIO (10-20); Chloride 109 mmol/L (98-107); Cholesterol 196 mg/dL (200); Creatinine, Serum 0.99 mg/dL (0.55-1.02); EST Glomerular Filtration Rate 57 mL/min (>60); Est Glom Filt Rate - Afr Amer 69 mL/min (>60); Globulin 3.4 g/dL (2.2-4.2); Glucose 96 mg/dL (74-106); High Density Lipoprotein 53 mg/dL; Phosphorus 3.2 mg/dL (2.5-4.9); Potassium 3.9 mmol/L (3.5-5.1); Protein, Total 6.9 g/dL (6.4-8.2); Sodium Level 141 mmol/L (136-145); Triglycerides 194 mg/dL; Very Low Density Lipoprotein 39 mg/dL (5-40)
[2018-12-01 10:55] LABS: Vitamin D,25 Hydroxy 27.4 ng/mL (29.95-100.01)
[2018-12-01 12:05] LABS: Color, Urine Yellow (Yellow); Glucose, Dipstick Normal (Normal); Ketone-Dipstick Negative (Negative); Leukocyte Esterase-Dipstick 100 /ul (Negative); Nitrite-Dipstick Negative (Negative); Occult Blood-Urine Negative /ul (Negative); Protein-Dipstick Negative (Negative); Urine Bilirubin Dipstick Negative (Negative); Urine Clarity Sl. Cloudy (Clear); Urine Urobilinogen Normal (Normal); Urine pH 6.5 (5.0 - 8.0)
[2018-12-01 12:14] LABS: Squamous Epithelial Cells - UA 5-10 SEEN /hpf (5-10); White Blood Cells 10-25 SEEN /hpf (0-5)
== END ==
PROVIDERS: Family Provider Family Medicine; PCP Family Medicine; Referring Provider Family Medicine; Visit Provider Family Medicine
DX: I10 Essential (primary) hypertension (principal); E78.5 Hyperlipidemia, unspecified; E55.9 Vitamin D deficiency, unspecified; M85.80 Other specified disorders of bone density and structure, unspecified site
CPT/HCPCS: 36415; 80053; 80061; 81001; 82306; 84100; 85025

== ENCOUNTER → 2019-03-25 08:06 | Outpatient (CLI) | payer MEDICARE, SELFPAY ==
[2019-03-25 10:47] LABS: ALB/GLOB Ratio 1.2 RATIO (0.9-2.4); AST(SGOT) 23 U/L (15-37); Alanine Aminotransfer ALT/SGPT 21 U/L (13-56); Albumin, Serum 3.9 g/dL (3.2-5.0); Alkaline Phosphatase 79 U/L (45-117); Anion Gap 9 (5-15); BUN 19 mg/dL (7-18); BUN/Creat Ratio 20.7 RATIO (10-20); Calcium,Total 9.3 mg/dL (8.5-10.1); Chloride 108 mmol/L (98-107); Creatinine, Serum 0.92 mg/dL (0.55-1.02); EST Glomerular Filtration Rate 62 mL/min (>60); Est Glom Filt Rate - Afr Amer 75 mL/min (>60); Globulin 3.2 g/dL (2.2-4.2); Glucose 103 mg/dL (74-106); Protein, Total 7.1 g/dL (6.4-8.2); Sodium Level 141 mmol/L (136-145)
[2019-03-25 10:55] LABS: Vitamin D,25 Hydroxy 59.2 ng/mL (29.95-100.01)
== END ==
PROVIDERS: Family Provider Family Medicine; PCP Family Medicine; Referring Provider Family Medicine; Visit Provider Family Medicine
DX: I10 Essential (primary) hypertension (principal); E55.9 Vitamin D deficiency, unspecified; R73.09 Other abnormal glucose
CPT/HCPCS: 36415; 80053; 82306; 83036

== ENCOUNTER → 2019-07-26 08:19 | Outpatient (CLI) | payer MEDICARE, SELFPAY ==
[2019-07-26 09:58] LABS: Absolute Lymphocyte Count 3.24 X10^3/uL (0.83-4.51); Absolute Neutrophil Count 3.5 X10^3/uL (2.0-7.7); Basophil# 0.07 X10^3/uL; Basophil% 0.9 % (0-1); Eosinophil# 0.29 X10^3/uL; Eosinophils% 3.7 % (0-5); Hematocrit 41.8 % (37-47); Hemoglobin 14.1 g/dL (12.0-15.0); Lymphocyte # 3.24 X10^3/ul (4.0); Lymphocyte % 41.9 % (19-41); Mean Corp Hgb Conc 33.7 g/dL (32-36); Mean Corpuscular Hgb 29.6 pg (27.0-32.0); Mean Corpuscular Volume 87.8 fL (81-99); Mean Platelet Vol. 11.9 fl (6.2-12.0); Monocyte# 0.62 X10^3/uL; NRBC Flagged by Analyzer 0 % (0-5); Neutrophil # 3.49 X10^3/uL (2.7-7.7); Neutrophil % 45.1 % (47-70); Platelet Count 173 K/mm3 (150-450); RBC Distribution Width CV 12.7 % (11.6-14.6); RBC Distribution Width SD 40.4 fl (35.1-43.9); Red Blood Count 4.76 M/mm3 (4.2-5.4); White Blood Count 7.7 K/mm3 (4.4-11.0)
[2019-07-26 10:04] LABS: AST(SGOT) 25 U/L (15-37); Alanine Aminotransfer ALT/SGPT 24 U/L (13-56); Albumin, Serum 3.6 g/dL (3.2-5.0); Alkaline Phosphatase 71 U/L (45-117); Anion Gap 6 (5-15); BUN 26 mg/dL (7-18); BUN/Creat Ratio 25.2 RATIO (10-20); Calcium,Total 9.2 mg/dL (8.5-10.1); Chloride 107 mmol/L (98-107); Creatinine, Serum 1.03 mg/dL (0.55-1.02); EST Glomerular Filtration Rate 54 mL/min (>60); Est Glom Filt Rate - Afr Amer 66 mL/min (>60); Globulin 3.6 g/dL (2.2-4.2); Glucose 105 mg/dL (74-106); Potassium 3.9 mmol/L (3.5-5.1); Protein, Total 7.2 g/dL (6.4-8.2); Sodium Level 140 mmol/L (136-145); Vitamin D,25 Hydroxy 54.8 ng/mL
== END ==
PROVIDERS: PCP Family Medicine; Referring Provider Family Medicine; Visit Provider Family Medicine
DX: I10 Essential (primary) hypertension (principal); E55.9 Vitamin D deficiency, unspecified; M85.80 Other specified disorders of bone density and structure, unspecified site; R73.02 Impaired glucose tolerance (oral)
CPT/HCPCS: 36415; 80053; 82306; 83036; 84100; 85025

== ENCOUNTER → 2020-01-11 09:24 | Outpatient (CLI) | payer MEDICARE, SELFPAY ==
[2020-01-11 10:25] LABS: Absolute Lymphocyte Count 2.61 X10^3/uL (0.83-4.51); Absolute Neutrophil Count 3.3 X10^3/uL (2.0-7.7); Basophil# 0.07 X10^3/uL; Eosinophil# 0.31 X10^3/uL; Eosinophils% 4.5 % (0-5); Hematocrit 42.5 % (37-47); Hemoglobin 13.9 g/dL (12.0-15.0); Lymphocyte # 2.61 X10^3/ul (4.0); Lymphocyte % 37.7 % (19-41); Mean Corp Hgb Conc 32.7 g/dL (32-36); Mean Corpuscular Hgb 29.4 pg (27.0-32.0); Mean Corpuscular Volume 89.9 fL (81-99); Mean Platelet Vol. 12.4 fl (6.2-12.0); Monocyte% 8.7 % (0-10); NRBC Flagged by Analyzer 0 % (0-5); Neutrophil % 47.5 % (47-70); Platelet Count 200 K/mm3 (150-450); RBC Distribution Width CV 12.7 % (11.6-14.6); RBC Distribution Width SD 41.5 fl (35.1-43.9); Red Blood Count 4.73 M/mm3 (4.2-5.4); White Blood Count 6.9 K/mm3 (4.4-11.0)
[2020-01-11 10:44] LABS: Vitamin D,25 Hydroxy 65.3 ng/mL
[2020-01-11 10:47] LABS: ALB/GLOB Ratio 0.9 RATIO (0.9-2.4); AST(SGOT) 24 U/L (15-37); Alanine Aminotransfer ALT/SGPT 26 U/L (13-56); Albumin, Serum 3.7 g/dL (3.2-5.0); Alkaline Phosphatase 78 U/L (45-117); Anion Gap 6 (5-15); BUN 21 mg/dL (7-18); BUN/Creat Ratio 21.2 RATIO (10-20); Calcium,Total 9.6 mg/dL (8.5-10.1); Chloride 106 mmol/L (98-107); Creatinine, Serum 0.99 mg/dL (0.55-1.02); EST Glomerular Filtration Rate 57 mL/min (>60); Est Glom Filt Rate - Afr Amer 69 mL/min (>60); Globulin 3.9 g/dL (2.2-4.2); Glucose 103 mg/dL (74-106); Hemoglobin A1c 5.8 % (3.8-5.6); Phosphorus 3.2 mg/dL (2.5-4.9); Protein, Total 7.6 g/dL (6.4-8.2); Sodium Level 138 mmol/L (136-145)
== END ==
PROVIDERS: PCP Family Medicine; Referring Provider Family Medicine; Visit Provider Family Medicine
DX: I10 Essential (primary) hypertension (principal); E55.9 Vitamin D deficiency, unspecified; M85.80 Other specified disorders of bone density and structure, unspecified site; R73.02 Impaired glucose tolerance (oral)
CPT/HCPCS: 36415; 80053; 82306; 83036; 84100; 85025

== ENCOUNTER → 2020-02-22 16:05 | Outpatient (CLI) | payer MEDICARE, SELFPAY ==
[2020-02-22 18:03] LABS: Absolute Lymphocyte Count 2.94 X10^3/uL (0.83-4.51); Absolute Neutrophil Count 4.2 X10^3/uL (2.0-7.7); Basophil# 0.07 X10^3/uL; Basophil% 0.9 % (0-1); Eosinophil# 0.28 X10^3/uL; Eosinophils% 3.4 % (0-5); Hematocrit 42.6 % (37-47); Hemoglobin 13.8 g/dL (12.0-15.0); Lymphocyte # 2.94 X10^3/ul (4.0); Lymphocyte % 36.2 % (19-41); Mean Corp Hgb Conc 32.4 g/dL (32-36); Mean Corpuscular Hgb 29.3 pg (27.0-32.0); Mean Corpuscular Volume 90.4 fL (81-99); Monocyte% 7.4 % (0-10); NRBC Flagged by Analyzer 0 % (0-5); Neutrophil # 4.21 X10^3/uL (2.7-7.7); Neutrophil % 51.7 % (47-70); Platelet Count 210 K/mm3 (150-450); RBC Distribution Width CV 12.4 % (11.6-14.6); RBC Distribution Width SD 41.4 fl (35.1-43.9); Red Blood Count 4.71 M/mm3 (4.2-5.4); White Blood Count 8.1 K/mm3 (4.4-11.0)
[2020-02-22 18:56] LABS: AST(SGOT) 30 U/L (15-37); Alanine Aminotransfer ALT/SGPT 31 U/L (13-56); Albumin, Serum 3.8 g/dL (3.2-5.0); Alkaline Phosphatase 85 U/L (45-117); Anion Gap 9 (5-15); BUN 18 mg/dL (7-18); BUN/Creat Ratio 19.8 RATIO (10-20); Calcium,Total 9.5 mg/dL (8.5-10.1); Chloride 108 mmol/L (98-107); Creatinine, Serum 0.91 mg/dL (0.55-1.02); EST Glomerular Filtration Rate 63 mL/min (>60); Est Glom Filt Rate - Afr Amer 76 mL/min (>60); Globulin 3.7 g/dL (2.2-4.2); Glucose 99 mg/dL (74-106); Potassium 3.6 mmol/L (3.5-5.1); Protein, Total 7.5 g/dL (6.4-8.2); Sodium Level 141 mmol/L (136-145); T4 Free Direct 1.35 ng/dL (0.76-1.46); Thyroid Stim Hormone (TSH) 1.23 uIU/mL (0.358-3.74)
== END ==
PROVIDERS: PCP Family Medicine; Referring Provider Family Medicine; Visit Provider Family Medicine
DX: R68.89 Other general symptoms and signs (principal)
CPT/HCPCS: 36415; 80053; 84439; 84443; 85025

== ENCOUNTER → 2020-03-20 16:41 | Outpatient (CLI) | payer MEDICARE, SELFPAY ==
[2020-03-08 15:15] VITALS: BMI 34.0
[2020-03-17 10:03] VITALS: BMI 34.4
--- NOTE | 2020-03-20 16:42 | MRI_ITS ---
STUDY: MRI LEFT ELBOW WITH AND WITHOUT CONTRAST REASON FOR EXAM: Recurrent soft tissue mass, non-Hodgkin''s lymphoma with removal of mass in December. TECHNIQUE: Standardized fat and water weighted pulse sequences were obtained in all 3 orthogonal planes before and after intravenous administration of 18 mL of Dotarem. COMPARISON: MRI images 09/28/2018. FINDINGS: Normal radio-capitellum articulation. Normal radial collateral ligamentous complex. There is an undersurface partial tear of the common extensor tendon (inversion recovery coronal image 11). Normal ulnotrochlear articulation. Normal ulnar collateral ligamentous complex. Normal common flexor tendon. The cubital tunnel is normal, with a normal ulnar nerve. There is mild tendinosis of the distal biceps tendon (T2 axial image 20). Normal brachialis musculotendinous insertion. Normal triceps tendon and teno-osseous insertion. Normal olecranon process. The visualized distal humerus, proximal radius, and ulna are normal. The visualized muscles of the distal arm and proximal forearm are normal. There is a lobulated soft tissue mass at the ulnar aspect of the distal upper arm in the subcutis adipose space (inversion recovery coronal images 8-13) with contrast enhancement (postcontrast T1 coronal images 8-11) measuring 2.2 x 1.5 x 2.7 cm (AP x transverse x length). The mass is similar in signal characteristics although smaller than on the prior study and therefore is suggestive of recurrence. There is mild edema in the subcutis adipose space as well as scarring. MRI/Upper Ext No Joint W/WO Cont IMPRESSION: Recurrent soft tissue mass in the subcutis adipose space at the ulnar aspect of the upper arm. Undersurface partial tear of the common extensor tendon. Mild tendinosis of the distal biceps tendon. Electronically Signed: Blayne Wiggins MD at 10:34 EST Tel , Service support ,
== END ==
PROVIDERS: PCP Family Medicine; Referring Provider Student in an Organized Health Care Education/Training Program; Visit Provider Student in an Organized Health Care Education/Training Program
DX: C85.90 Non-Hodgkin lymphoma, unspecified, unspecified site (principal)
CPT/HCPCS: 73220; A9575; A4216

== ENCOUNTER 2020-05-04 14:06 | Outpatient (RCR) | payer MEDICARE, SELFPAY ==
[2020-03-08 15:15] VITALS: BMI 34.0
[2020-03-17 10:03] VITALS: BMI 34.4
== END 2020-05-04 23:59 ==
LOC: IMMUN 14:06
PROVIDERS: PCP Family Medicine; Visit Provider Family Medicine
DX: Z23 Encounter for immunization (principal)
CPT/HCPCS: 0011A; 0012A; 91301

== ENCOUNTER → 2020-06-13 09:55 | Outpatient (CLI) | payer MEDICARE, SELFPAY ==
[2020-03-08 15:15] VITALS: BMI 34.0
[2020-03-17 10:03] VITALS: BMI 34.4
[2020-05-23 14:55] VITALS: BMI 34.4
--- NOTE | 2020-06-13 11:00 | MRI_ITS ---
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 TECHNIQUE: Standardized fat and water weighted pulse sequences were obtained in all 3 orthogonal planes before and after intravenous administration of 18 mL of Dotarem. COMPARISON: MRI images 03/20/2020. FINDINGS: Normal radio-capitellum articulation. Normal radial collateral ligamentous complex. There is an undersurface partial tear of the common extensor tendon (inversion recovery coronal image 10) as on the prior study. Normal ulnotrochlear articulation. Normal ulnar collateral ligamentous complex. Normal common flexor tendon. The cubital tunnel is normal, with a normal ulnar nerve. There is mild tendinosis of the distal biceps tendon (T2 axial image 28) as on the prior study. Normal lacertus fibrosis. Normal brachialis musculotendinous insertion. Normal triceps tendon and teno-osseous insertion. Normal olecranon process. The visualized distal humerus, proximal radius, and ulna are normal. The visualized muscles of the distal arm and proximal forearm are normal. There is interval resolution of the soft tissue mass at the ulnar aspect of the distal upper arm with scarring at the site of the previous mass (T2 axial images 12-16) with mild contrast enhancement of the scarring (postcontrast T1 axial images 12, 13). MRI/Upper Ext No Joint W/WO Cont IMPRESSION: Interval resolution of the soft tissue mass at the ulnar aspect of the elbow with scarring at the site of the previous mass. Undersurface partial tear of the common extensor tendon. Mild tendinosis of the distal biceps tendon. Electronically Signed: Blayne Wiggins MD at 13:11 EST Tel , Service support ,
== END ==
PROVIDERS: PCP Family Medicine; Referring Provider Student in an Organized Health Care Education/Training Program; Visit Provider Student in an Organized Health Care Education/Training Program
DX: C85.94 Non-Hodgkin lymphoma, unspecified, lymph nodes of axilla and upper limb (principal); M75.22 Bicipital tendinitis, left shoulder
CPT/HCPCS: 73220; A9575

== ENCOUNTER → 2020-07-18 08:45 | Outpatient (CLI) | payer MEDICARE, SELFPAY ==
[2020-03-17 10:03] VITALS: BMI 34.4
[2020-05-23 14:55] VITALS: BMI 34.4
[2020-07-18 10:11] LABS: Absolute Lymphocyte Count 2.08 X10^3/uL (0.83-4.51); Absolute Neutrophil Count 3.1 X10^3/uL (2.0-7.7); Basophil# 0.05 X10^3/uL; Basophil% 0.8 % (0-1); Eosinophil# 0.33 X10^3/uL; Eosinophils% 5.4 % (0-5); Hematocrit 42.5 % (37-47); Lymphocyte # 2.08 X10^3/ul (4.0); Lymphocyte % 34.2 % (19-41); Mean Corp Hgb Conc 32.9 g/dL (32-36); Mean Corpuscular Hgb 29.7 pg (27.0-32.0); Mean Platelet Vol. 12.6 fl (6.2-12.0); Monocyte# 0.56 X10^3/uL; Monocyte% 9.2 % (0-10); NRBC Flagged by Analyzer 0 % (0-5); Neutrophil # 3.06 X10^3/uL (2.7-7.7); Neutrophil % 50.2 % (47-70); Platelet Count 182 K/mm3 (150-450); RBC Distribution Width CV 12.5 % (11.6-14.6); RBC Distribution Width SD 41.4 fl (35.1-43.9); Red Blood Count 4.72 M/mm3 (4.2-5.4); White Blood Count 6.1 K/mm3 (4.4-11.0)
[2020-07-18 10:44] LABS: Vitamin D,25 Hydroxy 68.6 ng/mL
[2020-07-18 10:46] LABS: Hemoglobin A1c 5.9 % (3.8-5.6)
[2020-07-18 10:49] LABS: Microalbumin,Random Urine 9.2 mg/L (NO RANGE EST.)
[2020-07-18 10:53] LABS: AST(SGOT) 19 U/L (15-37); Alanine Aminotransfer ALT/SGPT 21 U/L (13-56); Albumin, Serum 3.7 g/dL (3.2-5.0); Alkaline Phosphatase 76 U/L (45-117); Anion Gap 5 (5-15); BUN 20 mg/dL (7-18); BUN/Creat Ratio 22.2 RATIO (10-20); Calcium,Total 9.2 mg/dL (8.5-10.1); Chloride 107 mmol/L (98-107); EST Glomerular Filtration Rate 64 mL/min (>60); Est Glom Filt Rate - Afr Amer 77 mL/min (>60); Globulin 3.7 g/dL (2.2-4.2); Glucose 112 mg/dL (74-106); Phosphorus 3.2 mg/dL (2.5-4.9); Potassium 3.7 mmol/L (3.5-5.1); Protein, Total 7.4 g/dL (6.4-8.2); Sodium Level 138 mmol/L (136-145)
== END ==
PROVIDERS: PCP Family Medicine; Visit Provider Family Medicine
DX: I10 Essential (primary) hypertension (principal); M85.80 Other specified disorders of bone density and structure, unspecified site; E55.9 Vitamin D deficiency, unspecified; R73.02 Impaired glucose tolerance (oral)
CPT/HCPCS: 36415; 80053; 82043; 82306; 82570; 83036; 84100; 85025

== ENCOUNTER → 2020-09-21 08:50 | Outpatient (CLI) | payer MEDICARE, SELFPAY ==
[2020-03-17 10:03] VITALS: BMI 34.4
[2020-08-30 13:28] VITALS: BMI 33.7
--- NOTE | 2020-09-21 08:53 | BI_ITS ---
MAMMOGRAPHY - BILATERAL DIAGNOSTIC REASON FOR EXAM: Female, 84 years old. Bilateral breast lumps. PERTINENT HISTORY: Aunt with breast cancer. TECHNIQUE: Digital bilateral breast jm (3D mammographic acquisition) in the CC and MLO projections. 2-D mediolateral oblique (MLO) and craniocaudad (CC) views of both breasts were obtained. CAD: Full Field Digital Mammography with Computer Added Detection was performed. COMPARISON: No comparison mammograms available at this time. If any prior films become available, an addendum to this report can be generated. FINDINGS: Breast Composition: There are scattered areas of fibroglandular density. There are no dominant masses or suspicious calcifications. Benign appearing axillary lymph nodes. No other significant abnormalities are identified. BI/DIAG MAMM W/CAD, BILAT IMPRESSION: Negative diagnostic mammogram. With the patient''s history of palpable lumps in both breasts, correlation with ultrasound is recommended. ASSESSMENT CATEGORY: BIRADS Category 0: Incomplete. Need additional imaging evaluation. A letter regarding these results will be sent to the patient by the facility within 30 days. Approximately 10% of breast cancers are not detected by mammography. A normal mammogram should not delay biopsy of a clinically suspicious abnormality. Electronically Signed: Jose Monroy MD at 10:30 EDT , Service support ,
--- NOTE | 2020-09-21 09:47 | US_ITS ---
STUDY: ULTRASOUND BREAST - RIGHT REASON FOR EXAM: Female, 84 years old. Palpable lump in the right breast. TECHNIQUE: Axial and longitudinal images of the RIGHT breast were performed with a high resolution ultrasound transducer. # OF IMAGES: 128 COMPARISON: Comparison is made with prior mammogram done earlier in the day. FINDINGS: RIGHT Breast: The inferior medial aspect of the right breast was examined by ultrasound. No sonographic abnormality is seen. IMPRESSION: No sonographic abnormality is seen. ASSESSMENT CATEGORY: BIRADS Category 1: Negative. A letter regarding these results will be sent to the patient by the facility within 30 days. Electronically Signed: Jose Monroy MD at 10:43 EDT , Service support , STUDY: ULTRASOUND BREAST - LEFT REASON FOR EXAM: Female, 84 years old. Palpable lump left breast. TECHNIQUE: Axial and longitudinal images of the LEFT breast were performed with a high resolution ultrasound transducer. # OF IMAGES: 128 COMPARISON: Comparison is made with prior mammogram done earlier in the day. FINDINGS: LEFT Breast: The inferior half of the left breast was examined by ultrasound. No sonographic abnormality is seen. US/Breast Limited Unilateral IMPRESSION: No sonographic abnormality is seen. ASSESSMENT CATEGORY: BIRADS Category 1: Negative. A letter regarding these results will be sent to the patient by the facility within 30 days. Electronically Signed: Jose Monroy MD at 10:44 EDT , Service support ,
== END ==
PROVIDERS: PCP Family Medicine; Referring Provider Family Medicine; Visit Provider Family Medicine
DX: R92.8 Other abnormal and inconclusive findings on diagnostic imaging of breast (principal); N63.0 Unspecified lump in unspecified breast
CPT/HCPCS: 76642; 77062; 77066; G0279

== ENCOUNTER → 2020-12-19 10:02 | Outpatient (CLI) | payer MEDICARE, SELFPAY ==
[2020-03-17 10:03] VITALS: BMI 34.4
[2020-12-19 10:06] LABS: Bacteria 0 SEEN /hpf (None Seen); Mucous, Urine 0 SEEN /hpf (<or=2+); Red Blood Cells-Urine 0 SEEN /hpf (0-5)
[2020-12-19 12:14] LABS: Absolute Lymphocyte Count 2.11 X10^3/uL (0.83-4.51); Absolute Neutrophil Count 2.9 X10^3/uL (2.0-7.7); Basophil# 0.05 X10^3/uL; Basophil% 0.9 % (0-1); Eosinophil# 0.25 X10^3/uL; Eosinophils% 4.3 % (0-5); Hematocrit 41.8 % (37-47); Hemoglobin 14.2 g/dL (12.0-15.0); Lymphocyte # 2.11 X10^3/ul (0.83-4.51); Lymphocyte % 36.6 % (19-41); Mean Corpuscular Volume 88.2 fL (81-99); Mean Platelet Vol. 12.7 fl (6.2-12.0); Monocyte# 0.47 X10^3/uL; Monocyte% 8.1 % (0-10); NRBC Flagged by Analyzer 0 % (0-5); Neutrophil # 2.87 X10^3/uL (2.7-7.7); Neutrophil % 49.8 % (47-70); Platelet Count 166 K/mm3 (150-450); RBC Distribution Width CV 12.7 % (11.6-14.6); RBC Distribution Width SD 41.1 fl (35.1-43.9); Red Blood Count 4.74 M/mm3 (4.2-5.4); White Blood Count 5.8 K/mm3 (4.4-11.0)
[2020-12-19 12:16] LABS: Color, Urine Yellow (Yellow); Glucose, Dipstick Normal (Normal); Ketone-Dipstick Negative (Negative); Leukocyte Esterase-Dipstick 25 /ul (Negative); Nitrite-Dipstick Negative (Negative); Occult Blood-Urine Negative /ul (Negative); Protein-Dipstick Negative (Negative); Urine Bilirubin Dipstick Negative (Negative); Urine Clarity Clear (Clear); Urine Urobilinogen Normal (Normal)
[2020-12-19 12:25] LABS: Squamous Epithelial Cells - UA 0-5 SEEN /hpf (5-10); White Blood Cells 0-5 SEEN /hpf (0-5)
[2020-12-19 12:28] LABS: Vitamin D,25 Hydroxy 69.6 ng/mL
[2020-12-19 12:41] LABS: ALB/GLOB Ratio 0.9 RATIO (0.9-2.4); AST(SGOT) 19 U/L (15-37); Alanine Aminotransfer ALT/SGPT 21 U/L (13-56); Albumin, Serum 3.5 g/dL (3.2-5.0); Alkaline Phosphatase 72 U/L (45-117); Anion Gap 3 (5-15); BUN 23 mg/dL (7-18); BUN/Creat Ratio 26.5 RATIO (10-20); Calcium,Total 9.3 mg/dL (8.5-10.1); Chloride 108 mmol/L (98-107); Cholesterol 190 mg/dL (200); Creatinine, Serum 0.87 mg/dL (0.55-1.02); EST Glomerular Filtration Rate 66 mL/min (>60); Est Glom Filt Rate - Afr Amer 80 mL/min (>60); Globulin 3.8 g/dL (2.2-4.2); Glucose 106 mg/dL (74-106); High Density Lipoprotein 49 mg/dL; Protein, Total 7.3 g/dL (6.4-8.2); Sodium Level 139 mmol/L (136-145); Thyroid Stim Hormone (TSH) 1.68 uIU/mL (0.358-3.74); Triglycerides 154 mg/dL; Very Low Density Lipoprotein 31 mg/dL (5-40)
== END ==
PROVIDERS: PCP Family Medicine; Visit Provider Family Medicine
DX: I10 Essential (primary) hypertension (principal); E55.9 Vitamin D deficiency, unspecified; R73.02 Impaired glucose tolerance (oral)
CPT/HCPCS: 80053; 80061; 81001; 82306; 83036; 84443; 85025

== ENCOUNTER → 2021-01-03 12:54 | Outpatient (CLI) | payer MEDICARE, SELFPAY ==
[2020-03-17 10:03] VITALS: BMI 34.4
--- NOTE | 2021-01-03 12:58 | ECHOD_ITS ---
Reason For Study: SOB Procedure This was a 2D Doppler, Color Flow transthoracic echocardiogram. Exam performed in department. Left Ventricle Normal LV size. Left ventricular systolic function is normal. The estimated ejection fraction is 55 %. Stage 1 diastolic dysfunction. No regional wall motion abnormalities noted. Right Ventricle Normal RV size. Normal systolic function. Atria Normal left atrium. Normal right atrium. Mitral Valve Normal mitral valve. Tricuspid Valve Normal tricuspid valve. Mild tricuspid valve insufficiency. Aortic Valve Normal aortic valve. Trisinus/trileaflet aortic valve. Pulmonic Valve Normal pulmonic valve. Great Vessels Mildly dilated aortic root. The pulmonary artery is normal size. Normal inferior vena cava. Pericardium/Pleural No pericardial effusion. MMode/2D Measurements & Calculations LVIDd: 4.2 cm IVSd: 1.1 cm Ao root diam: 4.0 cm LVIDs: 3.2 cm LVPWd: 1.0 cm RVDd: 2.8 cm FS: 24.8 % LAV(MOD-bp): 57.6 ml LVAd ap4: 20.6 cm2 SV(MOD-sp4): 28.8 ml LAV(MOD-bp) Indexed: 29.6 ml/m2 LVLd ap4: 7.0 cm LAV(MOD-sp2): 62.3 ml EDV(MOD-sp4): 49.6 ml LAV(MOD-sp4): 53.3 ml EDV(sp4-el): 51.0 ml LVAs ap4: 12.3 cm2 LVLs ap4: 6.2 cm ESV(MOD-sp4): 20.8 ml ESV(sp4-el): 20.7 ml EF(MOD-sp4): 58.1 % EF(sp4-el): 59.4 % SV(sp4-el): 30.3 ml LA A4 area: 18.7 cm2 LA dimension(2D): 3.3 cm RA A4 area: 14.0 cm2 Doppler Measurements & Calculations MV E max tanner: 54.7 cm/sec Lat Peak E' Tanner: 7.6 cm/sec Med Peak E' Tanner: 3.0 cm/sec MV A max tanner: 109.8 cm/sec E/E' lat: 7.2 E/E' med: 18.0 MV E/A: 0.50 Ao V2 max: 130.0 cm/sec AI max tanner: 349.0 cm/sec LV V1 max: 104.2 cm/sec Ao max P.8 mmHg AI max P.7 mmHg LV V1 max P.3 mmHg Ao V2 mean: 95.4 cm/sec Ao mean P.0 mmHg AI dec slope: 187.7 cm/sec2 Ao V2 VTI: 29.2 cm AI P1/2t: 544.5 msec PA V2 max: 74.2 cm/sec TR max tanner: 202.2 cm/sec TR max P.4 mmHg ECHO/Echo Complete Interpretation Summary Normal LV size. Left ventricular systolic function is normal. The estimated ejection fraction is 55 %. Stage 1 diastolic dysfunction. Mildly dilated aortic root. Ordering Physician: Mitesh Weems Referring Physician: Mitesh Weems Performed By: Kasia Norman, JONATHAN, RVT
== END ==
PROVIDERS: PCP Family Medicine; Referring Provider Family Medicine; Visit Provider Family Medicine
DX: R06.02 Shortness of breath (principal)
CPT/HCPCS: 93306

== ENCOUNTER 2021-04-18 09:53 | Outpatient (CLI) | payer MEDICARE, SELFPAY ==
[2020-03-17 10:03] VITALS: BMI 34.4
[2021-04-18 09:56] LABS: Mucous, Urine 0 SEEN /hpf (<or=2+); Red Blood Cells-Urine 0 SEEN /hpf (0-5)
[2021-04-18 12:16] LABS: Color, Urine Yellow (Yellow); Glucose, Dipstick Normal (Normal); Ketone-Dipstick Negative (Negative); Leukocyte Esterase-Dipstick 100 /ul (Negative); Nitrite-Dipstick Negative (Negative); Occult Blood-Urine Negative /ul (Negative); Protein-Dipstick 15 mg/dl (Negative); Urine Bilirubin Dipstick Negative (Negative); Urine Clarity Clear (Clear); Urine Urobilinogen Normal (Normal)
[2021-04-18 12:25] LABS: Absolute Lymphocyte Count 2.18 X10^3/uL (0.83-4.51); Absolute Neutrophil Count 2.8 X10^3/uL (2.0-7.7); Basophil# 0.05 X10^3/uL; Basophil% 0.9 % (0-1); Eosinophil# 0.22 X10^3/uL; Eosinophils% 3.9 % (0-5); Hematocrit 41.6 % (37-47); Hemoglobin 13.7 g/dL (12.0-15.0); Lymphocyte # 2.18 X10^3/ul (0.83-4.51); Lymphocyte % 38.2 % (19-41); Mean Corp Hgb Conc 32.9 g/dL (32-36); Mean Corpuscular Hgb 29.4 pg (27.0-32.0); Mean Corpuscular Volume 89.3 fL (81-99); Monocyte# 0.48 X10^3/uL; Monocyte% 8.4 % (0-10); NRBC Flagged by Analyzer 0 % (0-5); Neutrophil # 2.76 X10^3/uL (2.7-7.7); Neutrophil % 48.2 % (47-70); Platelet Count 164 K/mm3 (150-450); RBC Distribution Width CV 12.6 % (11.6-14.6); RBC Distribution Width SD 41.3 fl (35.1-43.9); Red Blood Count 4.66 M/mm3 (4.2-5.4); White Blood Count 5.7 K/mm3 (4.4-11.0)
[2021-04-18 12:32] LABS: ALB/GLOB Ratio 0.9 RATIO (0.9-2.4); AST(SGOT) 19 U/L (15-37); Alanine Aminotransfer ALT/SGPT 20 U/L (13-56); Albumin, Serum 3.4 g/dL (3.2-5.0); Alkaline Phosphatase 68 U/L (45-117); Anion Gap 7 (5-15); BUN 18 mg/dL (7-18); BUN/Creat Ratio 19.3 RATIO (10-20); Calcium,Total 9.1 mg/dL (8.5-10.1); Chloride 110 mmol/L (98-107); Creatinine, Serum 0.93 mg/dL (0.55-1.02); EST Glomerular Filtration Rate 61 mL/min (>60); Est Glom Filt Rate - Afr Amer 74 mL/min (>60); Globulin 3.6 g/dL (2.2-4.2); Glucose 104 mg/dL (74-106); Sodium Level 141 mmol/L (136-145)
[2021-04-18 12:36] LABS: Vitamin D,25 Hydroxy 68.4 ng/mL
[2021-04-18 12:40] LABS: Bacteria 1+ /hpf (None Seen); Squamous Epithelial Cells - UA 5-10 SEEN /hpf (5-10); White Blood Cells 5-10 SEEN /hpf (0-5)
[2021-04-18 13:02] LABS: Hemoglobin A1c 5.8 % (3.8-5.6)
== END 2021-04-18 23:59 | disposition short-term general hospital (02) ==
LOC: MFPLAB 09:54
PROVIDERS: PCP Family Medicine; Referring Provider Family Medicine; Visit Provider Family Medicine
DX: I10 Essential (primary) hypertension (principal); E55.9 Vitamin D deficiency, unspecified; R73.02 Impaired glucose tolerance (oral)
CPT/HCPCS: 36415; 80053; 81001; 82306; 83036; 85025

== ENCOUNTER → 2021-09-18 | Outpatient (CLI) | payer MEDICARE, SELFPAY ==
[2020-03-17 10:03] VITALS: BMI 34.4
[2021-09-18 10:10] LABS: Basophil# 0.08 X10^3/uL; Basophil% 1.2 % (0-1); Eosinophil# 0.26 X10^3/uL; Eosinophils% 3.9 % (0-5); Hematocrit 43.2 % (37-47); Hemoglobin 14.4 g/dL (12.0-15.0); Lymphocyte % 40.7 % (19-41); Mean Corp Hgb Conc 33.3 g/dL (32-36); Mean Corpuscular Hgb 30.3 pg (27.0-32.0); Mean Corpuscular Volume 90.9 fL (81-99); NRBC Flagged by Analyzer 0 % (0-5); Neutrophil # 2.96 X10^3/uL (2.7-7.7); Neutrophil % 44.7 % (47-70); Platelet Count 173 K/mm3 (150-450); RBC Distribution Width CV 12.6 % (11.6-14.6); RBC Distribution Width SD 41.5 fl (35.1-43.9); Red Blood Count 4.75 M/mm3 (4.2-5.4); White Blood Count 6.6 K/mm3 (4.4-11.0)
[2021-09-18 10:21] LABS: Vitamin D,25 Hydroxy 86.4 ng/mL
[2021-09-18 10:57] LABS: Hemoglobin A1c 5.9 % (3.8-5.6)
[2021-09-18 11:11] LABS: AST(SGOT) 24 U/L (15-37); Alanine Aminotransfer ALT/SGPT 24 U/L (13-56); Albumin, Serum 3.7 g/dL (3.2-5.0); Alkaline Phosphatase 65 U/L (45-117); Anion Gap 9 (5-15); BUN 28 mg/dL (7-18); BUN/Creat Ratio 29.2 RATIO (10-20); Calcium,Total 9.3 mg/dL (8.5-10.1); Chloride 108 mmol/L (98-107); Creatinine, Serum 0.96 mg/dL (0.55-1.02); EST Glomerular Filtration Rate 59 mL/min (>60); Est Glom Filt Rate - Afr Amer 71 mL/min (>60); Globulin 3.6 g/dL (2.2-4.2); Glucose 119 mg/dL (74-106); Potassium 3.7 mmol/L (3.5-5.1); Protein, Total 7.3 g/dL (6.4-8.2); Sodium Level 138 mmol/L (136-145)
== END | disposition home or self-care (01) ==
LOC: MFPLAB 08:28
PROVIDERS: PCP Family Medicine; Referring Provider Family Medicine; Visit Provider Family Medicine
DX: I10 Essential (primary) hypertension (principal); E55.9 Vitamin D deficiency, unspecified; R73.02 Impaired glucose tolerance (oral)
CPT/HCPCS: 36415; 80053; 82306; 83036; 85025

== ENCOUNTER → 2021-10-09 | Outpatient (CLI) | payer MEDICARE, SELFPAY ==
[2020-03-17 10:03] VITALS: BMI 34.4
--- NOTE | 2021-10-09 11:02 | BD_ITS ---
STUDY: DUAL ENERGY X-RAY ABSORPTIOMETRY / DXA REASON FOR EXAM: Female, 86 years old. 733.90OsteopeniaBONE DENSITY REASON FOR EXAM TECHNIQUE: Bone Mineral Density (BMD) measurements of both forearms were obtained. COMPARISON: None. FINDINGS: Right Forearm: g/cm2 (0.472) / T-score (-2.0) / Z-score ( ) Left Forearm: g/cm2 (0.46 ) / T-score (-2.0) / Z-score ( ) BD/Dexa Bone Density/Append Skel IMPRESSION: The patient is considered osteopenic as outlined below according to World Gm Organization (WHO) criteria with a moderate fracture risk. Reference Information: The T-score is the number of standard deviations above or below the standard which is normal for young adults at their peak bone mineral density. The World Health Organization (WHO) interprets the T-scores as follows: Above -1 Normal bone density Between -1 and -2.5 Osteopenia Equal to / or below -2.5 Osteoporosis As a practical clinical guideline, osteopenia may be graded as follows: Mild -1 through -1.5 Moderate -1.6 through -2.0 Severe -2.1 through -2.4 The Z-score is the number of standard deviations above or below age-matched controls. A Z-score of less than -1.5 would be considered abnormal. References: 1. NIH Osteoporosis and Related Bone Diseases www osteo.org 2. International Society for Clinical Densitometry www iscd.org 3. National Osteoporosis Foundation www nof.org Electronically Signed: Jose Monroy MD at 12:57 EDT ,
== END | disposition home or self-care (01) ==
LOC: OPBD 10:51
PROVIDERS: PCP Family Medicine; Visit Provider Family Medicine
DX: M81.0 Age-related osteoporosis without current pathological fracture (principal)
CPT/HCPCS: 77081

== ENCOUNTER → 2022-01-21 | Outpatient (CLI) | payer MEDICARE, SELFPAY ==
[2020-03-17 10:03] VITALS: BMI 34.4
[2022-01-21 10:22] LABS: Absolute Lymphocyte Count 2.47 X10^3/uL (0.83-4.51); Absolute Neutrophil Count 3.3 X10^3/uL (2.0-7.7); Basophil# 0.07 X10^3/uL; Eosinophil# 0.25 X10^3/uL; Eosinophils% 3.7 % (0-5); Hematocrit 42.9 % (37-47); Hemoglobin 14.4 g/dL (12.0-15.0); Lymphocyte # 2.47 X10^3/ul (0.83-4.51); Lymphocyte % 36.9 % (19-41); Mean Corp Hgb Conc 33.6 g/dL (32-36); Mean Corpuscular Volume 92.3 fL (81-99); Mean Platelet Vol. 12.7 fl (6.2-12.0); Monocyte# 0.57 X10^3/uL; Monocyte% 8.5 % (0-10); NRBC Flagged by Analyzer 0 % (0-5); Neutrophil # 3.31 X10^3/uL (2.7-7.7); Neutrophil % 49.5 % (47-70); Platelet Count 171 K/mm3 (150-450); RBC Distribution Width CV 12.8 % (11.6-14.6); RBC Distribution Width SD 42.9 fl (35.1-43.9); Red Blood Count 4.65 M/mm3 (4.2-5.4); White Blood Count 6.7 K/mm3 (4.4-11.0)
[2022-01-21 10:43] LABS: Mucous, Urine 0 SEEN /hpf (<or=2+); Red Blood Cells-Urine 0 SEEN /hpf (0-5)
[2022-01-21 10:43] LABS: ALB/GLOB Ratio 0.9 RATIO (0.9-2.4); AST(SGOT) 24 U/L (15-37); Alanine Aminotransfer ALT/SGPT 24 U/L (13-56); Albumin, Serum 3.4 g/dL (3.2-5.0); Alkaline Phosphatase 69 U/L (45-117); Anion Gap 9 (5-15); BUN 20 mg/dL (7-18); BUN/Creat Ratio 21.1 RATIO (10-20); Calcium,Total 9.1 mg/dL (8.5-10.1); Chloride 106 mmol/L (98-107); Creatinine, Serum 0.95 mg/dL (0.55-1.02); EST Glomerular Filtration Rate 60 mL/min (>60); Est Glom Filt Rate - Afr Amer 72 mL/min (>60); Globulin 3.8 g/dL (2.2-4.2); Glucose 102 mg/dL (74-106); Potassium 3.9 mmol/L (3.5-5.1); Protein, Total 7.2 g/dL (6.4-8.2); Sodium Level 140 mmol/L (136-145)
[2022-01-21 10:47] LABS: Vitamin D,25 Hydroxy 53.8 ng/mL
[2022-01-21 10:50] LABS: Hemoglobin A1c 5.9 % (3.8-5.6)
[2022-01-21 12:11] LABS: Color, Urine Yellow (Yellow); Glucose, Dipstick Normal (Normal); Ketone-Dipstick Negative (Negative); Leukocyte Esterase-Dipstick 25 /ul (Negative); Nitrite-Dipstick Negative (Negative); Occult Blood-Urine Negative /ul (Negative); Protein-Dipstick Negative (Negative); Specific Gravity, Urine 1.015 (1.002-1.030); Urine Bilirubin Dipstick Negative (Negative); Urine Clarity Clear (Clear); Urine Urobilinogen Normal (Normal); Urine pH 6.5 (5.0 - 8.0)
[2022-01-21 12:22] LABS: Bacteria 1+ /hpf (None Seen); Squamous Epithelial Cells - UA 0-5 SEEN /hpf (5-10); White Blood Cells 0-5 SEEN /hpf (0-5)
== END | disposition home or self-care (01) ==
LOC: MFPLAB 08:11
PROVIDERS: PCP Family Medicine; Visit Provider Family Medicine
DX: I10 Essential (primary) hypertension (principal); E55.9 Vitamin D deficiency, unspecified; R73.02 Impaired glucose tolerance (oral)
CPT/HCPCS: 36415; 80053; 81001; 82306; 83036; 85025

== ENCOUNTER → 2022-05-20 | Outpatient (CLI) | payer MEDICARE, SELFPAY ==
[2020-03-17 10:03] VITALS: BMI 34.4
[2022-05-20 08:32] LABS: Mucous, Urine 0 SEEN /hpf (<or=2+); Red Blood Cells-Urine 0 SEEN /hpf (0-5)
[2022-05-20 10:19] LABS: Absolute Lymphocyte Count 2.74 X10^3/uL (0.83-4.51); Absolute Neutrophil Count 4.1 X10^3/uL (2.0-7.7); Basophil# 0.07 X10^3/uL; Basophil% 0.9 % (0-1); Eosinophil# 0.23 X10^3/uL; Hematocrit 42.5 % (37-47); Hemoglobin 14.5 g/dL (12.0-15.0); Lymphocyte # 2.74 X10^3/ul (0.83-4.51); Lymphocyte % 35.6 % (19-41); Mean Corp Hgb Conc 34.1 g/dL (32-36); Mean Corpuscular Hgb 30.3 pg (27.0-32.0); Mean Corpuscular Volume 88.7 fL (81-99); Mean Platelet Vol. 12.5 fl (6.2-12.0); Monocyte# 0.52 X10^3/uL; Monocyte% 6.8 % (0-10); NRBC Flagged by Analyzer 0 % (0-5); Neutrophil # 4.11 X10^3/uL (2.7-7.7); Neutrophil % 53.4 % (47-70); Platelet Count 177 K/mm3 (150-450); RBC Distribution Width CV 12.3 % (11.6-14.6); RBC Distribution Width SD 40.7 fl (35.1-43.9); Red Blood Count 4.79 M/mm3 (4.2-5.4); White Blood Count 7.7 K/mm3 (4.4-11.0)
[2022-05-20 10:32] LABS: Color, Urine Yellow (Yellow); Glucose, Dipstick Normal (Normal); Ketone-Dipstick Negative (Negative); Leukocyte Esterase-Dipstick 25 /ul (Negative); Nitrite-Dipstick Negative (Negative); Occult Blood-Urine Negative /ul (Negative); Protein-Dipstick Negative (Negative); Specific Gravity, Urine 1.015 (1.002-1.030); Urine Bilirubin Dipstick Negative (Negative); Urine Clarity Sl. Cloudy (Clear); Urine Urobilinogen Normal (Normal)
[2022-05-20 10:42] LABS: Bacteria 1+ /hpf (None Seen); Squamous Epithelial Cells - UA 0-5 SEEN /hpf (5-10); White Blood Cells 0-5 SEEN /hpf (0-5)
[2022-05-20 10:49] LABS: ALB/GLOB Ratio 1.1 RATIO (0.9-2.4); AST(SGOT) 21 U/L (15-37); Alanine Aminotransfer ALT/SGPT 19 U/L (13-56); Albumin, Serum 3.7 g/dL (3.2-5.0); Alkaline Phosphatase 67 U/L (45-117); Anion Gap 8 (5-15); BUN 23 mg/dL (7-18); BUN/Creat Ratio 25.2 RATIO (10-20); Calcium,Total 9.1 mg/dL (8.5-10.1); Chloride 108 mmol/L (98-107); Creatinine, Serum 0.91 mg/dL (0.55-1.02); EST Glomerular Filtration Rate 62 mL/min (>60); Est Glom Filt Rate - Afr Amer 75 mL/min (>60); Globulin 3.5 g/dL (2.2-4.2); Glucose 99 mg/dL (74-106); Potassium 3.6 mmol/L (3.5-5.1); Protein, Total 7.2 g/dL (6.4-8.2); Sodium Level 141 mmol/L (136-145); Vitamin D,25 Hydroxy 54.4 ng/mL
[2022-05-20 10:52] LABS: Hemoglobin A1c 6.1 % (3.8-5.6)
== END | disposition home or self-care (01) ==
PROVIDERS: PCP Family Medicine; Referring Provider Family Medicine; Visit Provider Family Medicine
DX: I10 Essential (primary) hypertension (principal); E55.9 Vitamin D deficiency, unspecified; R73.02 Impaired glucose tolerance (oral)
CPT/HCPCS: 36415; 80053; 81001; 82306; 83036; 85025

== ENCOUNTER → 2022-12-13 | Outpatient (CLI) | payer MEDICARE, SELFPAY ==
[2022-11-23 10:07] VITALS: BMI 34.4
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
== END | disposition home or self-care (01) ==
LOC: MTRAD 12:54
PROVIDERS: PCP Family Medicine; Referring Provider Family Medicine; Visit Provider Family Medicine
DX: J18.9 Pneumonia, unspecified organism (principal)
CPT/HCPCS: 71046

== ENCOUNTER → 2023-02-03 | Outpatient (CLI) | payer MEDICARE, SELFPAY ==
[2022-11-23 10:07] VITALS: BMI 34.4
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
[2023-02-03 13:23] LABS: CREATININE FINGERSTICK 1.1 mg/dL (0.55-1.02)
== END | disposition home or self-care (01) ==
PROVIDERS: PCP Family Medicine; Referring Provider Family Medicine; Visit Provider Family Medicine
DX: G50.0 Trigeminal neuralgia (principal)
CPT/HCPCS: 70553; A9575

== ENCOUNTER → 2023-02-24 | Outpatient (CLI) | payer MEDICARE, SELFPAY ==
[2022-11-23 10:07] VITALS: BMI 34.4
[2023-02-24 09:05] LABS: Mucous, Urine 0 SEEN /hpf (<or=2+); Red Blood Cells-Urine 0 SEEN /hpf (0-5)
[2023-02-24 10:25] LABS: Color, Urine Yellow (Yellow); Glucose, Dipstick Normal (Normal); Ketone-Dipstick Negative (Negative); Leukocyte Esterase-Dipstick 25 /ul (Negative); Nitrite-Dipstick Negative (Negative); Occult Blood-Urine Negative /ul (Negative); Protein-Dipstick Negative (Negative); Specific Gravity, Urine 1.015 (1.002-1.030); Urine Bilirubin Dipstick Negative (Negative); Urine Clarity Clear (Clear); Urine Urobilinogen Normal (Normal); Urine pH 6.5 (5.0 - 8.0)
[2023-02-24 10:31] LABS: Absolute Neutrophil Count 4.1 X10^3/uL (2.0-7.7); Basophil# 0.06 X10^3/uL; Basophil% 0.8 % (0-1); Eosinophil# 0.22 X10^3/uL; Eosinophils% 2.9 % (0-5); Hematocrit 42.2 % (37-47); Hemoglobin 13.7 g/dL (12.0-15.0); Lymphocyte % 33.8 % (19-41); Mean Corp Hgb Conc 32.5 g/dL (32-36); Mean Corpuscular Hgb 29.5 pg (27.0-32.0); Mean Corpuscular Volume 90.9 fL (81-99); Mean Platelet Vol. 12.7 fl (6.2-12.0); Monocyte# 0.64 X10^3/uL; Monocyte% 8.3 % (0-10); NRBC Flagged by Analyzer 0 % (0-5); Neutrophil # 4.14 X10^3/uL (2.7-7.7); Neutrophil % 53.7 % (47-70); Platelet Count 174 K/mm3 (150-450); RBC Distribution Width CV 13.2 % (11.6-14.6); RBC Distribution Width SD 43.9 fl (35.1-43.9); Red Blood Count 4.64 M/mm3 (4.2-5.4); White Blood Count 7.7 K/mm3 (4.4-11.0)
[2023-02-24 10:40] LABS: Bacteria 1+ /hpf (None Seen); Squamous Epithelial Cells - UA 5-10 SEEN /hpf (5-10); White Blood Cells 0-5 SEEN /hpf (0-5)
[2023-02-24 10:48] LABS: Vitamin D,25 Hydroxy 61.9 ng/mL
[2023-02-24 10:58] LABS: ALB/GLOB Ratio 1.1 RATIO (0.9-2.4); AST(SGOT) 18 U/L (15-37); Alanine Aminotransfer ALT/SGPT 15 U/L (13-56); Albumin, Serum 3.5 g/dL (3.2-5.0); Alkaline Phosphatase 64 U/L (45-117); Anion Gap 8 (5-15); BUN 20 mg/dL (7-18); BUN/Creat Ratio 22.1 RATIO (10-20); Chloride 107 mmol/L (98-107); Cholesterol 189 mg/dL (200); EST Glomerular Filtration Rate 63 mL/min (>60); Est Glom Filt Rate - Afr Amer 76 mL/min (>60); Globulin 3.2 g/dL (2.2-4.2); Glucose 103 mg/dL (74-106); High Density Lipoprotein 51 mg/dL; Potassium 3.9 mmol/L (3.5-5.1); Protein, Total 6.7 g/dL (6.4-8.2); Sodium Level 140 mmol/L (136-145); Thyroid Stim Hormone (TSH) 2.65 uIU/mL (0.358-3.74); Triglycerides 144 mg/dL; Very Low Density Lipoprotein 29 mg/dL (5-40)
[2023-02-24 10:59] LABS: Hemoglobin A1c 5.7 % (3.8-5.6)
== END | disposition home or self-care (01) ==
LOC: MFPLAB 08:06
PROVIDERS: PCP Family Medicine; Visit Provider Family Medicine
DX: I10 Essential (primary) hypertension (principal); R73.02 Impaired glucose tolerance (oral); E55.9 Vitamin D deficiency, unspecified
CPT/HCPCS: 36415; 80053; 80061; 81001; 82306; 83036; 84443; 85025

== ENCOUNTER → 2023-04-30 | Outpatient (CLI) | payer MEDICARE, SELFPAY ==
[2022-11-23 10:07] VITALS: BMI 34.4
[2023-04-30 10:55] LABS: Bacteria 0 SEEN /hpf (None Seen); Mucous, Urine 0 SEEN /hpf (<or=2+); Red Blood Cells-Urine 0 SEEN /hpf (0-5)
[2023-04-30 12:19] LABS: Color, Urine Yellow (Yellow); Glucose, Dipstick Normal (Normal); Ketone-Dipstick Negative (Negative); Leukocyte Esterase-Dipstick 100 /ul (Negative); Nitrite-Dipstick Negative (Negative); Occult Blood-Urine Negative /ul (Negative); Protein-Dipstick Negative (Negative); Urine Bilirubin Dipstick Negative (Negative); Urine Clarity Clear (Clear); Urine Urobilinogen Normal (Normal)
[2023-04-30 12:20] LABS: Absolute Lymphocyte Count 2.75 X10^3/uL (0.83-4.51); Absolute Neutrophil Count 4.1 X10^3/uL (2.0-7.7); Basophil# 0.07 X10^3/uL; Basophil% 0.9 % (0-1); Eosinophil# 0.17 X10^3/uL; Eosinophils% 2.2 % (0-5); Hematocrit 42.7 % (37-47); Hemoglobin 14.4 g/dL (12.0-15.0); Lymphocyte # 2.75 X10^3/ul (0.83-4.51); Lymphocyte % 35.9 % (19-41); Mean Corp Hgb Conc 33.7 g/dL (32-36); Mean Corpuscular Hgb 29.9 pg (27.0-32.0); Mean Corpuscular Volume 88.8 fL (81-99); Mean Platelet Vol. 12.6 fl (6.2-12.0); Monocyte# 0.52 X10^3/uL; Monocyte% 6.8 % (0-10); NRBC Flagged by Analyzer 0 % (0-5); Neutrophil # 4.13 X10^3/uL (2.7-7.7); Neutrophil % 53.9 % (47-70); Platelet Count 190 K/mm3 (150-450); RBC Distribution Width CV 12.2 % (11.6-14.6); RBC Distribution Width SD 39.4 fl (35.1-43.9); Red Blood Count 4.81 M/mm3 (4.2-5.4); White Blood Count 7.7 K/mm3 (4.4-11.0)
[2023-04-30 12:49] LABS: Squamous Epithelial Cells - UA 5-10 SEEN /hpf (5-10); White Blood Cells 0-5 SEEN /hpf (0-5)
[2023-04-30 12:52] LABS: Hemoglobin A1c 5.6 % (3.8-5.6)
[2023-04-30 12:55] LABS: Vitamin D,25 Hydroxy 48.6 ng/mL
[2023-04-30 13:21] LABS: AST(SGOT) 20 U/L (15-37); Alanine Aminotransfer ALT/SGPT 15 U/L (13-56); Albumin, Serum 3.6 g/dL (3.2-5.0); Alkaline Phosphatase 72 U/L (45-117); Anion Gap 7 (5-15); BUN 24 mg/dL (7-18); BUN/Creat Ratio 24.9 RATIO (10-20); Calcium,Total 9.6 mg/dL (8.5-10.1); Chloride 109 mmol/L (98-107); Cholesterol 223 mg/dL (200); Creatinine, Serum 0.96 mg/dL (0.55-1.02); EST Glomerular Filtration Rate 58 mL/min (>60); Est Glom Filt Rate - Afr Amer 70 mL/min (>60); Globulin 3.5 g/dL (2.2-4.2); Glucose 112 mg/dL (74-106); High Density Lipoprotein 56 mg/dL; Magnesium 2.2 mg/dL (1.6-2.6); Potassium 3.7 mmol/L (3.5-5.1); Protein, Total 7.1 g/dL (6.4-8.2); Sodium Level 139 mmol/L (136-145); Thyroid Stim Hormone (TSH) 2.14 uIU/mL (0.358-3.74); Triglycerides 171 mg/dL; Very Low Density Lipoprotein 34 mg/dL (5-40)
== END | disposition home or self-care (01) ==
LOC: MFPLAB 10:54
PROVIDERS: PCP Family Medicine; Visit Provider Family Medicine
DX: I10 Essential (primary) hypertension (principal); E55.9 Vitamin D deficiency, unspecified; R73.02 Impaired glucose tolerance (oral)
CPT/HCPCS: 36415; 80053; 80061; 81001; 82306; 83036; 83735; 84443; 85025

== ENCOUNTER → 2023-09-03 | Outpatient (CLI) | payer MEDICARE, SELFPAY ==
[2022-11-23 10:07] VITALS: BMI 34.4
[2023-09-03 08:15] LABS: Bacteria 0 SEEN /hpf (None Seen); Mucous, Urine 0 SEEN /hpf (<or=2+); Red Blood Cells-Urine 0 SEEN /hpf (0-5)
[2023-09-03 10:22] LABS: Absolute Lymphocyte Count 3.02 X10^3/uL (0.83-4.51); Absolute Neutrophil Count 3.3 X10^3/uL (2.0-7.7); Basophil# 0.07 X10^3/uL; Eosinophil# 0.18 X10^3/uL; Eosinophils% 2.5 % (0-5); Hematocrit 41.8 % (37-47); Lymphocyte # 3.02 X10^3/ul (0.83-4.51); Lymphocyte % 42.3 % (19-41); Mean Corp Hgb Conc 33.5 g/dL (32-36); Mean Corpuscular Volume 89.7 fL (81-99); Mean Platelet Vol. 12.8 fl (6.2-12.0); Monocyte# 0.56 X10^3/uL; Monocyte% 7.8 % (0-10); NRBC Flagged by Analyzer 0 % (0-5); Neutrophil # 3.28 X10^3/uL (2.7-7.7); Platelet Count 183 K/mm3 (150-450); RBC Distribution Width CV 12.7 % (11.6-14.6); RBC Distribution Width SD 41.6 fl (35.1-43.9); Red Blood Count 4.66 M/mm3 (4.2-5.4); White Blood Count 7.1 K/mm3 (4.4-11.0)
[2023-09-03 10:48] LABS: Color, Urine Yellow (Yellow); Glucose, Dipstick Normal (Normal); Ketone-Dipstick Negative (Negative); Leukocyte Esterase-Dipstick 500 /ul (Negative); Nitrite-Dipstick Negative (Negative); Occult Blood-Urine Negative /ul (Negative); Protein-Dipstick 15 mg/dl (Negative); Urine Bilirubin Dipstick Negative (Negative); Urine Clarity Clear (Clear); Urine Urobilinogen Normal (Normal)
[2023-09-03 10:58] LABS: Squamous Epithelial Cells - UA 5-10 SEEN /hpf (5-10); White Blood Cells 5-10 SEEN /hpf (0-5)
[2023-09-03 11:06] LABS: Hemoglobin A1c 5.6 % (3.8-5.6)
[2023-09-03 11:42] LABS: Vitamin D,25 Hydroxy 56.9 ng/mL
[2023-09-03 13:05] LABS: ALB/GLOB Ratio 1.2 RATIO (0.9-2.4); AST(SGOT) 20 U/L (15-37); Alanine Aminotransfer ALT/SGPT 19 U/L (13-56); Albumin, Serum 3.7 g/dL (3.2-5.0); Alkaline Phosphatase 64 U/L (45-117); Anion Gap 10 (5-15); BUN 26 mg/dL (7-18); BUN/Creat Ratio 27.1 RATIO (10-20); Calcium,Total 9.3 mg/dL (8.5-10.1); Chloride 111 mmol/L (98-107); Cholesterol 202 mg/dL (200); Creatinine, Serum 0.96 mg/dL (0.55-1.02); EST Glomerular Filtration Rate 59 mL/min (>60); Est Glom Filt Rate - Afr Amer 71 mL/min (>60); Globulin 3.2 g/dL (2.2-4.2); Glucose 111 mg/dL (74-106); High Density Lipoprotein 57 mg/dL; Magnesium 2.2 mg/dL (1.6-2.6); Protein, Total 6.9 g/dL (6.4-8.2); Sodium Level 143 mmol/L (136-145); Thyroid Stim Hormone (TSH) 2.31 uIU/mL (0.358-3.74); Triglycerides 117 mg/dL; Very Low Density Lipoprotein 23 mg/dL (5-40)
== END | disposition home or self-care (01) ==
LOC: MFPLAB 08:14
PROVIDERS: PCP Family Medicine; Visit Provider Family Medicine
DX: I10 Essential (primary) hypertension (principal); E55.9 Vitamin D deficiency, unspecified; R73.02 Impaired glucose tolerance (oral)
CPT/HCPCS: 36415; 80053; 80061; 81001; 82306; 83036; 83735; 84443; 85025

== ENCOUNTER → 2024-01-05 | Outpatient (CLI) | payer MEDICARE, SELFPAY ==
[2022-11-23 10:07] VITALS: BMI 34.4
[2024-01-05 09:21] LABS: Mucous, Urine 0 SEEN /hpf (<or=2+)
[2024-01-05 10:16] LABS: Color, Urine Yellow (Yellow); Glucose, Dipstick Normal (Normal); Ketone-Dipstick Negative (Negative); Leukocyte Esterase-Dipstick 500 /ul (Negative); Nitrite-Dipstick Negative (Negative); Occult Blood-Urine Negative /ul (Negative); Protein-Dipstick 15 mg/dl (Negative); Urine Bilirubin Dipstick Negative (Negative); Urine Clarity Cloudy (Clear); Urine Urobilinogen Normal (Normal)
[2024-01-05 10:17] LABS: Absolute Lymphocyte Count 2.12 X10^3/uL (0.83-4.51); Absolute Neutrophil Count 3.4 X10^3/uL (2.0-7.7); Basophil# 0.06 X10^3/uL; Eosinophil# 0.16 X10^3/uL; Eosinophils% 2.5 % (0-5); Hematocrit 41.4 % (37-47); Hemoglobin 13.7 g/dL (12.0-15.0); Lymphocyte # 2.12 X10^3/ul (0.83-4.51); Lymphocyte % 33.7 % (19-41); Mean Corp Hgb Conc 33.1 g/dL (32-36); Mean Corpuscular Volume 87.7 fL (81-99); Mean Platelet Vol. 12.3 fl (6.2-12.0); Monocyte# 0.53 X10^3/uL; Monocyte% 8.4 % (0-10); NRBC Flagged by Analyzer 0 % (0-5); Neutrophil % 54.1 % (47-70); Platelet Count 171 K/mm3 (150-450); RBC Distribution Width CV 12.3 % (11.6-14.6); RBC Distribution Width SD 39.6 fl (35.1-43.9); Red Blood Count 4.72 M/mm3 (4.2-5.4); White Blood Count 6.3 K/mm3 (4.4-11.0)
[2024-01-05 10:35] LABS: Hemoglobin A1c 5.9 % (3.8-5.6)
[2024-01-05 11:39] LABS: Bacteria 1+ /hpf (None Seen); Squamous Epithelial Cells - UA 5-10 SEEN /hpf (5-10)
[2024-01-05 11:40] LABS: Calcium Oxalate Crystals Ur 1+ /hpf (<or=2+)
[2024-01-05 11:41] LABS: Red Blood Cells-Urine 0-5 SEEN /hpf (0-5); Transitional Epithelial - Ur 0-5 SEEN /hpf (0-5); White Blood Cells 5-10 SEEN /hpf (0-5)
[2024-01-05 12:28] LABS: Vitamin D,25 Hydroxy 38.5 ng/mL
[2024-01-05 12:44] LABS: ALB/GLOB Ratio 1.1 RATIO (0.9-2.4); AST(SGOT) 21 U/L (15-37); Alanine Aminotransfer ALT/SGPT 16 U/L (13-56); Albumin, Serum 3.6 g/dL (3.2-5.0); Alkaline Phosphatase 66 U/L (45-117); Anion Gap 7 (5-15); BUN 20 mg/dL (7-18); BUN/Creat Ratio 22.9 RATIO (10-20); Calcium,Total 9.4 mg/dL (8.5-10.1); Chloride 106 mmol/L (98-107); Creatinine, Serum 0.87 mg/dL (0.55-1.02); EST Glomerular Filtration Rate 65 mL/min (>60); Est Glom Filt Rate - Afr Amer 79 mL/min (>60); Globulin 3.2 g/dL (2.2-4.2); Glucose 117 mg/dL (74-106); Potassium 3.6 mmol/L (3.5-5.1); Protein, Total 6.8 g/dL (6.4-8.2); Sodium Level 138 mmol/L (136-145)
== END | disposition home or self-care (01) ==
LOC: MFPLAB 09:16
PROVIDERS: PCP Family Medicine; Visit Provider Family Medicine
DX: I10 Essential (primary) hypertension (principal); E55.9 Vitamin D deficiency, unspecified; R73.02 Impaired glucose tolerance (oral); R82.81 Pyuria
CPT/HCPCS: 36415; 80053; 81001; 82306; 83036; 85025; 87086; 87088

== ENCOUNTER → 2024-01-14 | Outpatient (CLI) | payer MEDICARE, SELFPAY ==
[2022-11-23 10:07] VITALS: BMI 34.4
== END | disposition home or self-care (01) ==
LOC: PSN 10:19
PROVIDERS: PCP Family Medicine; Referring Provider Family Medicine; Visit Provider Family Medicine
DX: R06.02 Shortness of breath (principal)
CPT/HCPCS: 94060; 94726; 94729

== ENCOUNTER → 2024-05-07 | Outpatient (CLI) | payer MEDICARE, SELFPAY ==
[2022-11-23 10:07] VITALS: BMI 34.4
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
== END | disposition home or self-care (01) ==
LOC: MTRAD 15:15
PROVIDERS: PCP Family Medicine; Referring Provider Family Medicine; Visit Provider Family Medicine
DX: J20.9 Acute bronchitis, unspecified (principal)
CPT/HCPCS: 71046

== ENCOUNTER → 2024-08-18 | Outpatient (CLI) | payer MEDICARE, SELFPAY ==
[2022-11-23 10:07] VITALS: BMI 34.4
[2024-08-18 14:36] LABS: Mucous, Urine 0 SEEN /hpf (<or=2+); Red Blood Cells-Urine 0 SEEN /hpf (0-5)
[2024-08-18 15:29] LABS: Absolute Lymphocyte Count 2.17 X10^3/uL (0.83-4.51); Basophil# 0.06 X10^3/uL; Basophil% 0.8 % (0-1); Eosinophil# 0.19 X10^3/uL; Eosinophils% 2.4 % (0-5); Hematocrit 39.2 % (37-47); Hemoglobin 13.5 g/dL (12.0-15.0); Lymphocyte # 2.17 X10^3/ul (0.83-4.51); Lymphocyte % 27.3 % (19-41); Mean Corp Hgb Conc 34.4 g/dL (32-36); Mean Corpuscular Hgb 29.9 pg (27.0-32.0); Mean Corpuscular Volume 86.7 fL (81-99); Mean Platelet Vol. 12.2 fl (6.2-12.0); Monocyte# 0.49 X10^3/uL; Monocyte% 6.2 % (0-10); NRBC Flagged by Analyzer 0 % (0-5); Neutrophil # 4.95 X10^3/uL (2.7-7.7); Neutrophil % 62.2 % (47-70); Platelet Count 196 K/mm3 (150-450); RBC Distribution Width CV 12.1 % (11.6-14.6); RBC Distribution Width SD 38.2 fl (35.1-43.9); Red Blood Count 4.52 M/mm3 (4.2-5.4)
[2024-08-18 15:38] LABS: Hemoglobin A1c 6.1 % (<=5.6)
[2024-08-18 16:25] LABS: ALB/GLOB Ratio 1.4 RATIO (0.9-2.4); AST(SGOT) 21 U/L (<=31); Alanine Aminotransfer ALT/SGPT 10 U/L (<=34); Alkaline Phosphatase 74 U/L (35-104); Anion Gap 13 (5-15); BUN 15 mg/dL (4-19); BUN/Creat Ratio 16.8 RATIO (10-20); Calcium,Total 9.5 mg/dL (7.6-11.0); Carbon Dioxide 22.1 mmol/L (21.0-32.0); Chloride 102 mmol/L (98-108); Cholesterol 182 mg/dL (<=200); EST Glomerular Filtration Rate 62 (>60); Globulin 2.9 g/dL (2.2-4.2); Glucose 224 mg/dL (70-99); High Density Lipoprotein 55 mg/dL; Low Density Lipoprotein Calc. 104 mg/dL; Magnesium 1.9 mg/dL (1.5-2.2); Potassium 3.5 mmol/L (3.3-5.1); Protein, Total 6.9 g/dL (5.9-8.4); Sodium Level 137 mmol/L (133-145); Total Bilirubin 0.25 mg/dL (0.00-1.30); Triglycerides 115 mg/dL; Very Low Density Lipoprotein 23 mg/dL (5-40)
[2024-08-18 16:26] LABS: Vitamin D,25 Hydroxy 36.9 ng/mL (30-100)
[2024-08-18 18:39] LABS: Color, Urine Yellow (Yellow); Glucose, Dipstick Normal (Normal); Ketone-Dipstick Negative (Negative); Leukocyte Esterase-Dipstick 100 /ul (Negative); Nitrite-Dipstick Negative (Negative); Occult Blood-Urine Negative /ul (Negative); Protein-Dipstick 15 mg/dl (Negative); Urine Bilirubin Dipstick Negative (Negative); Urine Clarity Sl. Cloudy (Clear); Urine Urobilinogen Normal (Normal)
[2024-08-18 21:15] LABS: Bacteria 2+ /hpf (None Seen); Calcium Oxalate Crystals Ur 2+ /hpf (<or=2+); Squamous Epithelial Cells - UA 5-10 SEEN /hpf (5-10); White Blood Cells 0-5 SEEN /hpf (0-5)
== END | disposition home or self-care (01) ==
LOC: MFPLAB 14:01
PROVIDERS: PCP Family Medicine; Referring Provider Family Medicine; Visit Provider Family Medicine
DX: I10 Essential (primary) hypertension (principal); E55.9 Vitamin D deficiency, unspecified; R73.02 Impaired glucose tolerance (oral)
CPT/HCPCS: 36415; 80053; 80061; 81001; 82306; 83036; 83735; 85025

== ENCOUNTER 2024-08-23 14:27 | Observation (INO) | payer MEDICARE, SELFPAY ==
[2022-11-23 10:07] VITALS: BMI 34.4
[2024-08-23] VITALS (10 sets, daily range): BP systolic 90–114; BP diastolic 54–87; PULSE 64–78; RESP 16–22; TEMP 36.3–36.6; O2SAT 91–99; BMI 32.2
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
[2024-08-23] MEDS: fentaNYL 100 MCG/2 ML Ampul 25 MCG IV ×2 (15:49→17:19)
[2024-08-23] MEDS: 0.9% Normal Saline (1000mL) 1,000 ML 999 ML IV (15:49)
[2024-08-23] MEDS: Ondansetron 4 MG/2 ML Vial IV (15:49)
[2024-08-23 15:53] LABS: Absolute Lymphocyte Count 3.68 X10^3/uL (0.83-4.51); Absolute Neutrophil Count 21.4 X10^3/uL (2.0-7.7); Basophil% 0.4 % (0-1); Eosinophil# 0.08 X10^3/uL; Eosinophils% 0.3 % (0-5); Hematocrit 37.7 % (37-47); Lymphocyte # 3.68 X10^3/ul (0.83-4.51); Lymphocyte % 13.4 % (19-41); Mean Corp Hgb Conc 34.5 g/dL (32-36); Mean Corpuscular Hgb 29.9 pg (27.0-32.0); Mean Corpuscular Volume 86.7 fL (81-99); Mean Platelet Vol. 11.9 fl (6.2-12.0); Monocyte# 1.51 X10^3/uL; Monocyte% 5.5 % (0-10); NRBC Flagged by Analyzer 0 % (0-5); Neutrophil # 21.43 X10^3/uL (2.7-7.7); Neutrophil % 78.3 % (47-70); POSITIVE DIFFERENTIAL YES; Platelet Count 217 K/mm3 (150-450); RBC Distribution Width SD 38.1 fl (35.1-43.9); Red Blood Count 4.35 M/mm3 (4.2-5.4); White Blood Count 27.4 K/mm3 (4.4-11.0)
[2024-08-23 15:56] LABS: Differential Indicated SCAN CRITERIA MET
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
[2024-08-23 16:25] LABS: Troponin T High Sensitivity 11 ng/L (<=14)
[2024-08-23 16:26] LABS: ALB/GLOB Ratio 1.6 RATIO (0.9-2.4); AST(SGOT) 38 U/L (<=31); Alanine Aminotransfer ALT/SGPT 20 U/L (<=34); Albumin, Serum 3.9 g/dL (3.4-4.8); Alkaline Phosphatase 59 U/L (35-104); Anion Gap 14 (5-15); BUN 24 mg/dL (4-19); BUN/Creat Ratio 27.4 RATIO (10-20); Calcium,Total 9.3 mg/dL (7.6-11.0); Carbon Dioxide 20.1 mmol/L (21.0-32.0); Chloride 101 mmol/L (98-108); Creatinine, Serum 0.89 mg/dL (0.70-1.20); EST Glomerular Filtration Rate 63 (>60); Globulin 2.5 g/dL (2.2-4.2); Glucose 142 mg/dL (70-99); Potassium 3.7 mmol/L (3.3-5.1); Protein, Total 6.5 g/dL (5.9-8.4); Sodium Level 136 mmol/L (133-145); Total Bilirubin 0.29 mg/dL (0.00-1.30)
[2024-08-23 17:43] LABS: Platelet Estimate ADEQUATE (ADEQ)
[2024-08-23 21:02] LABS: Bacteria 0 SEEN /hpf (None Seen); Mucous, Urine 0 SEEN /hpf (<or=2+); Red Blood Cells-Urine 0 SEEN /hpf (0-5)
[2024-08-23 21:03] LABS: Color, Urine Yellow (Yellow); Glucose, Dipstick Normal (Normal); Ketone-Dipstick Negative (Negative); Leukocyte Esterase-Dipstick 25 /ul (Negative); Nitrite-Dipstick Negative (Negative); Occult Blood-Urine Negative /ul (Negative); Protein-Dipstick 15 mg/dl (Negative); Urine Bilirubin Dipstick Negative (Negative); Urine Clarity Clear (Clear); Urine Urobilinogen Normal (Normal)
[2024-08-23 21:51] LABS: Squamous Epithelial Cells - UA 0-5 SEEN /hpf (5-10); White Blood Cells 0-5 SEEN /hpf (0-5)
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
[2024-08-23] MEDS: HYDROcodone Bitartrate/Apap 5/325 Tablet PO (23:12)
[2024-08-24] VITALS (10 sets, daily range): BP systolic 115–134; BP diastolic 60–69; PULSE 67–86; RESP 12–16; TEMP 36.3–37; O2SAT 93–100; BMI 31.1; BMI 30.9
[2024-08-24] MEDS: 0.9% Normal Saline (1000mL) 1,000 ML 100 ML IV (01:11)
[2024-08-24] MEDS: Acetaminophen 325 MG Tablet 650 MG PO (01:11)
[2024-08-24] MEDS: DiphenhydrAMINE 25 MG Capsule PO (01:11)
[2024-08-24] MEDS: Budesonide Respules 0.5 MG/2 ML AMPUL.NEB. INHALATION ×2 (06:45→19:41)
[2024-08-24] MEDS: Albuterol 2.5 MG/3 ML VIAL.NEB. INHALATION ×3 (06:51→19:41)
[2024-08-24 07:04] LABS: Absolute Lymphocyte Count 3.43 X10^3/uL (0.83-4.51); Basophil# 0.06 X10^3/uL; Basophil% 0.5 % (0-1); Eosinophil# 0.06 X10^3/uL; Eosinophils% 0.5 % (0-5); Hemoglobin 10.4 g/dL (12.0-15.0); Lymphocyte # 3.43 X10^3/ul (0.83-4.51); Lymphocyte % 28.6 % (19-41); Mean Corp Hgb Conc 33.5 g/dL (32-36); Mean Corpuscular Hgb 30.3 pg (27.0-32.0); Mean Corpuscular Volume 90.4 fL (81-99); Mean Platelet Vol. 12.1 fl (6.2-12.0); Monocyte# 1.26 X10^3/uL; Monocyte% 10.5 % (0-10); NRBC Flagged by Analyzer 0 % (0-5); Neutrophil # 7.03 X10^3/uL (2.7-7.7); Neutrophil % 58.7 % (47-70); Platelet Count 158 K/mm3 (150-450); RBC Distribution Width CV 12.5 % (11.6-14.6); RBC Distribution Width SD 40.5 fl (35.1-43.9); Red Blood Count 3.43 M/mm3 (4.2-5.4)
[2024-08-24 07:49] LABS: ALB/GLOB Ratio 1.7 RATIO (0.9-2.4); AST(SGOT) 32 U/L (<=31); Alanine Aminotransfer ALT/SGPT 16 U/L (<=34); Albumin, Serum 3.4 g/dL (3.4-4.8); Alkaline Phosphatase 53 U/L (35-104); Anion Gap 11 (5-15); BUN 24 mg/dL (4-19); BUN/Creat Ratio 26.5 RATIO (10-20); Calcium,Total 8.6 mg/dL (7.6-11.0); Carbon Dioxide 22.3 mmol/L (21.0-32.0); Chloride 103 mmol/L (98-108); Cholesterol 151 mg/dL (<=200); EST Glomerular Filtration Rate 62 (>60); Estimated Creatinine Clearance 45.68 ml/min (50-250); Glucose 178 mg/dL (70-99); High Density Lipoprotein 44 mg/dL; Low Density Lipoprotein Calc. 81 mg/dL; Phosphorus 3.4 mg/dL (2.7-4.5); Potassium 3.7 mmol/L (3.3-5.1); Protein, Total 5.4 g/dL (5.9-8.4); Sodium Level 136 mmol/L (133-145); Total Bilirubin 0.32 mg/dL (0.00-1.30); Triglycerides 133 mg/dL; Very Low Density Lipoprotein 27 mg/dL (5-40); cholesterol:hdl ratio screen 3.46
[2024-08-24] MEDS: hydroCHLOROthiazide 12.5mg 12.5 MG PO (10:03)
[2024-08-24] MEDS: Morphine 2 MG/ML Syringe IV (10:03)
[2024-08-24] MEDS: Nystatin Powder 15gm Bottle 1 APPLIC TOPICAL ×2 (10:03→21:24)
[2024-08-24] MEDS: Aspirin 81 MG TAB.CHEW PO (10:03)
[2024-08-24] MEDS: Atenolol 50 MG Tablet PO (10:03)
[2024-08-24] MEDS: OXcarbazepine 150 MG Tablet PO ×2 (10:04→21:24)
--- NOTE | 2024-08-24 10:31 | WOUNDNOTE ---
wound photo: right posterior upper arm
[2024-08-24] MEDS: 0.9% Saline Lock 10 ML Syringe IV (10:38)
--- NOTE | 2024-08-24 11:51 | CT_ITS ---
PROCEDURE: EXTREMITY LOWER WITHOUT CONTRA 08/24/2024 REASON FOR EXAM: SUBTLE LUCENCY OF THE PROXIMAL LEFT TIBIA-? FX TECHNIQUE: Axial CT images of the left tibia and fibula obtained without intravenous contrast. Coronal and Sagittal reconstruction series were provided. One or more dose reduction techniques were used (e.g., Automated exposure control, adjustment of the mA and/or kV according to patient size, use of iterative reconstruction technique). RADIATION DOSE SUMMARY: DLP: 773.3 mGycm COMPARISON: Left tibia and fibula of 08/23/2024. FINDINGS: A mildly comminuted fracture of the anterior aspect of the proximal shaft of the left fibula is seen, perhaps best noted sagittal images Metallic artifact from a left total knee prosthesis is seen, without apparent complication noted. Mild degenerative changes are seen of the proximal tibiofibular articulation. No additional fracture site is seen. CT/Extremity Lower without Contra IMPRESSION: Mildly comminuted fracture of the anterior aspect of the proximal shaft of the left fibula. Reading Location: [place] [id number]
--- NOTE | 2024-08-24 13:03 | CASEMGMT ---
Addendum entered by Nida Holloway 08/24/24 14:35: DONYA met with pt to update on TCU acceptance. Precert has been started. Pt grateful for assistance and complimentary of care received thus far. SW remains available to follow. Plan: TCU; pend precert SUKUMAR Becker Original Note: Social Work- SW met with pt who reports she would like referral to TCU and declines a SNF list. SW completed referral to TCU. DONYA remains available to follow. SUKUMAR Becker
[2024-08-24] MEDS: Acetaminophen 500 MG Tablet 1000 MG PO ×2 (14:06→21:24)
--- NOTE | 2024-08-24 15:06 | CASEMGMT ---
Met with patient to complete KENNEDY form. KENNEDY form explained to patient who voiced understanding and signed form. Original form placed in pt?s chart and copy provided to patient. Griselda Hughes, Discharge Planning Asst
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
[2024-08-24] MEDS: traZODone 50 MG Tablet PO (21:24)
[2024-08-24] MEDS: MELATONIN 10 MG TABLET 5 MG PO (21:25)
[2024-08-25 03:10] VITALS: BP 122/52; PULSE 68; RESP 16; TEMP 36.4; O2SAT 95
[2024-08-25] MEDS: Morphine 2 MG/ML Syringe IV ×2 (03:15→11:55)
[2024-08-25 05:06] VITALS: BMI 31.1
[2024-08-25] MEDS: Acetaminophen 500 MG Tablet 1000 MG PO ×2 (05:43→14:00)
[2024-08-25 06:51] VITALS: PULSE 71; RESP 16; O2SAT 92
[2024-08-25] MEDS: Budesonide Respules 0.5 MG/2 ML AMPUL.NEB. INHALATION (06:51)
[2024-08-25] MEDS: Albuterol 2.5 MG/3 ML VIAL.NEB. INHALATION ×2 (06:51→13:42)
[2024-08-25 07:11] LABS: Phosphorus 3.5 mg/dL (2.7-4.5)
[2024-08-25 08:13] VITALS: BP 93/63; PULSE 91; RESP 16; TEMP 36.4; O2SAT 96
[2024-08-25] MEDS: Aspirin 81 MG TAB.CHEW PO (08:16)
[2024-08-25] MEDS: Nystatin Powder 15gm Bottle 1 APPLIC TOPICAL (10:23)
[2024-08-25] MEDS: OXcarbazepine 150 MG Tablet PO (10:23)
[2024-08-25] MEDS: Cholecalciferol (Vit D3) 125 MCG CAPSULE (5,000 UNITS) PO (10:23)
--- NOTE | 2024-08-25 10:32 | CASEMGMT ---
Social Work Precert has been obtained for pt to go to TCU. Physician notified. SW met with pt and informed that precert has been obtained and discharge timing will be dependent on being medically ready. Plan: TCU, when medically ready SUKUMAR Sarah
[2024-08-25 11:43] VITALS: BP 125/77; PULSE 82; RESP 16; TEMP 36.4; O2SAT 100
[2024-08-25] MEDS: 0.9% Saline Lock 10 ML Syringe IV (11:54)
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
--- NOTE | 2024-08-25 13:32 | RAD_ITS ---
PROCEDURE: ANKLE MIN 3 VIEWS 08/25/2024 REASON FOR EXAM: PAIN, SWELLING, LIMITED ROM TECHNIQUE: 3 views of the right ankle COMPARISON: None FINDINGS: Bones: Plantar calcaneal spur. Joints: Unremarkable Soft tissues: Mild degree of soft tissue swelling. Other: RAD/Ankle min 3 Views IMPRESSION: Plantar calcaneal spur. Mild degree of soft tissue swelling. Reading Location: [id number]
[2024-08-25 13:43] VITALS: PULSE 92; RESP 16
--- NOTE | 2024-08-25 14:01 | RAD_ITS ---
PROCEDURE: ANKLE MIN 3 VIEWS 08/25/2024 REASON FOR EXAM: LATERAL ANKLE PAIN, SWELLING TECHNIQUE: 3 views of the left ankle COMPARISON: None FINDINGS: Bones: Plantar calcaneal spur. Joints: Unremarkable Soft tissues: Soft tissues are unremarkable. Other: RAD/Ankle min 3 Views IMPRESSION: Plantar calcaneal spur. Reading Location: [id number]
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
--- NOTE | 2024-08-25 14:10 | RAD_ITS ---
PROCEDURE: FOOT MIN 3 VIEWS 08/25/2024 REASON FOR EXAM: FOOT PAIN, SWELLING, LIMITED ROM TECHNIQUE: 3 views of the right foot. COMPARISON: None FINDINGS: Bones: Plantar spur. Joints: Joint space narrowing at the 1st metatarsophalangeal joint. Soft tissues: Unremarkable Other: RAD/Foot min 3 Views IMPRESSION: Plantar calcaneal spur. Joint space narrowing of the 1st metatarsophalangeal joint. Reading Location: [facility]
--- NOTE | 2024-08-25 14:24 | RAD_ITS ---
PROCEDURE: ABDOMEN SINGLE VIEW 08/25/2024 REASON FOR EXAM: ABD DISTENTION TECHNIQUE: Supine views of the abdomen were obtained. COMPARISON: None FINDINGS: Bowel gas: Gaseous distention of the stomach. Moderate amount of fecal material as well as gas seen within the colon. Calcifications: A calcified phlebolith is seen in the right hemipelvis. Bones: There are degenerative changes of the spine. Other: Spinal cord stimulator device is seen with the battery pack overlying the right hemipelvis. RAD/Abdomen Single View IMPRESSION: Gaseous distention of the stomach. Moderate amount of fecal material and gas seen throughout the colon. Reading Location: [facility]
--- NOTE | 2024-08-25 15:23 | VDLE_ITS ---
Reason For Study Reason For Study: BLE Swelling RIGHT LEFT GSV is normal. GSV is normal. CFV is compressible, spontaneous, phasic, competent CFV is compressible, spontaneous, phasic, competent, and demonstrates normal augmentation. and demonstrates normal augmentation. FV is compressible, spontaneous, phasic, competent FV is compressible, spontaneous, phasic, competent and demonstrates normal augmentation. and demonstrates normal augmentation. POP V is compressible, spontaneous, phasic, competent POP V is compressible, spontaneous, phasic, competent and demonstrates normal augmentation. and demonstrates normal augmentation. T/P Trunk is compressible. T/P Trunk is compressible. PTV is compressible. PTV is compressible. RT PerV is compressible. LT PerV is compressible. Procedure This is a venous duplex using B-mode, color flow and spectral Doppler. Exam performed portable in patient room. The exam was diagnostic. A preliminary report was called and/or faxed to [facility] [employer] retail cashier. VL/Venous Duplex US - Krunal Extrem Interpretation Summary Deep veins of the lower extremities are bilaterally patent and compressible seg mentally. There is no evidence of deep vein thrombosis on either side. Valvular competence appears intact within the p roximal deep venous systems bilaterally. The great saphenous veins appear bilaterally patent and compressible segmentall y. Ordering Physician: Renzo Bennett Referring Physician: Mitesh Weems Performed By: Elías Lindo, RVT
[2024-08-25 16:22] VITALS: BP 118/61; PULSE 92; RESP 18; TEMP 36.8; O2SAT 95
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
== END 2024-08-25 18:49 | disposition skilled nursing facility (03) ==
LOC: ED 22:26 → MS3 08-24 01:00
PROVIDERS: Admitting Provider Internal Medicine; Emergency Provider Emergency Medicine; PCP Family Medicine; Visit Provider Internal Medicine
DX: S82.455A Nondisplaced comminuted fracture of shaft of left fibula, initial encounter for closed fracture (principal); S16.1XXA Strain of muscle, fascia and tendon at neck level, initial encounter; R53.81 Other malaise; I10 Essential (primary) hypertension; S27.329A Contusion of lung, unspecified, initial encounter; S80.12XA Contusion of left lower leg, initial encounter; M62.838 Other muscle spasm; S20.211A Contusion of right front wall of thorax, initial encounter; E78.00 Pure hypercholesterolemia, unspecified; S40.811A Abrasion of right upper arm, initial encounter; Z79.82 Long term (current) use of aspirin; S92.354A Nondisplaced fracture of fifth metatarsal bone, right foot, initial encounter for closed fracture; D72.829 Elevated white blood cell count, unspecified; G89.29 Other chronic pain; Z79.51 Long term (current) use of inhaled steroids; S80.11XA Contusion of right lower leg, initial encounter; Z79.899 Other long term (current) drug therapy; V43.62XA Car passenger injured in collision with other type car in traffic accident, initial encounter; J45.909 Unspecified asthma, uncomplicated; M21.942 Unspecified acquired deformity of hand, left hand; Y92.89 Other specified places as the place of occurrence of the external cause; G50.9 Disorder of trigeminal nerve, unspecified; M79.89 Other specified soft tissue disorders
CPT/HCPCS: 36415; 70450; 70486; 71260; 72125; 73060; 73552; 73590; 73610; 73630; 73700; 74018; 74177; 80053; 80061; 81001; 83735; 84100; 84443; 84484; 85025; 93005; 93970; 94640; 94668; 96361; 96374; 96375; 96376; 97116; 97162; 97166; 99221; 99252; 99285; Q9967; A4216; G0378; G0463; J2405

== ENCOUNTER 2024-08-25 19:20 | Inpatient (IN) | payer MEDICARE, SELFPAY ==
[2022-11-23 10:07] VITALS: BMI 34.4
[2024-08-25 19:58] VITALS: BP 119/53; PULSE 86; RESP 16; TEMP 36.6; O2SAT 95; BMI 31.9; BMI 32.1
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
[2024-08-25] MEDS: Nystatin Powder 15gm Bottle 1 APPLIC TOPICAL (21:42)
[2024-08-25] MEDS: Acetaminophen 500 MG Tablet 1000 MG PO (21:42)
[2024-08-25] MEDS: Senna/Docusate Sodium 1 Tablet 2 TABLET PO (21:42)
[2024-08-25] MEDS: OXcarbazepine 150 MG Tablet PO (21:43)
[2024-08-25] MEDS: traZODone 50 MG Tablet PO (21:43)
[2024-08-25] MEDS: oxyCODONE 5 MG Tablet PO (23:16)
[2024-08-26] MEDS: Magnesium Citrate 300 ML PO (05:27)
[2024-08-26] MEDS: oxyCODONE 5 MG Tablet PO (05:27)
[2024-08-26] MEDS: Acetaminophen 500 MG Tablet 1000 MG PO ×3 (05:27→21:25)
[2024-08-26 05:35] VITALS: PULSE 67; RESP 18; O2SAT 94
[2024-08-26 06:08] LABS: Absolute Lymphocyte Count 3.03 X10^3/uL (0.83-4.51); Absolute Neutrophil Count 4.9 X10^3/uL (2.0-7.7); Basophil# 0.05 X10^3/uL; Basophil% 0.6 % (0-1); Eosinophil# 0.16 X10^3/uL; Eosinophils% 1.8 % (0-5); Hematocrit 27.6 % (37-47); Hemoglobin 9.4 g/dL (12.0-15.0); Lymphocyte # 3.03 X10^3/ul (0.83-4.51); Lymphocyte % 33.9 % (19-41); Mean Corp Hgb Conc 34.1 g/dL (32-36); Mean Corpuscular Hgb 30.5 pg (27.0-32.0); Mean Corpuscular Volume 89.6 fL (81-99); Mean Platelet Vol. 12.1 fl (6.2-12.0); Monocyte# 0.61 X10^3/uL; Monocyte% 6.8 % (0-10); NRBC Flagged by Analyzer 0 % (0-5); Neutrophil # 4.91 X10^3/uL (2.7-7.7); Neutrophil % 54.9 % (47-70); Platelet Count 132 K/mm3 (150-450); RBC Distribution Width CV 12.6 % (11.6-14.6); RBC Distribution Width SD 40.5 fl (35.1-43.9); Red Blood Count 3.08 M/mm3 (4.2-5.4); White Blood Count 8.9 K/mm3 (4.4-11.0)
[2024-08-26 06:38] LABS: Anion Gap 12 (5-15); BUN 18 mg/dL (4-19); BUN/Creat Ratio 23.1 RATIO (10-20); Calcium,Total 9.1 mg/dL (7.6-11.0); Carbon Dioxide 24.3 mmol/L (21.0-32.0); Chloride 100 mmol/L (98-108); Creatinine, Serum 0.79 mg/dL (0.70-1.20); EST Glomerular Filtration Rate 73 (>60); Estimated Creatinine Clearance 52.06 ml/min (50-250); Glucose 125 mg/dL (70-99); Potassium 3.7 mmol/L (3.3-5.1); Sodium Level 137 mmol/L (133-145)
[2024-08-26 08:45] LABS: Iron 38 ug/dL (50-170); Iron Binding Capacity,Total 242 ug/dL (250-450); Iron Binding Capacity,Unsat 204 ug/dL (228-428)
[2024-08-26] MEDS: Atenolol 50 MG Tablet PO (09:41)
[2024-08-26] MEDS: Furosemide 20 MG Tablet PO (09:41)
[2024-08-26] MEDS: OXcarbazepine 150 MG Tablet PO ×2 (09:41→21:29)
[2024-08-26] MEDS: Aspirin 81 MG TAB.CHEW PO (09:41)
[2024-08-26] MEDS: Senna/Docusate Sodium 1 Tablet 2 TABLET PO ×2 (09:41→21:25)
[2024-08-26] MEDS: Nystatin Powder 15gm Bottle 1 APPLIC TOPICAL ×2 (09:41→21:19)
[2024-08-26 09:42] VITALS: BP 133/73; PULSE 96; RESP 16; TEMP 36.3; O2SAT 94
--- NOTE | 2024-08-26 09:59 | CASEMGMT ---
Social Work SW met with patient to complete initial assessment. Introduced self and role. Verified/updated contacts and demographics. Pt reports the AD scanned into chart are outdated and provided SW with name of employment attorney to request updated documents. SW phoned employment attorney and received paperwork via fax. New documents placed on chart and HIM bin to scan into echart. SW educated to [facility] insurance, review process, and 3-day notice given for DC date. Noted insurance tends to provide shorter LOS. See SW assessment for further details and barriers to DC. Pt confirmed code status as full code. SW will continue to follow for DC planning assistance. Neha Santo PSYCHOLOGIST INDUSTRIAL ORGANIZATIONAL LEARNING AND DEVELOPMENT ADMINISTRATOR
[2024-08-26] MEDS: Tuberculin,Purif.prot.deriv. 50 TU/ML Vial 0.1 ML ID (10:35)
[2024-08-26] MEDS: Menthol/Lanolin/Calamine/Znox 113 GM Tube 1 APPLIC TOPICAL ×2 (10:37→21:20)
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
[2024-08-26] MEDS: Iron Polysaccharide Complex 150 MG CAPSULE PO (18:18)
[2024-08-26] MEDS: 0.9% Saline Lock 10 ML Syringe IV (18:35)
[2024-08-26] MEDS: traZODone 50 MG Tablet PO (21:24)
[2024-08-27] MEDS: oxyCODONE 5 MG Tablet PO (01:53)
[2024-08-27] MEDS: Acetaminophen 500 MG Tablet 1000 MG PO ×3 (05:11→21:13)
[2024-08-27 06:41] LABS: Hematocrit 26.2 % (37-47); Hemoglobin 8.9 g/dL (12.0-15.0)
[2024-08-27 07:00] VITALS: PULSE 67; RESP 16; O2SAT 92
[2024-08-27 09:05] VITALS: BP 126/83; PULSE 97; RESP 17; TEMP 36.5; O2SAT 98
--- NOTE | 2024-08-27 10:23 | NURSING ---
Cane Piler Note; Activity Asset: Basilia Clay is independent in her choice of daily activities. Her family and friends will visits and are bring in items from home. She has her smartphone and tablet, will watch tv, read, welcomes wildlife enforcement major and therapy dog when available. Staff will encourage social activities, remind her of weekly activities and respect her right to say no.
[2024-08-27 10:45] VITALS: BP 138/67; PULSE 90; RESP 17; TEMP 36.4; O2SAT 98
[2024-08-27] MEDS: Furosemide 20 MG Tablet PO (10:59)
[2024-08-27] MEDS: Iron Polysaccharide Complex 150 MG CAPSULE PO (10:59)
[2024-08-27] MEDS: Cholecalciferol (Vit D3) 125 MCG CAPSULE (5,000 UNITS) PO (10:59)
[2024-08-27] MEDS: Atenolol 50 MG Tablet PO (10:59)
[2024-08-27] MEDS: Aspirin 81 MG TAB.CHEW PO (10:59)
[2024-08-27] MEDS: Senna/Docusate Sodium 1 Tablet 2 TABLET PO ×2 (10:59→21:13)
[2024-08-27] MEDS: OXcarbazepine 150 MG Tablet PO ×2 (11:00→21:13)
[2024-08-27] MEDS: Nystatin Powder 15gm Bottle 1 APPLIC TOPICAL ×2 (11:00→21:13)
[2024-08-27] MEDS: Menthol/Lanolin/Calamine/Znox 113 GM Tube 1 APPLIC TOPICAL ×2 (11:00→21:14)
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
[2024-08-27 19:20] VITALS: PULSE 73; RESP 20
[2024-08-27] MEDS: Budesonide Respules 0.5 MG/2 ML AMPUL.NEB. INHALATION (19:20)
[2024-08-27] MEDS: Albuterol 2.5 MG/3 ML VIAL.NEB. INHALATION (19:20)
[2024-08-27] MEDS: traZODone 50 MG Tablet PO (21:12)
[2024-08-27] MEDS: 0.9% Saline Lock 10 ML Syringe IV (21:17)
[2024-08-28] MEDS: oxyCODONE 5 MG Tablet PO (01:09)
[2024-08-28] MEDS: Acetaminophen 500 MG Tablet 1000 MG PO ×3 (06:10→21:05)
[2024-08-28 07:28] VITALS: PULSE 69; RESP 20
[2024-08-28] MEDS: Budesonide Respules 0.5 MG/2 ML AMPUL.NEB. INHALATION ×2 (07:28→18:51)
[2024-08-28] MEDS: Albuterol 2.5 MG/3 ML VIAL.NEB. INHALATION ×2 (07:28→18:51)
[2024-08-28 07:51] VITALS: BP 121/56; PULSE 77; RESP 17; TEMP 36.2; O2SAT 96
[2024-08-28] MEDS: Iron Polysaccharide Complex 150 MG CAPSULE PO (07:55)
[2024-08-28] MEDS: Menthol/Lanolin/Calamine/Znox 113 GM Tube 1 APPLIC TOPICAL ×2 (07:55→21:00)
[2024-08-28] MEDS: Aspirin 81 MG TAB.CHEW PO (07:55)
[2024-08-28] MEDS: Furosemide 20 MG Tablet PO (07:55)
[2024-08-28] MEDS: Senna/Docusate Sodium 1 Tablet 2 TABLET PO ×2 (07:56→21:03)
[2024-08-28] MEDS: Atenolol 50 MG Tablet PO (07:56)
[2024-08-28] MEDS: Nystatin Powder 15gm Bottle 1 APPLIC TOPICAL ×2 (07:56→21:00)
[2024-08-28] MEDS: OXcarbazepine 150 MG Tablet PO ×2 (07:57→21:04)
[2024-08-28 18:52] VITALS: PULSE 74; RESP 18
[2024-08-28] MEDS: traZODone 50 MG Tablet PO (21:01)
[2024-08-28] MEDS: 0.9% Saline Lock 10 ML Syringe IV (21:06)
--- NOTE | 2024-08-28 21:42 | NURSING ---
PATIENT REQUESTED TO HAVE PAIN MEDICATION OF OXYCODONE OF 5 MG PO Q4HR PRN. THIS NURSE CALLED AND VERIFIED ORDER VIA TELEPHONE READ BACK. ORDER PLACED.
[2024-08-29] MEDS: oxyCODONE 5 MG Tablet PO (02:38)
[2024-08-29 02:41] VITALS: PULSE 68; RESP 16; O2SAT 96
[2024-08-29] MEDS: Acetaminophen 500 MG Tablet 1000 MG PO ×3 (05:27→22:54)
[2024-08-29 06:58] VITALS: PULSE 69; RESP 16; O2SAT 96
[2024-08-29] MEDS: Albuterol 2.5 MG/3 ML VIAL.NEB. INHALATION ×3 (06:58→19:45)
[2024-08-29] MEDS: Budesonide Respules 0.5 MG/2 ML AMPUL.NEB. INHALATION ×2 (06:58→19:45)
[2024-08-29] MEDS: Atenolol 50 MG Tablet PO (08:34)
[2024-08-29] MEDS: Aspirin 81 MG TAB.CHEW PO (08:34)
[2024-08-29] MEDS: Menthol/Lanolin/Calamine/Znox 113 GM Tube 1 APPLIC TOPICAL ×2 (08:34→22:53)
[2024-08-29] MEDS: Iron Polysaccharide Complex 150 MG CAPSULE PO (08:34)
[2024-08-29] MEDS: Nystatin Powder 15gm Bottle 1 APPLIC TOPICAL ×2 (08:34→22:52)
[2024-08-29] MEDS: Senna/Docusate Sodium 1 Tablet 2 TABLET PO ×2 (08:34→22:54)
[2024-08-29] MEDS: Furosemide 20 MG Tablet PO (08:34)
[2024-08-29] MEDS: OXcarbazepine 150 MG Tablet PO ×2 (08:35→22:54)
[2024-08-29 08:48] VITALS: BP 106/53; PULSE 77; RESP 17; TEMP 36.7; O2SAT 99
[2024-08-29 13:05] VITALS: PULSE 73; RESP 18
[2024-08-29 19:45] VITALS: PULSE 73; RESP 16
[2024-08-29] MEDS: traZODone 50 MG Tablet PO (22:54)
[2024-08-30] MEDS: Acetaminophen 500 MG Tablet 1000 MG PO ×3 (05:18→21:51)
[2024-08-30] MEDS: 0.9% Saline Lock 10 ML Syringe IV ×2 (05:18→08:13)
--- NOTE | 2024-08-30 06:00 | NURSING ---
C/o edema to RLE distal to knee tender to touch, non-pitting edema observed, no redness, no heat, no draiange. Written communication left for Dr. Dee review this AM
[2024-08-30 07:52] VITALS: BP 127/65; PULSE 68; RESP 17; TEMP 36.6; O2SAT 97
[2024-08-30] MEDS: Menthol/Lanolin/Calamine/Znox 113 GM Tube 1 APPLIC TOPICAL ×2 (07:55→21:54)
[2024-08-30] MEDS: Furosemide 20 MG Tablet PO (07:58)
[2024-08-30] MEDS: Aspirin 81 MG TAB.CHEW PO (07:58)
[2024-08-30] MEDS: Iron Polysaccharide Complex 150 MG CAPSULE PO (07:58)
[2024-08-30] MEDS: Senna/Docusate Sodium 1 Tablet 2 TABLET PO (07:59)
[2024-08-30] MEDS: OXcarbazepine 150 MG Tablet PO ×2 (07:59→21:50)
[2024-08-30] MEDS: Cholecalciferol (Vit D3) 125 MCG CAPSULE (5,000 UNITS) PO (07:59)
[2024-08-30] MEDS: Atenolol 50 MG Tablet PO (07:59)
--- NOTE | 2024-08-30 08:02 | NURSING ---
dr calles notified of pt c/o knot to RT LE, painful, edematous. new order for doppler RLE
[2024-08-30] MEDS: Nystatin Powder 15gm Bottle 1 APPLIC TOPICAL ×2 (08:17→22:00)
--- NOTE | 2024-08-30 11:06 | NURSING ---
commercial kitchen service technician reported pt positive for DVT gastroc, peroneal, & soleus veins. Dr Dee updated, new order for eliquis, H&H today, stop aspirin. updated pt on all orders
--- NOTE | 2024-08-30 11:09 | NURSING ---
Offered covid vaccine, VIS provided. Resident declined.
[2024-08-30 11:33] LABS: Hematocrit 27.6 % (37-47); Hemoglobin 9.3 g/dL (12.0-15.0)
[2024-08-30] MEDS: APIXABAN 5 MG TABLET 10 MG PO ×2 (11:49→21:49)
[2024-08-30 13:11] VITALS: PULSE 72; RESP 16
[2024-08-30] MEDS: Albuterol 2.5 MG/3 ML VIAL.NEB. INHALATION ×2 (13:11→19:02)
--- NOTE | 2024-08-30 15:59 | CASEMGMT ---
Social Work Insurance issued LCD 09/01, DC 09/02 SW met with patient to notify of DC date. SW provided NOMNC to pt and educated to appeal rights. Pt verbalized understanding and is conflicted with decision to appeal. Pt has limited support at home. Lives alone, and is not back at baseline. Pt expressed concerns with ABD pain and DVT to RLE. Pt expressed feeling overwhelmed with the quick LOS, and has a scheduled ADL with OT tomorrow morning. SW and pt discussed risks/benefits of DCing. Pt to make decision on appeal after ADL tomorrow and speaking with family. Discussed areas of concerns and SW provided resources for transportation, home delivered meals, private duty caregivers, house cleaning companies, and medical alert. SW educated to skilled HHC. Pt agreeable. SW provided list of skilled HHC agencies within geographical area, INN with insurance, that include quality and resource data via [employer] guide. Pt to review options. SW to follow up with pt tomorrow to determine outcome of appeal and HHC agency. Pt appreciative of this worker's assistance. Plan: DC home alone 09/02, HHC PT/OT/SN. Neha Santo DIRECTOR HARDWARE ADJUNCT ART HISTORY INSTRUCTOR
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
[2024-08-30 19:02] VITALS: PULSE 76; RESP 18
[2024-08-30] MEDS: Budesonide Respules 0.5 MG/2 ML AMPUL.NEB. INHALATION (19:02)
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
[2024-08-30] MEDS: traZODone 50 MG Tablet PO (21:49)
[2024-08-31] MEDS: Acetaminophen 500 MG Tablet 1000 MG PO ×3 (05:32→21:14)
[2024-08-31] MEDS: Albuterol 2.5 MG/3 ML VIAL.NEB. INHALATION ×2 (06:48→12:56)
[2024-08-31] MEDS: Budesonide Respules 0.5 MG/2 ML AMPUL.NEB. INHALATION ×2 (06:49→20:10)
[2024-08-31 06:51] VITALS: PULSE 69; RESP 16
[2024-08-31] MEDS: OXcarbazepine 150 MG Tablet PO ×2 (09:02→21:14)
[2024-08-31] MEDS: APIXABAN 5 MG TABLET 10 MG PO ×2 (09:02→21:13)
[2024-08-31] MEDS: Atenolol 50 MG Tablet PO (09:03)
[2024-08-31] MEDS: Nystatin Powder 15gm Bottle 1 APPLIC TOPICAL ×2 (09:03→21:12)
[2024-08-31] MEDS: Senna/Docusate Sodium 1 Tablet 2 TABLET PO ×2 (09:03→21:13)
[2024-08-31] MEDS: Iron Polysaccharide Complex 150 MG CAPSULE PO (09:03)
[2024-08-31] MEDS: Furosemide 20 MG Tablet PO (09:03)
[2024-08-31] MEDS: Menthol/Lanolin/Calamine/Znox 113 GM Tube 1 APPLIC TOPICAL ×2 (09:06→21:12)
[2024-08-31 09:07] VITALS: BP 114/55; PULSE 86; RESP 16; TEMP 36.3; O2SAT 100
[2024-08-31 10:06] VITALS: BMI 32.4
[2024-08-31 12:57] VITALS: PULSE 65; RESP 16
--- NOTE | 2024-08-31 14:34 | NURSING ---
Addendum entered by Shweta Jurado 09/01/24 07:46: Approved, auth #[id number]. Order faxed to CT. Original Note: CT scan ordered per Dr. Carrasco's suggestions for abdominal pain w/ anemia. Case #[id number]. Faxed clinical info to [facility].
[2024-08-31] MEDS: 0.9% Saline Lock 10 ML Syringe IV (15:02)
[2024-08-31 20:10] VITALS: PULSE 67; RESP 16
[2024-08-31] MEDS: traZODone 50 MG Tablet PO (21:13)
[2024-09-01] MEDS: Acetaminophen 500 MG Tablet 1000 MG PO ×3 (05:26→22:31)
[2024-09-01] MEDS: oxyCODONE 5 MG Tablet PO (05:26)
[2024-09-01 06:55] VITALS: PULSE 63; RESP 18
[2024-09-01] MEDS: Budesonide Respules 0.5 MG/2 ML AMPUL.NEB. INHALATION ×2 (06:55→19:50)
[2024-09-01 08:54] VITALS: BP 127/66; PULSE 73; RESP 17; TEMP 36.4; O2SAT 96
[2024-09-01] MEDS: Nystatin Powder 15gm Bottle 1 APPLIC TOPICAL ×2 (08:59→22:29)
[2024-09-01] MEDS: APIXABAN 5 MG TABLET 10 MG PO ×2 (09:00→22:29)
[2024-09-01] MEDS: Menthol/Lanolin/Calamine/Znox 113 GM Tube 1 APPLIC TOPICAL ×2 (09:00→22:25)
[2024-09-01] MEDS: Furosemide 20 MG Tablet PO (09:01)
[2024-09-01] MEDS: OXcarbazepine 150 MG Tablet PO ×2 (09:01→22:30)
[2024-09-01] MEDS: Cholecalciferol (Vit D3) 125 MCG CAPSULE (5,000 UNITS) PO (09:01)
[2024-09-01] MEDS: Senna/Docusate Sodium 1 Tablet 2 TABLET PO ×2 (09:01→22:30)
[2024-09-01] MEDS: Iron Polysaccharide Complex 150 MG CAPSULE PO (09:01)
[2024-09-01] MEDS: Atenolol 50 MG Tablet PO (09:01)
--- NOTE | 2024-09-01 09:18 | CASEMGMT ---
Social Work IDT met with patient and nephew for care plan meeting. Discussed patient's progress in PT/OT/SN. [facility]. [facility]'s [facility] 09/02 with [facility]. Pt prefers OP therapy and OT agrees. Pt prefers [facility]. Nephew stated between himself and pt's niece, Jannet, transportation can be arranged. SW educated to resources provided yesterday for [facility]. SW to schedule PT eval and place on DC instructions. Pt/nephew appreciative. Pt is discharging home new on Eliquis. Educated to coupon card to help with copay coverage. Nursing to provide at DC. No other issues noted. - DONYA faxed referral to [facility] for PT. 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
--- NOTE | 2024-09-01 16:14 | CASEMGMT ---
Social Work SW completed BIMS () and PHQ-2 () for MDS assessment. 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
[2024-09-01 19:50] VITALS: PULSE 64; RESP 16
[2024-09-01] MEDS: traZODone 50 MG Tablet PO (22:26)
[2024-09-02] MEDS: oxyCODONE 5 MG Tablet PO (00:07)
[2024-09-02] MEDS: Acetaminophen 500 MG Tablet 1000 MG PO (05:13)
[2024-09-02 05:22] VITALS: PULSE 65; RESP 18; O2SAT 92
[2024-09-02 06:29] VITALS: PULSE 82; RESP 16; O2SAT 96
[2024-09-02] MEDS: Budesonide Respules 0.5 MG/2 ML AMPUL.NEB. INHALATION (06:29)
[2024-09-02 07:53] VITALS: BP 109/60; PULSE 73; RESP 16; TEMP 36.6; O2SAT 99
[2024-09-02] MEDS: Menthol/Lanolin/Calamine/Znox 113 GM Tube 1 APPLIC TOPICAL (07:58)
[2024-09-02] MEDS: Furosemide 20 MG Tablet PO (07:59)
[2024-09-02] MEDS: APIXABAN 5 MG TABLET 10 MG PO (07:59)
[2024-09-02] MEDS: Iron Polysaccharide Complex 150 MG CAPSULE PO (07:59)
[2024-09-02] MEDS: Nystatin Powder 15gm Bottle 1 APPLIC TOPICAL (08:00)
[2024-09-02] MEDS: Atenolol 50 MG Tablet PO (08:00)
[2024-09-02] MEDS: OXcarbazepine 150 MG Tablet PO (08:00)
[2024-09-02] MEDS: Senna/Docusate Sodium 1 Tablet 2 TABLET PO (08:01)
--- NOTE | 2024-09-02 08:24 | NURSING ---
Actiivty Coordinator Note; MDS for 09/01/2024 Complete
--- NOTE | 2024-09-02 13:12 | MDS.RN ---
Information for the MDS was obtained from review of the clinical record, interview of resident, staff, and direct observation of resident?s care.
--- NOTE | 2024-09-02 14:28 | NURSING ---
lab called floor, reporting that labs were missed this AM. pt was discharged home, called PCP Dr Weems's office and made them aware for her f/u appt on 09/07,
== END 2024-09-02 11:50 | disposition home health service (06) | DRG 560 ==
PROVIDERS: Admitting Provider Family Medicine Geriatric Medicine; PCP Family Medicine; Visit Provider Family Medicine Geriatric Medicine
DX: S82.455D Nondisplaced comminuted fracture of shaft of left fibula, subsequent encounter for closed fracture with routine healing (principal); I50.32 Chronic diastolic (congestive) heart failure; D64.9 Anemia, unspecified; E78.00 Pure hypercholesterolemia, unspecified; E55.9 Vitamin D deficiency, unspecified; B35.4 Tinea corporis; I11.0 Hypertensive heart disease with heart failure; J45.909 Unspecified asthma, uncomplicated; G50.0 Trigeminal neuralgia; H81.10 Benign paroxysmal vertigo, unspecified ear; M62.838 Other muscle spasm; Z79.01 Long term (current) use of anticoagulants; Z79.51 Long term (current) use of inhaled steroids; G47.00 Insomnia, unspecified; Z79.82 Long term (current) use of aspirin; V49.9XXD Car occupant (driver) (passenger) injured in unspecified traffic accident, subsequent encounter; Z79.899 Other long term (current) drug therapy; T14.8XXD Other injury of unspecified body region, subsequent encounter
CPT/HCPCS: 36415; 80048; 82274; 83540; 83550; 85014; 85018; 85025; 94640; 97110; 97116; 97162; 97166; 97530; 97535; A4216

== ENCOUNTER → 2024-08-30 | Outpatient (CLI) | payer MEDICARE, SELFPAY ==
[2022-11-23 10:07] VITALS: BMI 34.4
--- NOTE | 2024-08-30 09:34 | VDLE_ITS ---
Reason For Study Reason For Study: Pain RLE RIGHT LEFT GSV is normal. CFV is compressible, spontaneous, phasic, competent, CFV is compressible, spontaneous, phasic, competent and demonstrates normal augmentation. and demonstrates normal augmentation. FV is compressible, spontaneous, phasic, competent and demonstrates normal augmentation. POP V is compressible, spontaneous, phasic, competent and demonstrates normal augmentation. T/P Trunk is compressible. PTV is compressible. Rt GastrocV, Rt PeroV and Rt SoleusV are DILATED and NON COMPRESSIBLE consistent with acute DVT. Procedure This is a venous duplex using B-mode, color flow and spectral Doppler. Exam performed portable in patient room. A preliminary report was called and/or faxed to TCU RN. VL/Venous Duplex US, Unilateral Interpretation Summary Acute deep vein thrombosis noted in the right gastrocnemius vein, peroneal vein , soleus vein. Ordering Physician: Urban Dee Chi Referring Physician: Mitesh Weems Performed By: Kasia Norman RDCS, RVT
== END | disposition home or self-care (01) ==
LOC: CVS 09:33
PROVIDERS: PCP Family Medicine; Referring Provider Family Medicine Geriatric Medicine; Visit Provider Family Medicine Geriatric Medicine
DX: M79.661 Pain in right lower leg (principal)
CPT/HCPCS: 93971

== ENCOUNTER → 2024-09-01 | Outpatient (CLI) | payer MEDICARE, SELFPAY ==
[2022-11-23 10:07] VITALS: BMI 34.4
--- NOTE | 2024-09-01 08:27 | CT_ITS ---
PROCEDURE: ABDOMEN/PELVIS WITH CONTRAST 09/01/2024 REASON FOR EXAM: ABD PAIN ANEMIA Bruising overlying the left lower quadrant. TECHNIQUE: Abdomen and pelvis CT with intravenous contrast. Coronal and Sagittal reconstruction series were provided. PATIENT PREPARATION: Per protocol ORAL CONTRAST TYPE: None. CONTRAST: Isovue-300 VOLUME: 100 mL One or more dose reduction techniques were used (e.g., Automated exposure control, adjustment of the mA and/or kV according to patient size, use of iterative reconstruction technique. RADIATION DOSE SUMMARY: CTDlvol: 21.5 mGy DLP: 1073.44 mGycm COMPARISON: Prior study dated August 23, 2024. FINDINGS: Lung bases: Mild dependent atelectasis Liver: Diffuse fatty infiltration. Gallbladder: Surgically absent. Spleen: Normal size. Pancreas: Diffuse fatty atrophy. Adrenals: Unremarkable Kidneys: Mild degree of bilateral renal atrophy. Bladder: Unremarkable Reproductive Organs: Prior hysterectomy. Adnexal regions are unremarkable. Bowel: Colonic diverticulosis without diverticulitis. Appendix: The appendix is not identified. There is no inflammatory process identified in the right lower quadrant to suggest appendicitis. Lymph nodes: Unremarkable. Vasculature: Mild diffuse atherosclerotic calcifications are noted. There is evidence of fluid in the subcutaneous tissues in the lower anterior abdominal wall. This represents fluid and not blood. Bones: Degenerative changes of the spine. CT/Abdomen/Pelvis WITH Contrast IMPRESSION: Status post cholecystectomy. Subcutaneous fluid seen along the anterior lower abdominal wall as described. OVERALL FINAL ASSESSMENT: . LI-RADS is not meant to be used in patients <18 years or patients with cirrhosi s due to congenital hepatic fibrosis or due to vascular disorders, because these patients have a lower chance of developing HC C. Reading Location: [facility]
== END | disposition home or self-care (01) ==
PROVIDERS: PCP Family Medicine; Referring Provider Family Medicine Geriatric Medicine; Visit Provider Family Medicine Geriatric Medicine
DX: R10.32 Left lower quadrant pain (principal); D64.9 Anemia, unspecified
CPT/HCPCS: 74177; Q9967; A4216

== ENCOUNTER → 2024-09-03 | Outpatient (CLI) | payer MEDICARE, SELFPAY ==
[2022-11-23 10:07] VITALS: BMI 34.4
[2024-09-03 18:04] LABS: Absolute Lymphocyte Count 2.16 X10^3/uL (0.83-4.51); Absolute Neutrophil Count 4.6 X10^3/uL (2.0-7.7); Basophil# 0.07 X10^3/uL; Basophil% 0.9 % (0-1); Eosinophil# 0.17 X10^3/uL; Eosinophils% 2.1 % (0-5); Hematocrit 31.6 % (37-47); Hemoglobin 10.3 g/dL (12.0-15.0); Lymphocyte # 2.16 X10^3/ul (0.83-4.51); Lymphocyte % 26.9 % (19-41); Mean Corp Hgb Conc 32.6 g/dL (32-36); Mean Corpuscular Hgb 30.7 pg (27.0-32.0); Mean Corpuscular Volume 94.3 fL (81-99); Mean Platelet Vol. 11.7 fl (6.2-12.0); Monocyte# 0.86 X10^3/uL; Monocyte% 10.7 % (0-10); NRBC Flagged by Analyzer 0 % (0-5); Neutrophil # 4.62 X10^3/uL (2.7-7.7); Neutrophil % 57.4 % (47-70); Platelet Count 246 K/mm3 (150-450); RBC Distribution Width CV 14.8 % (11.6-14.6); RBC Distribution Width SD 49.5 fl (35.1-43.9); Red Blood Count 3.35 M/mm3 (4.2-5.4)
[2024-09-03 18:17] LABS: ALB/GLOB Ratio 1.5 RATIO (0.9-2.4); AST(SGOT) 29 U/L (<=31); Alanine Aminotransfer ALT/SGPT 19 U/L (<=34); Alkaline Phosphatase 75 U/L (35-104); Anion Gap 12 (5-15); BUN 22 mg/dL (4-19); BUN/Creat Ratio 23.6 RATIO (10-20); Calcium,Total 9.3 mg/dL (7.6-11.0); Carbon Dioxide 20.7 mmol/L (21.0-32.0); Chloride 104 mmol/L (98-108); Creatinine, Serum 0.92 mg/dL (0.70-1.20); EST Glomerular Filtration Rate 60 (>60); Ferritin 257 ng/mL (22-378); Globulin 2.8 g/dL (2.2-4.2); Glucose 109 mg/dL (70-99); Iron 68 ug/dL (50-170); Iron Binding Capacity,Total 298 ug/dL (250-450); Iron Binding Capacity,Unsat 230 ug/dL (228-428); Protein, Total 6.8 g/dL (5.9-8.4); Sodium Level 136 mmol/L (133-145); Total Bilirubin 0.59 mg/dL (0.00-1.30)
== END | disposition home or self-care (01) ==
LOC: MTLAB 16:50
PROVIDERS: PCP Family Medicine; Referring Provider Family Medicine; Visit Provider Family Medicine
DX: K92.2 Gastrointestinal hemorrhage, unspecified (principal)
CPT/HCPCS: 36415; 80053; 82728; 83540; 83550; 85025

== ENCOUNTER 2024-09-09 08:54 | Outpatient (CLI) | payer MEDICARE, SELFPAY ==
[2022-11-23 10:07] VITALS: BMI 34.4
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
== END 2024-09-09 23:59 | disposition home or self-care (01) ==
PROVIDERS: PCP Family Medicine
DX: D24.2 Benign neoplasm of left breast (principal)
CPT/HCPCS: 76642

== ENCOUNTER → 2024-09-16 | Outpatient (CLI) | payer MEDICARE, SELFPAY ==
[2022-11-23 10:07] VITALS: BMI 34.4
[2024-09-16 16:07] LABS: Absolute Lymphocyte Count 2.83 X10^3/uL (0.83-4.51); Absolute Neutrophil Count 4.2 X10^3/uL (2.0-7.7); Basophil# 0.06 X10^3/uL; Basophil% 0.7 % (0-1); Eosinophil# 0.21 X10^3/uL; Eosinophils% 2.6 % (0-5); Hematocrit 33.5 % (37-47); Hemoglobin 11.1 g/dL (12.0-15.0); Lymphocyte # 2.83 X10^3/ul (0.83-4.51); Mean Corp Hgb Conc 33.1 g/dL (32-36); Mean Corpuscular Hgb 30.2 pg (27.0-32.0); Mean Corpuscular Volume 91.3 fL (81-99); Mean Platelet Vol. 11.4 fl (6.2-12.0); Monocyte# 0.79 X10^3/uL; Monocyte% 9.8 % (0-10); NRBC Flagged by Analyzer 0 % (0-5); Neutrophil # 4.16 X10^3/uL (2.7-7.7); Neutrophil % 51.4 % (47-70); Platelet Count 229 K/mm3 (150-450); RBC Distribution Width CV 14.1 % (11.6-14.6); RBC Distribution Width SD 47.2 fl (35.1-43.9); Red Blood Count 3.67 M/mm3 (4.2-5.4); White Blood Count 8.1 K/mm3 (4.4-11.0)
--- OUTSIDE RECORDS SUMMARY | 2024-09-16 22:02 | XMS RPT_ITS | CCD ---
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 [facility] Comment on above: Order Comment: Order Date: 08/18/24 Order Info: [id number] - CBCD Performed By: #### L 501.5200, L501.9985, L500.4050, L100.0100, L500.4100 #### [facility] [address] [place], [address] Calcium oxalate crystals det ection in urine sediment by light microscopyOrdered By: Anastasia Weems on 08-18-2024 Calcium oxalate crystals LM Ql (Urine sed) 2+ /hpf [facility] Calculated very low density lipoprotein (VLDL) cholesterol measurementOrdered By: Anastasia Weems on 08-18-2024 Calculated very low density lipoprotein (VLDL) cholesterol measurement 23 mg/dL 5-40 [facility] Carbon dioxide, total [Moles /volume] in Central venous bloodOrdered By: Anastasia Weems on 08-18-2024 CO2 [Moles/Vol] 22.1 mmol/L 21.0-32.0 [facility] Chloride assayOrdered By: Keshia Weems on 08-18-2024 Chloride [Moles/Vol] 102 mmol/L 98-108 [facility] Comprehensive Metabolic Prof ilon 08-18-2024 Albumin [Mass/Vol] 4.0 g/dL Normal 3.4-4.8 [facility] Comment on above: Order Comment: Order Date: 08/18/24 Order Info: [id number] - CMP Order Info: [id number] - LIPID Order Info: [id number] - MG Performed By: #### L 501.5200, L501.9985, L500.4050, L100.0100, L500.4100 #### [facility] [address] [place], [address] Albumin/Globulin [Mass ratio] 1.4 {ratio} Normal 0.9-2.4 [facility] Comment on above: Order Comment: Order Date: 08/18/24 Order Info: [id number] - CMP Order Info: [id number] - LIPID Order Info: [id number] - MG Performed By: #### L 501.5200, L501.9985, L500.4050, L100.0100, L500.4100 #### [facility] [address] [place], [address] ALK PHOS 74 U/L Normal 35-104 [facility] Comment on above: Order Comment: Order Date: 08/18/24 Order Info: [id number] - CMP Order Info: [id number] - LIPID Order Info: [id number] - MG Performed By: #### L 501.5200, L501.9985, L500.4050, L100.0100, L500.4100 #### [facility] [address] [place], [address] ALT [Catalytic activity/Vol] 10 U/L Normal <=34 [facility] Comment on above: Order Comment: Order Date: 08/18/24 Order Info: [id number] - CMP Order Info: [id number] - LIPID Order Info: [id number] - MG Performed By: #### L 501.5200, L501.9985, L500.4050, L100.0100, L500.4100 #### [facility] [address] [place], [address] AST [Catalytic activity/Vol] 21 U/L Normal <=31 [facility] Comment on above: Order Comment: Order Date: 08/18/24 Order Info: [id number] - CMP Order Info: [id number] - LIPID Order Info: [id number] - MG Performed By: #### L 501.5200, L501.9985, L500.4050, L100.0100, L500.4100 #### [facility] [address] [place], [place], [id number] Bilirubin [Mass/Vol] 0.25 mg/dL Normal 0.00-1.30 [facility] Comment on above: Order Comment: Order Date: 08/18/24 Order Info: [id number] - CMP Order Info: [id number] - LIPID Order Info: [id number] - MG Performed By: #### L 501.5200, L501.9985, L500.4050, L100.0100, L500.4100 #### [facility] [address] [place], [address] BUN/CRE 16.8 RATIO Normal 10-20 [facility] Comment on above: Order Comment: Order Date: 08/18/24 Order Info: [id number] - CMP Order Info: [id number] - LIPID Order Info: [id number] - MG Performed By: #### L 501.5200, L501.9985, L500.4050, L100.0100, L500.4100 #### [facility] [address] [place], [address] Calcium [Mass/Vol] 9.5 mg/dL Normal 7.6-11.0 [facility] Comment on above: Order Comment: Order Date: 08/18/24 Order Info: [id number]- - CMP Order Info: [id number] - LIPID Order Info: [id number] - MG Performed By: #### L 501.5200, L501.9985, L500.4050, L100.0100, L500.4100 #### [facility] [address] [place], [address] Chloride [Moles/Vol] 102 mmol/L Normal 98-108 [facility] Comment on above: Order Comment: Order Date: 08/18/24 Order Info: [id number] - CMP Order Info: [id number] - LIPID Order Info: [id number] - MG Performed By: #### L 501.5200, L501.9985, L500.4050, L100.0100, L500.4100 #### [facility] [address] [place], [address] CO2 [Moles/Vol] 22.1 mmol/L Normal 21.0-32.0 [facility] Comment on above: Order Comment: Order Date: 08/18/24 Order Info: [id number] - CMP Order Info: [id number] - LIPID Order Info: [id number] - MG Performed By: #### L 501.5200, L501.9985, L500.4050, L100.0100, L500.4100 #### [facility] [address] [place], [address] Creatinine [Mass/Vol] 0.90 mg/dL Normal 0.70-1.20 [facility] Comment on above: Order Comment: Order Date: 08/18/24 Order Info: [id number]- - CMP Order Info: [id number] - LIPID Order Info: [id number] - MG Performed By: #### L 501.5200, L501.9985, L500.4050, L100.0100, L500.4100 #### [facility] [address] [place], [address] GAP 13 Normal 5-15 [facility] Comment on above: Order Comment: Order Date: 08/18/24 Order Info: [id number] - CMP Order Info: [id number] - LIPID Order Info: [id number] - MG Performed By: #### L 501.5200, L501.9985, L500.4050, L100.0100, L500.4100 #### [facility] [address] [place], [place], [address] GFR/1.73 sq M.predicted among non-blacks MDRD (S/P/Bld) [Vol rate/Area] 62 mL/min/{1.73_m2} Normal >60 [facility] Comment on above: Order Comment: Order Date: 08/18/24 Order Info: 07-1 - CMP Order Info: [id number] - LIPID Order Info: [id number] - MG Result Comment: mL/m in/1.73m2 CKD-EPI Creatinine Equation (2020) Performed By: #### L 501.5200, L501.9985, L500.4050, L100.0100, L500.4100 #### [facility] [address] [place], [address] Globulin (S) [Mass/Vol] 2.9 g/dL Normal 2.2-4.2 [facility] Comment on above: Order Comment: Order Date: 08/18/24 Order Info: [id number] - CMP Order Info: [id number] - LIPID Order Info: [id number] - MG Performed By: #### L 501.5200, L501.9985, L500.4050, L100.0100, L500.4100 #### [facility] [address] [place], [place], [id number] Glucose [Mass/Vol] 224 mg/dL High 70-99 [facility] Comment on above: Order Comment: Order Date: 08/18/24 Order Info: [id number] - CMP Order Info: [id number] - LIPID Order Info: [id number] - MG Performed By: #### L 501.5200, L501.9985, L500.4050, L100.0100, L500.4100 #### [facility] [address] [place], [address] Potassium [Moles/Vol] 3.5 mmol/L Normal 3.3-5.1 [facility] Comment on above: Order Comment: Order Date: 08/18/24 Order Info: [id number] - CMP Order Info: [id number] - LIPID Order Info: [id number] - MG Performed By: #### L 501.5200, L501.9985, L500.4050, L100.0100, L500.4100 #### [facility] [address] [place], [address] Sodium [Moles/Vol] 137 mmol/L Normal 133-145 [facility] Comment on above: Order Comment: Order Date: 08/18/24 Order Info: [id number] - CMP Order Info: [id number] - LIPID Order Info: [id number] - MG Performed By: #### L 501.5200, L501.9985, L500.4050, L100.0100, L500.4100 #### [facility] [address] [place], [address] T PROT 6.9 g/dL Normal 5.9-8.4 [facility] Comment on above: Order Comment: Order Date: 08/18/24 Order Info: [id number] - CMP Order Info: [id number] - LIPID Order Info: [id number] - MG Performed By: #### L 501.5200, L501.9985, L500.4050, L100.0100, L500.4100 #### [facility] [address] [place], [address] Urea nitrogen [Mass/Vol] 15 mg/dL Normal 4-19 [facility] Comment on above: Order Comment: Order Date: 08/18/24 Order Info: [id number] - CMP Order Info: [id number] - LIPID Order Info: [id number] - MG Performed By: #### L 501.5200, L501.9985, L500.4050, L100.0100, L500.4100 #### [facility] [address] [place], [place], [id number] Eosinophil percentageOrdered By: Anastasia Weems on 08-18-2024 Eosinophils/100 WBC (Bld) 2.4 % 0-5 [facility] Erythrocyte distribution wid th ratioOrdered By: Anastasia Weems on 08-18-2024 Erythrocyte distribution width (RBC) [Ratio] 12.1 % 11.6-14.6 [facility] Erythrocyte distribution wid th standard deviationOrdered By: Anastasia Weems on 08-18-2024 Erythrocyte distribution width (RBC) [Ratio] 38.2 fl 35.1-43.9 [facility] Glomerular filtration rate ( GFR) estimation/1.73 sq m using serum, plasma, or whole bOrdered By: Anastasia Weems on 08-18-2024 GFR/1.73 sq M.predicted among non-blacks MDRD (S/P/Bld) [Vol rate/Area] 62 mL/min/{1.73_m2} >60 [facility] Comment on above: mL/min/1.73m2 CKD-EP I Creatinine Equation (2020) Hematocrit Auto (Bld) [Volum e fraction]Ordered By: Anastasia Weems on 08-18-2024 Hematocrit (Bld) [Volume fraction] 39.2 % 37-47 [facility] Hemoglobin A1con 08-18-2024 HbA1c (Bld) [Mass fraction] 6.1 % High <=5.6 [facility] Comment on above: Order Comment: Order Date: 08/18/24 Order Info: [id number] - A1C Result Comment: Norm al < 5.7 % Prediabetic 5.7 - 6.4 % Diabetic >or= 6.5 % Please note range changes. Performed By: #### L 501.5200, L501.9985, L500.4050, L100.0100, L500.4100 #### [facility] [address] [place], [address] Hemoglobin A1c percentageOrd ered By: Anastasia Weems on 08-18-2024 HbA1c (Bld) [Mass fraction] 6.1 % High <5.7 [facility] Comment on above: Normal < 5.7 % Predi abetic 5.7 - 6.4 % Diabetic >or= 6.5 % Please note range changes. Hemoglobin measurementOrdere d By: Anastasia Weems on 08-18-2024 Hemoglobin (Bld) [Mass/Vol] 13.5 g/dL 12.0-15.0 [facility] Immature granulocytes/100 WB C Auto (Bld)Ordered By: Anastasia Weems on 08-18-2024 Immature granulocytes/100 WBC (Bld) 1.100 % High 0.0-0.9 [facility] Comment on above: IG% - Immature Granu locytes (promyelocytes, myelocytes and metamyelocytes) > 1% indicates that a LEFT SHIFT is Present. Ketones Test strip Ql (U)Ord ered By: Anastasia Weems on 08-18-2024 Ketones Ql (U) Negative Negative [facility] LDL calc ser/plasOrdered By: Anastasia Weems on 08-18-2024 Cholesterol in LDL [Mass/Vol] 104 mg/dL [facility] Comment on above: Qzhcwxfcsy=539-852 m g/dL & Higher Gayj=301 mg/dL or greater Laboratory - Chemistry and C hemistry - challengeOrdered By: Anastasia Weems on 08-18-2024 AST [Catalytic activity/Vol] 21 U/L <32 [facility] Lipid Profileon 08-18-2024 CHOL:HDL 3.30 Normal [facility] Comment on above: Order Comment: Order Date: 08/18/24 Order Info: [id number] - CMP Order Info: [id number] - LIPID Order Info: [id number] - MG Performed By: #### L 501.5200, L501.9985, L500.4050, L100.0100, L500.4100 #### [facility] [address] [place], [address] Cholesterol [Mass/Vol] 182 mg/dL Normal <=200 [facility] Comment on above: Order Comment: Order Date: 08/18/24 Order Info: [id number] - CMP Order Info: [id number] - LIPID Order Info: [id number] - MG Result Comment: Chol esterol level, Desirable <200 mg/dL Borderline high cholesterol 200-239 mg/dL High cholesterol >=240 mg/dL Recommendations of the NCEP Adult Treatment Panel for the following risk-cutoff thresholds for the [place] population. Performed By: #### L 501.5200, L501.9985, L500.4050, L100.0100, L500.4100 #### [facility] [address] [place], [address] Cholesterol in HDL [Mass/Vol] 55 mg/dL Normal [facility] Comment on above: Order Comment: Order Date: 08/18/24 Order Info: [id number] - CMP Order Info: [id number] - LIPID Order Info: [id number] - MG Result Comment: [place] on[place] Cholesterol Education Program (NCEP) guidelines: <40 mg/dL: Low HDL-cholesterol (major risk factor for CHD) >= 60 mg/dL: High HDL-cholesterol (negative risk factor for CHD) HDL-cholesterol is affected by a number of factors, e.g. smoking, exercise, hormones, sex and age. Performed By: #### L 501.5200, L501.9985, L500.4050, L100.0100, L500.4100 #### [facility] [address] [place], [place], [id number] Cholesterol in LDL [Mass/Vol] 104 mg/dL Normal [facility] Comment on above: Order Comment: Order Date: 08/18/24 Order Info: [id number] - CMP Order Info: [id number] - LIPID Order Info: [id number] - MG Result Comment: Bord icvcdc=796-604 mg/dL Higher Azyh=068 mg/dL or greater Performed By: #### L 501.5200, L501.9985, L500.4050, L100.0100, L500.4100 #### [facility] [address] [place], [address] Cholesterol in VLDL [Mass/Vol] 23 mg/dL Normal 5-40 [facility] Comment on above: Order Comment: Order Date: 08/18/24 Order Info: [id number] - CMP Order Info: [id number] - LIPID Order Info: [id number] - MG Performed By: #### L 501.5200, L501.9985, L500.4050, L100.0100, L500.4100 #### [facility] [address] [place], [place], [address] Triglyceride [Mass/Vol] 115 mg/dL Normal [facility] Comment on above: Order Comment: Order Date: 08/18/24 Order Info: [id number] - CMP Order Info: - LIPID Order Info: [id number] - MG Result Comment: The drugs N-Acetylcysteine and Metamizole may falsely depress this assay. Normal range: <150 mg/dL Borderline High: 150-199 mg/dL High: 200-499 mg/dL Very High: >500 mg/dL Performed By: #### L 501.5200, L501.9985, L500.4050, L100.0100, L500.4100 #### [facility] [address] [place], [place], [address] MCV (mean corpuscular volume ) determinationOrdered By: Anastasia Weems on 08-18-2024 MCV (RBC) [Entitic vol] 86.7 fL 81-99 [facility] Magnesiumon 08-18-2024 Magnesium [Mass/Vol] 1.9 mg/dL Normal 1.5-2.2 [facility] Comment on above: Order Comment: Order Date: 08/18/24 Order Info: [id number] - CMP Order Info: [id number] - LIPID Order Info: [id number] - MG Performed By: #### L 501.5200, L501.9985, L500.4050, L100.0100, L500.4100 #### [facility] [place] [address] [place], [address] Magnesium measurement (mass/ volume)Ordered By: Anastasia Weems on 08-18-2024 Magnesium (Unsp spec) [Mass/Vol] 1.9 mg/dL 1.5-2.2 [facility] Mean corpuscular hemoglobin (MCH) determinationOrdered By: Anastasia Weems on 08-18-2024 MCH (RBC) [Entitic mass] 29.9 pg 27.0-32.0 [facility] Mean corpuscular hemoglobin concentration (MCHC) determinationOrdered By: Anastasia Weems on 08-18-2024 MCHC (RBC) [Mass/Vol] 34.4 g/dL 32-36 [facility] Mean platelet volume determi nationOrdered By: Anastasia Weems on 08-18-2024 Platelet mean volume (Bld) [Entitic vol] 12.2 fL High 6.2-12.0 [facility] Microscopic analysis of urin e for red blood cells (RBC)Ordered By: Anastasia Weems on 08-18-2024 Microscopic analysis of urine for red blood cells (RBC) 0 SEEN /hpf 0-5 [facility] Monocyte percentageOrdered B y: Anastasia Weems on 08-18-2024 Monocytes/100 WBC (Bld) 6.2 % 0-10 [facility] Mucus LM Ql (Urine sed)Order ed By: Anastasia Weems on 08-18-2024 Mucus Ql (Urine sed) 0 SEEN /hpf [facility] Neutrophil percentageOrdered By: Anastasia Weems on 08-18-2024 Neutrophils/100 WBC (Bld) 62.2 % 47-70 [facility] Nitrite Test strip Ql (U)Ord ered By: Anastasia Weems on 08-18-2024 Nitrite Ql (U) Negative Negative [facility] Nucleated red blood cell per centageOrdered By: Anastasia Weems on 08-18-2024 Nucleated RBC/100 WBC (Bld) [Ratio] 0 % 0-5 [facility] Platelet countOrdered By: Keshia Weems on 08-18-2024 Platelets (Bld) [#/Vol] 196 10*3/uL 150-450 [facility] Potassium measurement (mass/ volume)Ordered By: Anastasia Weems on 08-18-2024 Potassium (Unsp spec) [Mass/Vol] 3.5 mmol/L 3.3-5.1 [facility] Protein Test strip Ql (U)Ord ered By: Anastasia Weems on 08-18-2024 Protein Ql (U) 15 mg/dl High Negative [facility] RBC Auto (Bld) [#/Vol]Ordere d By: Anastasia Weems on 08-18-2024 RBC (Bld) [#/Vol] 4.52 10*6/uL 4.2-5.4 [facility] Screening total cholesterol/ high density lipoprotein (HDL) cholesterol ratioOrdered By: Anastasia Weems on 08-18-2024 Cholesterol.total/Choles terol in HDL [Mass ratio] 3.30 {ratio} [facility] Serum creatinine measurement (mass/volume)Ordered By: Anastasia Weems on 08-18-2024 Creatinine [Mass/Vol] 0.90 mg/dL 0.70-1.20 [facility] Serum globulin measurementOr dered By: Anastasia Weems on 08-18-2024 Globulin (S) [Mass/Vol] 2.9 g/dL 2.2-4.2 [facility] Serum glucose measurement (m ass/volume)Ordered By: Anastasia Weems on 08-18-2024 Glucose [Mass/Vol] 224 mg/dL High 70-99 [facility] Serum or plasma alanine james otransferase (ALT) measurementOrdered By: Anastasia Weems on 08-18-2024 ALT [Catalytic activity/Vol] 10 U/L <35 [facility] Serum or plasma albumin rhys urement (mass/volume)Ordered By: Anastasia Weems on 08-18-2024 Albumin [Mass/Vol] 4.0 g/dL 3.4-4.8 [facility] Serum or plasma albumin/glob ulin mass ratioOrdered By: Anastasia Weems on 08-18-2024 Albumin/Globulin [Mass ratio] 1.4 {ratio} 0.9-2.4 [facility] Serum or plasma alkaline yaakov sphatase measurementOrdered By: Anastasia Weems on 08-18-2024 ALP [Catalytic activity/Vol] 74 U/L 35-104 [facility] Serum or plasma calcium rhys urement (mass/volume)Ordered By: Anastasia Weems on 08-18-2024 Calcium [Mass/Vol] 9.5 mg/dL 7.6-11.0 [facility] Serum or plasma cholesterol in HDL measurement (mass/volume)Ordered By: Anastasia Weems on 08-18-2024 Cholesterol in HDL [Mass/Vol] 55 mg/dL >40 [facility] Comment on above: National Cholesterol Education Program (NCEP) guidelines:<40 mg/dL: Low HDL-cholesterol (major risk factor for CHD)>= 60 mg/dL: High HDL-cholesterol (negative risk factor for CHD)HDL-cholesterol is affected by a number of factors, e.g. smoking, exercise, hormones, sex and age. Serum or plasma cholesterol measurement (mass/volume)Ordered By: Anastasia Weems on 08-18-2024 Cholesterol [Mass/Vol] 182 mg/dL <201 [facility] Comment on above: Cholesterol level, D esirable <200 mg/dLBorderline high cholesterol 200-239 mg/dLHigh cholesterol >=240 mg/dLRecommendations of the NCEP Adult Treatment Panel for the following risk-cutoff thresholds for the [place] population. Serum or plasma urea nitroge n measurement (mass/volume)Ordered By: Anastasia Weems on 08-18-2024 Urea nitrogen [Mass/Vol] 15 mg/dL 4-19 [facility] Sodium levelOrdered By: Anastasia Weems on 08-18-2024 Sodium [Moles/Vol] 137 mmol/L 133-145 [facility] Squamous epithelial cells de tection in urine sediment by light microscopyOrdered By: Anastasia Weems on 08-18-2024 Epithelial cells.squamous LM Ql (Urine sed) 5-10 SEEN /hpf 5-10 [facility] Total proteinOrdered By: Rangel Weems on 08-18-2024 Protein [Mass/Vol] 6.9 g/dL 5.9-8.4 [facility] Triglycerides measurementOrd ered By: Anastasia Weems on 08-18-2024 Triglyceride [Mass/Vol] 115 mg/dL <199 [facility] Comment on above: The drugs N-Acetylcy steine and Metamizole may falsely depress this assay. Normal range: <150 mg/dLBorderline High: 150-199 mg/dLHigh: 200-499 mg/dLVery High: >500 mg/dL Urinalysis, Completeon 08-18 BACTERIA 2+ /hpf Normal None Seen [facility] Comment on above: Order Comment: Order Date: 08/18/24 Order Info: [id number] - CMP Order Info: [id number] - LIPID Order Info: [id number] - MG Performed By: #### L 501.5200, L501.9985, L500.4050, L100.0100, L500.4100 #### [facility] [address] [place], [place], [id number] CA OX CRYSTAL 2+ /hpf Normal [facility] Comment on above: Order Comment: Order Date: 08/18/24 Order Info: [id number]- - CMP Order Info: [id number] - LIPID Order Info: [id number] - MG Performed By: #### L 501.5200, L501.9985, L500.4050, L100.0100, L500.4100 #### [facility] [address] [place], [place], [id number] EPI,SQUAMOUS 5-10 SEEN Normal 5-10 [facility] Comment on above: Order Comment: Order Date: 08/18/24 Order Info: [id number] - CMP Order Info: [id number] - LIPID Order Info: [id number] - MG Performed By: #### L 501.5200, L501.9985, L500.4050, L100.0100, L500.4100 #### [facility] [address] [place], [place], [address] WBC 0-5 SEEN Normal 0-5 [facility] Comment on above: Order Comment: Order Date: 08/18/24 Order Info: [id number] - CMP Order Info: [id number] - LIPID Order Info: [id number] - MG Performed By: #### L 501.5200, L501.9985, L500.4050, L100.0100, L500.4100 #### [facility] [address] [place], [place], [address] Mucus Ql (Urine sed) 0 SEEN Normal [facility] Comment on above: Order Comment: Order Date: 08/18/24 Order Info: [id number] - CMP Order Info: [id number] - LIPID Order Info: [id number] - MG Performed By: #### L 501.5200, L501.9985, L500.4050, L100.0100, L500.4100 #### [facility] [address] [place], [address] RBC 0 SEEN Normal 0-5 [facility] Comment on above: Order Comment: Order Date: 08/18/24 Order Info: [id number] - CMP Order Info: [id number] - LIPID Order Info: [id number] - MG Performed By: #### L 501.5200, L501.9985, L500.4050, L100.0100, L500.4100 #### [facility] [address] [place], [place], [address] Urine clarityOrdered By: Rangel Weems on 08-18-2024 Clarity (U) Sl. Cloudy Clear [facility] Urine color determinationOrd ered By: Anastasia Weems on 08-18-2024 Color (U) Yellow Yellow [facility] Urine glucose detectionOrder ed By: Anastasia Weems on 08-18-2024 Glucose Ql (U) Normal mg/dl Normal [facility] Urine leukocyte esterase det ection by dipstickOrdered By: Anastasia Weems on 08-18-2024 Leukocyte esterase Test strip Ql (U) 100 /ul High Negative [facility] Urine pHOrdered By: Anastasia bazan on 08-18-2024 pH (U) 5.0 [pH] 5.0 - 8.0 [facility] Urine sediment bacteria coun t by microscopy (number/high power field)Ordered By: Anastasia Weems on 08-18-2024 Bacteria LM.HPF (Urine sed) [#/Area] 2 /[HPF] None Seen [facility] Urine specific gravity measu rementOrdered By: Anastasia Weems on 08-18-2024 Specific gravity (U) [Rel density] 1.020 1.002-1.030 [facility] Urine urobilinogen measureme ntOrdered By: Anastasia Weems on 08-18-2024 Urobilinogen Ql (U) Normal mg/dl Normal [facility] Vitamin D,25 Hydroxyon 08-18 Vitamin D 25-OH 36.9 ng/mL Normal 30-100 [facility] Comment on above: Order Comment: Order Date: 08/18/24Order Info: [id number] - CMPOrder Info: [id number] - LIPIDOrder Info: [id number] - MG Result Comment: Ivania min D Status Deficiency: <20 ng/mL (50nmol/L) Insufficiency: 20-30 ng/mL (50-75 nmol/L) Sufficiency: 30-100 ng/mL (75-250 nmol/L) Toxicity: >100 ng/mL (>250 nmol/L) Performed By: #### L 506.1001 ####[facility] [address] [place], [address] White blood cell (WBC) count Ordered By: Anastasia Weems on 08-18-2024 WBC (Bld) [#/Vol] 8.0 10*3/uL 4.4-11.0 [facility] White blood cell countOrdere d By: Anastasia Weems on 08-18-2024 White blood cell count 0-5 SEEN /hpf 0-5 [facility] Chest PA and Lateralon 05-07 Chest PA and Lateral [facility] Imaging Services [address] [place] [address] Chest PA and Lateral MR#: [id number] Acct: [id number] Name: CALVIN ROBIN SEPTEMBER Rep #: [id number] : [id number] F 88 From: Carlos Alberto Flor MD PCP: Dr. Anastasia Weems MD Status: REG CLI Study: Chest PA and Lateral Date of Exam: 05/07/24 Exam# [id number] Ordering Dr: Anastasia Weems MD [id number] STUDY: X-RAY CHEST REASON FOR EXAM: Female, 88 years old. Bronchitis. TECHNIQUE: Frontal and lateral views of the chest. COMPARISON: December 13, 2022 FINDINGS: Stable cardiomegaly, aortic tortuosity, mild hyperinflation, mild diffuse interstitial pattern, diffuse moderate to marked thoracic spondylosis and epidural catheter. No acute or emergent finding. RAD/Chest PA and Lateral IMPRESSION: Stable chest with no acute or emergent finding. Electronically Signed: Carlos Alberto Flor MD at 10:13 EST , CC: Dr. Anastasia Weems MD Director Of Audiology: Signed Normal [facility] CBC W/Diff, Automatedon 10-3 Absolute Lymph 3.19 X10 3/uL Normal 0.83-4.51 [facility] Comment on above: Performed By: #### L 504.2610, L100.0100, L500.4050 #### [facility] Laboratory [address] [place], [address] Absolute Neut 4.1 X10 3/uL Normal 2.0-7.7 [facility] Comment on above: Performed By: #### L 504.2610, L100.0100, L500.4050 #### [facility] Laboratory [address] [place], [address] Basophils/100 WBC (Bld) 0.7 % Normal 0-1 [facility] Comment on above: Performed By: #### L 504.2610, L100.0100, L500.4050 #### [facility] [address] [place], [address] Eosinophils/100 WBC (Bld) 2.1 % Normal 0-5 [facility] Comment on above: Performed By: #### L 504.2610, L100.0100, L500.4050 #### [facility] [address] [place], [address] Erythrocyte distribution width (RBC) [Ratio] 12.5 % Normal 11.6-14.6 [facility] Comment on above: Performed By: #### L 504.2610, L100.0100, L500.4050 #### [facility] [address] [place], [address] Hematocrit (Bld) [Volume fraction] 42.1 % Normal 37-47 [facility] Comment on above: Performed By: #### L 504.2610, L100.0100, L500.4050 #### [facility] [address] [place], [address] Hemoglobin (Bld) [Mass/Vol] 14.5 g/dL Normal 12.0-15.0 [facility] Comment on above: Performed By: #### L 504.2610, L100.0100, L500.4050 #### [facility] [address] [place], [address] IG% 0.400 Normal 0.0-0.9 [facility] Comment on above: Result Comment: IG% - Immature Granulocytes (promyelocytes, myelocytes and metamyelocytes) > 1% indicates that a LEFT SHIFT is Present. Performed By: #### L 504.2610, L100.0100, L500.4050 #### [facility] [address] [place], [address] Lymphocytes/100 WBC (Bld) 38.9 % Normal 19-41 [facility] Comment on above: Performed By: #### L 504.2610, L100.0100, L500.4050 #### [facility] [address] [place], [address] MCH (RBC) [Entitic mass] 30.1 pg Normal 27.0-32.0 [facility] Comment on above: Performed By: #### L 504.2610, L100.0100, L500.4050 #### [facility] [address] [place], [address] MCHC (RBC) [Mass/Vol] 34.4 g/dL Normal 32-36 [facility] Comment on above: Performed By: #### L 504.2610, L100.0100, L500.4050 #### [facility] [address] [place], [address] MCV (RBC) [Entitic vol] 87.3 fL Normal 81-99 [facility] Comment on above: Performed By: #### L 504.2610, L100.0100, L500.4050 #### [facility] [address] [place], [address] Monocytes/100 WBC (Bld) 8.5 % Normal 0-10 [facility] Comment on above: Performed By: #### L 504.2610, L100.0100, L500.4050 #### [facility] [address] [place], [address] Neutrophils/100 WBC (Bld) 49.4 % Normal 47-70 [facility] Comment on above: Performed By: #### L 504.2610, L100.0100, L500.4050 #### [facility] [address] [place], [address] Nucleated RBC (Bld) [#/Vol] 0 10*3/uL Normal 0-5 [facility] Comment on above: Performed By: #### L 504.2610, L100.0100, L500.4050 #### [facility] [address] [place], [address] Platelet mean volume (Bld) [Entitic vol] 11.9 fL Normal 6.2-12.0 [facility] Comment on above: Performed By: #### L 504.2610, L100.0100, L500.4050 #### [facility] [address] [place], [address] Platelets (Bld) [#/Vol] 193 10*3/uL Normal 150-450 [facility] Comment on above: Performed By: #### L 504.2610, L100.0100, L500.4050 #### [facility] [address] [place], [address] RBC (Bld) [#/Vol] 4.82 10*6/uL Normal 4.2-5.4 [facility] Comment on above: Performed By: #### L 504.2610, L100.0100, L500.4050 #### [facility] [address] [place], [address] RDW SD 39.6 fl Normal 35.1-43.9 [facility] Comment on above: Performed By: #### L 504.2610, L100.0100, L500.4050 #### [facility] [address] [place], [address] WBC (Bld) [#/Vol] 8.2 10*3/uL Normal 4.4-11.0 [facility] Comment on above: Performed By: #### L 504.2610, L100.0100, L500.4050 #### [facility] [address] [place], [address] [facility] 02-12-2024 Albumin [Mass/Vol] 3.9 g/dL Normal 3.2-5.0 [facility] Comment on above: Order Comment: 1 Performed By: #### L 504.2610, L100.0100, L500.4050 #### [facility] [address] [place], [address] Albumin/Globulin [Mass ratio] 1.1 {ratio} Normal 0.9-2.4 [facility] Comment on above: Order Comment: 1 Performed By: #### L 504.2610, L100.0100, L500.4050 #### [facility] [address] [place], [address] ALK P 74 U/L Normal 45-117 [facility] Comment on above: Order Comment: 1 Performed By: #### L 504.2610, L100.0100, L500.4050 #### [facility] [address] [place], [address] ALT [Catalytic activity/Vol] 19 U/L Normal 13-56 [facility] Comment on above: Order Comment: 1 Performed By: #### L 504.2610, L100.0100, L500.4050 #### [facility] [address] [place], [address] AST [Catalytic activity/Vol] 19 U/L Normal 15-37 [facility] Comment on above: Order Comment: 1 Performed By: #### L 504.2610, L100.0100, L500.4050 #### [facility] [address] [place], [address] Bilirubin [Mass/Vol] 0.40 mg/dL Normal 0.20-1.00 [facility] Comment on above: Order Comment: 1 Result Comment: For patients on eltrombopag therapy, use of Dimension [place] TBIL is not recommended. Performed By: #### L 504.2610, L100.0100, L500.4050 #### [facility] [address] [place], [address] BUN/CRE 27.4 RATIO High 10-20 [facility] Comment on above: Order Comment: 1 Performed By: #### L 504.2610, L100.0100, L500.4050 #### [facility] [address] [place], [address] CA,Total 9.4 mg/dL Normal 8.5-10.1 [facility] Comment on above: Order Comment: 1 Performed By: #### L 504.2610, L100.0100, L500.4050 #### [facility] [address] [place], [address] Chloride [Moles/Vol] 106 mmol/L Normal 98-107 [facility] Comment on above: Order Comment: 1 Performed By: #### L 504.2610, L100.0100, L500.4050 #### [facility] [address] [place], [address] CO2 [Moles/Vol] 26.0 mmol/L Normal 21.0-32.0 [facility] Comment on above: Order Comment: 1 Performed By: #### L 504.2610, L100.0100, L500.4050 #### [facility] [address] [place], [address] Creatinine [Mass/Vol] 0.91 mg/dL Normal 0.55-1.02 [facility] Comment on above: Order Comment: 1 Result Comment: The validity of the calculated GFR GFRAA in patients over 70 years has not been determined. Clinical correlation is essential. Performed By: #### L 504.2610, L100.0100, L500.4050 #### [facility] [address] [place], [address] ECRCL 46.14 ml/min Normal [facility] Comment on above: Order Comment: 1 Performed By: #### L 504.2610, L100.0100, L500.4050 #### [facility] [address] [place], [address] EST GFR - AA 75 mL/min Normal >60 [facility] Comment on above: Order Comment: 1 Result Comment: Afri can [place] GFR Calc Performed By: #### L 504.2610, L100.0100, L500.4050 #### [facility] [address] [place], [address] GAP 7 Normal 5-15 [facility] Comment on above: Order Comment: 1 Performed By: #### L 504.2610, L100.0100, L500.4050 #### [facility] [address] [place], [address] GFR/1.73 sq M.predicted among non-blacks MDRD (S/P/Bld) [Vol rate/Area] 62 mL/min/{1.73_m2} Normal >60 [facility] Comment on above: Order Comment: 1 Result Comment: Non- GFR Calc Performed By: #### L 504.2610, L100.0100, L500.4050 #### [facility] [address] [place], [address] Globulin (S) [Mass/Vol] 3.5 g/dL Normal 2.2-4.2 [facility] Comment on above: Order Comment: 1 Performed By: #### L 504.2610, L100.0100, L500.4050 #### [facility] [address] [place], [address] Glucose [Mass/Vol] 115 mg/dL High 74-106 [facility] Comment on above: Order Comment: 1 Result Comment: Fast ing Glucose result from 100 to 125 mg/dL suggests IMPAIRED HOMEOSTASIS per A.D.A. criteria. Performed By: #### L 504.2610, L100.0100, L500.4050 #### [facility] [address] [place], [address] Potassium [Moles/Vol] 4.1 mmol/L Normal 3.5-5.1 [facility] Comment on above: Order Comment: 1 Performed By: #### L 504.2610, L100.0100, L500.4050 #### [facility] [address] [place], [address] Sodium [Moles/Vol] 138 mmol/L Normal 136-145 [facility] Comment on above: Order Comment: 1 Performed By: #### L 504.2610, L100.0100, L500.4050 #### [facility] [address] [place], [address] T PROT 7.4 g/dL Normal 6.4-8.2 [facility] Comment on above: Order Comment: 1 Performed By: #### L 504.2610, L100.0100, L500.4050 #### [facility] [address] [place], [address] Urea nitrogen [Mass/Vol] 25 mg/dL High 7-18 [facility] Comment on above: Order Comment: 1 Performed By: #### L 504.2610, L100.0100, L500.4050 #### [facility] [address] [place], [address] LDHon 02-12-2024 LDH 184 U/L Normal 84-246 [facility] Comment on above: Order Comment: 1 Performed By: #### L 504.2610, L100.0100, L500.4050 ####[facility] [address] [place], [address] Oncology Visit Reporton 10-3 Oncology Visit Report [facility] [address] [place] [address] OFFICE VISIT Date of Service: 02/12/24 1352 MR#: [id number] Acct: [id number] Name: CALVIN ROBIN SEPTEMBER Rep #: [id number] : 1935 From: Aung Collazo MD Age/Sex: 88/F Location: [facility] Status: Signed HPI Subjective Date of Service 02/12/24 Chief Complaint F/u for Follicular Lymphoma History of Present Illness 88-year-old woman presented with swelling of the left forearm, near the elbow, medial aspect about 1 year ago. She went down to [facility], MRI on 11/29/2019 showed 3.9 x 3.4 x 2.2 mass. Surgical resection was done on 12/16/2019. Pathology showed atypical lymphoid proliferation, cannot rule out follicular neoplasm of B and T-cell origin. PET CT scan on 01/27/2020 showed partially visualized hypermetabolic activity in the medial left upper arm at the level of the left distal humerus corresponding to known mass lesion, with no other hypermetabolic activity. Bone marrow biopsy on 01/27/2020 showed moderate hypercellular marrow with no evidence of lymphoma. Radiation therapy to the local area was suggested and she decided to continue treatment here in [place]. She received adjuvant Radiation to the L arm from 03/29/2020 to 04/17/2020. She is on observation. Comes for follow up. She feels well. [facility] Medical History (Updated 02/12/24 @ 14:[address] Aung Collzao MD) Restrictive airway disease Trigeminal nerve disease High cholesterol HBP (high blood pressure) Surgical History H/O total knee replacement Hx of cholecystectomy H/O: hysterectomy Family History Mother Lymphoma Father Lung cancer CVA (cerebral vascular accident) Brother Pancreatic cancer Aunt Stomach cancer Breast cancer Colorectal cancer Head and neck cancer Grandmother Stomach cancer Social History Smoking Status: Never smoker Intake Vital Signs 02/17/23 14:14 02/12/24 13:55 02/12/24 13:57 Height 5 ft 4 in 5 ft 4 in 5 ft 4 in Weight: 85.786 kg BMI 32.4 BP 121/67 H Blood Pressure Location Rt brachial Position Sitting Respiration 18 Pulse 63 Pulse Source Monitor Temp 98.5 F Temperature Source Temporal Artery Pulse Oximetry (%) 95 Oxygen Delivery Method room air Intake Is patient in pain?: No Allergies naproxen (From Aleve) Allergy (Verified 02/12/24 13:53) Hives codeine Adverse Reaction (Verified 02/12/24 13:53) Other Icizbro-AEV-JgV Reductase Inhibitor (Yokwtrm-Yji-Yjg Reductase Inhibitor) Adverse Reaction (Verified 02/12/24 13:53) Pain in joints Medications ???Medication ???Instructions ???Recorded ???Confirmed ???Type atenolol 50 mg tablet 50 mg PO DAILY BP 10/06/17 02/12/24 History hydrochlorothiazide 12.5 mg capsule 12.5 mg PO DAILY SWELLING 10/06/17 02/12/24 History dimenhydrinate 50 mg tablet 50 mg PO DAILY PRN Vertigo 10/13/17 02/12/24 History cholecalciferol (vitamin D3) 125 5,000 unit PO MOWEFR SUPPLEMENT 12/29/17 02/12/24 History mcg (5,000 unit) capsule aspirin 81 mg chewable tablet 81 mg PO DAILY@0800 05/15/20 02/12/24 History acetaminophen 500 mg tablet 1,000 mg PO Q8 PRN Pain 1-10 Or 05/23/20 02/12/24 History Fever diphenhydramine HCl 25 mg capsule 25 mg PO QHS PRN Sleep 05/23/20 02/12/24 History albuterol sulfate 90 mcg/actuation 2 inh inhalation Q4H 02/12/24 02/12/24 History breath activated powder inhaler oxcarbazepine 150 mg tablet 150 mg PO BID 02/12/24 02/12/24 History Have you fallen in the past year?: No Central Venous Access Central Venous Access: No Exam Physical Exam Const alert, oriented x3 and no apparent distress General Appearance: cooperative and comfortable HEENT normocephalic Eyes PERRL, conjunctivae normal and no scleral icterus Neck full ROM and supple Lymph Lymphatic: no lymphadenopathy noted Chest inspection of chest normal Resp normal respiratory effort and clear to auscultation bilaterally Cardio regular rate, regular rhythm, S1 normal heart sound, S2 normal heart sound and no murmurs no CVA tenderness Back/Spine no CVA tenderness and thoracic and lumbar spine normal to inspection Back/Spine Narrative: + tenderness L trapezius muscle. 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 Normal [facility] Urine Cultureon 01-08-2024 URC #2 Below infection level. Mixed Gram Positive Organisms [place] Count 50,000-80,000 MIXC Mixed contaminants. Submit a new specimen if indicated. Streptococcus group C [place] Count <1000 Normal [facility] Comment on above: Performed By: #### L 501.5200, L501.9985, L500.4050, L100.0100, L500.4100 #### [facility] [address] [place], [address] CBC W/Diff, Automatedon 12-14 Absolute Lymph 2.12 X10 3/uL Normal 0.83-4.51 [facility] Comment on above: Performed By: #### L 501.5200, L501.9985, L500.4050, L100.0100, L500.4100 #### [facility] [address] [place], [address] Absolute Neut 3.4 X10 3/uL Normal 2.0-7.7 [facility] Comment on above: Performed By: #### L 501.5200, L501.9985, L500.4050, L100.0100, L500.4100 #### [facility] [address] [place], [address] Basophils/100 WBC (Bld) 1.0 % Normal 0-1 [facility] Comment on above: Performed By: #### L 501.5200, L501.9985, L500.4050, L100.0100, L500.4100 #### [facility] [address] [place], [address] Eosinophils/100 WBC (Bld) 2.5 % Normal 0-5 [facility] Comment on above: Performed By: #### L 501.5200, L501.9985, L500.4050, L100.0100, L500.4100 #### [facility] [address] [place], [address] Erythrocyte distribution width (RBC) [Ratio] 12.3 % Normal 11.6-14.6 [facility] Comment on above: Performed By: #### L 501.5200, L501.9985, L500.4050, L100.0100, L500.4100 #### [facility] [address] [place], [address] Hematocrit (Bld) [Volume fraction] 41.4 % Normal 37-47 [facility] Comment on above: Performed By: #### L 501.5200, L501.9985, L500.4050, L100.0100, L500.4100 #### [facility] [address] [place], [address] Hemoglobin (Bld) [Mass/Vol] 13.7 g/dL Normal 12.0-15.0 [facility] Comment on above: Performed By: #### L 501.5200, L501.9985, L500.4050, L100.0100, L500.4100 #### [facility] [address] [place], [address] IG% 0.300 Normal 0.0-0.9 [facility] Comment on above: Result Comment: IG% - Immature Granulocytes (promyelocytes, myelocytes and metamyelocytes) > 1% indicates that a LEFT SHIFT is Present. Performed By: #### L 501.5200, L501.9985, L500.4050, L100.0100, L500.4100 #### [facility] [address] [place], [address] Lymphocytes/100 WBC (Bld) 33.7 % Normal 19-41 [facility] Comment on above: Performed By: #### L 501.5200, L501.9985, L500.4050, L100.0100, L500.4100 #### [facility] [address] [place], [address] MCH (RBC) [Entitic mass] 29.0 pg Normal 27.0-32.0 [facility] Comment on above: Performed By: #### L 501.5200, L501.9985, L500.4050, L100.0100, L500.4100 #### [facility] [address] [place], [address] MCHC (RBC) [Mass/Vol] 33.1 g/dL Normal 32-36 [facility] Comment on above: Performed By: #### L 501.5200, L501.9985, L500.4050, L100.0100, L500.4100 #### [facility] [address] [place], [address] MCV (RBC) [Entitic vol] 87.7 fL Normal 81-99 [facility] Comment on above: Performed By: #### L 501.5200, L501.9985, L500.4050, L100.0100, L500.4100 #### [facility] [address] [place], [address] Monocytes/100 WBC (Bld) 8.4 % Normal 0-10 [facility] Comment on above: Performed By: #### L 501.5200, L501.9985, L500.4050, L100.0100, L500.4100 #### [facility] [address] [place], [address] Neutrophils/100 WBC (Bld) 54.1 % Normal 47-70 [facility] Comment on above: Performed By: #### L 501.5200, L501.9985, L500.4050, L100.0100, L500.4100 #### [facility] [address] [place], [address] Nucleated RBC (Bld) [#/Vol] 0 10*3/uL Normal 0-5 [facility] Comment on above: Performed By: #### L 501.5200, L501.9985, L500.4050, L100.0100, L500.4100 #### [facility] [address] [place], [address] Platelet mean volume (Bld) [Entitic vol] 12.3 fL High 6.2-12.0 [facility] Comment on above: Performed By: #### L 501.5200, L501.9985, L500.4050, L100.0100, L500.4100 #### [facility] [address] [place], [address] Platelets (Bld) [#/Vol] 171 10*3/uL Normal 150-450 [facility] Comment on above: Performed By: #### L 501.5200, L501.9985, L500.4050, L100.0100, L500.4100 #### [facility] [address] [place], [address] RBC (Bld) [#/Vol] 4.72 10*6/uL Normal 4.2-5.4 [facility] Comment on above: Performed By: #### L 501.5200, L501.9985, L500.4050, L100.0100, L500.4100 #### [facility] [address] [place], [address] RDW SD 39.6 fl Normal 35.1-43.9 [facility] Comment on above: Performed By: #### L 501.5200, L501.9985, L500.4050, L100.0100, L500.4100 #### [facility] [address] [place], [address] WBC (Bld) [#/Vol] 6.3 10*3/uL Normal 4.4-11.0 [facility] Comment on above: Performed By: #### L 501.5200, L501.9985, L500.4050, L100.0100, L500.4100 #### [facility] [address] [place], [address] Comprehensive Metabolic Prof ilon 01-05-2024 Albumin [Mass/Vol] 3.6 g/dL Normal 3.2-5.0 [facility] Comment on above: Performed By: #### L 501.5200, L501.9985, L500.4050, L100.0100, L500.4100 #### [facility] [address] [place], [address] Albumin/Globulin [Mass ratio] 1.1 {ratio} Normal 0.9-2.4 [facility] Comment on above: Performed By: #### L 501.5200, L501.9985, L500.4050, L100.0100, L500.4100 #### [facility] [address] [place], [address] ALK P 66 U/L Normal 45-117 [facility] Comment on above: Performed By: #### L 501.5200, L501.9985, L500.4050, L100.0100, L500.4100 #### [facility] [address] [place], [address] ALT [Catalytic activity/Vol] 16 U/L Normal 13-56 [facility] Comment on above: Performed By: #### L 501.5200, L501.9985, L500.4050, L100.0100, L500.4100 #### [facility] [address] [place], [address] AST [Catalytic activity/Vol] 21 U/L Normal 15-37 [facility] Comment on above: Performed By: #### L 501.5200, L501.9985, L500.4050, L100.0100, L500.4100 #### [facility] [address] [place], [address] Bilirubin [Mass/Vol] 0.50 mg/dL Normal 0.20-1.00 [facility] Comment on above: Result Comment: For patients on eltrombopag therapy, use of Dimension [place] TBIL is not recommended. Performed By: #### L 501.5200, L501.9985, L500.4050, L100.0100, L500.4100 #### [facility] [address] [place], [address] BUN/CRE 22.9 RATIO High 10-20 [facility] Comment on above: Performed By: #### L 501.5200, L501.9985, L500.4050, L100.0100, L500.4100 #### [facility] [address] [place], [address] CA,Total 9.4 mg/dL Normal 8.5-10.1 [facility] Comment on above: Performed By: #### L 501.5200, L501.9985, L500.4050, L100.0100, L500.4100 #### [facility] [address] [place], [address] Chloride [Moles/Vol] 106 mmol/L Normal 98-107 [facility] Comment on above: Performed By: #### L 501.5200, L501.9985, L500.4050, L100.0100, L500.4100 #### [facility] [address] [place], [address] CO2 [Moles/Vol] 25.0 mmol/L Normal 21.0-32.0 [facility] Comment on above: Performed By: #### L 501.5200, L501.9985, L500.4050, L100.0100, L500.4100 #### [facility] [address] [place], [address] Creatinine [Mass/Vol] 0.87 mg/dL Normal 0.55-1.02 [facility] Comment on above: Result Comment: The validity of the calculated GFR GFRAA in patients over 70 years has not been determined. Clinical correlation is essential. Performed By: #### L 501.5200, L501.9985, L500.4050, L100.0100, L500.4100 #### [facility] [address] [place], [address] EST GFR - AA 79 mL/min Normal >60 [facility] Comment on above: Result Comment: Afri can [place] GFR Calc Performed By: #### L 501.5200, [id number], L500.4050, L100.0100, L500.4100 #### [facility] [address] [place], [address] GAP 7 Normal 5-15 [facility] Comment on above: Performed By: #### L 501.5200, L501.9985, L500.4050, L100.0100, L500.4100 #### [facility] [address] [place], [address] GFR/1.73 sq M.predicted among non-blacks MDRD (S/P/Bld) [Vol rate/Area] 65 mL/min/{1.73_m2} Normal >60 [facility] Comment on above: Result Comment: Non- GFR Calc Performed By: #### L 501.5200, L501.9985, L500.4050, L100.0100, L500.4100 #### [facility] [address] [place], [address] Globulin (S) [Mass/Vol] 3.2 g/dL Normal 2.2-4.2 [facility] Comment on above: Performed By: #### L 501.5200, L501.9985, L500.4050, L100.0100, L500.4100 #### [facility] [address] [place], [address] Glucose [Mass/Vol] 117 mg/dL High 74-106 [facility] Comment on above: Result Comment: Fast ing Glucose result from 100 to 125 mg/dL suggests IMPAIRED HOMEOSTASIS per A.D.A. criteria. Performed By: #### L 501.5200, L501.9985, L500.4050, L100.0100, L500.4100 #### [facility] [address] [place], [address] Potassium [Moles/Vol] 3.6 mmol/L Normal 3.5-5.1 [facility] Comment on above: Performed By: #### L 501.5200, [id number], L500.4050, L100.0100, L500.4100 #### [facility] [address] [place], [address] Sodium [Moles/Vol] 138 mmol/L Normal 136-145 [facility] Comment on above: Performed By: #### L 501.5200, L501.9985, L500.4050, L100.0100, L500.4100 #### [facility] [address] [place], [address] T PROT 6.8 g/dL Normal 6.4-8.2 [facility] Comment on above: Performed By: #### L 501.5200, L501.9985, L500.4050, L100.0100, L500.4100 #### [facility] [address] [place], [address] Urea nitrogen [Mass/Vol] 20 mg/dL High 7-18 [facility] Comment on above: Performed By: #### L 501.5200, L501.9985, L500.4050, L100.0100, L500.4100 #### [facility] [address] [place], [address] Hemoglobin A1con 01-05-2024 HbA1c (Bld) [Mass fraction] 5.9 % High 3.8-5.6 [facility] Comment on above: Result Comment: Norm al < 5.7 % Prediabetic 5.7 - 6.4 % Diabetic >or= 6.5 % Please note range changes. Performed By: #### L 501.5200, L501.9985, L500.4050, L100.0100, L500.4100 #### [facility] [address] [place], [address] Urinalysis, Completeon 01-04 EPI,TRANSITION 0-5 SEEN Normal 0-5 [facility] Comment on above: Order Comment: Order Date: 08/18/24 Order Info: [id number] - CMP Order Info: [id number] - LIPID Order Info: [id number] - MG Performed By: #### L 501.5200, L501.9985, L500.4050, L100.0100, L500.4100 #### [facility] [address] [place], [address] RBC 0-5 SEEN Normal 0-5 [facility] Comment on above: Order Comment: Order Date: 08/18/24 Order Info: [id number] - CMP Order Info: [id number] - LIPID Order Info: [id number] - MG Performed By: #### L 501.5200, L501.9985, L500.4050, L100.0100, L500.4100 #### [facility] [address] [place], [address] WBC 5-10 SEEN Normal 0-5 [facility] Comment on above: Order Comment: Order Date: 08/18/24 Order Info: [id number] - CMP Order Info: [id number] - LIPID Order Info: [id number] - MG Performed By: #### L 501.5200, L501.9985, L500.4050, L100.0100, L500.4100 #### [facility] [address] [place], [place], [id number] [phone] CA OX CRYSTAL 1+ /hpf Normal [facility] Comment on above: Order Comment: Order Date: 08/18/24 Order Info: [id number] - CMP Order Info: [id number] - LIPID Order Info: [id number] - MG Performed By: #### L 501.5200, L501.9985, L500.4050, L100.0100, L500.4100 #### [facility] [address] [place], [address] BACTERIA 1+ /hpf Normal None Seen [facility] Comment on above: Order Comment: Order Date: 08/18/24 Order Info: [id number] - CMP Order Info: [id number] - LIPID Order Info: [id number] - MG Performed By: #### L 501.5200, L501.9985, L500.4050, L100.0100, L500.4100 #### [facility] [address] [place], [place], [id number] [phone] EPI,SQUAMOUS 5-10 SEEN Normal 5-10 [facility] Comment on above: Order Comment: Order Date: 08/18/24 Order Info: [id number] - CMP Order Info: [id number] - LIPID Order Info: [id number] - MG Performed By: #### L 501.5200, L501.9985, L500.4050, L100.0100, L500.4100 #### [facility] [address] [place], [address] Mucus Ql (Urine sed) 0 SEEN Normal [facility] Comment on above: Order Comment: Order Date: 08/18/24 Order Info: [id number] - CMP Order Info: [id number] - LIPID Order Info: [id number] - MG Performed By: #### L 501.5200, L501.9985, L500.4050, L100.0100, L500.4100 #### [facility] [address] [place], [address] Vitamin D,25 Hydroxyon 01-04 Vitamin D 25-OH 38.5 ng/mL Normal [facility] Comment on above: Result Comment: Ivania min D 25(OH) Status Range Deficiency <20 ng/mL (50nmol/L) Insufficiency 20 - 30 ng/mL (50 - 75 nmol/L) Sufficiency 30 - 100 ng/mL (75 - 250 nmol/L) Toxicity >100 ng/mL (>250 nmol/L) Performed By: #### L 501.5200, L501.9985, L500.4050, L100.0100, L500.4100 #### [facility] [address] [place], [address] Absolute lymphocyte countOrd ered By: Anastasia Weems on 04-30-2023 Lymphocytes Auto (Unsp spec) [#/Vol] 2.75 10*3/uL 0.83-4.51 [facility] Automated lymphocyte count a s percentage of total leukocytesOrdered By: Anastasia Weems on 04-30-2023 Lymphocytes/100 WBC Auto (Unsp spec) 35.9 % 19-41 [facility] Basophil percentageOrdered B y: Anastasia Weems on 04-30-2023 Basophil percentage 0-5 SEEN /hpf 0-5 [facility] Basophils/100 WBC (Bld) 0.9 % 0-1 [facility] Bilirubin [Mass/Vol] 0.40 mg/dL 0.20-1.00 [facility] Comment on above: For patients on eltr ombopag therapy, use of Dimension [place] TBIL is not recommended. Chloride [Moles/Vol] 109 mmol/L 98-107 [facility] Cholesterol [Mass/Vol] 223 mg/dL <200 [facility] Comment on above: <200 mg/dL Desirable 200-240 mg/dL Borderline >240 mg/dL High Risk Eosinophils/100 WBC (Bld) 2.2 % 0-5 [facility] Glucose [Mass/Vol] 112 mg/dL 74-106 [facility] Comment on above: Fasting Glucose resu lt from 100 to 125 mg/dL suggests IMPAIRED HOMEOSTASIS per A.D.A. criteria. Hemoglobin (Bld) [Mass/Vol] 14.4 g/dL 12.0-15.0 [facility] Monocytes/100 WBC (Bld) 6.8 % 0-10 [facility] Neutrophils (Bld) [#/Vol] 4.1 10*3/uL 2.0-7.7 [facility] Neutrophils/100 WBC (Bld) 53.9 % 47-70 [facility] Potassium [Moles/Vol] 3.7 mmol/L 3.5-5.1 [facility] Protein [Mass/Vol] 7.1 g/dL 6.4-8.2 [facility] Sodium [Moles/Vol] 139 mmol/L 136-145 [facility] Triglyceride [Mass/Vol] 171 mg/dL <199 [facility] Comment on above: The drugs N-Acetylcy steine and Metamizole may falsely depress this assay.Serum Triglycerides Reference Interval Normal <150 mg/dL Borderline high 150 - 199 mg/dL High 200 - 499 mg/dL Very High > or = 500 mg/dL WBC (Bld) [#/Vol] 7.7 10*3/uL 4.4-11.0 [facility] Bilirubin Test strip Ql (U)O rdered By: Anastasia Weems on 04-30-2023 Bilirubin Ql (U) Negative Negative [facility] Determination of erythrocyte mean corpuscular volume (MCV)Ordered By: Anastasia Weems on 04-30-2023 MCV (RBC) [Entitic vol] 88.8 fL 81-99 [facility] Erythrocyte distribution wid th ratioOrdered By: Anastasia Weems on 04-30-2023 Erythrocyte distribution width (RBC) [Ratio] 12.2 % 11.6-14.6 [facility] Erythrocyte distribution wid th standard deviationOrdered By: Anastasia Weems on 04-30-2023 Erythrocyte distribution width (RBC) [Entitic vol] 39.4 fL 35.1-43.9 [facility] Hematocrit Auto (Bld) [Volum e fraction]Ordered By: Anastasia Weems on 04-30-2023 Hematocrit (Bld) [Volume fraction] 42.7 % 37-47 [facility] High density lipoprotein (HD L) measurementOrdered By: Anastasia Weems on 04-30-2023 Cholesterol in HDL (Body fld) [Mass/Vol] 56 mg/dL >40 [facility] Comment on above: The drugs N-Acetylcy steine and Metamizole may falsely depress this assay. Reference Range HDL <40 mg/dL Low HDL Cholesterol HDL >or= 60 mg/dL High HDL Cholesterol Immature granulocytes/100 WB C Auto (Bld)Ordered By: Anastasia Weems on 04-30-2023 Immature granulocytes/100 WBC (Bld) 0.300 % 0.0-0.9 [facility] Comment on above: IG% - Immature Granu locytes (promyelocytes, myelocytes and metamyelocytes) > 1% indicates that a LEFT SHIFT is Present. Ketones Test strip Ql (U)Ord ered By: Anastasia Weems on 04-30-2023 Ketones Ql (U) Negative Negative [facility] - Chemistry and C hemistry - challengeOrdered By: Anastasia Weems on 04-30-2023 Albumin/Globulin [Mass ratio] 1.0 {ratio} 0.9-2.4 [facility] ALP [Catalytic activity/Vol] 72 U/L 45-117 [facility] ALT [Catalytic activity/Vol] 15 U/L 13-56 [facility] CO2 [Moles/Vol] 23.0 mmol/L 21.0-32.0 [facility] Globulin (S) [Mass/Vol] 3.5 g/dL 2.2-4.2 [facility] Magnesium [Mass/Vol] 2.2 mg/dL 1.6-2.6 [facility] Urea nitrogen/Creatinine [Mass ratio] 24.9 mg/mg 10-20 [facility] - Hematology and Cell countsOrdered By: Anastasia Weems on 04-30-2023 MCH (RBC) [Entitic mass] 29.9 pg 27.0-32.0 [facility] MCHC (RBC) [Mass/Vol] 33.7 g/dL 32-36 [facility] Nucleated RBC/100 WBC (Bld) [Ratio] 0 % 0-5 [facility] Platelets (Bld) [#/Vol] 190 10*3/uL 150-450 [facility] Low density lipoprotein (LDL ) cholesterol measurementOrdered By: Anastasia Weems on 04-30-2023 Cholesterol in LDL (Body fld) [Moles/Vol] 133 mg/dL 0-130 [facility] Mucus LM Ql (Urine sed)Order ed By: Anastasia Weems on 04-30-2023 Mucus Ql (Urine sed) 0 SEEN /hpf [facility] Nitrite Test strip Ql (U)Ord ered By: Anastasia Weems on 04-30-2023 Nitrite Ql (U) Negative Negative [facility] No Panel InformationOrdered By: Anastasia Weems on 04-30-2023 Estimated GFR (MDRD) Amer 70 mL/min >60 [facility] Comment on above: GFR Calc Estimated GFR (MDRD) Non-Af Amer 58 mL/min >60 [facility] Comment on above: Non- GFR Calc Urine RBC 0 SEEN /hpf 0-5 [facility] Vitamin D 25-Hydroxy 48.6 ng/mL [facility] Comment on above: Vitamin D 25(OH) Sta tus Range Deficiency <20 ng/mL (50nmol/L) Insufficiency 20 - 30 ng/mL (50 - 75 nmol/L) Sufficiency 30 - 100 ng/mL (75 - 250 nmol/L) Toxicity >100 ng/mL (>250 nmol/L) Platelet mean volume Fracisco-Ec ker (Bld) [Entitic vol]Ordered By: Anastasia Weems on 04-30-2023 Platelet mean volume (Bld) [Entitic vol] 12.6 fL 6.2-12.0 [facility] Protein Test strip Ql (U)Ord ered By: Anastasia Weems on 04-30-2023 Protein Ql (U) Negative Negative [facility] RBC Auto (Bld) [#/Vol]Ordere d By: Anastasia Weems on 04-30-2023 RBC (Bld) [#/Vol] 4.81 10*6/uL 4.2-5.4 [facility] Serum or plasma calcium rhys urement (mass/volume)Ordered By: Anastasia Weems on 04-30-2023 Calcium [Mass/Vol] 9.6 mg/dL 8.5-10.1 [facility] Serum or plasma creatinine m easurement (mass/volume)Ordered By: Anastasia Weems on 04-30-2023 Creatinine [Mass/Vol] 0.96 mg/dL 0.55-1.02 [facility] Comment on above: The validity of the calculated GFR & GFRAA in patients over 70 years has not been determined. Clinical correlation is essential. Serum or plasma thyroid stim ulating hormone (TSH) measurement (units/volume)Ordered By: Anastasia Weems on 04-30-2023 TSH Qn 2.14 uIU/mL 0.358-3.74 [facility] Serum or plasma urea nitroge n measurement (mass/volume)Ordered By: Anastasia Weems on 04-30-2023 Urea nitrogen [Mass/Vol] 24 mg/dL 7-18 [facility] Squamous epithelial cells de tection in urine sediment by light microscopyOrdered By: Anastasia Weems on 04-30-2023 Epithelial cells.squamous LM Ql (Urine sed) 5-10 SEEN /hpf 5-10 [facility] Thin prep Papanicolaou smear with manual screeningOrdered By: Anastasia Weems on 04-30-2023 Thin prep Papanicolaou smear with manual screening 3.6 g/dL 3.2-5.0 [facility] Thin prep Papanicolaou smear with manual screening 20 U/L 15-37 [facility] Thin prep Papanicolaou smear with manual screening 7 5-15 [facility] Urine blood detectionOrdered By: Anastasia Weems on 04-30-2023 RBC Ql (U) Negative Negative [facility] Urine clarityOrdered By: Rangel Weems on 04-30-2023 Clarity (U) Clear Clear [facility] Urine color determinationOrd ered By: Anastasia Weems on 04-30-2023 Color (U) Yellow Yellow [facility] Urine glucose detectionOrder ed By: Anastasia Weems on 04-30-2023 Glucose Ql (U) Normal mg/dl Normal [facility] Urine leukocyte esterase det ection by dipstickOrdered By: Anastasia Weems on 04-30-2023 Leukocyte esterase Test strip Ql (U) 100 /ul Negative [facility] Urine pHOrdered By: Anastasia bazan on 04-30-2023 pH (U) 5.0 [pH] 5.0 - 8.0 [facility] Urine sediment bacteria coun t by microscopy (number/high power field)Ordered By: Anastasia Weems on 04-30-2023 Bacteria LM.HPF (Urine sed) [#/Area] 0 /[HPF] None Seen [facility] Urine specific gravity measu rementOrdered By: Anastasia Weems on 04-30-2023 Specific gravity (U) [Rel density] 1.020 1.002-1.030 [facility] Urine urobilinogen measureme ntOrdered By: Anastasia Weems on 04-30-2023 Urobilinogen Ql (U) Normal mg/dl Normal [facility] Very low density lipoprotein (VLDL) cholesterol measurementOrdered By: Anastasia Weems on 04-30-2023 Cholesterol in VLDL Calc [Moles/Vol] 34 mg/dL 5-40 [facility] Whole blood hemoglobin A1c/t otal hemoglobin ratio (mass fraction)Ordered By: Anastasia Weems on 04-30-2023 HbA1c (Bld) [Mass fraction] 5.6 % 3.8-5.6 [facility] Comment on above: Normal < 5.7 % Predi abetic 5.7 - 6.4 % Diabetic >or= 6.5 % Please note range changes. Absolute lymphocyte countOrd ered By: Anastasia Weems on 02-24-2023 Lymphocytes Auto (Unsp spec) [#/Vol] 2.60 10*3/uL 0.83-4.51 [facility] Basophil percentageOrdered B y: Anastasia Weems on 02-24-2023 Basophil percentage 0-5 SEEN /hpf 0-5 [facility] Basophils/100 WBC (Bld) 0.8 % 0-1 [facility] Bilirubin [Mass/Vol] 0.50 mg/dL 0.20-1.00 [facility] Comment on above: For patients on eltr ombopag therapy, use of Dimension [place] TBIL is not recommended. Chloride [Moles/Vol] 107 mmol/L 98-107 [facility] Cholesterol [Mass/Vol] 189 mg/dL <200 [facility] Comment on above: <200 mg/dL Desirable 200-240 mg/dL Borderline >240 mg/dL High Risk Eosinophils/100 WBC (Bld) 2.9 % 0-5 [facility] Glucose [Mass/Vol] 103 mg/dL 74-106 [facility] Comment on above: Fasting Glucose resu lt from 100 to 125 mg/dL suggests IMPAIRED HOMEOSTASIS per A.D.A. criteria. Neutrophils (Bld) [#/Vol] 4.1 10*3/uL 2.0-7.7 [facility] Neutrophils/100 WBC (Bld) 53.7 % 47-70 [facility] Potassium [Moles/Vol] 3.9 mmol/L 3.5-5.1 [facility] Protein [Mass/Vol] 6.7 g/dL 6.4-8.2 [facility] Sodium [Moles/Vol] 140 mmol/L 136-145 [facility] Triglyceride [Mass/Vol] 144 mg/dL <199 [facility] Comment on above: The drugs N-Acetylcy steine and Metamizole may falsely depress this assay.Serum Triglycerides Reference Interval Normal <150 mg/dL Borderline high 150 - 199 mg/dL High 200 - 499 mg/dL Very High > or = 500 mg/dL WBC (Bld) [#/Vol] 7.7 10*3/uL 4.4-11.0 [facility] Bilirubin Test strip Ql (U)O rdered By: Anastasia Weems on 02-24-2023 Bilirubin Ql (U) Negative Negative [facility] Blood erythrocytes count (nu mber/volume)Ordered By: Anastasia Weems on 02-24-2023 RBC (Bld) [#/Vol] 4.64 10*6/uL 4.2-5.4 [facility] Blood hemoglobin measurement (mass/volume)Ordered By: Anastasia Weems on 02-24-2023 Hemoglobin (Bld) [Mass/Vol] 13.7 g/dL 12.0-15.0 [facility] Blood lymphocytes/100 leukoc ytesOrdered By: Anastasia Weems on 02-24-2023 Lymphocytes/100 WBC (Bld) 33.8 % 19-41 [facility] Blood monocytes/100 leukocyt esOrdered By: Anastasia Weems on 02-24-2023 Monocytes/100 WBC (Bld) 8.3 % 0-10 [facility] Blood platelet mean volumeOr dered By: Anastasia Weems on 02-24-2023 Platelet mean volume (Bld) [Entitic vol] 12.7 fL 6.2-12.0 [facility] Determination of erythrocyte mean corpuscular volume (MCV)Ordered By: Anastasia Weems on 02-24-2023 MCV (RBC) [Entitic vol] 90.9 fL 81-99 [facility] Hematocrit Auto (Bld) [Volum e fraction]Ordered By: Anastasia Weems on 02-24-2023 Hematocrit (Bld) [Volume fraction] 42.2 % 37-47 [facility] Ketones Test strip Ql (U)Ord ered By: Anastasia Weems on 02-24-2023 Ketones Ql (U) Negative Negative [facility] - Chemistry and C hemistry - challengeOrdered By: Anastasia Weems on 02-24-2023 ALP [Catalytic activity/Vol] 64 U/L 45-117 [facility] ALT [Catalytic activity/Vol] 15 U/L 13-56 [facility] CO2 [Moles/Vol] 25.0 mmol/L 21.0-32.0 [facility] Globulin (S) [Mass/Vol] 3.2 g/dL 2.2-4.2 [facility] Urea nitrogen/Creatinine [Mass ratio] 22.1 mg/mg 10-20 [facility] - Hematology and Cell countsOrdered By: Anastasia Weems on 02-24-2023 Erythrocyte distribution width (RBC) [Entitic vol] 43.9 fL 35.1-43.9 [facility] Erythrocyte distribution width (RBC) [Ratio] 13.2 % 11.6-14.6 [facility] Immature granulocytes/100 WBC (Bld) 0.500 % 0.0-0.9 [facility] Comment on above: IG% - Immature Granu locytes (promyelocytes, myelocytes and metamyelocytes) > 1% indicates that a LEFT SHIFT is Present. MCH (RBC) [Entitic mass] 29.5 pg 27.0-32.0 [facility] Nucleated RBC/100 WBC (Bld) [Ratio] 0 % 0-5 [facility] MCHC Auto (RBC) [Mass/Vol]Or dered By: Anastasia Weems on 02-24-2023 MCHC (RBC) [Mass/Vol] 32.5 g/dL 32-36 [facility] Mucus LM Ql (Urine sed)Order ed By: Anastasia Weems on 02-24-2023 Mucus Ql (Urine sed) 0 SEEN /hpf [facility] Nitrite Test strip Ql (U)Ord ered By: Anastasia Weems on 02-24-2023 Nitrite Ql (U) Negative Negative [facility] No Panel InformationOrdered By: Anastasia Weems on 02-24-2023 Estimated GFR (MDRD) Amer 76 mL/min >60 [facility] Comment on above: GFR Calc Estimated GFR (MDRD) Non-Af Amer 63 mL/min >60 [facility] Comment on above: Non- GFR Calc Thyroid Stimulating Hormone (TSH) 2.65 uIU/mL 0.358-3.74 [facility] Vitamin D 25-Hydroxy 61.9 ng/mL [facility] Comment on above: Vitamin D 25(OH) Sta tus Range Deficiency <20 ng/mL (50nmol/L) Insufficiency 20 - 30 ng/mL (50 - 75 nmol/L) Sufficiency 30 - 100 ng/mL (75 - 250 nmol/L) Toxicity >100 ng/mL (>250 nmol/L) Platelets bldOrdered By: Rangel Weems on 02-24-2023 Platelets (Bld) [#/Vol] 174 10*3/uL 150-450 [facility] Protein Test strip Ql (U)Ord ered By: Anastasia Weems on 02-24-2023 Protein Ql (U) Negative Negative [facility] Serum or plasma albumin rhys urement (mass/volume)Ordered By: Anastasia Weems on 02-24-2023 Albumin [Mass/Vol] 3.5 g/dL 3.2-5.0 [facility] Serum or plasma albumin/glob ulin mass ratioOrdered By: Anastasia Weems on 02-24-2023 Albumin/Globulin [Mass ratio] 1.1 {ratio} 0.9-2.4 [facility] Serum or plasma calcium rhys urement (mass/volume)Ordered By: Anastasia Weems on 02-24-2023 Calcium [Mass/Vol] 9.0 mg/dL 8.5-10.1 [facility] Serum or plasma cholesterol in HDL measurement (mass/volume)Ordered By: Anastasia Weems on 02-24-2023 Cholesterol in HDL [Mass/Vol] 51 mg/dL >40 [facility] Comment on above: The drugs N-Acetylcy steine and Metamizole may falsely depress this assay. Reference Range HDL <40 mg/dL Low HDL Cholesterol HDL >or= 60 mg/dL High HDL Cholesterol Serum or plasma cholesterol in VLDL measurement (mass/volume)Ordered By: Anastasia Weems on 02-24-2023 Cholesterol in VLDL [Mass/Vol] 29 mg/dL 5-40 [facility] Serum or plasma creatinine m easurement (mass/volume)Ordered By: Anastasia Weems on 02-24-2023 Creatinine [Mass/Vol] 0.90 mg/dL 0.55-1.02 [facility] Comment on above: The validity of the calculated GFR & GFRAA in patients over 70 years has not been determined. Clinical correlation is essential. Serum or plasma low density lipoprotein (LDL) cholesterol measurement (mass/volume)Ordered By: Anastasia Weems on 02-24-2023 Cholesterol in LDL [Mass/Vol] 109 mg/dL 0-130 [facility] Serum or plasma urea nitroge n measurement (mass/volume)Ordered By: Anastasia Weems on 02-24-2023 Urea nitrogen [Mass/Vol] 20 mg/dL 7-18 [facility] Squamous epithelial cells de tection in urine sediment by light microscopyOrdered By: Anastasia Weems on 02-24-2023 Epithelial cells.squamous LM Ql (Urine sed) 5-10 SEEN /hpf 5-10 [facility] Thin prep Papanicolaou smear with manual screeningOrdered By: Anastasia Weems on 02-24-2023 Thin prep Papanicolaou smear with manual screening 18 U/L 15-37 [facility] Thin prep Papanicolaou smear with manual screening 8 5-15 [facility] Urine blood detectionOrdered By: Anastasia Weems on 02-24-2023 RBC Ql (U) Negative Negative [facility] RBC Ql (U) 0 SEEN /hpf 0-5 [facility] Urine clarityOrdered By: Rangel Weems on 02-24-2023 Clarity (U) Clear Clear [facility] Urine color determinationOrd ered By: Anastasia Weems on 02-24-2023 Color (U) Yellow Yellow [facility] Urine glucose detectionOrder ed By: Anastasia Weems on 02-24-2023 Glucose Ql (U) Normal mg/dl Normal [facility] Urine leukocyte esterase det ection by dipstickOrdered By: Anastasia Weems on 02-24-2023 Leukocyte esterase Test strip Ql (U) 25 /ul Negative [facility] Urine pHOrdered By: Anastasia bazan on 02-24-2023 pH (U) 6.5 [pH] 5.0 - 8.0 [facility] Urine sediment bacteria coun t by microscopy (number/high power field)Ordered By: Anastasia Weems on 02-24-2023 Bacteria LM.HPF (Urine sed) [#/Area] 1 /[HPF] None Seen [facility] Urine specific gravity measu rementOrdered By: Anastasia Weems on 02-24-2023 Specific gravity (U) [Rel density] 1.015 1.002-1.030 [facility] Urobilinogen Auto test strip Ql (U)Ordered By: Anastasia Weems on 02-24-2023 Urobilinogen Ql (U) Normal mg/dl Normal [facility] Whole blood hemoglobin A1c/t otal hemoglobin ratio (mass fraction)Ordered By: Anastasia Weems on 02-24-2023 HbA1c (Bld) [Mass fraction] 5.7 % 3.8-5.6 [facility] Comment on above: Normal < 5.7 % Predi abetic 5.7 - 6.4 % Diabetic >or= 6.5 % Please note range changes. Absolute lymphocyte countOrd ered By: Aung Collazo on 02-17-2023 Lymphocytes Auto (Unsp spec) [#/Vol] 2.66 10*3/uL 0.83-4.51 [facility] Basophil percentageOrdered B y: Aung Collazo on 02-17-2023 Basophils/100 WBC (Bld) 0.8 % 0-1 [facility] Bilirubin [Mass/Vol] 0.40 mg/dL 0.20-1.00 [facility] Comment on above: For patients on eltr ombopag therapy, use of Dimension [place] TBIL is not recommended. Chloride [Moles/Vol] 107 mmol/L 98-107 [facility] Eosinophils/100 WBC (Bld) 2.0 % 0-5 [facility] Glucose [Mass/Vol] 135 mg/dL 74-106 [facility] Comment on above: Fasting Glucose resu lt greater than or equal to 126 mg/dL suggests DIABETES MELLITUS per A.D.A. criteria. LDH [Catalytic activity/Vol] 172 U/L 84-246 [facility] Neutrophils (Bld) [#/Vol] 4.0 10*3/uL 2.0-7.7 [facility] Neutrophils/100 WBC (Bld) 54.0 % 47-70 [facility] Potassium [Moles/Vol] 3.7 mmol/L 3.5-5.1 [facility] Protein [Mass/Vol] 7.2 g/dL 6.4-8.2 [facility] Sodium [Moles/Vol] 139 mmol/L 136-145 [facility] WBC (Bld) [#/Vol] 7.5 10*3/uL 4.4-11.0 [facility] Blood erythrocytes count (nu mber/volume)Ordered By: Aung Collazo on 02-17-2023 RBC (Bld) [#/Vol] 4.88 10*6/uL 4.2-5.4 [facility] Blood hemoglobin measurement (mass/volume)Ordered By: Aung Collazo on 02-17-2023 Hemoglobin (Bld) [Mass/Vol] 14.4 g/dL 12.0-15.0 [facility] Blood lymphocytes/100 leukoc ytesOrdered By: Aung Collazo on 02-17-2023 Lymphocytes/100 WBC (Bld) 35.7 % 19-41 [facility] Blood monocytes/100 leukocyt esOrdered By: Aung Collazo on 02-17-2023 Monocytes/100 WBC (Bld) 6.7 % 0-10 [facility] Blood platelet mean volumeOr dered By: Aung Collazo on 02-17-2023 Platelet mean volume (Bld) [Entitic vol] 12.6 fL 6.2-12.0 [facility] Determination of erythrocyte mean corpuscular volume (MCV)Ordered By: Aung Collazo on 02-17-2023 MCV (RBC) [Entitic vol] 89.5 fL 81-99 [facility] Hematocrit Auto (Bld) [Volum e fraction]Ordered By: Aung Collazo on 02-17-2023 Hematocrit (Bld) [Volume fraction] 43.7 % 37-47 [facility] Laboratory - Chemistry and C hemistry - challengeOrdered By: Aung Vale on 02-17-2023 ALP [Catalytic activity/Vol] 67 U/L 45-117 [facility] ALT [Catalytic activity/Vol] 18 U/L 13-56 [facility] CO2 [Moles/Vol] 27.0 mmol/L 21.0-32.0 [facility] Globulin (S) [Mass/Vol] 3.4 g/dL 2.2-4.2 [facility] Urea nitrogen/Creatinine [Mass ratio] 26.0 mg/mg 10-20 [facility] Laboratory - Hematology and Cell countsOrdered By: Aung Collazo on 02-17-2023 Erythrocyte distribution width (RBC) [Entitic vol] 42.7 fL 35.1-43.9 [facility] Erythrocyte distribution width (RBC) [Ratio] 13.1 % 11.6-14.6 [facility] Immature granulocytes/100 WBC (Bld) 0.800 % 0.0-0.9 [facility] Comment on above: IG% - Immature Granu locytes (promyelocytes, myelocytes and metamyelocytes) > 1% indicates that a LEFT SHIFT is Present. MCH (RBC) [Entitic mass] 29.5 pg 27.0-32.0 [facility] Nucleated RBC/100 WBC (Bld) [Ratio] 0 % 0-5 [facility] MCHC Auto (RBC) [Mass/Vol]Or dered By: Aung Collazo on 02-17-2023 MCHC (RBC) [Mass/Vol] 33.0 g/dL 32-36 [facility] No Panel InformationOrdered By: Aung Collazo on 02-17-2023 Estimated Creatinine Clearance Calc 34.87 ml/min [facility] Estimated GFR (MDRD) Amer 68 mL/min >60 [facility] Comment on above: GFR Calc Estimated GFR (MDRD) Non-Af Amer 56 mL/min >60 [facility] Comment on above: Non- GFR Calc Platelets bldOrdered By: Louie Collazo on 02-17-2023 Platelets (Bld) [#/Vol] 203 10*3/uL 150-450 [facility] Serum or plasma albumin rhys urement (mass/volume)Ordered By: Aung Collazo on 02-17-2023 Albumin [Mass/Vol] 3.8 g/dL 3.2-5.0 [facility] Serum or plasma albumin/glob ulin mass ratioOrdered By: Aung Collazo on 02-17-2023 Albumin/Globulin [Mass ratio] 1.1 {ratio} 0.9-2.4 [facility] Serum or plasma calcium rhys urement (mass/volume)Ordered By: Aung Collazo on 02-17-2023 Calcium [Mass/Vol] 9.3 mg/dL 8.5-10.1 [facility] Serum or plasma creatinine m easurement (mass/volume)Ordered By: Aung Collazo on 02-17-2023 Creatinine [Mass/Vol] 1.00 mg/dL 0.55-1.02 [facility] Comment on above: The validity of the calculated GFR & GFRAA in patients over 70 years has not been determined. Clinical correlation is essential. Serum or plasma urea nitroge n measurement (mass/volume)Ordered By: Aung Collazo on 02-17-2023 Urea nitrogen [Mass/Vol] 26 mg/dL 7-18 [facility] Thin prep Papanicolaou smear with manual screeningOrdered By: Aung Collazo on 02-17-2023 Thin prep Papanicolaou smear with manual screening 16 U/L 15-37 [facility] Thin prep Papanicolaou smear with manual screening 5 5-15 [facility] Basophil percentageOrdered B y: Anastasia Weems on 02-03-2023 Creatinine [Mass/Vol] 1.1 mg/dL 0.55-1.02 [facility] Laboratory - Chemistry and C hemistry - challengeOrdered By: Anastasia Weems on 02-03-2023 GFR/1.73 sq M.predicted among non-blacks MDRD (S/P/Bld) [Vol rate/Area] 49.0000 mL/min/{1.73_m2} >60 [facility] Absolute lymphocyte countOrd ered By: Dr. Weems on 05-20-2022 Lymphocytes Auto (Unsp spec) [#/Vol] 2.74 10*3/uL 0.83-4.51 [facility] Basophil percentageOrdered B y: Dr. Weems on 05-20-2022 Basophil percentage 0-5 SEEN /hpf 0-5 [facility] Basophils/100 WBC (Bld) 0.9 % 0-1 [facility] Bilirubin [Mass/Vol] 1.00 mg/dL 0.20-1.00 [facility] Comment on above: For patients on eltr ombopag therapy, use of Dimension [place] TBIL is not recommended. Chloride [Moles/Vol] 108 mmol/L 98-107 [facility] Eosinophils/100 WBC (Bld) 3.0 % 0-5 [facility] Glucose [Mass/Vol] 99 mg/dL 74-106 [facility] Neutrophils (Bld) [#/Vol] 4.1 10*3/uL 2.0-7.7 [facility] Neutrophils/100 WBC (Bld) 53.4 % 47-70 [facility] Potassium [Moles/Vol] 3.6 mmol/L 3.5-5.1 [facility] Protein [Mass/Vol] 7.2 g/dL 6.4-8.2 [facility] Sodium [Moles/Vol] 141 mmol/L 136-145 [facility] WBC (Bld) [#/Vol] 7.7 10*3/uL 4.4-11.0 [facility] Bilirubin Test strip Ql (U)O rdered By: Dr. Weems on 05-20-2022 Bilirubin Ql (U) Negative Negative [facility] Blood erythrocytes count (nu mber/volume)Ordered By: Dr. Weems on 05-20-2022 RBC (Bld) [#/Vol] 4.79 10*6/uL 4.2-5.4 [facility] Blood hemoglobin measurement (mass/volume)Ordered By: Dr. Weems on 05-20-2022 Hemoglobin (Bld) [Mass/Vol] 14.5 g/dL 12.0-15.0 [facility] Blood lymphocytes/100 leukoc ytesOrdered By: Dr. Weems on 05-20-2022 Lymphocytes/100 WBC (Bld) 35.6 % 19-41 [facility] Blood monocytes/100 leukocyt esOrdered By: Dr. Weems on 05-20-2022 Monocytes/100 WBC (Bld) 6.8 % 0-10 [facility] Blood platelet mean volumeOr dered By: Dr. Weems on 05-20-2022 Platelet mean volume (Bld) [Entitic vol] 12.5 fL 6.2-12.0 [facility] Determination of erythrocyte mean corpuscular volume (MCV)Ordered By: Dr. Weems on 05-20-2022 MCV (RBC) [Entitic vol] 88.7 fL 81-99 [facility] Hematocrit Auto (Bld) [Volum e fraction]Ordered By: Dr. Weems on 05-20-2022 Hematocrit (Bld) [Volume fraction] 42.5 % 37-47 [facility] Ketones Test strip Ql (U)Ord ered By: Dr. Weems on 05-20-2022 Ketones Ql (U) Negative Negative [facility] Laboratory - Chemistry and C hemistry - challengeOrdered By: Dr. Weems on 05-20-2022 ALP [Catalytic activity/Vol] 67 U/L 45-117 [facility] ALT [Catalytic activity/Vol] 19 U/L 13-56 [facility] CO2 [Moles/Vol] 25.0 mmol/L 21.0-32.0 [facility] Globulin (S) [Mass/Vol] 3.5 g/dL 2.2-4.2 [facility] Urea nitrogen/Creatinine [Mass ratio] 25.2 mg/mg 10-20 [facility] Laboratory - Hematology and Cell countsOrdered By: Dr. Weems on 05-20-2022 Erythrocyte distribution width (RBC) [Entitic vol] 40.7 fL 35.1-43.9 [facility] Erythrocyte distribution width (RBC) [Ratio] 12.3 % 11.6-14.6 [facility] Immature granulocytes/100 WBC (Bld) 0.300 % 0.0-0.9 [facility] Comment on above: IG% - Immature Granu locytes (promyelocytes, myelocytes and metamyelocytes) > 1% indicates that a LEFT SHIFT is Present. MCH (RBC) [Entitic mass] 30.3 pg 27.0-32.0 [facility] Nucleated RBC/100 WBC (Bld) [Ratio] 0 % 0-5 [facility] MCHC Auto (RBC) [Mass/Vol]Or dered By: Dr. Weems on 05-20-2022 MCHC (RBC) [Mass/Vol] 34.1 g/dL 32-36 [facility] Mucus LM Ql (Urine sed)Order ed By: Dr. Weems on 05-20-2022 Mucus Ql (Urine sed) 0 SEEN /hpf [facility] Nitrite Test strip Ql (U)Ord ered By: Dr. Weems on 05-20-2022 Nitrite Ql (U) Negative Negative [facility] No Panel InformationOrdered By: Dr. Weems on 05-20-2022 Estimated GFR (MDRD) Amer 75 mL/min >60 [facility] Comment on above: GFR Calc Estimated GFR (MDRD) Non-Af Amer 62 mL/min >60 [facility] Comment on above: Non- GFR Calc Vitamin D 25-Hydroxy 54.4 ng/mL [facility] Comment on above: Vitamin D 25(OH) Sta tus Range Deficiency <20 ng/mL (50nmol/L) Insufficiency 20 - 30 ng/mL (50 - 75 nmol/L) Sufficiency 30 - 100 ng/mL (75 - 250 nmol/L) Toxicity >100 ng/mL (>250 nmol/L) Platelets bldOrdered By: Dr. Weems on 05-20-2022 Platelets (Bld) [#/Vol] 177 10*3/uL 150-450 [facility] Protein Test strip Ql (U)Ord ered By: Dr. Weems on 05-20-2022 Protein Ql (U) Negative Negative [facility] Serum or plasma albumin rhys urement (mass/volume)Ordered By: Dr. Weems on 05-20-2022 Albumin [Mass/Vol] 3.7 g/dL 3.2-5.0 [facility] Serum or plasma albumin/glob ulin mass ratioOrdered By: Dr. Weems on 05-20-2022 Albumin/Globulin [Mass ratio] 1.1 {ratio} 0.9-2.4 [facility] Serum or plasma calcium rhys urement (mass/volume)Ordered By: Dr. Weems on 05-20-2022 Calcium [Mass/Vol] 9.1 mg/dL 8.5-10.1 [facility] Serum or plasma creatinine m easurement (mass/volume)Ordered By: Dr. Weems on 05-20-2022 Creatinine [Mass/Vol] 0.91 mg/dL 0.55-1.02 [facility] Comment on above: The validity of the calculated GFR & GFRAA in patients over 70 years has not been determined. Clinical correlation is essential. Serum or plasma urea nitroge n measurement (mass/volume)Ordered By: Dr. Weems on 05-20-2022 Urea nitrogen [Mass/Vol] 23 mg/dL 7-18 [facility] Squamous epithelial cells de tection in urine sediment by light microscopyOrdered By: Dr. Weems on 05-20-2022 Epithelial cells.squamous LM Ql (Urine sed) 0-5 SEEN /hpf 5-10 [facility] Thin prep Papanicolaou smear with manual screeningOrdered By: Dr. Weems on 05-20-2022 Thin prep Papanicolaou smear with manual screening 21 U/L 15-37 [facility] Thin prep Papanicolaou smear with manual screening 8 5-15 [facility] Urine blood detectionOrdered By: Dr. Weems on 05-20-2022 RBC Ql (U) Negative Negative [facility] RBC Ql (U) 0 SEEN /hpf 0-5 [facility] Urine clarityOrdered By: Dr. Weems on 05-20-2022 Clarity (U) Sl. Cloudy Clear [facility] Urine color determinationOrd ered By: Dr. Weems on 05-20-2022 Color (U) Yellow Yellow [facility] Urine glucose detectionOrder ed By: Dr. Weems on 05-20-2022 Glucose Ql (U) Normal mg/dl Normal [facility] Urine leukocyte esterase det ection by dipstickOrdered By: Dr. Weems on 05-20-2022 Leukocyte esterase Test strip Ql (U) 25 /ul Negative [facility] Urine pHOrdered By: Dr. Pebbles sigala on 05-20-2022 pH (U) 5.0 [pH] 5.0 - 8.0 [facility] Urine sediment bacteria coun t by microscopy (number/high power field)Ordered By: Dr. Weems on 05-20-2022 Bacteria LM.HPF (Urine sed) [#/Area] 1 /[HPF] None Seen [facility] Urine specific gravity measu rementOrdered By: Dr. Weems on 05-20-2022 Specific gravity (U) [Rel density] 1.015 1.002-1.030 [facility] Urobilinogen Auto test strip Ql (U)Ordered By: Dr. Weems on 05-20-2022 Urobilinogen Ql (U) Normal mg/dl Normal [facility] Whole blood hemoglobin A1c/t otal hemoglobin ratio (mass fraction)Ordered By: Dr. Weems on 05-20-2022 HbA1c (Bld) [Mass fraction] 6.1 % 3.8-5.6 [facility] Comment on above: Normal < 5.7 % Predi abetic 5.7 - 6.4 % Diabetic >or= 6.5 % Please note range changes. Absolute lymphocyte countOrd ered By: Dr. Collazo on 02-20-2022 Lymphocytes Auto (Unsp spec) [#/Vol] 2.76 10*3/uL 0.83-4.51 [facility] Basophil percentageOrdered B y: Dr. Collazo on 02-20-2022 Basophils/100 WBC (Bld) 0.8 % 0-1 [facility] Bilirubin [Mass/Vol] 0.40 mg/dL 0.20-1.00 [facility] Comment on above: For patients on eltr ombopag therapy, use of Dimension [place] TBIL is not recommended. Chloride [Moles/Vol] 108 mmol/L 98-107 [facility] Eosinophils/100 WBC (Bld) 4.2 % 0-5 [facility] Glucose [Mass/Vol] 77 mg/dL 74-106 [facility] Neutrophils (Bld) [#/Vol] 3.8 10*3/uL 2.0-7.7 [facility] Neutrophils/100 WBC (Bld) 49.4 % 47-70 [facility] Potassium [Moles/Vol] 4.1 mmol/L 3.5-5.1 [facility] Protein [Mass/Vol] 7.9 g/dL 6.4-8.2 [facility] Sodium [Moles/Vol] 140 mmol/L 136-145 [facility] WBC (Bld) [#/Vol] 7.8 10*3/uL 4.4-11.0 [facility] Blood erythrocytes count (nu mber/volume)Ordered By: Dr. Collazo on 02-20-2022 RBC (Bld) [#/Vol] 4.95 10*6/uL 4.2-5.4 [facility] Blood hemoglobin measurement (mass/volume)Ordered By: Dr. Collazo on 02-20-2022 Hemoglobin (Bld) [Mass/Vol] 14.9 g/dL 12.0-15.0 [facility] Blood lymphocytes/100 leukoc ytesOrdered By: Dr. Collazo on 02-20-2022 Lymphocytes/100 WBC (Bld) 35.5 % 19-41 [facility] Blood monocytes/100 leukocyt esOrdered By: Dr. Collazo on 02-20-2022 Monocytes/100 WBC (Bld) 9.7 % 0-10 [facility] Blood platelet mean volumeOr dered By: Dr. Collazo on 02-20-2022 Platelet mean volume (Bld) [Entitic vol] 12.2 fL 6.2-12.0 [facility] Determination of erythrocyte mean corpuscular volume (MCV)Ordered By: Dr. Collazo on 02-20-2022 MCV (RBC) [Entitic vol] 88.9 fL 81-99 [facility] Hematocrit Auto (Bld) [Volum e fraction]Ordered By: Dr. Collazo on 02-20-2022 Hematocrit (Bld) [Volume fraction] 44.0 % 37-47 [facility] Laboratory - Chemistry and C hemistry - challengeOrdered By: Dr. Collazo on 02-20-2022 ALP [Catalytic activity/Vol] 79 U/L 45-117 [facility] ALT [Catalytic activity/Vol] 24 U/L 13-56 [facility] CO2 [Moles/Vol] 28.0 mmol/L 21.0-32.0 [facility] Globulin (S) [Mass/Vol] 3.9 g/dL 2.2-4.2 [facility] Urea nitrogen/Creatinine [Mass ratio] 17.3 mg/mg 10-20 [facility] Laboratory - Hematology and Cell countsOrdered By: Dr. Collazo on 02-20-2022 Erythrocyte distribution width (RBC) [Entitic vol] 40.2 fL 35.1-43.9 [facility] Erythrocyte distribution width (RBC) [Ratio] 12.4 % 11.6-14.6 [facility] Immature granulocytes/100 WBC (Bld) 0.400 % 0.0-0.9 [facility] Comment on above: IG% - Immature Granu locytes (promyelocytes, myelocytes and metamyelocytes) > 1% indicates that a LEFT SHIFT is Present. MCH (RBC) [Entitic mass] 30.1 pg 27.0-32.0 [facility] Nucleated RBC/100 WBC (Bld) [Ratio] 0 % 0-5 [facility] MCHC Auto (RBC) [Mass/Vol]Or dered By: Dr. Collazo on 02-20-2022 MCHC (RBC) [Mass/Vol] 33.9 g/dL 32-36 [facility] No Panel InformationOrdered By: Dr. Collazo on 02-20-2022 Estimated Creatinine Clearance Calc 36.24 ml/min [facility] Estimated GFR (MDRD) Amer 69 mL/min >60 [facility] Comment on above: GFR Calc Estimated GFR (MDRD) Non-Af Amer 57 mL/min >60 [facility] Comment on above: Non- GFR Calc Platelets bldOrdered By: Dr. Collazo on 02-20-2022 Platelets (Bld) [#/Vol] 195 10*3/uL 150-450 [facility] Serum or plasma C reactive p rotein measurement (mass/volume)Ordered By: Dr. Collazo on 02-20-2022 CRP [Mass/Vol] 4.28 mg/L 0.0-3.0 [facility] Comment on above: C-Reactive Protein ( CRP) provides useful information for thediagnosis, therapy and monitoring of inflammatory processesand associated diseases. For the evaluation of Relative Riskfor Cardiovascular Disease, a High Sensitivity CRP (HSCRP)should be ordered. Serum or plasma albumin rhys urement (mass/volume)Ordered By: Dr. Collazo on 02-20-2022 Albumin [Mass/Vol] 4.0 g/dL 3.2-5.0 [facility] Serum or plasma albumin/glob ulin mass ratioOrdered By: Dr. Collazo on 02-20-2022 Albumin/Globulin [Mass ratio] 1.0 {ratio} 0.9-2.4 [facility] Serum or plasma calcium rhys urement (mass/volume)Ordered By: Dr. Collazo on 02-20-2022 Calcium [Mass/Vol] 10.3 mg/dL 8.5-10.1 [facility] Serum or plasma creatinine m easurement (mass/volume)Ordered By: Dr. Collazo on 02-20-2022 Creatinine [Mass/Vol] 0.98 mg/dL 0.55-1.02 [facility] Comment on above: The validity of the calculated GFR & GFRAA in patients over 70 years has not been determined. Clinical correlation is essential. Serum or plasma urea nitroge n measurement (mass/volume)Ordered By: Dr. Collazo on 02-20-2022 Urea nitrogen [Mass/Vol] 17 mg/dL 7-18 [facility] Thin prep Papanicolaou smear with manual screeningOrdered By: Dr. Collazo on 02-20-2022 Thin prep Papanicolaou smear with manual screening 22 U/L 15-37 [facility] Thin prep Papanicolaou smear with manual screening 4 5-15 [facility] Thin prep Papanicolaou smear with manual screening 187 U/L 84-246 [facility] Absolute lymphocyte counton 01-21-2022 Lymphocytes Auto (Unsp spec) [#/Vol] 2.47 10*3/uL 0.83-4.51 [facility] Work Phone: Basophil percentageon 2021 Basophils/100 WBC (Bld) 1.0 % 0-1 [facility] Work Phone: Bilirubin [Mass/Vol] 0.40 mg/dL 0.20-1.00 [facility] Work Phone: Comment on above: For patients on eltr ombopag therapy, use of Dimension [place] TBIL is not recommended. Chloride [Moles/Vol] 106 mmol/L 98-107 [facility] Work Phone: Eosinophils/100 WBC (Bld) 3.7 % 0-5 [facility] Work Phone: Glucose [Mass/Vol] 102 mg/dL 74-106 [facility] Work Phone: Comment on above: Fasting Glucose resu lt from 100 to 125 mg/dL suggests IMPAIRED HOMEOSTASIS per A.D.A. criteria. Neutrophils (Bld) [#/Vol] 3.3 10*3/uL 2.0-7.7 [facility] Work Phone: Neutrophils/100 WBC (Bld) 49.5 % 47-70 [facility] Work Phone: Potassium [Moles/Vol] 3.9 mmol/L 3.5-5.1 [facility] Work Phone: Protein [Mass/Vol] 7.2 g/dL 6.4-8.2 [facility] Work Phone: Sodium [Moles/Vol] 140 mmol/L 136-145 [facility] Work Phone: WBC (Bld) [#/Vol] 6.7 10*3/uL 4.4-11.0 [facility] Work Phone: Basophil percentage 0-5 SEEN /hpf 0-5 [facility] Work Phone: Bilirubin Test strip Ql (U)o n 01-21-2022 Bilirubin Ql (U) Negative Negative [facility] Work Phone: Blood erythrocytes count (nu mber/volume)on 01-21-2022 RBC (Bld) [#/Vol] 4.65 10*6/uL 4.2-5.4 [facility] Work Phone: Blood hemoglobin measurement (mass/volume)on 01-21-2022 Hemoglobin (Bld) [Mass/Vol] 14.4 g/dL 12.0-15.0 [facility] Work Phone: Blood lymphocytes/100 leukoc yteson 01-21-2022 Lymphocytes/100 WBC (Bld) 36.9 % 19-41 [facility] Work Phone: Blood monocytes/100 leukocyt eson 01-21-2022 Monocytes/100 WBC (Bld) 8.5 % 0-10 [facility] Work Phone: Blood platelet mean volumeon 01-21-2022 Platelet mean volume (Bld) [Entitic vol] 12.7 fL 6.2-12.0 [facility] Work Phone: Determination of erythrocyte mean corpuscular volume (MCV)on 01-21-2022 MCV (RBC) [Entitic vol] 92.3 fL 81-99 [facility] Work Phone: Hematocrit Auto (Bld) [Volum e fraction]on 01-21-2022 Hematocrit (Bld) [Volume fraction] 42.9 % 37-47 [facility] Work Phone: Ketones Test strip Ql (U)on 01-21-2022 Ketones Ql (U) Negative Negative [facility] Work Phone: Laboratory - Chemistry and C hemistry - challengeon 01-21-2022 ALP [Catalytic activity/Vol] 69 U/L 45-117 [facility] Work Phone: [phone] ALT [Catalytic activity/Vol] 24 U/L 13-56 [facility] Work Phone: [phone] CO2 [Moles/Vol] 25.0 mmol/L 21.0-32.0 [facility] Work Phone: [phone] Globulin (S) [Mass/Vol] 3.8 g/dL 2.2-4.2 [facility] Work Phone: [phone] Urea nitrogen/Creatinine [Mass ratio] 21.1 mg/mg 10-20 [facility] Work Phone: [phone] Laboratory - Hematology and Cell countson 01-21-2022 Erythrocyte distribution width (RBC) [Entitic vol] 42.9 fL 35.1-43.9 [facility] Work Phone: [phone] Erythrocyte distribution width (RBC) [Ratio] 12.8 % 11.6-14.6 [facility] Work Phone: [phone] Immature granulocytes/100 WBC (Bld) 0.400 % 0.0-0.9 [facility] Work Phone: [phone] Comment on above: IG% - Immature Granu locytes (promyelocytes, myelocytes and metamyelocytes) > 1% indicates that a LEFT SHIFT is Present. MCH (RBC) [Entitic mass] 31.0 pg 27.0-32.0 [facility] Work Phone: [phone] Nucleated RBC/100 WBC (Bld) [Ratio] 0 % 0-5 [facility] Work Phone: [phone] MCHC Auto (RBC) [Mass/Vol]on 01-21-2022 MCHC (RBC) [Mass/Vol] 33.6 g/dL 32-36 [facility] Work Phone: [phone] Mucus LM Ql (Urine sed)on Mucus Ql (Urine sed) 0 SEEN /hpf [facility] Work Phone: [phone] Nitrite Test strip Ql (U)on 01-21-2022 Nitrite Ql (U) Negative Negative [facility] Work Phone: No Panel Informationon 01-21 Estimated GFR (MDRD) Amer 72 mL/min >60 [facility] Work Phone: Comment on above: GFR Calc Estimated GFR (MDRD) Non-Af Amer 60 mL/min >60 [facility] Work Phone: Comment on above: Non- GFR Calc Vitamin D 25-Hydroxy 53.8 ng/mL [facility] Work Phone: Comment on above: Vitamin D 25(OH) Sta tus Range Deficiency <20 ng/mL (50nmol/L) Insufficiency 20 - 30 ng/mL (50 - 75 nmol/L) Sufficiency 30 - 100 ng/mL (75 - 250 nmol/L) Toxicity >100 ng/mL (>250 nmol/L) Platelets bldon 01-21-2022 Platelets (Bld) [#/Vol] 171 10*3/uL 150-450 [facility] Work Phone: Protein Test strip Ql (U)on 01-21-2022 Protein Ql (U) Negative Negative [facility] Work Phone: Serum or plasma albumin rhys urement (mass/volume)on 01-21-2022 Albumin [Mass/Vol] 3.4 g/dL 3.2-5.0 [facility] Work Phone: Serum or plasma albumin/glob ulin mass ratioon 01-21-2022 Albumin/Globulin [Mass ratio] 0.9 {ratio} 0.9-2.4 [facility] Work Phone: Serum or plasma calcium rhys urement (mass/volume)on 01-21-2022 Calcium [Mass/Vol] 9.1 mg/dL 8.5-10.1 [facility] Work Phone: Serum or plasma creatinine m easurement (mass/volume)on 01-21-2022 Creatinine [Mass/Vol] 0.95 mg/dL 0.55-1.02 [facility] Work Phone: Comment on above: The validity of the calculated GFR & GFRAA in patients over 70 years has not been determined. Clinical correlation is essential. Serum or plasma urea nitroge n measurement (mass/volume)on 01-21-2022 Urea nitrogen [Mass/Vol] 20 mg/dL 7-18 [facility] Work Phone: Squamous epithelial cells de tection in urine sediment by light microscopyon 01-21-2022 Epithelial cells.squamous LM Ql (Urine sed) 0-5 SEEN /hpf 5-10 [facility] Work Phone: Thin prep Papanicolaou smear with manual screeningon 01-21-2022 Thin prep Papanicolaou smear with manual screening 24 U/L 15-37 [facility] Work Phone: Thin prep Papanicolaou smear with manual screening 9 5-15 [facility] Work Phone: Urine blood detectionon 01-12 RBC Ql (U) Negative Negative [facility] Work Phone: RBC Ql (U) 0 SEEN /hpf 0-5 [facility] Work Phone: Urine clarityon 01-21-2022 Clarity (U) Clear Clear [facility] Work Phone: Urine color determinationon 01-21-2022 Color (U) Yellow Yellow [facility] Work Phone: Urine glucose detectionon Glucose Ql (U) Normal mg/dl Normal [facility] Work Phone: Urine leukocyte esterase det ection by dipstickon 01-21-2022 Leukocyte esterase Test strip Ql (U) 25 /ul Negative [facility] Work Phone: Urine pHon 01-21-2022 pH (U) 6.5 [pH] 5.0 - 8.0 [facility] Work Phone: Urine sediment bacteria coun t by microscopy (number/high power field)on 01-21-2022 Bacteria LM.HPF (Urine sed) [#/Area] 1 /[HPF] None Seen [facility] Work Phone: Urine specific gravity measu rementon 01-21-2022 Specific gravity (U) [Rel density] 1.015 1.002-1.030 [facility] Work Phone: Urobilinogen Auto test strip Ql (U)on 01-21-2022 Urobilinogen Ql (U) Normal mg/dl Normal [facility] Work Phone: Whole blood hemoglobin A1c/t otal hemoglobin ratio (mass fraction)on 01-21-2022 HbA1c (Bld) [Mass fraction] 5.9 % 3.8-5.6 [facility] Work Phone: Comment on above: Normal < 5.7 % Predi abetic 5.7 - 6.4 % Diabetic >or= 6.5 % Please note range changes. Absolute lymphocyte counton 09-18-2021 Lymphocytes Auto (Unsp spec) [#/Vol] 2.70 10*3/uL 0.83-4.51 [facility] Work Phone: Basophil percentageon 2021 Basophils/100 WBC (Bld) 1.2 % 0-1 [facility] Work Phone: Bilirubin [Mass/Vol] 0.50 mg/dL 0.20-1.00 [facility] Work Phone: Comment on above: For patients on eltr ombopag therapy, use of Dimension [place] TBIL is not recommended. Chloride [Moles/Vol] 108 mmol/L 98-107 [facility] Work Phone: Eosinophils/100 WBC (Bld) 3.9 % 0-5 [facility] Work Phone: Glucose [Mass/Vol] 119 mg/dL 74-106 [facility] Work Phone: Comment on above: Fasting Glucose resu lt from 100 to 125 mg/dL suggests IMPAIRED HOMEOSTASIS per A.D.A. criteria. Neutrophils (Bld) [#/Vol] 3.0 10*3/uL 2.0-7.7 [facility] Work Phone: Neutrophils/100 WBC (Bld) 44.7 % 47-70 [facility] Work Phone: Potassium [Moles/Vol] 3.7 mmol/L 3.5-5.1 [facility] Work Phone: Protein [Mass/Vol] 7.3 g/dL 6.4-8.2 [facility] Work Phone: Sodium [Moles/Vol] 138 mmol/L 136-145 [facility] Work Phone: WBC (Bld) [#/Vol] 6.6 10*3/uL 4.4-11.0 [facility] Work Phone: Blood erythrocytes count (nu mber/volume)on 09-18-2021 RBC (Bld) [#/Vol] 4.75 10*6/uL 4.2-5.4 [facility]: Blood hemoglobin measurement (mass/volume)on 09-18-2021 Hemoglobin (Bld) [Mass/Vol] 14.4 g/dL 12.0-15.0 [facility] Work Phone: Blood lymphocytes/100 leukoc yteson 09-18-2021 Lymphocytes/100 WBC (Bld) 40.7 % 19-41 [facility] Work Phone: Blood monocytes/100 leukocyt eson 09-18-2021 Monocytes/100 WBC (Bld) 9.0 % 0-10 [facility] Work Phone: Blood platelet mean volumeon 09-18-2021 Platelet mean volume (Bld) [Entitic vol] 13.0 fL 6.2-12.0 [facility] Work Phone: Determination of erythrocyte mean corpuscular volume (MCV)on 09-18-2021 MCV (RBC) [Entitic vol] 90.9 fL 81-99 [facility] Work Phone: Hematocrit Auto (Bld) [Volum e fraction]on 09-18-2021 Hematocrit (Bld) [Volume fraction] 43.2 % 37-47 [facility] Work Phone: Laboratory - Chemistry and C hemistry - challengeon 09-18-2021 ALP [Catalytic activity/Vol] 65 U/L 45-117 [facility] Work Phone: [phone] ALT [Catalytic activity/Vol] 24 U/L 13-56 [facility] Work Phone: [phone] CO2 [Moles/Vol] 21.0 mmol/L 21.0-32.0 [facility] Work Phone: [phone] Globulin (S) [Mass/Vol] 3.6 g/dL 2.2-4.2 [facility] Work Phone: [phone] Urea nitrogen/Creatinine [Mass ratio] 29.2 mg/mg 10-20 [facility] Work Phone: [phone] Laboratory - Hematology and Cell countson 09-18-2021 Erythrocyte distribution width (RBC) [Entitic vol] 41.5 fL 35.1-43.9 [facility] Work Phone: [phone] Erythrocyte distribution width (RBC) [Ratio] 12.6 % 11.6-14.6 [facility] Work Phone: [phone] Immature granulocytes/100 WBC (Bld) 0.500 % 0.0-0.9 [facility] Work Phone: [phone] Comment on above: IG% - Immature Granu locytes (promyelocytes, myelocytes and metamyelocytes) > 1% indicates that a LEFT SHIFT is Present. MCH (RBC) [Entitic mass] 30.3 pg 27.0-32.0 [facility] Work Phone: [phone] Nucleated RBC/100 WBC (Bld) [Ratio] 0 % 0-5 [facility] Work Phone: [phone] MCHC Auto (RBC) [Mass/Vol]on 09-18-2021 MCHC (RBC) [Mass/Vol] 33.3 g/dL 32-36 [facility] Work Phone: No Panel Informationon 09-18 Estimated GFR (MDRD) Amer 71 mL/min >60 [facility] Work Phone: Comment on above: GFR Calc Estimated GFR (MDRD) Non-Af Amer 59 mL/min >60 [facility] Work Phone: Comment on above: Non- GFR Calc Vitamin D 25-Hydroxy 86.4 ng/mL [facility] Work Phone: Comment on above: Vitamin D 25(OH) Sta tus Range Deficiency <20 ng/mL (50nmol/L) Insufficiency 20 - 30 ng/mL (50 - 75 nmol/L) Sufficiency 30 - 100 ng/mL (75 - 250 nmol/L) Toxicity >100 ng/mL (>250 nmol/L) Platelets bldon 09-18-2021 Platelets (Bld) [#/Vol] 173 10*3/uL 150-450 [facility] Work Phone: Serum or plasma albumin rhys urement (mass/volume)on 09-18-2021 Albumin [Mass/Vol] 3.7 g/dL 3.2-5.0 [facility] Work Phone: Serum or plasma albumin/glob ulin mass ratioon 09-18-2021 Albumin/Globulin [Mass ratio] 1.0 {ratio} 0.9-2.4 [facility] Work Phone: Serum or plasma calcium rhys urement (mass/volume)on 09-18-2021 Calcium [Mass/Vol] 9.3 mg/dL 8.5-10.1 [facility] Work Phone: Serum or plasma creatinine m easurement (mass/volume)on 09-18-2021 Creatinine [Mass/Vol] 0.96 mg/dL 0.55-1.02 [facility] Work Phone: Comment on above: The validity of the calculated GFR & GFRAA in patients over 70 years has not been determined. Clinical correlation is essential. Serum or plasma urea nitroge n measurement (mass/volume)on 09-18-2021 Urea nitrogen [Mass/Vol] 28 mg/dL 7-18 [facility] Work Phone: Thin prep Papanicolaou smear with manual screeningon 09-18-2021 Thin prep Papanicolaou smear with manual screening 24 U/L 15-37 [facility] Work Phone: Thin prep Papanicolaou smear with manual screening 9 5-15 [facility] Work Phone: Whole blood hemoglobin A1c/t otal hemoglobin ratio (mass fraction)on 09-18-2021 HbA1c (Bld) [Mass fraction] 5.9 % 3.8-5.6 [facility] Work Phone: Comment on above: Normal < 5.7 % Predi abetic 5.7 - 6.4 % Diabetic >or= 6.5 % Please note range changes. PROGRESSon 09-04-2017 PROGRESS HNO ID: [id number]: Wilbert HoService: (none)Author Type: PsychologistType: Progress NotesFiled: 09/04/2017 5:11 PMNote Text:[facility] HealthProgress Ibrahima Urbinaer09/04/[id number] 7Provider: Wilbert Ho, PHDCPT Code: 01009 Psychiatric diagnostic evaluationTime: Approximately 50 minutes was spent in therapy.Parties Present: PatientPatient Presentation/Concerns: INITIAL VISIT RE Spinal Cord StimualtorI have seen Ms. Robin today regarding a Spinal Cord Stimulator. She hashad back pain for many years. Calvin has had Surgery, Physical Therapy,shots, Chiropractic, and currently she has progressed incrementally to apoint where she now has periodic overwhelming pain. She has a eflowport system and is well aware of the likely consequences of thisprocedure. In my professional opinion, she is a good candidate for thisprocedure. It would be worth it to her if she can take the edge off ofher pain and move about more productively.Pt [place] ... mom didnt treat her well... 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 w 5 childrenboth knees replaced and currently a cyst behind rt kneept and husb try to stay active... [place] lived [place] thenreturned to the area to help take care of family member and they havesince passedMental Status:Mood: variable, irritable, painAffect: mood-congruentThoughts /Associations:goal directedSuicidal/Homic idal Ideation: None expressed or evidencedOther Observations: NoneTherapy FocusSelf-care and Coping with chronic illnessMEDICATIONS:Per medical record:No current outpatient prescriptions on file.No current facility-administered medications for this visit.Psychiatric Medication Issues: see med recordDIAGNOSIS:[place] I:Chronic painAxis II: deferredAxis III: see med recordAxis IV: chronic painAxis V: 53Treatment Modality/Interventions :Cognitive BehavioralReassurance/ SupportiveTREATMENT ASSESSMENT/PROGRESS:. Fluctuating progress.TREATMENT PLAN/GOALS: Continue in therapy focusing on self-care andcoping with chronic pain.Next appointment: None scheduled. Pt wiill call if issues arise.Wilbert Ho, PHD Normal [facility] Vital Signs Date Time Vital Sign Value Performing Clinician Faci lity 09-02-2024 07:53-0400 Body temperature 97.9 [degF] Dr. Anastasia Weems MD Work Phone: [facility] 09-02-2024 07:53-0400 Diastolic blood pressure 60 mm[Hg] Dr. Anastasia Weems MD Work Phone: [facility] 09-02-2024 07:53-0400 Heart rate 73 /min Dr. Anastasia Weems MD Work Phone: [facility] 09-02-2024 07:53-0400 Respiratory rate 16 /min Dr. Anastasia Weems MD Work Phone: [facility] 09-02-2024 07:53-0400 SaO2% (BldA) [Mass fraction] 99 % Dr. Anastasia Weems MD Work Phone: [facility] 09-02-2024 07:53-0400 Systolic blood pressure 109 mm[Hg] Dr. Anastasia Weems MD Work Phone: [facility] 09-01-2024 10:52-0400 Body height 162.[address] Anastasai Weems MD Work Phone: [facility] 09-01-2024 10:52-0400 Body weight 85.[address] Anastasia Weems MD Work Phone: [phone] [place] [address] 08-31-2024 10:06-0400 Body mass index (BMI) [Ratio] 32.4 kg/m2 Dr. Anastasia Weems MD Work Phone: [phone] [place] [address] 08-25-2024 16:22-0400 Body temperature 98.3 [degF] Dr. Anastasia Weems MD Work Phone: [phone])654-613345 [place] [address] 08-25-2024 16:22-0400 Diastolic blood pressure 61 mm[Hg] Dr. Anastasia Weems MD Work Phone: [phone])603-605545 [place] [address] 08-25-2024 16:22-0400 Heart rate 92 /min Dr. Anastasia Weems MD Work Phone: [phone] [place] [address] 08-25-2024 16:22-0400 Respiratory rate 18 /min Dr. Anastasia Weems MD Work Phone: [phone] [place] [address] 08-25-2024 16:22-0400 SaO2% (BldA) [Mass fraction] 95 % Dr. Anastasia Weems MD Work Phone: [phone] [place] [address] 08-25-2024 16:22-0400 Systolic blood pressure 118 mm[Hg] Dr. Anastasia Weems MD Work Phone: [phone] [place] [address] 08-25-2024 05:06-0400 Body mass index (BMI) [Ratio] 31.1 kg/m2 Dr. Anastasia Weems MD Work Phone: [phone] [place] [address] 08-25-2024 05:06-0400 Body weight 82.[address] Anastasia Weems MD Work Phone: [phone])[phone] [place] [address] 08-24-2024 00:41-0400 Body height 162.[address] Anastasia Weems MD Work Phone: [phone])310-670745 [place] [address] 08-23-2024 23:13-0400 Body mass index (BMI) [Ratio] 32.2 kg/m2 Dr. Anastasia Weems MD Work Phone: [facility] 08-23-2024 23:13-0400 Body weight 85.[address] Anastasia Weems MD Work Phone: [facility] 08-23-2024 23:00-0400 Diastolic blood pressure 63 mm[Hg] Dr. Anastasia Weems MD Work Phone: [facility] 08-23-2024 23:00-0400 Heart rate 78 /min Dr. Anastasia Weems MD Work Phone: [facility] 08-23-2024 23:00-0400 Respiratory rate 16 /min Dr. Anastasia Weems MD Work Phone: [facility] 08-23-2024 23:00-0400 SaO2% (BldA) [Mass fraction] 95 % Dr. Anastasia Weems MD Work Phone: [facility] 08-23-2024 23:00-0400 Systolic blood pressure 97 mm[Hg] Dr. Anastasia Weems MD Work Phone: [facility] 08-23-2024 22:00-0400 Body temperature 98 [degF] Dr. Anastasia Weems MD Work Phone: [facility] 08-23-2024 14:31-0400 Body height 162.[address] Anastasia Weems MD Work Phone: [facility] 02-17-2023 14:14-0500 Body height 162.[address] Anastasia Weems Work Phone: [facility] 02-17-2023 14:14-0500 Body mass index (BMI) [Ratio] 32.4 kg/m2 Dr. Anastasia Weems Work Phone: [facility] 02-17-2023 14:14-0500 Body temperature 98.5 [degF] Dr. Anastasia Weems Work Phone: [facility] 02-17-2023 14:14-0500 Body weight 85.[address] Anastasia Weems Work Phone: [facility] 02-17-2023 14:14-0500 Diastolic blood pressure 79 mm[Hg] Dr. Anastasia Weems Work Phone: [facility] 02-17-2023 14:14-0500 Heart rate 64 /min Dr. Anastasia Weems Work Phone: [facility] 02-17-2023 14:14-0500 Respiratory rate 18 /min Dr. Anastasia Weems Work Phone: [facility] 02-17-2023 14:14-0500 SaO2% (BldA) [Mass fraction] 97 % Dr. Anastasia Weems Work Phone: [facility] 02-17-2023 14:14-0500 Systolic blood pressure 148 mm[Hg] Dr. Anastasia Weems Work Phone: [facility] 11-23-2022 10:31-0400 Body height 162.[address] Anastasia Weems Work Phone: [facility] 11-23-2022 10:31-0400 Body mass index (BMI) [Ratio] 33.5 kg/m2 Dr. Anastasia Weems Work Phone: [facility] 11-23-2022 10:31-0400 Body temperature 98.4 [degF] Dr. Anastasia eWems Work Phone: [facility] 11-23-2022 10:31-0400 Body weight 88.[address] Anastasia Weems Work Phone: [facility] 11-23-2022 10:31-0400 Diastolic blood pressure 88 mm[Hg] Dr. Anastasia Weems Work Phone: [facility] 11-23-2022 10:31-0400 Heart rate 67 /min Dr. Anastasia Weems Work Phone: [facility] 11-23-2022 10:31-0400 Respiratory rate 18 /min Dr. Anastasia Weems Work Phone: [facility] 11-23-2022 10:31-0400 SaO2% (BldA) [Mass fraction] 93 % Dr. Anastasia Weems Work Phone: [facility] 11-23-2022 10:31-0400 Systolic blood pressure 154 mm[Hg] Dr. Anastasia Weems Work Phone: [facility] 02-20-2022 14:21-0500 Body height 162.[address] Anastasia Weems Work Phone: [facility] 02-20-2022 14:13-0500 Body mass index (BMI) [Ratio] 33.9 kg/m2 Dr. Anastasia Weems Work Phone: [facility] 02-20-2022 14:13-0500 Body temperature 98.4 [degF] Dr. Anastasia Weems Work Phone: [facility] 02-20-2022 14:13-0500 Body weight 89.[address] Anastasia Weems Work Phone: [facility] 02-20-2022 14:13-0500 Diastolic blood pressure 86 mm[Hg] Dr. Anastasia Weems Work Phone: [facility] 02-20-2022 14:13-0500 Heart rate 61 /min Dr. Anastasia Weems Work Phone: [facility] 02-20-2022 14:13-0500 Respiratory rate 16 /min Dr. Anastasia Weems Work Phone: [facility] 02-20-2022 14:13-0500 SaO2% (BldA) [Mass fraction] 97 % Dr. Anastasia Weems Work Phone: [facility] 02-20-2022 14:13-0500 Systolic blood pressure 147 mm[Hg] Dr. Anastasia Weems Work Phone: [facility] 10-09-2021 10:52-0400 Body height 162.56 cm [facility] Work Phone: 06-15-2020 13:04-0500 Body temperature 97.9 [degF] Dr. Anastasia Weems Work Phone: [facility] 06-15-2020 13:04-0500 Body weight 90.[address] Anastasia Weems Work Phone: [facility] 06-15-2020 13:04-0500 Diastolic blood pressure 82 mm[Hg] Dr. Anastasia Weems Work Phone: [facility] 06-15-2020 13:04-0500 Heart rate 64 /min Dr. Anastasia Weems Work Phone: [facility] 06-15-2020 13:04-0500 Respiratory rate 14 /min Dr. Anastasia Weems Work Phone: [facility] 06-15-2020 13:04-0500 SaO2% (BldA) [Mass fraction] 98 % Dr. Anastasia Weems Work Phone: [facility] 06-15-2020 13:04-0500 Systolic blood pressure 147 mm[Hg] Dr. Anastasia Weems Work Phone: [facility] 05-23-2020 14:55-0500 Body mass index (BMI) [Ratio] 34.4 kg/m2 Dr. Anastasia Weems Work Phone: [facility] Encounters Encounter Date Encounter Type Care Provider Facility Start: 09-15-2024 ambulatory Urban Dee Facility:[facility] Start: 09-13-[address] Urban nicholson MD -Physical Therapy Work Phone: Start: 09-09-2024 End: 09-09-2024 Patient encounter procedure Marjan RADFORD -[facility] Work Phone: Start: 09-09-2024 End: 09-09-[address] Anastasia Weems MD Work Phone: [facility] Work Phone: Start: 09-09-2024 End: 09-09-[address] Anastasia Weems MD Work Phone: [facility] Work Phone: Start: 09-09-2024 End: 09-09-2024 [facility]NAGEMENT COORDINATOR-C -[facility] Work Phone: Start: 09-09-2024 End: 09-09-2024 ambulatory Marcel [facility] PROPERTY MANAGEMENT COORDINATOR Facility:[facility] Start: 09-07-[address] Urban nicholson MD -Physical Therapy Work Phone: Start: 09-03-2024 End: 09-03-[address] Anastasia Weems MD Work Phone: [facility] Work Phone: Start: 09-03-2024 End: 09-03-[address] Anastasia Weems MD -Laboratory [facility] Work Phone: Start: 09-03-2024 End: 09-03-2024 ambulatory Anastasia Weems Facility:[facility] Start: 09-01-2024 End: 09-01-[address] Anastasia Weems MD Work Phone: [facility] Work Phone: Start: 09-01-2024 End: 09-01-[address] Urban Dee MD -Cat Scan [facility] Work Phone: Start: 09-01-2024 End: 09-01-2024 ambulatory Urban Dee Facility:[facility] Start: 08-30-2024 Non-patient / Non-visit Jeff Carrasco DO -[facility] Start: 08-30-2024 ambulatory Urban Dee Facility:[facility] Start: 08-30-2024 Non-patient / Non-visit Dr. Anton Rolon MD -[facility] Start: 08-30-2024 End: 08-30-[address] Urban Dee MD -Cardiovascular Services Work Phone: Start: 08-30-2024 End: 08-30-2024 ambulatory Urban Dee Facility:[facility] Start: 08-25-2024 ambulatory [facility] Facility:[facility] Start: 08-25-2024 End: 09-02-2024 Evaluation and management of inpatient Dr. Urban Dee MD -Transitional Care Unit Start: 08-25-2024 Non-patient / Non-visit Dr. Renzo Bennett -[place] Work Phone: Start: 08-24-2024 Non-patient / Non-visit Dr. Renzo Bennett [facility] Work Phone: Start: 08-23-2024 End: 08-25-2024 ambulatory Arthur Duval Facility:[facility] Start: 08-23-2024 End: 08-25-2024 Evaluation and management of inpatient Dr. Arthur Duval DO -Medical Surgical 3 Work Phone: Start: 08-23-2024 End: 08-25-[address] Anastasia Weems MD Work Phone: [facility] Work Phone: Start: 08-18-2024 End: 08-18-[address] Anastasia Weems MD Work Phone: [facility] Work Phone: Start: 08-18-2024 End: 08-18-[address] [facility] Start: 08-18-2024 End: 08-18-2024 ambulatory Anastasia Weems Facility:[facility] Start: 05-07-2024 End: 05-07-[address] [facility] Start: 05-07-2024 End: 05-07-2024 ambulatory Anastasia Weems Facility:[facility] Start: 02-12-2024 End: 02-12-2024 ambulatory Anastasia Weems Facility:[facility] Start: 01-14-2024 End: 01-14-2024 ambulatory Anastasia Weems Facility:[facility] Start: 01-05-2024 End: 01-05-2024 ambulatory Anastasia Weems Facility:[facility] Start: 04-30-2023 End: 04-30-[address] Anastasia Weems Work Phone: [facility] Work Phone: Start: 04-30-2023 End: 04-30-[address] Anastasia Weems Work Phone: [facility] Start: 03-18-2023 End: 03-19-2023 ambulatory JOHN ALANIS MD Facility:[facility] Start: 03-18-2023 End: 03-18-2023 Patient encounter procedure JOHN ALANIS MD [facility] Start: 02-24-2023 End: 02-24-[address] Anastasia Weems Work Phone: [facility] Work Phone: Start: 02-24-2023 End: 02-24-[address] Anastasia Weems Work Phone: [facility] Start: 02-17-[address] Anastasia Weems Work Phone: [facility] Start: 02-17-2023 End: 02-17-[address] Anastasia Weems Work Phone: [facility] Work Phone: Start: 02-03-2023 End: 02-03-[address] Anastasia Weems Work Phone: [facility] Work Phone: Start: 02-03-2023 End: 02-03-[address] Anastasia Weems Work Phone: [facility] Work Phone: Start: 12-13-2022 End: 12-13-[address] Anastasia Weems Work Phone: [facility] Work Phone: Start: 12-13-2022 End: 12-13-[address] Anastasia Weems Work Phone: [facility] Work Phone: Start: 11-23-2022 End: 11-23-[address] Anastasia Weems Work Phone: [facility] Work Phone: Start: 05-20-2022 End: 05-20-[address] Anastasia Weems Work Phone: [facility] Work Phone: Start: 05-20-2022 End: 05-20-[address] Anastasia Weems Work Phone: [facility] Start: 02-20-[address] Anastasia Weems Work Phone: [facility] Start: 02-20-2022 End: 02-20-[address] Anastasia Weems Work Phone: [facility] Start: 01-21-2022 End: 01-21-2022 ambulatory [facility] Work Phone: Start: 01-21-2022 End: 01-21-2022 Patient encounter procedure [facility] Start: 10-09-2021 End: 10-09-2021 Patient encounter procedure [facility]-Outpatient Bone Densitometry Start: 09-18-2021 End: 09-18-2021 Patient encounter procedure [facility] Start: 09-04-2017 End: 09-05-2017 Ambulatory WILBERT [facility] Procedures Date Procedure Procedure Detail Performing Clinician Start: 09-09-[address] Anastasia Weems MD Work Phone: Start: 09-03-2024 Total iron binding c apacity measurement Dr. Anastasia Weems MD Work Phone: Start: 09-01-2024 Computed tomography of abdomen and pelvis with contrast Dr. Anastasia Weems MD Work Phone: Start: 08-26-2024 Measurement of occul t blood in stool specimen using immunoassay Dr. Anastasia Weems MD Work Phone: Start: 08-26-[address] Anastasia Weems MD Work Phone: Start: 08-26-2024 Total iron binding c apacity measurement Dr. Anastasia Weems MD Work Phone: Start: 08-25-2024 Plain X-ray abdomen Dr. Anastasia Weems MD Work Phone: Start: 08-25-2024 X-ray of foot, three or more views Dr. Anastasia Weems MD Work Phone: Start: 08-25-2024 End: 08-25-2024 X-ray of ankle, three or more views Dr. Anastasia Weems MD Work Phone: Start: 08-25-2024 Serum inorganic phos phate measurement Dr. Anastasia Weems MD Work Phone: Start: 08-24-2024 MRI of lower extremity Dr. Anastasia Weems MD Work Phone: Start: 08-24-[address] Anastasia Weems MD Work Phone: Start: 08-23-2024 Urnls dip stick/tabl et reagent auto microscopy Dr. Anastasia Weems MD Work Phone: Start: 08-23-2024 Plain X-ray of femur Dr Charles Weems MD Work Phone: Start: 08-23-2024 Plain x-ray of humerus Dr. Anastasia Weems MD Work Phone: Start: 08-23-2024 Plain X-ray of tibia and fibula Dr. Anastasia Weems MD Work Phone: Start: 08-23-2024 CT cervical spine wi thout contrast Dr. Anastasia Weems MD Work Phone: Start: 08-23-[address] Anastasia mathew MD Work Phone: Start: 08-23-2024 CT of head without contrast Dr. Anastasia Weems MD Work Phone: Start: 08-23-2024 CT of thorax, abdome n and pelvis with contrast Dr. Anastasia Weems MD Work Phone: Start: 08-18-2024 Urnls dip stick/tabl et reagent auto microscopy Dr. Anastasia Weems MD Work Phone: Start: 08-18-2024 Vitamin D, 25-hydrox y measurement Dr. Anastasia Weems MD Work Phone: Comment on above: Vitamin D StatusDefi ciency: <20 ng/mL (50nmol/L)Insufficiency: 20-30 ng/mL (50-75 nmol/L)Sufficiency: 30-100 ng/mL (75-250 nmol/L)Toxicity: >100 ng/mL (>250 nmol/L) Start: 05-07-2024 X-ray of chest, PA a nd lateral views Dr. Anastasia Weems MD Work Phone: Start: 02-03-2023 MRI of brain with contrast Dr. Anastasia Weems Work Phone: Start: 12-13-2022 Plain chest X-ray Dr. Shaji Weems Work Phone: Start: 10-09-2021 Dual energy X-ray absorptiometry Arthroplasty of knee YUE ALANIS MD Comment on above: bilateral 2006 & 200 8 Back structure, excl uding neck (body structure) JOHN ALANIS MD Comment on above: bone chip removed 20 16 Cataract (disorder) JOHN ALANIS MD Comment on above: bilateral 2016 Cholecystectomy JOHN SCHILLING MD Comment on above: 2009 Cyst (disorder) JOHN SCHILLING MD Comment on above: cyst removal from le ft elbow 2019 Cyst of Bartholin's gland duct (disorder) JOHN ALANIS MD Dentition (body structure) Shon ALANIS MD Comment on above: dental extraction duran s upper denture and partial lower Hysterectomy JOHN HAJI MD Comment on above: 1987 Knee region structur e (body structure) JOHN ALANIS MD Comment on above: right knee revision 10/2017 Lipoma of abdominal wall (disorder) JOHN ALANIS MD Neurostimulator, dev ice (physical object) JOHN ALANIS MD Tonsillectomy JOHN MORRIS MD Plan of Treatment Date Care Activity Detail Author Start: 09-02-2024 Patient discharge [facility] Start: 09-01-2024 Development of care plan [facility] Start: 08-31-2024 [facility] Start: 08-30-2024 [facility] Start: 08-26-2024 Referral to gastroen terology service [facility] Start: 08-26-2024 Development of care plan [facility] Start: 08-26-2024 Developing a treatment plan [facility] Start: 08-26-2024 Following clinical p athway protocol [facility] Start: 08-25-2024 Wound care [facility] Start: 08-25-2024 Following clinical p athway protocol [facility] Start: 08-25-2024 Admission procedure [facility] Start: 08-25-2024 Introduction of urinary catheter [facility] Start: 08-25-2024 Measuring intake and output [facility] Start: 08-25-2024 Patient referral to dietitian [facility] Start: 08-25-2024 Referral to occupational therapist [facility] Start: 08-25-2024 Referral to service [facility] Start: 08-25-2024 Vital signs measurements [facility] Start: 08-25-2024 End: 08-25-2024 [facility] Start: 08-25-2024 Care regimes management [facility] Start: 08-25-2024 Patient discharge [facility] Start: 08-24-2024 Provision of activity privileges [facility] Start: 08-24-2024 [facility] Start: 08-24-2024 Consultation [facility] Start: 08-24-2024 Wound care [facility] Start: 08-24-2024 Consultation for treatment [facility] Start: 08-24-2024 Care planning and pr oblem solving actions [facility] Start: 08-24-2024 Following clinical p athway protocol [facility] Start: 08-24-2024 Application of inter mittent pneumatic compression device [facility] Start: 08-24-2024 Assessment of risk o f venous thromboembolism [facility] Start: 08-24-2024 Incentive spirometry [facility] Start: 08-24-2024 Insertion of cathete r into peripheral vein [facility] Start: 08-24-2024 Measuring intake and output [facility] Start: 08-24-2024 Oxygen therapy [facility] Start: 08-24-2024 Providing care accor ding to standard [facility] Start: 08-24-2024 Provision of activity privileges [facility] Start: 08-24-2024 Referral to occupational therapist [facility] Start: 08-24-2024 Referral to service [facility] Start: 08-24-2024 Seizure precautions [facility] Start: 08-24-2024 [facility] Start: 08-24-2024 Inhalation therapy procedure [facility] Start: 08-23-2024 Magnesium measurement [facility] Start: 08-23-2024 Thyroid stimulating hormone measurement [facility] Start: 08-23-2024 Verification routine [facility] Start: 08-23-2024 Admission procedure [facility] Start: 08-23-2024 Hospital admission, emergency, from emergency room, medical nature [facility] Start: 08-23-2024 [facility] Start: 08-23-2024 [facility] Start: 05-15-2020 [facility] Start: 03-20-2020 [facility] CBC W Auto Different ial panel - Blood [facility] Measurement of occul t blood in stool specimen using immunoassay [facility] Phone[facility] Immunizations Immunization Date Immunization Notes Care Provider Fa cility 06-01-2020 Covid ([facility] 05-04-2020 Covid ([facility] 01-12-2017 Influenza virus vaccine [facility] Payers Date Payer Category Payer Medicare [id number] 2020 Self-pay [id number] 1935 Unknown [id number] 2.16.8 [id number] Medicare [id number] Medicare [id number] Unknown [id number] 2.16.8 [id number] Unknown [id number] 2.16.8 [id number] Unknown [id number] 2.16.8 [id number] Unknown [id number] 2.16.8 [id number] Unknown [id number] 2.16.8 [id number] Unknown [id number] 2.16.8 [id number] Unknown [id number] 2.16.8 [id number] Unknown [id number] 2.16.8 [id number] Unknown [id number] 2.16.8 [id number] Unknown [id number] 2.16.8 [id number] Unknown [id number] 2.16.8 [id number] Unknown [id number] 2.16.8 [id number] Unknown [id number] 2.16.8 [id number] Unknown [id number] 2.16.8 [id number] Unknown [id number] 2.16.8 [id number] Unknown [id number] 2.16.8 [id number] Unknown [id number] 2.16.8 [id number] Unknown [id number] 2.16.8 [id number] Unknown [id number] 2.16.8 [id number] Unknown [id number] 2.16.8 [id number] Unknown [id number] 2.16.8 [id number] Social History Date Type Detail Facility Start: 06-15-2020 End: 11-23-2022 Tobacco smoking status ORIS Unknown if ever smoked [facility] Start: 06-15-2020 Non-smoker [facility] Start: 1935 Sex Assigned At Female [facility] Start: 03-14-2023 End: 09-09-2024 Tobacco smoking status Never smoked tobacco (finding) [facility] Medical Equipment Procedure Code Equipment Code Equipment Origin al Text Equipment Identifier Dates DOUGH,CEMENT 6191-1-010 FDA Start: 10-13-[address] AB FEM COMP FDA Start: 10-13-[address] AB TIB INSERT FDA Start: 10-13-2017 TRIATHLON UNIV T IB BASEPLATE FDA Start: 10-13-2017 DOUGH,CEMENT 6191-1-010 FDA Start: 10-13-2017 TRIATHLON FEM POSTERIOR AUGMNT FDA Start: 10-13-2017 TRIATHLON FLUTED STEM FDA Start: 10-13-2017 TRIATHLON FLUTED STEM FDA Start: 10-13-2017 TRIATHLON OFFSET ADAPTER FDA Start: 10-13-2017 TRIATHLON OFFSET ADAPTER FDA Start: 10-13-2017 TRIATHLON TIB AU GMNT 1/2 BLOCK FDA Start: 10-13-2017 TRIATHLON TIB AU GMNT 1/2 BLOCK FDA Start: 10-13-2017 AVISTA MRI PERC LEAD KIT 56CM FDA Start: 01-02-2018 AVISTA MRI PERC LEAD KIT 56CM FDA Start: 01-02-2018 [employer] PRECISION MONTAGE SPINAL CORD STIMULATOR FDA Start: 01-02-2018 [employer] PRECISION MONTAGE SPINAL CORD STIMULATOR FDA Start: 01-02-2018 [employer] PRECISION MONTAGE SPINAL CORD STIMULATOR FDA Start: 01-02-2018 CLIK X MRI ANCHOR FDA Start: 01-02-2018 PRECISION MONTAG E MRI IPG KIT FDA Start: 01-02-2018 DOUGH,CEMENT 6191-1-010 FDA Start: 10-13-[address] AB FEM COMP FDA Start: 10-13-[address] AB TIB INSERT FDA Start: 10-13-2017 TRIATHLON UNIV T IB BASEPLATE FDA Start: 10-13-2017 DOUGH,CEMENT 6191-1-010 FDA Start: 10-13-2017 TRIATHLON FEM POSTERIOR AUGMNT FDA Start: 10-13-2017 TRIATHLON FLUTED STEM FDA Start: 10-13-2017 TRIATHLON FLUTED STEM FDA Start: 10-13-2017 TRIATHLON OFFSET ADAPTER FDA Start: 10-13-2017 TRIATHLON OFFSET ADAPTER FDA Start: 10-13-2017 TRIATHLON TIB AU GMNT 1/2 BLOCK FDA Start: 10-13-2017 TRIATHLON TIB AU GMNT 1/2 BLOCK FDA Start: 10-13-2017 AVISTA MRI PERC LEAD KIT 56CM FDA Start: 01-02-2018 AVISTA MRI PERC LEAD KIT 56CM FDA Start: 01-02-2018 [employer] PRECISION MONTAGE SPINAL CORD STIMULATOR FDA Start: 01-02-2018 [employer] PRECISION MONTAGE SPINAL CORD STIMULATOR FDA Start: 01-02-2018 [employer] PRECISION MONTAGE SPINAL CORD STIMULATOR FDA Start: 01-02-2018 CLIK X MRI ANCHOR FDA Start: 01-02-2018 PRECISION MONTAG E MRI IPG KIT FDA Start: 01-02-2018 WESTLEY HARRIS 6191-1-010 FDA Start: 10-13-[address] AB FEM COMP FDA Start: 10-13-[address] AB TIB INSERT FDA Start: 10-13-2017 TRIATHLON UNIV T IB BASEPLATE FDA Start: 10-13-2017 WESTLEY HARRIS 6191-1-010 FDA Start: 10-13-2017 TRIATHLON FEM POSTERIOR AUGMNT FDA Start: 10-13-2017 TRIATHLON FLUTED STEM FDA Start: 10-13-2017 TRIATHLON FLUTED STEM FDA Start: 10-13-2017 TRIATHLON OFFSET ADAPTER FDA Start: 10-13-2017 TRIATHLON OFFSET ADAPTER FDA Start: 10-13-2017 TRIATHLON TIB AU GMNT 1/2 BLOCK FDA Start: 10-13-2017 TRIATHLON TIB AU GMNT 1/2 BLOCK FDA Start: 10-13-2017 AVISTA MRI PERC LEAD KIT 56CM FDA Start: 01-02-2018 AVISTA MRI PERC LEAD KIT 56CM FDA Start: 01-02-2018 [employer] PRECISION MONTAGE SPINAL CORD STIMULATOR FDA Start: 01-02-2018 [employer] PRECISION MONTAGE SPINAL CORD STIMULATOR FDA Start: 01-02-2018 [employer] PRECISION MONTAGE SPINAL CORD STIMULATOR FDA Start: 01-02-2018 CLIK X MRI ANCHOR FDA Start: 01-02-2018 PRECISION MONTAG E MRI IPG KIT FDA Start: 01-02-2018 STEVEN,CEMENT 6191-1-010 FDA Start: 10-13-[address] AB FEM COMP FDA Start: 10-13-[address] AB TIB INSERT FDA Start: 10-13-2017 TRIATHLON UNIV T IB BASEPLATE FDA Start: 10-13-2017 STEVEN,CEMENT 6191-1-010 FDA Start: 10-13-2017 TRIATHLON FEM POSTERIOR AUGMNT FDA Start: 10-13-2017 TRIATHLON FLUTED STEM FDA Start: 10-13-2017 TRIATHLON FLUTED STEM FDA Start: 10-13-2017 TRIATHLON OFFSET ADAPTER FDA Start: 10-13-2017 TRIATHLON OFFSET ADAPTER FDA Start: 10-13-2017 TRIATHLON TIB AU GMNT 1/2 BLOCK FDA Start: 10-13-2017 TRIATHLON TIB AU GMNT 1/2 BLOCK FDA Start: 10-13-2017 AVISTA MRI PERC LEAD KIT 56CM FDA Start: 01-02-2018 AVISTA MRI PERC LEAD KIT 56CM FDA Start: 01-02-2018 [employer] PRECISION MONTAGE SPINAL CORD STIMULATOR FDA Start: 01-02-2018 [employer] PRECISION MONTAGE SPINAL CORD STIMULATOR FDA Start: 01-02-2018 [employer] PRECISION MONTAGE SPINAL CORD STIMULATOR FDA Start: 01-02-2018 CLIK X MRI ANCHOR FDA Start: 01-02-2018 PRECISION MONTAG E MRI IPG KIT FDA Start: 01-02-2018 STEVEN,CEMENT 6191-1-010 FDA Start: 10-13-[address] AB FEM COMP FDA Start: 10-13-[address] AB TIB INSERT FDA Start: 10-13-2017 TRIATHLON UNIV T IB BASEPLATE FDA Start: 10-13-2017 STEVEN,CEMENT 6191-1-010 FDA Start: 10-13-2017 TRIATHLON FEM POSTERIOR AUGMNT FDA Start: 10-13-2017 TRIATHLON FLUTED STEM FDA Start: 10-13-2017 TRIATHLON FLUTED STEM FDA Start: 10-13-2017 TRIATHLON OFFSET ADAPTER FDA Start: 10-13-2017 TRIATHLON OFFSET ADAPTER FDA Start: 10-13-2017 TRIATHLON TIB AU GMNT 1/2 BLOCK FDA Start: 10-13-2017 TRIATHLON TIB AU GMNT 1/2 BLOCK FDA Start: 10-13-2017 AVISTA MRI PERC LEAD KIT 56CM FDA Start: 01-02-2018 AVISTA MRI PERC LEAD KIT 56CM FDA Start: 01-02-2018 [employer] PRECISION MONTAGE SPINAL CORD STIMULATOR FDA Start: 01-02-2018 [employer] PRECISION MONTAGE SPINAL CORD STIMULATOR FDA Start: 01-02-2018 [employer] PRECISION MONTAGE SPINAL CORD STIMULATOR FDA Start: 01-02-2018 CLIK X MRI ANCHOR FDA Start: 01-02-2018 PRECISION MONTAG E MRI IPG KIT FDA Start: 01-02-2018 DOUGH,CEMENT 6191-1-010 FDA Start: 10-13-[address] AB FEM COMP FDA Start: 10-13-[address] AB TIB INSERT FDA Start: 10-13-2017 TRIATHLON UNIV T IB BASEPLATE FDA Start: 10-13-2017 DOUGH,CEMENT 6191-1-010 FDA Start: 10-13-2017 TRIATHLON FEM POSTERIOR AUGMNT FDA Start: 10-13-2017 TRIATHLON FLUTED STEM FDA Start: 10-13-2017 TRIATHLON FLUTED STEM FDA Start: 10-13-2017 TRIATHLON OFFSET ADAPTER FDA Start: 10-13-2017 TRIATHLON OFFSET ADAPTER FDA Start: 10-13-2017 TRIATHLON TIB AU GMNT 1/2 BLOCK FDA Start: 10-13-2017 TRIATHLON TIB AU GMNT 1/2 BLOCK FDA Start: 10-13-2017 AVISTA MRI PERC LEAD KIT 56CM FDA Start: 01-02-2018 AVISTA MRI PERC LEAD KIT 56CM FDA Start: 01-02-2018 [employer] PRECISION MONTAGE SPINAL CORD STIMULATOR FDA Start: 01-02-2018 [employer] PRECISION MONTAGE SPINAL CORD STIMULATOR FDA Start: 01-02-2018 [employer] PRECISION MONTAGE SPINAL CORD STIMULATOR FDA Start: 01-02-2018 CLIK X MRI ANCHOR FDA Start: 01-02-2018 PRECISION MONTAG E MRI IPG KIT FDA Start: 01-02-2018 DOUGH,CEMENT 6191-1-010 FDA Start: 10-13-[address] AB FEM COMP FDA Start: 10-13-[address] AB TIB INSERT FDA Start: 10-13-2017 TRIATHLON UNIV T IB BASEPLATE FDA Start: 10-13-2017 DOUGH,CEMENT 6191-1-010 FDA Start: 10-13-2017 TRIATHLON FEM POSTERIOR AUGMNT FDA Start: 10-13-2017 TRIATHLON FLUTED STEM FDA Start: 10-13-2017 TRIATHLON FLUTED STEM FDA Start: 10-13-2017 TRIATHLON OFFSET ADAPTER FDA Start: 10-13-2017 TRIATHLON OFFSET ADAPTER FDA Start: 10-13-2017 TRIATHLON TIB AU GMNT 1/2 BLOCK FDA Start: 10-13-2017 TRIATHLON TIB AU GMNT 1/2 BLOCK FDA Start: 10-13-2017 AVISTA MRI PERC LEAD KIT 56CM FDA Start: 01-02-2018 AVISTA MRI PERC LEAD KIT 56CM FDA Start: 01-02-2018 [employer] PRECISION MONTAGE SPINAL CORD STIMULATOR FDA Start: 01-02-2018 [employer] PRECISION MONTAGE SPINAL CORD STIMULATOR FDA Start: 01-02-2018 [employer] PRECISION MONTAGE SPINAL CORD STIMULATOR FDA Start: 01-02-2018 CLIK X MRI ANCHOR FDA Start: 01-02-2018 PRECISION MONTAG E MRI IPG KIT FDA Start: 01-02-2018 KEVINH,CEMENT 6191-1-010 FDA Start: 10-13-[address] AB FEM COMP FDA Start: 10-13-[address] AB TIB INSERT FDA Start: 10-13-2017 TRIATHLON UNIV T IB BASEPLATE FDA Start: 10-13-2017 DOUGH,CEMENT 6191-1-010 FDA Start: 10-13-2017 TRIATHLON FEM POSTERIOR AUGMNT FDA Start: 10-13-2017 TRIATHLON FLUTED STEM FDA Start: 10-13-2017 TRIATHLON FLUTED STEM FDA Start: 10-13-2017 TRIATHLON OFFSET ADAPTER FDA Start: 10-13-2017 TRIATHLON OFFSET ADAPTER FDA Start: 10-13-2017 TRIATHLON TIB AU GMNT 1/2 BLOCK FDA Start: 10-13-2017 TRIATHLON TIB AU GMNT 1/2 BLOCK FDA Start: 10-13-2017 AVISTA MRI PERC LEAD KIT 56CM FDA Start: 01-02-2018 AVISTA MRI PERC LEAD KIT 56CM FDA Start: 01-02-2018 [employer] PRECISION MONTAGE SPINAL CORD STIMULATOR FDA Start: 01-02-2018 [employer] PRECISION MONTAGE SPINAL CORD STIMULATOR FDA Start: 01-02-2018 [employer] PRECISION MONTAGE SPINAL CORD STIMULATOR FDA Start: 01-02-2018 CLIK X MRI ANCHOR FDA Start: 01-02-2018 PRECISION MONTAG E MRI IPG KIT FDA Start: 01-02-2018 STEVEN,CEMENT 6191-1-010 FDA Start: 10-13-[address] AB FEM COMP FDA Start: 10-13-[address] AB TIB INSERT FDA Start: 10-13-2017 TRIATHLON UNIV T IB BASEPLATE FDA Start: 10-13-2017 STEVEN,CEMENT 6191-1-010 FDA Start: 10-13-2017 TRIATHLON FEM POSTERIOR AUGMNT FDA Start: 10-13-2017 TRIATHLON FLUTED STEM FDA Start: 10-13-2017 TRIATHLON FLUTED STEM FDA Start: 10-13-2017 TRIATHLON OFFSET ADAPTER FDA Start: 10-13-2017 TRIATHLON OFFSET ADAPTER FDA Start: 10-13-2017 TRIATHLON TIB AU GMNT 1/2 BLOCK FDA Start: 10-13-2017 TRIATHLON TIB AU GMNT 1/2 BLOCK FDA Start: 10-13-2017 AVISTA MRI PERC LEAD KIT 56CM FDA Start: 01-02-2018 AVISTA MRI PERC LEAD KIT 56CM FDA Start: 01-02-2018 B[employer] PRECISION MONTAGE SPINAL CORD STIMULATOR FDA Start: 01-02-2018 [employer] PRECISION MONTAGE SPINAL CORD STIMULATOR FDA Start: 01-02-2018 [employer] PRECISION MONTAGE SPINAL CORD STIMULATOR FDA Start: 01-02-2018 CLIK X MRI ANCHOR FDA Start: 01-02-2018 PRECISION MONTAG E MRI IPG KIT FDA Start: 01-02-2018 KEVINH,CEMENT 6191-1-010 FDA Start: 10-13-[address] AB FEM COMP FDA Start: 10-13-[address] AB TIB INSERT FDA Start: 10-13-2017 TRIATHLON UNIV T IB BASEPLATE FDA Start: 10-13-2017 WESTLEY HARRIS 6191-1-010 FDA Start: 10-13-2017 TRIATHLON FEM POSTERIOR AUGMNT FDA Start: 10-13-2017 TRIATHLON FLUTED STEM FDA Start: 10-13-2017 TRIATHLON FLUTED STEM FDA Start: 10-13-2017 TRIATHLON OFFSET ADAPTER FDA Start: 10-13-2017 TRIATHLON OFFSET ADAPTER FDA Start: 10-13-2017 TRIATHLON TIB AU GMNT 1/2 BLOCK FDA Start: 10-13-2017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 2024 Team Status: Active Member Role Status Dates Dr. Anastasia Weems MD Primary Care Provider Active Start: September 09, 2024 Marcel Salcedo PROPERTY MANAGEMENT COORDINATOR, PROPERTY MANAGEMENT COORDINATOR-C Attending Provider Active Start: September 09, 2024 Marcel Salcedo NP PROPERTY MANAGEMENT COORDINATOR-C Referring Provider Active Start: September 09, 2024 Team Status: Inactive Member Role Status Dates Dr. Anastasia Weems MD Primary Care Provider Active Start: September 09, 2024 End: September 09, 2024 Dr. Anastasia Weems MD Referring Provider Active Start: September 09, 2024 End: September 09, 2024 PRABHAKAR Tsai Attending Provider Active S tart: September 09, 2024 End: September 09, 2024 Team Status: Active Member Role Status Dates Dr. Anastasia Weems MD Primary Care Provider Active Start: August 25, 2024 Dr. Maykel Davila MD Emergency Provider Active Start: August 25, 2024 Dr. Arthur Duval DO Admit Provider Active Start: August 25, 2024 Dr. Arthur Duval DO Other Provider Active Start: August 25, 2024 Dr. Renzo Bennett DO Referring Provider Active Start: August 25, 2024 Dr. Renzo Bennett DO Other Provider Active S tart: August 25, 2024 Dr. Julian Ventura MD Other Provider Active Star t: August 25, 2024 Doris Jewell NP-C Attending Provider Active Start: August 25, 2024 Team Status: Active Member Role Status Dates Dr. Santi Carreon MD Attending Provider Active Start: August 25, 2024 Dr. Renzo Bennett DO Referring Provider Active Start: August 25, 2024 Team Status: Inactive Member Role Status Dates Dr. Anastasia Weems MD Primary Care Provider Active Start: September 09, 2024 End: September 09, 2024 DANITZA Bernard NPC Attending Provider Active Start: September 09, 2024 End: September 09, 2024 PRABHAKAR Bernard NP Referring Provider Active Start: September 09, 2024 End: September 09, 2024 Team Status: Active Member Role Status Dates Dr. Anastasia Weems MD Primary Care Provider Active Start: September 13, 2024 Dr. Urban Dee MD Attending Provider Active Start: September 13, 2024 Dr. Urban Dee MD Referring Provider Active Start: September 13, 2024 FOR RECORDS PERTAINING TO PATIENTS WHO ARE OR HAVE BEEN ENROLLED IN A CHEMICAL DEPENDENCY/SUBSTANCEABUSE PROGRAM, SOME INFORMATION MAY BE OMITTED. This clinical summary was aggregated from multiple sources. Caution should be exercised in using it in the provision of clinical care. This summary normalizes information from multiple sources, and as a consequence, information in this document may materially change the coding, format and clinical context of patient data. In addition, data may be omitted in some cases. CLINICAL DECISIONS SHOULD BE BASED ON THE PRIMARY CLINICAL RECORDS. [facility] [employer] [facility]. provides no warranty or guarantee of the accuracy or completeness of information in this document.
== END | disposition home or self-care (01) ==
LOC: LAB 15:48
PROVIDERS: PCP Family Medicine
DX: D50.0 Iron deficiency anemia secondary to blood loss (chronic) (principal)
CPT/HCPCS: 36415; 85025

== ENCOUNTER → 2024-09-20 | Outpatient (CLI) | payer MEDICARE, SELFPAY ==
[2022-11-23 10:07] VITALS: BMI 34.4
== END | disposition home or self-care (01) ==
LOC: LAB 07:47 → LABSPEC 07:47
PROVIDERS: PCP Family Medicine
DX: D50.0 Iron deficiency anemia secondary to blood loss (chronic) (principal); R10.9 Unspecified abdominal pain
CPT/HCPCS: 36415; 82274

== ENCOUNTER 2024-10-04 11:30 | Outpatient (RCR) | payer MEDICARE, SELFPAY ==
[2022-11-23 10:07] VITALS: BMI 34.4
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
== END 2024-10-04 19:00 | disposition home or self-care (01) ==
LOC: PT 11:30
PROVIDERS: PCP Family Medicine; Referring Provider Family Medicine Geriatric Medicine; Visit Provider Family Medicine Geriatric Medicine
DX: R53.81 Other malaise (principal)
CPT/HCPCS: 97110; 97163; 97530